=== PATIENT | female | born 1940 | race Caucasian/White ===

== ENCOUNTER → 2016-02-12 | Outpatient (CLI) | payer BC ==
[~2016-02-12] MED LIST: AMLO10CA PO; ANAS1TAB19 PO; ASPCH81X PO; ATOR10TA88 PO; CILO100T PO; HYDR-4715 PO; METO50TA16 PO; PTU50 PO
--- NOTE | 2016-02-13 15:36 | CODING QUERY NO DIAGNOSIS ---
TREATMENT RENDERED WITHOUT A DIAGNOSIS 39 To promote full compliance with coding requirements relating to patient care, physician participation is requested in all cases of station mechanic uncertainty. Please assist us with providing a diagnosis/symptom for the test(s) below: A diagnosis/symptom was not documented on your Order. A valid diagnosis/symptom is required to bill all insurances. Please remember that we are unable to code a diagnosis of rule out, probable, possible, questionable, or suspected. DOS 02/12/16 Tests that require a diagnosis: * DEXA SCAN DIAGNOSIS: Provider Signature: Date: Thank you Ginger Sullivan [facility] Information Management Once completed, please kindly fax back to [phone] For questions please call [phone]
--- NOTE | 2016-03-04 14:28 | CODING QUERY MEDICAL NECESSITY ---
SUPPORTING DIAGNOSIS NEEDED Dr. Jimenez, A supporting diagnosis is required for the test/procedure performed on this patient in order for us to be reimbursed by the patient's insurance. Please provide a supporting diagnosis for the following test/procedure listed below next to the test name along with your signature. *If there is no additional diagnosis for this patient that would support the following test/procedure please document that below next to the test/procedure. Test(s)/Procedure(s) that require a supporting diagnosis: * ([id number]) DXA BONE DENSITY, AXIAL DIAGNOSIS: DATE OF SERVICE: 02/12/16 Provider Signature: Date: Thank you Harlan Lynn [facility] Information Management Once completed, please kindly fax back to [phone] For questions please call [phone]
== END | disposition home or self-care (01) ==
LOC: C.MAMM 10:56
PROVIDERS: ATTEND Surgery
DX: Z13.820 Encounter for screening for osteoporosis (principal); Z85.3 Personal history of malignant neoplasm of breast

== ENCOUNTER → 2016-03-12 | Outpatient (CLI) | payer BC ==
[~2016-03-12] MED LIST changes: +OPTIRAY 320 IV PRN
--- NOTE | 2016-03-12 12:28 | DIAGNOSTIC IMAGING REPORT ---
CT ANGIOGRAM OF THE NECK COMBO CLINICAL HISTORY: Carotid artery stenosis. COMPARISON STUDY: CT angiogram the neck dated 10/01/2015. TECHNIQUE: Before and following the IV administration of 119 of Optiray 320, CT angiogram of the neck was performed from the aortic arch to the skull base. Images are reviewed in the axial, sagittal, and coronal planes. 3-D MIPS images are created and assessed. IV contrast was administered without complication. All measurements were calculated based on NASCET criteria. CT DOSE: 859.82 mGy.cm FINDINGS: Thoracic aorta: There is evidence carotid calcification of the imaged thoracic aorta. Visualized portions of the thoracic aorta are normal in caliber. The aortic arch demonstrates standard 3-vessel anatomy. 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 Subclavian arteries: Widely patent bilaterally. Right carotid arterial system: The right common carotid artery is widely patent, as are the right internal and external arteries. There is diminished contrast present within the distal right internal carotid artery within the intracranial right internal carotid artery, likely secondary to high-grade stenosis of the right innominate artery. Left carotid arterial system: The left common carotid artery is widely patent, as on the left internal and external carotid arteries. High-grade stenosis seen on 10/01/2015 has resolved, likely secondary to interval surgical intervention and mild irregularity of the vessel suggests postoperative change. There is high-grade stenosis present within the proximal external carotid artery (greater than 50%). This is best seen on axial image #306. Vertebral arteries: The vertebral arteries are widely patent bilaterally noting left-sided dominance. No dissection is seen. Intracranial vasculature: Visualized intracranial vessels at the skull base appear patent. Jugular veins: Widely patent bilaterally. Brain parenchyma: The visualized brain parenchyma the skull base is within normal limits noting mild age-related involutional change. Lung apices: Advanced emphysema is present in the upper lobes. Partially imaged upper lobe lung parenchyma is otherwise clear as visualized. Soft tissues: The visualized pharyngeal soft tissues are normal in appearance noting angiographic phase technique. The oropharyngeal airway appears widely patent. There are scattered subcentimeter thyroid nodules. The salivary glands are normal in appearance. No cervical lymphadenopathy is seen. Postoperative change is noted in the soft tissues of left neck. Skeletal structures: The visualized calvarium at the skull base appears intact. The imaged cervical spine is within normal limits. IMPRESSION: 1. The left internal carotid artery is widely patent, which represents a change from 10/01/2015. This is likely secondary to interval surgical intervention. 2. 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 3. The right carotid arterial system is widely patent. There is asymmetrically diminished contrast within the distal right internal carotid artery. This is likely related to the critical stenosis at the origin of the right innominate artery. 4. Advanced emphysema. 5. There is focal stenosis (greater than 50%) present in the left external carotid artery. Electronically signed by: Donnie Redding M.D. 03/12/2016 12:26 PM Dictated Date/Time: 03/12/2016 12:13 PM
== END | disposition home or self-care (01) ==
LOC: C.CTS 10:19
PROVIDERS: ATTEND Surgery Vascular Surgery
DX: I65.23 Occlusion and stenosis of bilateral carotid arteries (principal); J43.9 Emphysema, unspecified

== ENCOUNTER → 2016-06-04 | Outpatient (CLI) | payer BC ==
[~2016-06-04] MED LIST changes: +ATOR10TA82 PO; -ATOR10TA88 PO; -OPTIRAY 320 IV PRN
--- NOTE | 2016-06-04 14:56 | MAMMOGRAPHY REPORT ---
BILATERAL DIGITAL DIAGNOSTIC MAMMOGRAM TOMOSYNTHESIS WITH CAD: 06/04/2016 CLINICAL HISTORY: History of right breast cancer status post lumpectomy 2012. Short interval follow -up of right breast calcifications. Also due for routine mammography of the left breast. The patie nt reports no current complaints. TECHNIQUE: Breast tomosynthesis in addition to standard 2D mammography was performed. Current study was also evaluated with a Computer Aided Detection (CAD) system. Bilateral CC and MLO 2-D and crystal synthesis images and spot magnification right cc and ML views were obtained. COMPARISON: Comparison is made to exams dated: 12/03/2015 mammogram, 06/02/2015 mammogram, 05/29/2014 ultrasound, 05/29/2014 mammogram, 11/22/2013 mammogram, and 05/23/2013 ultrasound - [facility]. BREAST COMPOSITION: The tissue of both breasts is heterogeneously dense, which may obscure small ma sses. FINDINGS: There are stable postoperative changes in the right upper outer quadrant posteriorly from prior lumpectomy, including stable density, architectural distortion, and surgical clips at the lump ectomy bed. Spot magnification views again demonstrate at least 2 round loosely grouped benign-appe aring calcifications at the lumpectomy bed, which are stable dating back to the May 2015 exam. A coarse benign rim calcification is also seen at the lumpectomy bed. The calcifications are probably benign given the morphology and 1 year of stability. The remainder of both breasts are stable compared to prior exams, without suspicious masses, calcifi cations, or areas of architectural distortion noted. IMPRESSION: ACR-BI-RADS CATEGORY 3: PROBABLY BENIGN Loosely grouped round benign-appearing calcifications at the lumpectomy bed in the right upper outer quadrant are stable dating back to the May 2015 exam, and are probably benign. Recommend bilater al diagnostic tomosynthesis mammograms in 12 months, to confirm 2 years of stability of the right br east calcifications and for routine mammography of the left breast. The patient has been verbally notified of the results. Approximately 10% of breast cancers are not detected with mammography. A negative mammographic repor t should not delay biopsy if a clinically suggestive mass is present. Maribel Anaya M.D. ah/:06/04/2016 11:16:28 [employer]: Yoselin TORRES(Elsa)(M), [facility] letter sent: Follow Up Recommended 3 BI-RADS Code: ACR-BI-RADS Category 3: Probably Benign
== END | disposition home or self-care (01) ==
LOC: C.MAMM 10:18
PROVIDERS: ATTEND Surgery
DX: R92.1 Mammographic calcification found on diagnostic imaging of breast (principal); Z85.3 Personal history of malignant neoplasm of breast

== ENCOUNTER 2018-02-17 14:57 | Inpatient (IN) ==
[2018-02-17] MEDS ORDERED: ALBUT/IPRATROP 3MG/0.5MG NEB 3 ML VIAL INH STA (15:24)
[2018-02-17 15:57] LABS: Base Excess VBG 2.4 mEq/L; HCO3 VBG 28 mmol/L; PCO2 VBG 45 mmHg (38-50); PO2 VBG 29 mmHg; pH VBG 7.41 (7.36-7.41)
--- NOTE | 2018-02-17 15:58 | XRay Report ---
XR chest 1V portable CLINICAL HISTORY: Shortness of breath. COMPARISON STUDY: Chest radiograph December 22, 2015. FINDINGS: Interstitial thickening is noted. There are moderate bilateral pleural effusions with bibas ilar opacities. There is no pneumothorax. Mild cardiomegaly is noted. IMPRESSION: Interstitial pulmonary edema with moderate bilateral pleural effusions and bibasilar opac ities which favor atelectasis. Electronically signed by: Jaiden Ruiz M.D. 02/17/2018 3:56 PM
[2018-02-17 16:02] LABS: Oxygen Saturation VBG < 60.0 %
[2018-02-17] MEDS ORDERED: FUROSEMIDE 40 MG/4 ML VIAL IV STA (16:03)
[2018-02-17] MEDS ORDERED: NITROGLYCERIN 2% OINTMENT 30GM TUBE EXT STA (16:03)
[2018-02-17 16:04] LABS: Basophils # (auto) 0.01 K/uL (0-0.2); Basophils % (auto) 0.2 %; Eosinophils # (auto) 0.04 K/uL (0-0.5); Eosinophils % (auto) 0.8 %; Hematocrit (blood only) 42.5 % (37-47); Hemoglobin 13.2 g/dL (12.0-16.0); Immature Granulocytes # (auto) 0.01 K/uL (0.00-0.02); Immature Granulocytes % (auto) 0.2 %; Lymphocytes # (auto) 0.83 K/uL (1.2-3.4); Lymphocytes % (auto) 16.6 %; Mean Corpuscular Hgb Conc 31.1 g/dL (32-36); Mean Corpuscular Volume 94.9 fL (80-100); Mean Platelet Volume 10.4 fL (7.4-10.4); Monocytes # (auto) 0.32 K/uL (0.11-0.59); Monocytes % (auto) 6.4 %; Neutrophils # (auto) 3.78 K/uL (1.4-6.5); Neutrophils % (auto) 75.8 %; Platelet Count 213 K/uL (130-400); RDW Coefficient of Variation 15.3 % (11.5-14.5); RDW Standard Deviation 52.9 fL (36.4-46.3); Red Blood Count 4.48 M/uL (4.2-5.4); White Blood Count 4.99 K/uL (4.8-10.8)
[2018-02-17 16:11] LABS: Albumin Level 3.3 gm/dl (3.4-5.0); BUN Creatinine Ratio 15.8 (10-20); Creatinine Clr Calc Pharmacy 43.4 ml/min; Est GFR (African American) 62.5; Est GFR (Non-African American) 53.9; Magnesium 2.4 mg/dl (1.8-2.4); Potassium 3.9 mmol/L (3.5-5.1)
--- NOTE | 2018-02-17 16:11 | Emergency Department Note ---
Entered by Lora Alcaraz acting as a scribe for History of Present Illness General Chief complaint: Referred by Doctor Stated complaint: LOW OXYGEN LEVEL Time Seen by Provider: 02/17/18 15:16 Source: patient History of Present Illness Provider complaint: low Oxygen levels Onset (ago): hour(s) (today) Location: chest Quality: + other (low Oxygen levels) Associated symptoms: + loss of appetite, + shortness of breath and + weakness; no chest pain, no fever/chills and no nausea/vomiting The patient is a 77 year old female who presents to the Emergency Room with low Oxygen levels today. The patient states that she was at Dr. Orona's office. She states that she has felt short of breath and weak over the last 2 weeks. The patient also reports that she has not had an appetite over the last 2 weeks. The patient states that she does not think that she was febrile. The patient denies having chest pain or vomiting. She states that she does not normally wear Oxygen. The patient reports that she was a smoker but states that she was never diagnosed with emphysema, COPD, or asthma. She states that she follows with Dr. Orona for her blood pressure. The patient also denies a history of heart failure, a blood clot in a leg or lung, or pulmonary edema. Per notes, the patient has been short of breath for 2 weeks and was hypoxic in the office with leg edema, and sent over for a work up. Per notes, the patient' s sats were about 80% in the office. Home Medications Home Medications Medication Instructions Recorded Confirmed Type amlodipine-benazepril [Lotrel] 1 cap PO DAILY 02/17/18 02/17/18 History aspirin [Aspirin Low Dose] 81 mg PO DAILY 02/17/18 02/17/18 History atorvastatin 40 mg PO PM 02/17/18 02/17/18 History cilostazol 100 mg PO BID 02/17/18 02/17/18 History hydralazine 10 mg PO BID 02/17/18 02/17/18 History metoprolol tartrate 50 mg PO BID 02/17/18 02/17/18 History propylthiouracil 150 mg PO BID 02/17/18 02/17/18 History Allergies Allergy/AdvReac Type Severity Reaction Status Date / Time No Known Allergies Allergy Unverified 02/17/18 16:06 Past Med/Surg History Medical History Breast cancer (Acute) Hypertension Surgical History History of left-sided carotid endarterectomy Family History Other No pertinent family history Social History Current Living Situation: Spouse Current Living Situation Comment: WITH ( HAS ALZHEIMERS) Other Information That Helps Us Care for You: No Feels Safe at Home: Yes Safety Concerns: Feels Safe At This Time Smoking Status: Former smoker Hx Alcohol Use: Yes Alcohol type: wine Alcohol Intake Frequency: holidays/ special occasions only Hx Substance Use: No Beliefs That Will Affect Care: None Communication Ability: Effective Review of Systems See HPI for pertinent positives & negatives. and A total of 10 systems reviewed and were otherwise negative Physical Exam Vital Signs Vital Signs - 24 hr 02/17/18 15:06 02/17/18 15:46 02/17/18 16:17 Temperature 36.5 C Temperature Source Oral Sepsis Recent Fever Within 48 Hours No Sepsis New/Unexplained Change in Mental Status No Sepsis Action Taken by Nursing No Action Required Pulse Rate 85 Pulse Rate [Right Finger] 76 Pulse Rhythm Regular Pulse Rhythm [Right Finger] Pulse Strength Normal Pulse Strength [Right Finger] Respiratory Rate 20 24 Respiratory Effort / Characteristics Non-Labored Spontaneous Respiratory Depth Normal Respiratory Pattern Regular Blood Pressure 108/52 L Blood Pressure [Left Arm] 137/57 L Blood Pressure Mean 70 Blood Pressure Mean [Left Arm] 83 Blood Pressure Position Sitting Blood Pressure Position [Left Arm] Pulse Oximetry 62 L 94 95 Oxygen Delivery Method Room Air Nasal Cannula Nasal Cannula Oxygen Flow Rate 5 5 02/17/18 17:14 02/17/18 19:21 02/17/18 20:35 Temperature 36.5 C Temperature Source Oral Sepsis Recent Fever Within 48 Hours Sepsis New/Unexplained Change in Mental Status Sepsis Action Taken by Nursing Pulse Rate Pulse Rate [Right Finger] 86 78 79 Pulse Rhythm Pulse Rhythm [Right Finger] Regular Pulse Strength Pulse Strength [Right Finger] Normal Respiratory Rate 26 H 18 Respiratory Effort / Characteristics Non-Labored Spontaneous Short of Breath SOB on Exertion Non-Labored Spontaneous Respiratory Depth Normal Respiratory Pattern Regular Blood Pressure Blood Pressure [Left Arm] 133/50 L 128/48 L Blood Pressure Mean Blood Pressure Mean [Left Arm] 77 74 Blood Pressure Position Blood Pressure Position [Left Arm] Lying Pulse Oximetry 94 92 92 Oxygen Delivery Method Nasal Cannula Nasal Cannula Oxygen Flow Rate 5 5 GENERAL: Patient is in no acute distress. HEENT: No acute trauma, normocephalic atraumatic, mucous membranes moist, no nasal congestion, no scleral icterus. NECK: No stridor, no adenopathy, no meningismus, trachea is midline. LUNGS: Some slightly diminished breath sounds. Breath sounds are equal. Crackles at the right base. No respiratory distress. HEART: 2/6 systolic murmur. Regular rate and rhythm. ABDOMEN: Soft, nontender, bowel sounds positive, no hernias, no peritonitis. EXTREMITIES: No cyanosis, mild bilateral pedal edema slightly worse on the right , full range of motion of all the joints without pain or difficulty, no signs for acute trauma. NEUROLOGIC: Oriented x 3, no acute motor or sensory deficits, no focal weakness. SKIN: No rash, no jaundice, no diaphoresis. Course 1518: Past medical records reviewed. The patient was evaluated in room C7, and a complete history and physical examination were performed. 1614: I updated the patient. She verbalized agreement and understanding of the treatment plan. 1728: I discussed the patient's case with Dr. Estrella Poon who will evaluate the patient for further management. Consultations Consultation #1: Dr. Estrella Poon Time: 17:28 Administered Medications Albuterol (Duoneb) 3 ml NEB QIDR LEVI Stop: 03/19/18 19:59 Last Admin: 02/17/18 20:33 Dose: 3 ml Atorvastatin Calcium (Lipitor) 40 mg PO PM LEVI Stop: 03/19/18 20:59 Last Admin: 02/17/18 21:13 Dose: 40 mg Cilostazol (Pletal) 100 mg PO BID LEVI Stop: 03/19/18 20:59 Last Admin: 02/17/18 21:13 Dose: 100 mg Heparin Sodium (Porcine) (Heparin Sodium (Porcine)) 5,000 units SQ Q12 LEVI Stop: 03/19/18 20:59 Last Admin: 02/17/18 21:14 Dose: 5,000 units Ioversol (Optiray 320 100ml) 92 ml IV ONCE PRN PRN Reason: Interaction Checking Stop: 02/21/18 16:46 Last Admin: 02/17/18 16:47 Dose: 92 ml Metoprolol Tartrate (Lopressor) 50 mg PO BID LEVI Stop: 03/19/18 20:59 Last Admin: 02/17/18 21:13 Dose: 50 mg Nitroglycerin (Nitro-Bid 2%) 1 inch EXT Q6H LEVI Stop: 02/18/18 13:59 Last Admin: 02/17/18 21:14 Dose: 1 inch Propylthiouracil (Ptu) 150 mg PO BID LEVI Stop: 03/19/18 20:59 Last Admin: 02/17/18 21:13 Dose: 150 mg Discontinued Medications Albuterol (Duoneb) 3 ml INH NOW STA Stop: 02/17/18 15:25 Last Admin: 02/17/18 15:50 Dose: 3 ml Furosemide (Lasix) 40 mg IV NOW STA Stop: 02/17/18 16:04 Last Admin: 02/17/18 16:13 Dose: 40 mg Nitroglycerin (Nitro-Bid 2%) 1 inch EXT NOW STA Stop: 02/17/18 16:04 Last Admin: 02/17/18 16:13 Dose: 1 inch Medical Decision Making Differential Diagnosis The patient is a 77 year old female who presents to the ED with low oxygen levels. Differential diagnosis includes CHF, pneumonia, pneumothorax, bronchitis , PE, anemia, influenza, and [place]. Medical Records Attestation: I reviewed the patient's medical records. Home Medications Current Medication List: was personally reviewed by me Laboratory Data Attestation: I reviewed the patient's lab results. Result diagrams: 02/17/18 15:37 02/17/18 15:37 Lab Results 02/17/18 02/17/18 02/17/18 Range/Units 15:37 15:37 15:37 WBC 4.99 (4.8-10.8) K/uL RBC 4.48 (4.2-5.4) M/uL Hgb 13.2 (12.0-16.0) g/dL Hct 42.5 (37-47) % MCV 94.9 (80-100) fL MCH 29.5 (25-34) pg MCHC 31.1 L (32-36) g/dL RDW Std Deviation 52.9 H (36.4-46.3) fL RDW Coeff of Armani 15.3 H (11.5-14.5) % Plt Count 213 (130-400) K/uL MPV 10.4 (7.4-10.4) fL Immature Gran % (Auto) 0.2 % Neut % (Auto) 75.8 % Lymph % (Auto) 16.6 % [place] % (Auto) 6.4 % Eos % (Auto) 0.8 % Baso % (Auto) 0.2 % Immature Gran # (Auto) 0.01 (0.00-0.02) K/uL Neut # (Auto) 3.78 (1.4-6.5) K/uL Lymph # (Auto) 0.83 L (1.2-3.4) K/uL [place] # (Auto) 0.32 (0.11-0.59) K/uL Eos # (Auto) 0.04 (0-0.5) K/uL Baso # (Auto) 0.01 (0-0.2) K/uL PT 10.5 (9.0-12.0) Seconds INR 1.0 (0.9-1.1) APTT 33.4 H (21.0-31.0) Seconds PTT Ratio 1.3 VBG pH (7.36-7.41) VBG pCO2 (38-50) mmHg VBG pO2 mmHg VBG HCO3 mmol/L VBG O2 Saturation % VBG Base Excess mEq/L Barometric Pressure mm/Hg Sodium 141 (136-145) mmol/L Potassium 3.9 (3.5-5.1) mmol/L Chloride 107 (98-107) mmol/L Carbon Dioxide 25 (21-32) mmol/L Anion Gap 9.0 (3-11) BUN 16 (7-18) mg/dl Creatinine 1.00 (0.6-1.2) mg/dl Est Cr Clr Drug Dosing 43.4 ml/min Est GFR ( Amer) 62.5 Est GFR (Non-Af Amer) 53.9 BUN/Creatinine Ratio 15.8 (10-20) Glucose 92 (70-99) mg/dl Calcium 9.0 (8.5-10.1) mg/dl Magnesium 2.4 (1.8-2.4) mg/dl Total Bilirubin 1.5 H (0.2-1) mg/dl AST 22 (15-37) U/L ALT 26 (12-78) U/L Alkaline Phosphatase 71 (45-117) U/L Troponin I 0.018 (0-0.045) ng/ml NT-Pro-B Natriuret Pep 1647 (0-1800) pg/ml Total Protein 7.5 (6.4-8.2) gm/dl Albumin 3.3 L (3.4-5.0) gm/dl Globulin 4.2 H (2.5-4.0) gm/dl Albumin/Globulin Ratio 0.8 L (0.9-2) TSH 5.260 H (0.300-4.500) uIu/ml Free T4 0.79 L (0.8-1.6) ng/dl Influenza Type A (PCR) (Neg) Influenza Type B (PCR) (Neg) 02/17/18 02/17/18 02/17/18 Range/Units 15:37 15:40 15:42 WBC (4.8-10.8) K/uL RBC (4.2-5.4) M/uL Hgb (12.0-16.0) g/dL Hct (37-47) % MCV (80-100) fL MCH (25-34) pg MCHC (32-36) g/dL RDW Std Deviation (36.4-46.3) fL RDW Coeff of Armani (11.5-14.5) % Plt Count (130-400) K/uL MPV (7.4-10.4) fL Immature Gran % (Auto) % Neut % (Auto) % Lymph % (Auto) % [place] % (Auto) % Eos % (Auto) % Baso % (Auto) % Immature Gran # (Auto) (0.00-0.02) K/uL Neut # (Auto) (1.4-6.5) K/uL Lymph # (Auto) (1.2-3.4) K/uL [place] # (Auto) (0.11-0.59) K/uL Eos # (Auto) (0-0.5) K/uL Baso # (Auto) (0-0.2) K/uL PT (9.0-12.0) Seconds INR (0.9-1.1) APTT (21.0-31.0) Seconds PTT Ratio VBG pH 7.41 (7.36-7.41) VBG pCO2 45 (38-50) mmHg VBG pO2 29 mmHg VBG HCO3 28 mmol/L VBG O2 Saturation < 60.0 % VBG Base Excess 2.4 mEq/L Barometric Pressure 739.0 mm/Hg Sodium (136-145) mmol/L Potassium (3.5-5.1) mmol/L Chloride (98-107) mmol/L Carbon Dioxide (21-32) mmol/L Anion Gap (3-11) BUN (7-18) mg/dl Creatinine (0.6-1.2) mg/dl Est Cr Clr Drug Dosing ml/min Est GFR ( Amer) Est GFR (Non-Af Amer) BUN/Creatinine Ratio (10-20) Glucose (70-99) mg/dl Calcium (8.5-10.1) mg/dl Magnesium (1.8-2.4) mg/dl Total Bilirubin (0.2-1) mg/dl AST (15-37) U/L ALT (12-78) U/L Alkaline Phosphatase (45-117) U/L Troponin I (0-0.045) ng/ml NT-Pro-B Natriuret Pep (0-1800) pg/ml Total Protein (6.4-8.2) gm/dl Albumin (3.4-5.0) gm/dl Globulin (2.5-4.0) gm/dl Albumin/Globulin Ratio (0.9-2) TSH Cancelled (0.300-4.500) uIu/ml Free T4 (0.8-1.6) ng/dl Influenza Type A (PCR) Neg for Influ A (Neg) Influenza Type B (PCR) Neg for Influ B (Neg) Imaging Data Radiologist's Impression: Radiology results as stated below per my review and the radiologist's interpretation: XR chest 1V portable CLINICAL HISTORY: Shortness of breath. COMPARISON STUDY: Chest radiograph December 22, 2015. FINDINGS: Interstitial thickening is noted. There are moderate bilateral pleural effusions with bibasilar opacities. There is no pneumothorax. Mild cardiomegaly is noted. IMPRESSION: Interstitial pulmonary edema with moderate bilateral pleural effusions and bibasilar opacities which favor atelectasis. Electronically signed by: Jaiden Ruiz M.D. 02/17/2018 3:56 PM CHEST CTA for PULMONARY ARTERIES CT DOSE: 457.48 mGycm HISTORY: Pulmonary embolus TECHNIQUE: Multiaxial CT images of the chest were performed following the intravenous administration of contrast to evaluate the pulmonary arteries. Maximal intensity projection images were also obtained. A dose lowering technique was utilized adhering to the principles of ALARA. COMPARISON STUDY: Chest 02/17/2018. FINDINGS: Partially visualized 11 mm hypodense focus within the spleen. Punctate calcified granuloma within the liver. Mild thickening of the adrenal glands which is likely age-related. There are moderate bilateral pleural effusions. A few calcifications within the left thyroid lobe. There are 2 hypodense nodules within the right thyroid lobe with the largest measuring 9 mm. The esophagus is normal in course and caliber. Postoperative changes within the upper outer quadrant of the right breast. The heart is mildly enlarged. No pericardial effusion. Subcentimeter mediastinal lymph nodes do not meet CT criteria for pathologic involvement. There are also a few mildly enlarged bilateral hilar lymph nodes. Dominant right hilar lymph node measures 1 cm. Calcified left hilar lymph nodes. The main pulmonary arteries are mildly dilated. No suspicious lytic or blastic osseous lesions. The central airways are patent. No pneumothorax. Interlobular septal thickening with groundglass densities within the lungs. This favors bone edema. Consolidation within the base of the bilateral lower lobes. This is nonspecific but favors compressive atelectasis from the pleural effusions. A pneumonia could also have a similar appearance but is considered less likely. Calcified granuloma within the left upper lobe. Questionable nodules within the right upper lobe and right lower lobe measuring 4 mm. These are seen on images 153 and 145. Moderate calcified plaque within the aorta and proximal great vessels. 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 The thoracic aorta is normal in caliber with no evidence for dissection. The respiratory motion artifact results in near nondiagnostic evaluation of the majority of the segmental and subsegmental pulmonary arteries. However, there are no definite filling defects within the visualized pulmonary arteries to suggest pulmonary embolus. IMPRESSION: 1. No definite evidence for pulmonary embolus with limitations as described above. 2. Cardiomegaly, moderate bilateral pleural effusions, and pulmonary edema. 3. Consolidation within the bases of the bilateral lower lobes. This favors compressive atelectasis from the pleural effusions. A pneumonia could also have a similar appearance in the appropriate clinical setting. 4. Mildly enlarged bilateral hilar lymph nodes which are nonspecific. This could be related to the pulmonary edema. 5. There appear to be 2 subcentimeter indeterminate nodules within the right lung with the largest measuring 4 mm. Please refer to the chart below for recommended follow-up. 6. Additional findings as described above Please refer to below summary of Fleischner criteria recommendations for follow- up of incidental CT nodules (Alessandra Glass, Guidelines for management of small pulmonary nodules detected on CT scans: A statement from the Fleischner Society , Radiology 237: [phone].) SOLID NODULES Solitary nodule size: <6 mm * Low risk patients: no follow-up needed * high risk patients: optional CT at 12 months Solitary nodule size: 6-8 mm * Low risk patients: follow-up at 6-12 months, then consider further follow- up at 18-24 months * high risk patients: initial follow-up CT at 6-12 months and then at 18-24 months if no change Solitary nodule size: >8 mm * either low or high risk patients - consider follow-up CT at 3 months, and/or CT-PET, and/or biopsy Multiple nodules size: <6 mm * Low risk patients: no routine follow-up * high risk patients: optional CT at 12 months Multiple nodules size: 6-8 mm * Low risk patients: follow-up at 3-6 months, then consider further follow-up at 18-24 months * high risk patients: follow-up at 3-6 months, then at 18-24 months if no change Multiple nodules size: >8 mm * Low risk patients: follow-up at 3-6 months, then consider further follow-up at 18-24 months * high risk patients: follow-up at 3-6 months, then at 18-24 months if no change Note: newly detected indeterminate nodule in persons 35 years of age or older. * Low risk patients: minimal or absent history of smoking and/or other known risk factors * high risk patients: history of smoking or of other known risk factors (e.g. first degree relative with lung cancer, or exposure to asbestos, radon, uranium) * if a nodule up to 8 mm is partly solid or is ground glass further follow-up is required after 24 months to exclude possible slow growing adenocarcinoma (KELLIE ) SUBSOLID NODULES Solitary pure ground-glass nodule * nodule size <6 mm - no CT follow-up required * nodule size >=6 mm - follow-up CT at 6-12 months, then every 2 years until 5 years Solitary part-solid nodule * nodule size <6 mm - no CT follow-up required * nodule size >=6 mm - follow-up CT at 3-6 months. If unchanged, and solid component remains <6 mm, then annual follow-up for 5 years Multiple subsolid nodules * nodule size <6 mm - follow-up CT at 3-6 months, consider further follow-up at 2 and 4 years if stable * nodule size >=6 mm - follow-up CT at 3-6 months, subsequent management based on the most suspicious nodule(s) Electronically signed by: Rafi Salamanca M.D. 02/17/2018 5:19 PM ECG Data Attestation: I personally reviewed and interpreted this ECG as follows: Indication: SOB/dyspnea Rate (beats per minute): 76 Rhythm: normal sinus Findings: + other (old septal infarct); no PVC and no ST elevation Blood Pressure Blood Pressure Findings: Low blood pressure Blood Pressure Disposition: further management by hospitalist MDM Narrative There is no leukocytosis or worrisome anemia. No significant electrolyte abnormality or kidney failure. No coagulopathy. VBG did not show acidosis but her O2 level was low. No evidence for hepatitis. EKG showed a sinus rhythm, no evidence for acute ischemia. Cardiac enzyme testing x1 was not consistent with acute cardiac injury. Chest film does show evidence for heart failure, no pneumothorax or obvious pneumonia. Influenza testing was negative. Chest CT shows heart failure and effusions, no evidence for PE. The patient presents hypoxic. She was given facemask and then eventually nasal cannula O2 with improvement of her O2 level. She was given Nitropaste and IV Lasix, both given to treat heart failure. Patient is currently resting comfortably. I do think a hospital stay is warranted. I did speak with the patient and case management. The on-call hospitalist was consulted. Impression & Plan Hypoxia, CHF (congestive heart failure), Pedal edema Discharge Plan Visit Data *Final* Discharge Date/Time: 02/17/18 18:41 Chief Complaint: Referred by Doctor Stated Complaint: LOW OXYGEN LEVEL ED Provider: Donnie Villegas Discharge Problem: Hypoxia, CHF (congestive heart failure), Pedal edema Patient Disposition: Admitted As Inpatient Discharge Instructions Interventions: ED Discharge Assessment Last Done: 02/17/18 18:41 The scribe's documentation has been prepared under my direction and personally reviewed by me in its entirety. I confirm that the note above accurately reflects all work, treatment, procedures, and medical decision making performed by me.
[2018-02-17 16:16] LABS: Albumin Globulin Ratio 0.8 (0.9-2); Bilirubin,Total 1.5 mg/dl (0.2-1); Globulin 4.2 gm/dl (2.5-4.0); Total Protein 7.5 gm/dl (6.4-8.2); Troponin I 0.018 ng/ml (0-0.045)
[2018-02-17 16:18] LABS: Partial Thromboplastin Ratio 1.3; Partial Thromboplastin Time 33.4 Seconds (21.0-31.0); Prothrombin Time 10.5 Seconds (9.0-12.0)
[2018-02-17] MEDS ORDERED: IOVERSOL 100ml IV PRN (16:47)
[2018-02-17 17:07] LABS: Influenza A virus by PCR Neg for Influ A (Neg); Influenza B virus by PCR Neg for Influ B (Neg)
--- NOTE | 2018-02-17 17:21 | CT Scan Report ---
CHEST CTA for PULMONARY ARTERIES CT DOSE: 457.48 mGycm HISTORY: Pulmonary embolus TECHNIQUE: Multiaxial CT images of the chest were performed following the intravenous administration of contrast to evaluate the pulmonary arteries. Maximal intensity projection images were also obtaine d. A dose lowering technique was utilized adhering to the principles of ALARA. COMPARISON STUDY: Chest 02/17/2018. FINDINGS: Partially visualized 11 mm hypodense focus within the spleen. Punctate calcified granuloma within the liver. Mild thickening of the adrenal glands which is likely age-related. There are modera te bilateral pleural effusions. A few calcifications within the left thyroid lobe. There are 2 hypode nse nodules within the right thyroid lobe with the largest measuring 9 mm. The esophagus is normal in course and caliber. Postoperative changes within the upper outer quadrant of the right breast. The h eart is mildly enlarged. No pericardial effusion. Subcentimeter mediastinal lymph nodes do not meet C T criteria for pathologic involvement. There are also a few mildly enlarged bilateral hilar lymph nod es. Dominant right hilar lymph node measures 1 cm. Calcified left hilar lymph nodes. The main pulmona ry arteries are mildly dilated. No suspicious lytic or blastic osseous lesions. The central airways a re patent. No pneumothorax. Interlobular septal thickening with groundglass densities within the lung s. This favors bone edema. Consolidation within the base of the bilateral lower lobes. This is nonspe cific but favors compressive atelectasis from the pleural effusions. A pneumonia could also have a si milar appearance but is considered less likely. Calcified granuloma within the left upper lobe. Quest ionable nodules within the right upper lobe and right lower lobe measuring 4 mm. These are seen on im ages 153 and 145. Moderate calcified plaque within the aorta and proximal great vessels. There appear s to be moderate to severe stenosis involving the origin of the brachiocephalic artery and mild to mo derate stenosis within the left common carotid and left subclavian artery origins. The thoracic aorta is normal in caliber with no evidence for dissection. The respiratory motion artifact results in pamela r nondiagnostic evaluation of the majority of the segmental and subsegmental pulmonary arteries. John geno, there are no definite filling defects within the visualized pulmonary arteries to suggest pulmon eric embolus. IMPRESSION: 1. No definite evidence for pulmonary embolus with limitations as described above. 2. Cardiomegaly, moderate bilateral pleural effusions, and pulmonary edema. 3. Consolidation within the bases of the bilateral lower lobes. This favors compressive atelectasis f rom the pleural effusions. A pneumonia could also have a similar appearance in the appropriate clinic al setting. 4. Mildly enlarged bilateral hilar lymph nodes which are nonspecific. This could be related to the pu lmonary edema. 5. There appear to be 2 subcentimeter indeterminate nodules within the right lung with the largest me asuring 4 mm. Please refer to the chart below for recommended follow-up. 6. Additional findings as described above Please refer to below summary of Fleischner criteria recommendations for follow-up of incidental CT n odules (Alessandra Glass, Guidelines for management of small pulmonary nodules detected on CT scans: A sta tement from the Fleischner Society, Radiology 237: [phone].) SOLID NODULES Solitary nodule size: <6 mm * Low risk patients: no follow-up needed * high risk patients: optional CT at 12 months Solitary nodule size: 6-8 mm * Low risk patients: follow-up at 6-12 months, then consider further follow-up at 18-24 months * high risk patients: initial follow-up CT at 6-12 months and then at 18-24 months if no change Solitary nodule size: >8 mm * either low or high risk patients - consider follow-up CT at 3 months, and/or CT-PET, and/or biopsy Multiple nodules size: <6 mm * Low risk patients: no routine follow-up * high risk patients: optional CT at 12 months Multiple nodules size: 6-8 mm * Low risk patients: follow-up at 3-6 months, then consider further follow-up at 18-24 months * high risk patients: follow-up at 3-6 months, then at 18-24 months if no change Multiple nodules size: >8 mm * Low risk patients: follow-up at 3-6 months, then consider further follow-up at 18-24 months * high risk patients: follow-up at 3-6 months, then at 18-24 months if no change Note: newly detected indeterminate nodule in persons 35 years of age or older. * Low risk patients: minimal or absent history of smoking and/or other known risk factors * high risk patients: history of smoking or of other known risk factors (e.g. first degree relative with lung cancer, or exposure to asbestos, radon, uranium) * if a nodule up to 8 mm is partly solid or is ground glass further follow-up is required after 24 m onths to exclude possible slow growing adenocarcinoma (KELLIE) SUBSOLID NODULES Solitary pure ground-glass nodule * nodule size <6 mm - no CT follow-up required * nodule size >=6 mm - follow-up CT at 6-12 months, then every 2 years until 5 years Solitary part-solid nodule * nodule size <6 mm - no CT follow-up required * nodule size >=6 mm - follow-up CT at 3-6 months. If unchanged, and solid component remains <6 mm, then annual follow-up for 5 years Multiple subsolid nodules * nodule size <6 mm - follow-up CT at 3-6 months, consider further follow-up at 2 and 4 years if sta ble * nodule size >=6 mm - follow-up CT at 3-6 months, subsequent management based on the most suspiciou s nodule(s) Electronically signed by: Rafi Salamanca M.D. 02/17/2018 5:19 PM
--- NOTE | 2018-02-17 17:36 | History & Physical Report ---
Date of Service February 17, 2018 Assessment & Plan (1) Acute heart failure: The exact cause of her acute heart failure is unknown at this time the patient will be given intravenous Lasix, nitroglycerin paste for 1 day, maintaining her metoprolol to an NICOLETTE inhibitor any troponins having a pending echocardiogram and having a cardiology consultation (2) Acute respiratory failure with hypoxia: Patient has acute respiratory failure with hypoxia does have significant chest x-ray changes of heart failure and pleural effusion changes but she also has a significant smoking history quitting in 1995. Previous preop x-rays do show large lung volumes and she may have underlying COPD which is now made worse by these new acute problems. To this end we will add duo nebs to her therapy augmenting her oxygen and diuresing her consideration for thoracentesis should be undertaken if she does not improve. She is not wheezing she just has diminished breath sounds and rales on presentation I already spoke to her about possibly using CPAP if she has tired from breathing so frequently Patient does have JVD present however initial BNP is not elevated (3) Hypothyroidism: Patient takes propylthiouracil for hyperthyroidism for "years" a TSH is pending (4) Peripheral artery disease: Pletal and aspirin will be continued for her peripheral artery disease as well as atorvastatin 40 certainly this speaks to the possibility of ischemic heart disease (5) DVT prophylaxis: Heparin used for DVT prevention (6) Elevated bilirubin: This will be repeated in the morning History of Present Illness Primary Care Provider: Carlos Arias MD Patient had approximately 2-week history of increasing dyspnea on exertion. She denies any dietary or medication indiscretion. She had no chest pain along the way. She never been told she had a history of a weak heart, heart valve problems ,or stiff heart. She typically takes medications for hypertension including an NICOLETTE inhibitor metoprolol hydralazine Is a profound acute respiratory distress with hypoxia upon presentation requiring nonrebreather with diuresis she is down to 5 L denies any significant lower extremity edema she has known vascular patient having had a left carotid endarterectomy and taking Pletal for peripheral artery disease supervised by Dr. Islas she typically follows Dr. Reece Biswas for cardiology Allergies Allergy/AdvReac Type Severity Reaction Status Date / Time No Known Allergies Allergy Unverified 02/17/18 16:06 Home Medications Home Medications Medication Instructions Recorded Confirmed Type amlodipine-benazepril [Lotrel] 1 cap PO DAILY 02/17/18 02/17/18 History aspirin [Aspirin Low Dose] 81 mg PO DAILY 02/17/18 02/17/18 History atorvastatin 40 mg PO PM 02/17/18 02/17/18 History cilostazol 100 mg PO BID 02/17/18 02/17/18 History hydralazine 10 mg PO BID 02/17/18 02/17/18 History metoprolol tartrate 50 mg PO BID 02/17/18 02/17/18 History propylthiouracil 150 mg PO BID 02/17/18 02/17/18 History Past Med/Surg History Medical History Breast cancer (Acute) Hypertension Surgical History History of left-sided carotid endarterectomy Family History Other No pertinent family history Social History Current Living Situation: Spouse Current Living Situation Comment: WITH ( HAS ALZHEIMERS) Other Information That Helps Us Care for You: No Feels Safe at Home: Yes Safety Concerns: Feels Safe At This Time Smoking Status: Former smoker Hx Alcohol Use: Yes Alcohol type: wine Alcohol Intake Frequency: holidays/ special occasions only Hx Substance Use: No Beliefs That Will Affect Care: None Communication Ability: Effective Review of Systems ROS: well nourished well developed. She is thin but markedly dyspneic No double vision blurry vision No problems with speech or swallowing No palpitations, chest pain or pressure Markedly short of breath No abdominal pain nausea vomiting diarrhea changes in appetite or weight No burning urine urine frequency or changes in color No focal joint pain she does have leg muscle pain with exertion consistent with her known claudication No skin rashes or oral lesions No unusual bruising or bleeding No focused back pain or numbness or loss of strength No changes in memory or confusion Physical Exam 2 Vital Signs (Past 24 Hours): Last Vital Signs Temp 36.5 C 02/17/18 15:06 Pulse 86 02/17/18 17:14 Resp 26 H 02/17/18 17:14 BP 133/50 L 02/17/18 17:14 Pulse Ox 94 02/17/18 17:14 The patient appeared weak tired fatigued and in moderate distress Vital signs as documented. Markedly hypoxic Head exam is unremarkable. Neck is with jugular venous distension, thyromegaly, or lymphademopathy Lungs are decreased breath sounds at bases with rales just above Cardiac exam reveals regular systolic murmurs heard at the upper sternal border no gallops are heard Abdominal exam reveals normal bowel sounds, no masses, no organomegaly Extremities are only with trace edema and both pedal pulses reduced Neurologic exam is A&Ox3, no focal deficits, strength is equal bilateral Skin is warm Dry without bruises or lesions Results & Data Diagnostic Findings cta IMPRESSION: 1. No definite evidence for pulmonary embolus with limitations as described above. 2. Cardiomegaly, moderate bilateral pleural effusions, and pulmonary edema. 3. Consolidation within the bases of the bilateral lower lobes. This favors compressive atelectasis from the pleural effusions. A pneumonia could also have a similar appearance in the appropriate clinical setting. 4. Mildly enlarged bilateral hilar lymph nodes which are nonspecific. This could be related to the pulmonary edema. 5. There appear to be 2 subcentimeter indeterminate nodules within the right lung with the largest measuring 4 mm. Please refer to the chart below for recommended follow-up.
[2018-02-17] MEDS ORDERED: NITROGLYCERIN SL 0.4 MG/TAB TAB SL PRN (19:36)
[2018-02-17] MEDS ORDERED: MoRPHine SULFATE 2 MG/ML CARP IV PRN (19:36)
[2018-02-17] MEDS ORDERED: ACETAMINOPHEN 325 MG TAB PO PRN (19:36)
[2018-02-17] MEDS ORDERED: ONDANSETRON INJ 2 MG/ML 2 ML VIAL IV PRN (19:36)
[2018-02-17] MEDS: ALBUT/IPRATROP 3MG/0.5MG NEB 3 ML VIAL NEB SCH (20:33)
[2018-02-17 20:40] LABS: T4 Free Thyroxine 0.79 ng/dl (0.8-1.6)
[2018-02-17] MEDS: PROPYLTHIOURACIL 50 MG TAB PO SCH (21:13)
[2018-02-17] MEDS: CILOSTAZOL 100 MG TAB PO SCH (21:13)
[2018-02-17] MEDS: ATORVASTATIN 40 MG TAB PO SCH (21:13)
[2018-02-17] MEDS: METOPROLOL TARTRATE 50 MG TAB PO SCH (21:13)
[2018-02-17] MEDS: NITROGLYCERIN 2% OINTMENT 30GM TUBE EXT SCH (21:14)
[2018-02-17] MEDS: HEPARIN SOD 5,000 UNIT/0.5 ML VIAL SQ SCH (21:14)
[2018-02-18] MEDS: NITROGLYCERIN 2% OINTMENT 30GM TUBE EXT SCH ×2 (04:41→12:40)
[2018-02-18 06:17] LABS: Hematocrit (blood only) 37.3 % (37-47); Hemoglobin 11.8 g/dL (12.0-16.0); Mean Corpuscular Hgb Conc 31.6 g/dL (32-36); Mean Corpuscular Volume 95.2 fL (80-100); Mean Platelet Volume 9.9 fL (7.4-10.4); Platelet Count 181 K/uL (130-400); RDW Coefficient of Variation 15.4 % (11.5-14.5); RDW Standard Deviation 53.1 fL (36.4-46.3); Red Blood Count 3.92 M/uL (4.2-5.4); White Blood Count 5.04 K/uL (4.8-10.8)
[2018-02-18 06:44] LABS: BUN Creatinine Ratio 14.5 (10-20); Calcium 8.1 mg/dl (8.5-10.1); Creatinine Clr Calc Pharmacy 40.6 ml/min; Est GFR (African American) 57.6; Est GFR (Non-African American) 49.7; Magnesium 2.2 mg/dl (1.8-2.4); Potassium 3.6 mmol/L (3.5-5.1)
[2018-02-18 06:49] LABS: Bilirubin,Total 1.3 mg/dl (0.2-1); Troponin I 0.023 ng/ml (0-0.045)
[2018-02-18] MEDS: ALBUT/IPRATROP 3MG/0.5MG NEB 3 ML VIAL NEB SCH ×4 (07:26→19:10)
[2018-02-18] MEDS ORDERED: PERFLUTREN LIPID MICROSPHERE (DEFINITY) IV ONE (07:53)
[2018-02-18] MEDS: HEPARIN SOD 5,000 UNIT/0.5 ML VIAL SQ SCH ×2 (08:16→20:10)
[2018-02-18] MEDS: ASPIRIN 81 MG ECTAB PO SCH (08:16)
[2018-02-18] MEDS: METOPROLOL TARTRATE 50 MG TAB PO SCH ×2 (08:17→19:44)
[2018-02-18] MEDS: PROPYLTHIOURACIL 50 MG TAB PO SCH ×2 (08:17→20:11)
[2018-02-18] MEDS: CILOSTAZOL 100 MG TAB PO SCH ×2 (08:17→20:11)
[2018-02-18] MEDS: FUROSEMIDE 40 MG in SYRINGE 0 ML IV SCH ×2 (08:25→17:36)
[2018-02-18] MEDS ORDERED: LISINOPRIL 5 MG TAB PO SCH (09:00)
--- NOTE | 2018-02-18 12:44 | Hospitalist Progress Note ---
Date of Service February 18, 2018 Assessment & Plan (1) Acute heart failure: Continue diuresis with IV Lasix - nitroglycerin paste for 1 day, - maintaining her metoprolol and add NICOLETTE inhibitor - troponins negative - echo pending - cardiology consult (2) Acute respiratory failure with hypoxia: - large pleural effusions on CT - Previous preop x-rays do show large lung volumes and she may have underlying COPD which is now made worse by these new acute problems. - Continue duonebs and supplementary oxygen - will consider thoracentesis if not improving with diuresis today (3) Hypothyroidism: Patient takes propylthiouracil for hyperthyroidism for "years" - TSH 5.26, T4 0.79 - will decrease ptu from 150 bid to 100 bid (4) Peripheral artery disease: Pletal and aspirin will be continued for her peripheral artery disease as well as atorvastatin 40 certainly this speaks to the possibility of ischemic heart disease (5) DVT prophylaxis: Heparin used for DVT prevention (6) Elevated bilirubin: trending down from 1.5 Subjective Ms. Mcmahon is not sob while at rest but her oxygen requirements are significantly more than usual for her requiring 5L NC. She has no cough. She denies any other symptoms Review of Systems All systems reviewed & are unremarkable except as noted in HPI & below Physical Exam 2 Vital Signs (Past 24 Hours): Last Vital Signs Temp 36.7 C 02/18/18 07:11 Pulse 67 02/18/18 11:36 Resp 18 02/18/18 11:36 BP 114/53 L 02/18/18 07:11 Pulse Ox 94 02/18/18 11:36 Physical Exam: General: no distress Eyes: normal inspection, PERLL Respiratory: chest non tender, crackles in bases, no respiratory distress, no accessory muscle use Cardiac: regular rate and rhythm, no rub or gallop, systolic murmur, no edema, no jvd GI/: active bowel sounds, no abd pain or tenderness, soft, non distended Extremities: normal range of motion, normal strength, non tender Neuro/Psych: alert and oriented x 3, normal mood and affect Skin: normal color, dry Results & Data Laboratory Results Abnormal lab results 02/17/18 02/17/18 02/17/18 Range/Units 15:37 15:37 15:37 RBC (4.2-5.4) M/uL Hgb (12.0-16.0) g/dL MCHC 31.1 L (32-36) g/dL RDW Std Deviation 52.9 H (36.4-46.3) fL RDW Coeff of Armani 15.3 H (11.5-14.5) % Lymph # (Auto) 0.83 L (1.2-3.4) K/uL APTT 33.4 H (21.0-31.0) Seconds Calcium (8.5-10.1) mg/dl Total Bilirubin 1.5 H (0.2-1) mg/dl Albumin 3.3 L (3.4-5.0) gm/dl Globulin 4.2 H (2.5-4.0) gm/dl Albumin/Globulin Ratio 0.8 L (0.9-2) TSH 5.260 H (0.300-4.500) uIu/ml Free T4 0.79 L (0.8-1.6) ng/dl 02/18/18 02/18/18 Range/Units 06:01 06:01 RBC 3.92 L (4.2-5.4) M/uL Hgb 11.8 L (12.0-16.0) g/dL MCHC 31.6 L (32-36) g/dL RDW Std Deviation 53.1 H (36.4-46.3) fL RDW Coeff of Armani 15.4 H (11.5-14.5) % Lymph # (Auto) (1.2-3.4) K/uL APTT (21.0-31.0) Seconds Calcium 8.1 L (8.5-10.1) mg/dl Total Bilirubin 1.3 H (0.2-1) mg/dl Albumin (3.4-5.0) gm/dl Globulin (2.5-4.0) gm/dl Albumin/Globulin Ratio (0.9-2) TSH (0.300-4.500) uIu/ml Free T4 (0.8-1.6) ng/dl
--- NOTE | 2018-02-18 12:53 | Cardiology Consultation ---
Date of Consultation February 18, 2018 Assessment & Plan (1) Hypoxia: She was quite hypoxic on admission and that is consistent with her symptoms. It sounds as though is relatively recent and I am not impressed with the amount of heart failure on her chest x-ray or on exam and her BNP was not elevated. I suspect this is not primarily heart failure causing hypoxia, she may have some type of underlying lung disease and her chest x-ray suggests that as well. Perhaps she has some element of right heart failure causing edema. Although she does not recall being told she has lung disease I think she does, her exam is consistent with emphysema. (2) CHF (congestive heart failure): She may have had some slight fluid retention, today she has no edema and she does not have rales on exam. I would not over diurese, her laboratory studies do not suggest that as yet. (3) Peripheral artery disease: She has known vascular disease including a prior carotid endarterectomy, therefore she has atherosclerosis. She may well have coronary artery disease in her electrocardiogram suggests a possible anteroseptal myocardial infarction but there does not appear to be anything acute on her ECG or it with her enzymes and I would not pursue further evaluation at this time. History of Present Illness Reason for Consultation: Hypoxia, possible CHF Attending Physician: Gerry Sherman MD History of Present Illness This is a very pleasant 77-year-old woman who follows with Dr. Mcdonald for what sounds like left ventricular hypertrophy although I do not have records to review. She does not have a history of coronary artery disease to her knowledge. She does have a history of vascular disease and has had a left- sided carotid endarterectomy in the past. She has a long smoking history but she does not recall being diagnosed with lung disease from it. She presents with a several day history of progressive shortness of breath and edema, in the emergency room she was noted to be significantly hypoxic. She was therefore admitted and diuresed, she does feel that her edema has improved, she feels better on oxygen but is not been very active. She denies chest discomfort. Allergies Allergy/AdvReac Type Severity Reaction Status Date / Time No Known Allergies Allergy Unverified 02/17/18 16:06 Home Medications Home Medications Medication Instructions Recorded Confirmed Type amlodipine-benazepril [Lotrel] 1 cap PO DAILY 02/17/18 02/17/18 History aspirin [Aspirin Low Dose] 81 mg PO DAILY 02/17/18 02/17/18 History atorvastatin 40 mg PO PM 02/17/18 02/17/18 History cilostazol 100 mg PO BID 02/17/18 02/17/18 History hydralazine 10 mg PO BID 02/17/18 02/17/18 History metoprolol tartrate 50 mg PO BID 02/17/18 02/17/18 History propylthiouracil 150 mg PO BID 02/17/18 02/17/18 History Patient History Medical History Breast cancer (Acute) Hypertension Surgical History History of left-sided carotid endarterectomy Family History Other No pertinent family history Social History Current Living Situation: Spouse Current Living Situation Comment: WITH ( HAS ALZHEIMERS) Other Information That Helps Us Care for You: No Feels Safe at Home: Yes Safety Concerns: Feels Safe At This Time Smoking Status: Former smoker Hx Alcohol Use: Yes Alcohol type: wine Alcohol Intake Frequency: holidays/ special occasions only Hx Substance Use: No Beliefs That Will Affect Care: None Communication Ability: Effective Review of Systems Negative for lightheadedness, dizziness, palpitations, presyncope or syncope. Recent dyspnea on exertion, no exertional chest pain. No orthopnea or PND, recent relatively mild peripheral edema. No GI complaints, no bleeding. No neurologic complaints such as TIA or stroke symptoms. Other systems negative. Physical Exam 2 Vital Signs (Past 24 Hours): Last Vital Signs Temp 36.7 C 02/18/18 07:11 Pulse 67 02/18/18 11:36 Resp 18 02/18/18 11:36 BP 114/53 L 02/18/18 07:11 Pulse Ox 94 02/18/18 11:36 Physical Exam: Constitutional: Alert, cooperative and in no distress. HEENT: Unremarkable Neck: No jugular venous distention, carotid pulses are normal and equal bilaterally without bruits. Pulmonary: Clear to auscultation bilaterally but with markedly diminished breath sounds throughout. Cardiac: Regular rhythm with no murmur, gallop or rub. Abdomen: Soft, nontender with normal bowel sounds. Extremities: No edema. Distal pulses intact. Neurologic: No focal findings. Gait is steady. Skin: No rash, ecchymoses or petechiae. Results & Data Diagnostic Findings Telemetry: Sinus rhythm, no significant arrhythmia Electrocardiogram on admission shows sinus rhythm at 76 bpm, a possible old anteroseptal microinfarction but no acute changes. A repeat electrocardiogram today is similar. _ (1) CHF (congestive heart failure) Heart failure chronicity: acute Heart failure type: unspecified Qualified Code(s): I50.9 - Heart failure, unspecified
--- NOTE | 2018-02-18 16:59 | XRay Report ---
XR chest 1V portable CLINICAL HISTORY: left sided thoracentesis COMPARISON STUDY: 02/17/2018 FINDINGS: There is radiographic evidence of congestive failure/fluid overload. There are bilateral pl eural effusions right greater than left. The left pleural effusion has decreased in volume when jasmina red the prior study. There is no pneumothorax status post thoracentesis. Right basilar opacities, lik mariaelena represent progressive atelectasis.[ IMPRESSION: 1. Continued radiographic evidence of congestive failure/fluid overload 2. No evidence of pneumothorax status post thoracentesis Electronically signed by: Pollo Recinos M.D. 02/18/2018 4:57 PM
[2018-02-18 18:05] LABS: Mononuclear WBC Pleural 97.4 %; Polynuclear WBC Pleural 2.6 %; RBC Pleural Fluid (A) < 3000 /uL; Source Pleural Fluid LEFT LUNG; WBC Pleural Fluid (A) 283 /uL
--- NOTE | 2018-02-18 19:39 | Pulmonary Consultation ---
Date of Consultation February 18, 2018 Assessment & Plan (1) Acute heart failure: Impression: 1. Diastolic heart failure, grade 3, with acute exacerbation. 2. Pulmonary hypertension in the range of 50 PAS, secondary to above, WHO class II. 3. bilateral pleural effusion, left greater than right, status post thoracentesis with 650 mL removed. 4.History of breast CA. Plan: 1. Continue with management of CHF as you are doing. 2. Fluid analysis appears to be transudate, however noted that the patient has 97% monocytes. Awaiting cytology. 3. No need for thoracentesis on the right. 4. Serum total protein and LDH are pending. Thank you, will follow. History of Present Illness Reason for Consultation: Pleural effusion Requesting Physician: Dr. Sherman. Attending Physician: Gerry Sherman MD History of Present Illness Dear Dr. Sherman, Dear Leann: Thank you for the kind referral of this [place] to pulmonary service. This is a 77-year-old female with a history of congestive heart failure, history of breast cancer in the past, peripheral arterial disease, had a history of smoking in the past quit over 20 years ago, presented to the hospital with increasing shortness of breath and increased swelling in her lower extremities, the patient did not have any cough or sputum production, she did not have orthopnea or paroxysmal nocturnal symptoms, no back pain either. She noticed that her movement has been very difficult due to increased respiratory distress. The patient did not have similar symptoms in the past according to her. She does have peripheral arterial disease where she was treated with cilostazol, and she takes PTU for hyperactive thyroid. She denies any nausea or vomiting, no change in bowel movements or urine habits , no increase in abdominal girth, no increase in body weight, no dizziness or syncope, no visual disturbances. The rest of her review of system including 12 systems was unremarkable. Family history does not contribute to her current illness, she had history of smoking in the past and quit over 20 years ago with over [id number] history of smoking. Secondhand exposure to smoking as well. She does not have any industrial work. Allergies Allergy/AdvReac Type Severity Reaction Status Date / Time No Known Allergies Allergy Unverified 02/17/18 16:06 Home Medications Home Medications Medication Instructions Recorded Confirmed Type amlodipine-benazepril [Lotrel] 1 cap PO DAILY 02/17/18 02/17/18 History aspirin [Aspirin Low Dose] 81 mg PO DAILY 02/17/18 02/17/18 History atorvastatin 40 mg PO PM 02/17/18 02/17/18 History cilostazol 100 mg PO BID 02/17/18 02/17/18 History hydralazine 10 mg PO BID 02/17/18 02/17/18 History metoprolol tartrate 50 mg PO BID 02/17/18 02/17/18 History propylthiouracil 150 mg PO BID 02/17/18 02/17/18 History Patient History Medical History Breast cancer (Acute) Hypertension Surgical History History of left-sided carotid endarterectomy Family History Other No pertinent family history Social History marital status: Current Living Situation: Spouse Current Living Situation Comment: WITH ( HAS [employer]ERS) Other Information That Helps Us Care for You: No Feels Safe at Home: Yes Safety Concerns: Feels Safe At This Time Smoking Status: Former smoker Hx Alcohol Use: Yes Alcohol type: wine Alcohol Intake Frequency: holidays/ special occasions only Hx Substance Use: No Beliefs That Will Affect Care: None Communication Ability: Effective Review of Systems Review of system as above. Physical Exam 2 Vital Signs (Past 24 Hours): Last Vital Signs Temp 36.9 C 02/18/18 15:36 Pulse 67 02/18/18 19:11 Resp 16 02/18/18 19:11 BP 123/62 02/18/18 17:02 Pulse Ox 91 02/18/18 19:11 Physical Exam: Vital signs remained stable, O2 sat is 91% on 3 L via nasal cannula, S1-S2 regular rate and rhythm, distant breath sounds at the bases, abdomen is benign, edema in the periphery noted. Neurologically she is intact. No rash. No swelling in her joints. No oral thrush. Results & Data Laboratory Results Labs revealed stable CBC, and BMP. Pleural fluid showed total protein is 2.4 and LDH is 113. She has 97% mononuclear cells. Diagnostic Findings Chest x-ray prethoracentesis showed pulmonary vascular congestion with cardiomegaly and bilateral pleural effusion. Postthoracentesis showed resolution of the left pleural effusion, continued with pulmonary vascular congestion and cardiomegaly.
--- NOTE | 2018-02-18 19:41 | Procedure Note ---
Procedure Note Date of Service February 18, 2018 Note Thoracentesis was done at the bedside, consent obtained from the patient, agreed to the procedure, risks and benefits explained details. Patient was placed in upright position, under ultrasound guidance, on the left side, the patient had more than 2 cm of pleural fluid thickness on the left, less than that on the right, under strict sterile field, using ultrasound and Seldinger technique, at the level of the eighth intercostal space posteriorly, the skin was prepped with chlorhexidine, and injected with 10 mL of 1% lidocaine, using a scalpel, the catheter was introduced into the left pleural cavity, fluid were removed, 650 mL were removed, appeared to be yellow, sent for analysis, the catheter after that was removed and pressure was applied at the insertion site for 2 minutes, chest x-ray showed no pneumothorax, resolution of the left pleural effusion, no immediate complication, tolerated the procedure very well. Thank you
[2018-02-18] MEDS: ATORVASTATIN 40 MG TAB PO SCH (20:11)
[2018-02-19] MEDS ORDERED: POTASSIUM CHLORIDE 20 MEQ TABCR PO STA ×2 (01:52→09:29)
[2018-02-19] MEDS ORDERED: DIGOXIN 250 MCG in SYRINGE 9 ML IV STA (01:52)
[2018-02-19 02:15] LABS: Basophils # (auto) 0.02 K/uL (0-0.2); Basophils % (auto) 0.3 %; Eosinophils % (auto) 1.7 %; Hematocrit (blood only) 35.3 % (37-47); Immature Granulocytes # (auto) 0.01 K/uL (0.00-0.02); Immature Granulocytes % (auto) 0.2 %; Lymphocytes # (auto) 1.41 K/uL (1.2-3.4); Lymphocytes % (auto) 24.4 %; Mean Corpuscular Volume 93.6 fL (80-100); Mean Platelet Volume 9.7 fL (7.4-10.4); Monocytes # (auto) 0.43 K/uL (0.11-0.59); Monocytes % (auto) 7.4 %; Neutrophils # (auto) 3.82 K/uL (1.4-6.5); Platelet Count 189 K/uL (130-400); RDW Coefficient of Variation 15.2 % (11.5-14.5); RDW Standard Deviation 51.6 fL (36.4-46.3); Red Blood Count 3.77 M/uL (4.2-5.4); White Blood Count 5.79 K/uL (4.8-10.8)
[2018-02-19 02:31] LABS: Mean Corpuscular Hgb Conc 31.2 g/dL (32-36)
[2018-02-19 02:39] LABS: Albumin Globulin Ratio 0.8 (0.9-2); Albumin Level 2.7 gm/dl (3.4-5.0); BUN Creatinine Ratio 16.3 (10-20); Bilirubin,Total 1.3 mg/dl (0.2-1); Calcium 7.9 mg/dl (8.5-10.1); Creatinine Clr Calc Pharmacy 31.5 ml/min; Est GFR (African American) 42.3; Est GFR (Non-African American) 36.5; Globulin 3.2 gm/dl (2.5-4.0); Total Protein 5.9 gm/dl (6.4-8.2)
[2018-02-19] MEDS: ALBUT/IPRATROP 3MG/0.5MG NEB 3 ML VIAL NEB SCH (07:09)
--- NOTE | 2018-02-19 07:26 | XRay Report ---
XR chest 1V portable CLINICAL HISTORY: Dyspnea. COMPARISON STUDY: Chest radiograph February 18, 2018. FINDINGS: Cardiomegaly is unchanged. Mediastinal contours are stable. There is persistent pulmonary e parish. Small bilateral pleural effusions are again noted. There is no pneumothorax. IMPRESSION: 1. Persistent pulmonary edema. 2. Small bilateral pleural effusions. 3. No pneumothorax. Electronically signed by: Jaiden Ruiz M.D. 02/19/2018 7:25 AM
[2018-02-19] MEDS: HEPARIN SOD 5,000 UNIT/0.5 ML VIAL SQ SCH ×2 (08:38→20:06)
[2018-02-19] MEDS: CILOSTAZOL 100 MG TAB PO SCH ×2 (08:38→20:06)
[2018-02-19] MEDS: PROPYLTHIOURACIL 50 MG TAB PO SCH ×2 (08:38→20:07)
[2018-02-19] MEDS: ASPIRIN 81 MG ECTAB PO SCH (08:38)
[2018-02-19] MEDS ORDERED: METOPROLOL TARTRATE 25 MG TAB PO ONE (09:00)
[2018-02-19] MEDS ORDERED: MAGNESIUM SULFATE / D5W 1 GM/100 ML BAG IV ONE (10:00)
[2018-02-19] MEDS ORDERED: ALBUT/IPRATROP 3MG/0.5MG NEB 3 ML VIAL NEB PRN (11:27)
--- NOTE | 2018-02-19 11:29 | Hospitalist Progress Note ---
Date of Service February 19, 2018 Assessment & Plan (1) Acute heart failure: - Diastolic heart failure - Will hold lasix for this morning given pressures - reevaluate this afternoon - nitroglycerin paste for 1 day, - hold NICOLETTE inhibitory for today, reduce metoprolol by half this morning due to low pressures - troponins negative - echo showing grade III DD - cardiology consult (2) Acute respiratory failure with hypoxia: - large pleural effusions on CT - Combination of CHF, pulmonary htn, and COPD - Continue duonebs and supplementary oxygen - consulted pulmonology - patient had thoracentesis on her left side 02/18 which drained 650 mls - supplementary oxygen needs have improved, on 2L down from 5L. Cytology pending (3) Hypothyroidism: Patient takes propylthiouracil for hyperthyroidism for "years" - TSH 5.26, T4 0.79 - will decrease ptu from 150 bid to 100 bid - will need to have follow up TSH drawn in 3-4 weeks (4) Peripheral artery disease: Pletal and aspirin will be continued for her peripheral artery disease as well as atorvastatin 40 certainly this speaks to the possibility of ischemic heart disease (5) DVT prophylaxis: Heparin used for DVT prevention (6) Elevated bilirubin: trending down from 1.5 Subjective Ms. Mcmahon had 3 hours of A.fib RVR overnight last night but is currently back in a SR. Her blood pressures have been low today but she is not feeling symptomatic. Her breathing has improved since her thoracentesis yesterday with reduction in her supplementary oxygen needs. She is complaining of muscle cramps in her feet and hands. Review of Systems All systems reviewed & are unremarkable except as noted in HPI & below Physical Exam 2 Vital Signs (Past 24 Hours): Last Vital Signs Temp 36.6 C 02/19/18 11:10 Pulse 71 02/19/18 11:10 Resp 20 02/19/18 11:10 BP 86/60 L 02/19/18 11:10 Pulse Ox 91 02/19/18 11:10 Physical Exam: General: no distress Eyes: normal inspection, PERLL Respiratory: chest non tender, clear to auscultation, normal breath sounds, no respiratory distress, no accessory muscle use Cardiac: regular rate and rhythm, no rub or gallop, no murmur, no edema, no jvd GI/: active bowel sounds, no abd pain or tenderness, soft, non distended Extremities: normal range of motion, normal strength, non tender Neuro/Psych: alert and oriented x 3, normal mood and affect Skin: normal color, dry Results & Data Laboratory Results Abnormal lab results 02/18/18 02/19/18 02/19/18 Range/Units 19:40 02:01 02:01 RBC 3.77 L (4.2-5.4) M/uL Hgb 11.0 L (12.0-16.0) g/dL Hct 35.3 L (37-47) % MCHC 31.2 L (32-36) g/dL RDW Std Deviation 51.6 H (36.4-46.3) fL RDW Coeff of Armani 15.2 H (11.5-14.5) % Potassium 3.0 L D (3.5-5.1) mmol/L BUN 23 H (7-18) mg/dl Creatinine 1.38 H D (0.6-1.2) mg/dl Glucose 104 H (70-99) mg/dl Calcium 7.9 L (8.5-10.1) mg/dl Total Bilirubin 1.3 H (0.2-1) mg/dl Total Protein 6.3 L 5.9 L (6.4-8.2) gm/dl Albumin 2.7 L (3.4-5.0) gm/dl Albumin/Globulin Ratio 0.8 L (0.9-2)
--- NOTE | 2018-02-19 11:48 | Cardiology Progress Note ---
Date of Service February 19, 2018 Assessment & Plan (1) Hypoxia: She was quite hypoxic on admission and that is consistent with her symptoms. It sounds as though is relatively recent and I am not impressed with the amount of heart failure on her admission chest x-ray or on exam and her BNP was not elevated. I suspect this is not primarily heart failure causing hypoxia , she may have some type of underlying lung disease and her chest x-ray suggests that as well. Perhaps she has some element of right heart failure causing edema. Although she does not recall being told she has lung disease I think she does, her exam is consistent with emphysema. (2) CHF (congestive heart failure): She may have had some slight fluid retention, today she has no edema and she does not have rales on exam. I would not over diurese, her laboratory studies do not suggest that as yet. (3) Peripheral artery disease: She has known vascular disease including a prior carotid endarterectomy, therefore she has atherosclerosis. She may well have coronary artery disease in her electrocardiogram suggests a possible anteroseptal myocardial infarction but there does not appear to be anything acute on her ECG or it with her enzymes and I would not pursue further evaluation at this time. (4) Paroxysmal atrial fibrillation: She had 2-1/2 hours of rapid atrial fibrillation during the night. At that time she was not on her rate control medications, her evening dose of metoprolol had been held therefore that rate probably reflects no medications. She should be on something for rate control, hopefully her normal dose of metoprolol (50 mg twice daily) plus perhaps addition of digoxin 0.125 mg daily will help. I would recommend doing that to see if she has further episodes. Over the long run she should be anticoagulated, since she is on the monitor here and just had a brief run and is on subcutaneous heparin and aspirin I do not think systemic anticoagulation is essential at the moment and it could potentially interfere with other studies if needed. Subjective She feels better today than on admission. During the night she had an episode of rapid atrial fibrillation, she was very aware of the rhythm and does not think that she has had much of it in the past, although she relates similar feelings when she was having thyroid issues. Physical Exam 2 Vital Signs (Past 24 Hours): Last Vital Signs Temp 36.6 C 02/19/18 11:10 Pulse 71 02/19/18 11:10 Resp 20 02/19/18 11:10 BP 86/60 L 02/19/18 11:10 Pulse Ox 91 02/19/18 11:10 Physical Exam: Constitutional: Alert, cooperative and in no distress. Pulmonary: Clear to auscultation bilaterally. Cardiac: Regular rhythm with no murmur, gallop or rub. Abdomen: Soft, nontender with normal bowel sounds. Extremities: No edema. Skin: No rash, ecchymoses or petechiae. Results & Data Diagnostic Findings Telemetry: During the night (starting around 1 AM until 3:30 AM) she had an episode of rapid atrial fibrillation, rate was about 150 bpm on average. No other significant arrhythmia. _ (1) CHF (congestive heart failure) Heart failure chronicity: acute Heart failure type: unspecified Qualified Code(s): I50.9 - Heart failure, unspecified
[2018-02-19] MEDS: IPRATROPIUM BROMIDE/ALBUTEROL respimat INH INH SCH ×3 (13:18→20:05)
--- NOTE | 2018-02-19 15:04 | Pulmonology Progress Note ---
Date of Service February 19, 2018 Assessment & Plan (1) Acute heart failure: Impression: 1. Diastolic heart failure, grade 3, with acute exacerbation. 2. Pulmonary hypertension in the range of 50 PAS, secondary to above, WHO class II. 3. bilateral pleural effusion, left greater than right, status post thoracentesis with 650 mL removed. 4. History of breast CA. Plan: 1. Continue with management of DHF as you are doing. 2. Transudative pleural effusion secondary to heart failure. 3. Follow the cytology of the pleural fluid as it showed 97% monocytes. 4. No need for further thoracentesis. 5. Aggressive diuresis. Thank you for your kind referral, will follow as needed. Subjective Doing better, denies any shortness of breath, no chest pain, she is tolerating 2 L of nasal cannula, her O2 sat remains at 91%. Physical Exam 2 Vital Signs (Past 24 Hours): Last Vital Signs Temp 36.6 C 02/19/18 11:10 Pulse 71 02/19/18 11:10 Resp 20 02/19/18 11:10 BP 86/60 L 02/19/18 11:10 Pulse Ox 91 02/19/18 11:10 Physical Exam: Vital signs are stable with O2 sat of 91% on 2 L, S1-S2 regular rate and rhythm, distant breath sounds bilaterally, abdomen is benign, no edema. Results & Data Laboratory Results Pleural fluid are consistent with transudate rather than exudate. Diagnostic Findings Pulmonary edema with bilateral small pleural effusion consistent with CHF.
[2018-02-19] MEDS ORDERED: DIGOXIN 0.125 MG TAB PO SCH (16:00)
[2018-02-19] MEDS: FUROSEMIDE 20 MG TAB PO SCH (17:05)
[2018-02-19] MEDS: ATORVASTATIN 40 MG TAB PO SCH (20:07)
[2018-02-19] MEDS: METOPROLOL TARTRATE 50 MG TAB PO SCH (20:35)
[2018-02-19] MEDS: POTASSIUM CHLORIDE / WTR 10 MEQ/100 ML PLCT IV SCH ×2 (21:48→23:17)
[2018-02-19] MEDS ORDERED: POTASSIUM CHLORIDE 10 MEQ TABCR PO ONE (22:00)
[2018-02-20] MEDS: POTASSIUM CHLORIDE / WTR 10 MEQ/100 ML PLCT IV SCH ×2 (00:45→02:16)
[2018-02-20 06:52] LABS: Hemoglobin 11.5 g/dL (12.0-16.0); Mean Corpuscular Hgb Conc 31.1 g/dL (32-36); Mean Corpuscular Volume 93.7 fL (80-100); Mean Platelet Volume 9.8 fL (7.4-10.4); Platelet Count 186 K/uL (130-400); RDW Coefficient of Variation 15.2 % (11.5-14.5); Red Blood Count 3.95 M/uL (4.2-5.4); White Blood Count 4.52 K/uL (4.8-10.8)
[2018-02-20 07:36] LABS: BUN Creatinine Ratio 14.5 (10-20); Calcium 8.6 mg/dl (8.5-10.1); Creatinine Clr Calc Pharmacy 40.2 ml/min; Est GFR (African American) 56.9; Est GFR (Non-African American) 49.1; Potassium 4.8 mmol/L (3.5-5.1)
[2018-02-20] MEDS: IPRATROPIUM BROMIDE/ALBUTEROL respimat INH INH SCH ×2 (08:05→13:07)
[2018-02-20] MEDS: PROPYLTHIOURACIL 50 MG TAB PO SCH (08:05)
[2018-02-20] MEDS: CILOSTAZOL 100 MG TAB PO SCH (08:05)
[2018-02-20] MEDS: METOPROLOL TARTRATE 50 MG TAB PO SCH (08:06)
[2018-02-20] MEDS: FUROSEMIDE 20 MG TAB PO SCH (08:06)
[2018-02-20] MEDS: HEPARIN SOD 5,000 UNIT/0.5 ML VIAL SQ SCH (08:06)
[2018-02-20] MEDS: ASPIRIN 81 MG ECTAB PO SCH (08:07)
--- NOTE | 2018-02-20 09:29 | Cardiology Progress Note ---
Date of Service February 20, 2018 She feels much better over the weekend. Her shortness of breath has significantly improved. Her color is improved. Her appetite has improved. She denies any chest pain or chest pressure. She denies any lightheadedness dizziness presyncope syncope. She did have an episode of palpitations Tuesday night into Tuesday. She notes in the past she has had short episodes which are fleeting lasting a couple of seconds but never had an episode like this. She did have atrial fibrillation on the monitor at that time. She is off oxygen this morning her O2 sat at this point is 92%. She has not ambulated in the hallways. She has no lower extremity edema or orthopnea. Physical Exam 2 Vital Signs (Past 24 Hours): Last Vital Signs Temp 36.6 C 02/20/18 07:42 Pulse 83 02/20/18 07:42 Resp 19 02/20/18 07:42 BP 138/60 02/20/18 07:42 Pulse Ox 93 02/20/18 07:42 She is awake alert oriented x3 in no acute distress. Lungs decreased breath sounds in the right base, with marked improvement in the left lung field status post thoracentesis Heart regular rate and rhythm there is a 2 out of 6 crescendo decrescendo murmur which is mid peaking Abdomen soft nontender distended positive bowel sounds Extremities no clubbing cyanosis or edema with decreased skin turgor Psychiatric: Her affect appears appropriate Impressions: 1. Acute diastolic heart failure 2. Significant hypoxemia on admission 3. Status post left internal carotid endarterectomy 12/2015 4. Mildly abnormal to be mean stress echo with mild apical ischemia 10/2015 5. 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 Moderate aortic stenosis 7. Claudication with a left GE of 0.52 8. Hyperlipidemia 9. Hypertension 10. 50 mm difference in blood pressure between her left arm and her right arm 11. Episode of atrial fibrillation this admission which was symptomatic From my standpoint she looks dramatically better. As Dr. magallon had suggested her BNP was only mildly elevated. With diuresis though her appetite is improved and her degree of heart failure has dramatically improved as well suggesting this is likely related to diastolic heart failure. She had a single episode of atrial fibrillation at this point I would not anticoagulate her unless she has more at home. I would stop her digoxin and leave her on beta-blockers. We discussed in detail a low-salt diet and the need for daily weights. We spent 10 minutes going through heart failure education. I would recommend walking in the hallway to see what her pulse ox does with ambulation. She does have significant underlying lung disease. She has diffuse vascular disease and I would use her left arm for her blood pressures as this is the accurate arm given her known significant right innominate stenosis. Once discharge we will arrange for her outpatient follow-up in the next 10 days or so she will need a BMP upon discharge to. I would discharge her on Lasix 20 mg daily and I discussed with her if her weights up by more than 2-3 pounds overnight she can take an additional 20 mg.
--- NOTE | 2018-02-20 17:20 | Discharge Summary ---
Date of Service February 20, 2018 Admission HPI Per Admitting Provider Patient had approximately 2-week history of increasing dyspnea on exertion. She denies any dietary or medication indiscretion. She had no chest pain along the way. She never been told she had a history of a weak heart, heart valve problems ,or stiff heart. She typically takes medications for hypertension including an NICOLETTE inhibitor metoprolol hydralazine Is a profound acute respiratory distress with hypoxia upon presentation requiring nonrebreather with diuresis she is down to 5 L denies any significant lower extremity edema she has known vascular patient having had a left carotid endarterectomy and taking Pletal for peripheral artery disease supervised by Dr. Islas she typically follows Dr. Reece Biswas for cardiology Principal Diagnosis no Discharge Data Allergies Allergy/AdvReac Type Severity Reaction Status Date / Time No Known Allergies Allergy Unverified 02/17/18 16:06 Consultations 02/17/18 17:27 ED Decision to Admit Stat 02/17/18 19:36 Consult Cardiology Routine Consult Case Management - Discharge Planning Routine 02/18/18 12:46 Consult Lung Nodule Program Routine 02/18/18 13:58 Consult Pulmonology Routine 02/19/18 11:52 Consult [facility] rn ccu Routine Ordered Studies 02/17/18 15:24 CT angio chest PE protocol Stat Hospital Course (1) Acute heart failure: (2) Acute respiratory failure with hypoxia: (3) Hypothyroidism: (4) Peripheral artery disease: (5) DVT prophylaxis: (6) Elevated bilirubin: 77-year-old white female admitted on February 17, 2018 because of CHF exacerbation, Acute heart failurem Diastolic heart failure , stable improving, totally 3.3 L negative urine out, Echo showing grade III DD cardiology consult and input appreciated, Continue beta-valentin, Daily Lasix 20 mg p.o., input and output fluid restriction, daily waiting, additional dose of Lasix if getting 2-3 pounds CHF discharge instruction was given to patient and family Acute respiratory failure with hypoxia, large pleural effusions on CT, had thoracentesis see below, hypoxia could be another combination of CHF, pulmonary htn, and COPD Was able to taper off oxygen when at rest however she need oxygen 1-2 L/min is when up and walk, prescription was given for patient to home, to follow-up with PCP to have further evaluation and treatment of hypoxia, taper off oxygen if condition improved consulted pulmonology - patient had thoracentesis on her left side 02/18 which drained 650 mls Pleural fluid culture is negative, however cytology pending PCP please follow-up Hypothyroidism: Patient takes propylthiouracil for hyperthyroidism for "years" - TSH 5.26, T4 0.79, I feel this is in borderline range, propylthiouracil was decrease from 150 bid to 100 bid by my colleague, however I do not feel need to be decreased on April, Advised patient need to need to have follow up TSH drawn in 3-4 weeks , PCP please follow-up Peripheral artery disease: Pletal and aspirin will be continued for her peripheral artery disease as well as atorvastatin 40 certainly this speaks to the possibility of ischemic heart disease DVT prophylaxis: Heparin used for DVT prevention Elevated bilirubin: Likely because of hot congestion which cause liver congestion, Trending down from 1.5 CP please follow-up Subjective upon discharge, Doing well no complaint, Review of Systems upon discharge Constitutional: negative weakness, or fatigue Respiratory: no cough, sputum, wheezing, or dyspnea on exertion Cardiac: No chest pain, No orthopnea, No PND, No claudication, Abdomen: No pain, No nausea, No vomiting, No diarrhea, N Musculoskeletal: No joint pain, No muscle pain, No swelling, : No dysuria, No urinary frequency, No incontinence, No hematuria Neurologic: No paralysis, No weakness, No numbness/tingling, Psychiatric: No depression symptoms, No anhedonism, No anxiety, Heme: No abnormal bleeding/bruising, No clotting problems, Skin: No rash, No itch, No new/changing skin lesions, No color change, No bleeding Physical exam upon discharge: awake alert oriented x3 in no acute distress. Lungs decreased breath sounds in the right base, otherwise on the other lung carpio has good air movement Heart regular rate and rhythm there is a 2 out of 6 crescendo decrescendo murmur which is mid peaking Abdomen soft nontender distended positive bowel sounds Extremities no clubbing cyanosis or edema with decreased skin turgor Psychiatric: affect appears appropriate, no anxiety or depression Lab data upon discharge: Laboratory Results - last 24 hr 02/20/18 02/20/18 06:27 06:27 WBC 4.52 L RBC 3.95 L Hgb 11.5 L Hct 37.0 MCV 93.7 MCH 29.1 MCHC 31.1 L RDW Std Deviation 52.0 H RDW Coeff of Armani 15.2 H Plt Count 186 MPV 9.8 Sodium 137 Potassium 4.8 D Chloride 105 Carbon Dioxide 24 Anion Gap 8.0 BUN 16 Creatinine 1.08 Est Cr Clr Drug Dosing 40.2 Est GFR ( Amer) 56.9 Est GFR (Non-Af Amer) 49.1 BUN/Creatinine Ratio 14.5 Glucose 86 Calcium 8.6 Microbiology 02/18/18 16:00 Pleural Fluid Gram Stain - Final 02/18/18 16:00 Pleural Fluid Aerobic and Anaerobic Culture - Preliminary No growth to date. Total Time Total Time Spent Total Time Spent (In Minutes): 35 Total Time Includes: Examination of the Patient, Discharge Planning, Medication Reconciliation and Communication With Other Providers Discharge Plan Discharge Items Patient Disposition: Home - Self-Care Reason For Visit: ACUTE HEART FAILURE Discharge Diagnosis: chf exac Condition: Fair Discharge Goals: Decrease discomfort, Diagnostic testing, Improve function and Increase independence Activity: Resume your previous activity Non-emergency contact: Primary Care Provider and Assistant Finance Director Call non-emergency contact if: you have any medication questions and your temperature is above 100.5 Diet: Low Sodium (2gm) Fluids: 1500ml (6 cups) Addtl Provider Instructions: you have Acute diastolic heart failure you had Episode of atrial fibrillation this admission which was symptomatic would not anticoagulate for now you need to be on a low-salt diet and the need for daily weights. you need to follow up Dr. Mcdonald in next 10 days we are discharge you on Lasix 20 mg daily if weights up by more than 2-3 pounds overnight you can take an additional 20 mg. the one medicine sent to pharmacy named lisinopril you do not need it, it was error sent you need to follow up with your primary care physician in 3-5 days, need labs of bmp,mag checked in the follwo up visit - take medication as instructed, never overdose or any misuse, or take with alcohol, because misuse of medicine may cause organ damage or , call me , or your primary care physician if have questions of discharge medicaitons. - call your primary care physician, or go to local emergency room if has any fever/chill, chest pain, shortness of breathing, nausea/vomiting/abdominal pain , facial droop/slurry speech/local weakness, or if has any questions. - fall precaution - diet as instructed - you need to follow up with your subspecialist, such as Dr. Mcdonald Call your Primary Care doctor if any of the following symptoms or problems start or get worse: * Shortness of breath or difficulty breathing * Wake up at night short of breath * Chest pain * Cough * Swelling of your hands, feet, or legs * More fatigued or tired with your normal activity * Palpitations - sudden fast heart beats WEIGHT * Weigh yourself every morning after using the bathroom. * Use the same scale. * Wear the same amount of clothing. * Write your weight down on a chart. * Call your Primary Care doctor if you gain more than 2-3 pounds in 1-2 days. MEDICATIONS * Use this discharge instruction sheet for medication instructions. * Take your medications at the time your doctor ordered. * Do not skip a dose of your medicines. * If you miss a dose of medicine, take it as soon as possible, but DO NOT DOUBLE A DOSE. * Read your medicine information when you get home. * Know all of the side effects of your medicine. If in doubt, ask your pharmacist * Call your Primary Care doctor's office if you have any side effects. * Be sure all of your doctors know what medicine and herbs you take (including cold, flu, and herbal medicine). Take the following with you to your follow-up doctor appointments: * Weight Chart * Medication List * List of questions Do not drink excessive alcohol, beer or wine. Prescriptions: New furosemide 20 mg Tablet 20 mg PO DAILY 30 Days Qty: 30 RF: 0 Continue atorvastatin 40 mg Tablet 40 mg PO PM RF: 0 cilostazol 100 mg Tablet 100 mg PO BID RF: 0 propylthiouracil 50 mg Tablet 150 mg PO BID RF: 0 aspirin [Aspirin Low Dose] 81 mg Tablet,Delayed Release (Dr/Ec) 81 mg PO DAILY RF: 0 metoprolol tartrate 50 mg Tablet 50 mg PO BID RF: 0 amlodipine-benazepril [Lotrel] 10-40 mg Capsule 1 cap PO DAILY RF: 0 Discontinued hydralazine 10 mg Tablet 10 mg PO BID RF: 0 Visit Report Forms: [facility] Stand-Alone Forms: [facility] Discharge Orders: Discharge Order (Routine); Ordered 02/20/18 Ordered By: Andrew Hoyos Admission Data Admit Date/Time: 02/17/18 17:56 Attending Provider: Andrew Hoyos Admit Provider: Gerry Sherman Primary Care Provider: Carlos Arias Other Providers: Gerry Sherman ; Reece Mcdonald ; Raudel Ruiz Service: Telemetry Other Interventions: Discharge Summary Assessment (RN) Last Done: 02/20/18 15:31 DC Date/Time DO NOT enter until pt leaves facility: 02/20/18 16:58
== END 2018-02-20 16:58 | disposition home or self-care (01) ==
LOC: ED 14:57 → SUATTDRO 17:56 → 2S 17:56

== ENCOUNTER 2020-11-01 14:45 | Inpatient (IN) ==
[2020-11-01] MEDS ORDERED: ACETAMINOPHEN 325 MG TAB PO STA (15:29)
--- NOTE | 2020-11-01 15:29 | Emergency Department Note ---
History of Present Illness General Chief complaint: Illness Time Seen by Provider: 11/01/20 15:11 History of Present Illness Maximum Pain Intensity: 4 This is an 80-year-old female that presents to the emergency department via ambulance over concerns of fever and UTI. The patient notes that on 09/16/2020 she had a bladder tumor removed by Dr. Chisholm here at [facility]. She has been doing well in the postoperative state. She then notes that she was experiencing then some dysuria and hematuria and increased urinary frequency starting on October 24. She had a urinalysis performed and was started on antibiotics a few days later. She notes that she is currently on a 7-day course of which she believes is Macrobid. She has been compliant with the medication. Her daughter went to see her today and found her sleeping in bed which is quite unusual for her. Ambulance was summoned and brought her for evaluation. Patient although was febrile on arrival denies any fever at home. She denies any chills, nausea, vomiting, chest pain or shortness of breath. She does note some mild suprapubic abdominal discomfort. No antipyretics thus far today. Home Medications Medication Instructions Recorded Confirmed Type amlodipine 10 mg-benazepril 40 mg 1 cap PO QAM 02/17/18 11/01/20 History capsule (Lotrel) aspirin 81 mg tablet,delayed 81 mg PO QAM 02/17/18 11/01/20 History release (Aspirin Low Dose) atorvastatin 40 mg tablet 40 mg PO PM 02/17/18 11/01/20 History metoprolol tartrate 50 mg tablet 50 mg PO BID 02/17/18 11/01/20 History propylthiouracil 50 mg tablet 100 mg PO BID 02/17/18 11/01/20 History cilostazol 50 mg tablet 50 mg PO BID 08/29/20 11/01/20 History albuterol sulfate 90 mcg/actuation 2 puff INHALATION Q6H PRN #18 g 10/03/20 11/01/20 Rx aerosol inhaler furosemide 20 mg tablet (Lasix) 20 mg PO [id number] PRN 10/03/20 11/01/20 History nitrofurantoin 100 mg PO Q12H 7 Days #14 cap 10/27/20 11/01/20 Rx monohydrate/macrocrystals 100 mg capsule (Macrobid) Allergies Allergy/AdvReac Type Severity Reaction Status Date / Time No Known Allergies Allergy Verified 11/01/20 17:01 Past Med/Surg History Medical History (Updated 11/02/20 @ 01:05 by Kun Eaton PA-C) Anxiety Bladder cancer Bladder tumor Breast cancer Dx 7 years ago s/p right lumpectomy- RUE lumpectomy Cardiac murmur 2018 ECHO showed AV sclerosis (no ), mild to moderate mitral annular calcification and mild MS Carotid artery disease s/p left carotid endarterectomy (3 years ago/[facility]), follows with Dr. Islas CHF (congestive heart failure) 2018 Chronic anemia baseline hgb 11's per chart review Graves disease Hyperlipidemia Hypertension Osteoarthritis Paroxysmal atrial fibrillation Single remote episode (suspected r/t nitro patch), no known recurrences, Follows with Dr. Mcdonald Peripheral artery disease Uterine cancer 1995 hysterectomy/radiation Surgical History History of breast biopsy Right History of cataract surgery Right History of cholecystectomy History of flexible sigmoidoscopy History of left-sided carotid endarterectomy History of total hysterectomy with bilateral salpingo-oophorectomy (BSO) Hx of lumpectomy 7 years ago Family History Other No pertinent family history Social History Smoking Status: Former smoker Smoking End Date: 1995; Second Hand Exposure: No; Do You Dip or Chew Tobacco: No; Tobacco Cessation Education Requested by Patient: No Hx Alcohol Use: Yes Alcohol type: wine Hx Substance Use: No Preferred Language: Portuguese Communication Ability: Effective Cashier Receptionist Required: No Beliefs That Will Affect Care: None marital status: Current Living Situation: Alone Current Living Situation Comment: WITH ( HAS ALZHEIMERS) How many Children do You have: 2 Other Information That Helps Us Care for You: No Feels Safe at Home: Yes Safety Concerns: Feels Safe At This Time Assistive Devices: Denture - Upper, Denture - Lower, Glasses and Oxygen - at Night Review of Systems A total of 10 systems reviewed and were otherwise negative Physical Exam Vital Signs Vital Signs - 24 hr 11/01/20 15:00 11/01/20 15:03 11/01/20 15:32 Temperature 38.1 C H Temperature Source Oral Pulse Rate 83 113 H 85 Pulse Rate from SpO2 Sensor 86 Pulse Rhythm Regular Pulse Strength Normal Respiratory Rate 20 24 22 Respiratory Effort / Characteristics Non-Labored Spontaneous Respiratory Depth Normal Respiratory Pattern Regular Blood Pressure 118/45 L 118/45 L Blood Pressure [Left Arm] Blood Pressure Mean 69 69 Blood Pressure Mean [Left Arm] Blood Pressure Position Lying Pulse Oximetry 95 95 95 Oxygen Delivery Method Room Air Room Air Room Air Sepsis Recent Fever Within 48 Hours Yes Sepsis New/Unexplained Change in Mental Status No Sepsis Action Taken by Nursing No Action Required 11/01/20 15:42 11/01/20 15:47 11/01/20 15:50 Temperature Temperature Source Pulse Rate 91 H 85 85 Pulse Rate from SpO2 Sensor 90 85 Pulse Rhythm Pulse Strength Respiratory Rate 20 18 18 Respiratory Effort / Characteristics Non-Labored Spontaneous Respiratory Depth Respiratory Pattern Blood Pressure Blood Pressure [Left Arm] Blood Pressure Mean Blood Pressure Mean [Left Arm] Blood Pressure Position Pulse Oximetry 95 95 95 Oxygen Delivery Method Room Air Room Air Room Air Sepsis Recent Fever Within 48 Hours Sepsis New/Unexplained Change in Mental Status Sepsis Action Taken by Nursing 11/01/20 15:54 11/01/20 16:00 11/01/20 16:24 Temperature Temperature Source Pulse Rate 89 Pulse Rate from SpO2 Sensor 78 Pulse Rhythm Pulse Strength Respiratory Rate 20 20 20 Respiratory Effort / Characteristics Non-Labored Spontaneous Non-Labored Spontaneous Respiratory Depth Respiratory Pattern Blood Pressure Blood Pressure [Left Arm] Blood Pressure Mean Blood Pressure Mean [Left Arm] Blood Pressure Position Pulse Oximetry 93 95 97 Oxygen Delivery Method Room Air Room Air Room Air Sepsis Recent Fever Within 48 Hours Sepsis New/Unexplained Change in Mental Status Sepsis Action Taken by Nursing 11/01/20 16:30 11/01/20 16:37 11/01/20 16:40 Temperature Temperature Source Pulse Rate 86 85 Pulse Rate from SpO2 Sensor 85 Pulse Rhythm Pulse Strength Respiratory Rate 22 18 18 Respiratory Effort / Characteristics Non-Labored Respiratory Depth Respiratory Pattern Blood Pressure Blood Pressure [Left Arm] Blood Pressure Mean Blood Pressure Mean [Left Arm] Blood Pressure Position Pulse Oximetry 95 99 Oxygen Delivery Method Room Air Sepsis Recent Fever Within 48 Hours Sepsis New/Unexplained Change in Mental Status Sepsis Action Taken by Nursing 11/01/20 16:50 11/01/20 17:00 11/01/20 17:06 Temperature Temperature Source Pulse Rate 74 81 Pulse Rate from SpO2 Sensor 76 82 Pulse Rhythm Pulse Strength Respiratory Rate 22 20 Respiratory Effort / Characteristics Non-Labored Spontaneous Respiratory Depth Respiratory Pattern Blood Pressure 96/34 L Blood Pressure [Left Arm] 101/34 L Blood Pressure Mean 54 Blood Pressure Mean [Left Arm] 56 Blood Pressure Position Pulse Oximetry 94 96 Oxygen Delivery Method Room Air Sepsis Recent Fever Within 48 Hours Sepsis New/Unexplained Change in Mental Status Sepsis Action Taken by Nursing 11/01/20 17:12 11/01/20 17:29 11/01/20 17:30 Temperature Temperature Source Pulse Rate 91 H 83 Pulse Rate from SpO2 Sensor 91 H 84 Pulse Rhythm Pulse Strength Respiratory Rate 19 20 20 Respiratory Effort / Characteristics Non-Labored Spontaneous Respiratory Depth Respiratory Pattern Blood Pressure Blood Pressure [Left Arm] Blood Pressure Mean Blood Pressure Mean [Left Arm] Blood Pressure Position Pulse Oximetry 100 99 96 Oxygen Delivery Method Room Air Sepsis Recent Fever Within 48 Hours Sepsis New/Unexplained Change in Mental Status Sepsis Action Taken by Nursing 11/01/20 17:31 11/01/20 18:00 11/01/20 18:03 Temperature Temperature Source Pulse Rate 81 78 Pulse Rate from SpO2 Sensor 82 81 Pulse Rhythm Pulse Strength Respiratory Rate 19 20 20 Respiratory Effort / Characteristics Non-Labored Spontaneous Respiratory Depth Respiratory Pattern Blood Pressure 129/32 L 113/37 L Blood Pressure [Left Arm] Blood Pressure Mean 64 62 Blood Pressure Mean [Left Arm] Blood Pressure Position Pulse Oximetry 98 96 100 Oxygen Delivery Method Room Air Room Air Nasal Cannula Sepsis Recent Fever Within 48 Hours Sepsis New/Unexplained Change in Mental Status Sepsis Action Taken by Nursing VITAL SIGNS - Vital signs and nursing notes were reviewed. Stable, mildly hypotensive. Febrile. GENERAL -80-year-old female appearing her stated age who is in no acute distress. Communicates well with provider and answers questions appropriately. SKIN - Without rashes. No meningeal or petechial rash. HEAD - NC/AT. EYES - PERRL with EOMI bilaterally. Sclera anicteric. EARS - No deformities of external structures noted on gross examination bilaterally. NOSE - Midline and without cyanosis. No epistaxis or purulent drainage noted. MOUTH/OROPHARYNX - Without perioral cyanosis. NECK - Neck with FROM. No nuchal rigidity. LUNGS - Chest wall symmetric without accessory muscle use, intercostals retractions, or central cyanosis. Normal vesicular breath sounds CTA B/L. No wheezes, rales, or rhonchi appreciated. CARDIAC - RRR ABDOMEN - Abdominal contour normal without pulsations or visible masses. BS normoactive all four quadrants. No tenderness, palpable masses, hepatosplenom egaly, or ascites noted. EXTREMITIES - No clubbing or peripheral cyanosis. +5/5 strength noted in UE/LE bilaterally. NEUROLOGIC - Cranial nerves II through XII grossly intact. PSYCH - A&Ox3 and cooperates fully with examiner. Pt is very pleasant and interacts well with examiner. Course Administered Medications Acetaminophen (Acetaminophen 325 Mg Tab) 650 mg PO Q4H PRN PRN Reason: Pain or Fever Stop: 12/01/20 20:12 Last Admin: 11/01/20 21:42 Dose: 650 mg Documented by: [id number] Atorvastatin Calcium (Atorvastatin 40 Mg Tab) 40 mg PO PM LEVI Stop: 12/01/20 20:59 Last Admin: 11/01/20 21:42 Dose: 40 mg Documented by: [id number] Cilostazol (Cilostazol 100 Mg Tab) 50 mg PO BID LEVI Stop: 12/01/20 20:59 Last Admin: 11/01/20 21:42 Dose: 50 mg Documented by: [id number] Lactated Ringer's (Lr) 1,000 mls @ 100 mls/hr IV .Q10H LEVI Stop: 12/01/20 18:59 Last Admin: 11/01/20 21:06 Dose: 100 mls/hr Documented by: [id number] Metoprolol Tartrate (Metoprolol Tartrate 50 Mg Tab) 50 mg PO BID LEVI Stop: 12/01/20 20:59 Last Admin: 11/01/20 21:43 Dose: 50 mg Documented by: [id number] Propylthiouracil (Propylthiouracil 50 Mg Tab) 100 mg PO BID LEVI Stop: 12/01/20 20:59 Last Admin: 11/01/20 21:42 Dose: 100 mg Documented by: [id number] Discontinued Medications Acetaminophen (Acetaminophen 325 Mg Tab) 650 mg PO NOW STA Stop: 11/01/20 15:30 Last Admin: 11/01/20 16:17 Dose: 650 mg Documented by: [id number] Sodium Chloride (Nss 1000ml) 1,000 mls @ 500 mls/hr IV .Q2H LEVI Stop: 11/01/20 17:29 Last Infusion: 11/01/20 18:16 Dose: 0 mls/hr Documented by: [id number] Admin: 11/01/20 16:13 Dose: 500 mls/hr Documented by: [id number] Ceftriaxone Sodium (Rocephin) 1,000 mg in 50 mls @ 100 mls/hr IV NOW STA Stop: 11/01/20 18:15 Last Infusion: 11/01/20 18:44 Dose: 0 mls/hr Documented by: [id number] Admin: 11/01/20 18:02 Dose: 100 mls/hr Documented by: [id number] Medical Decision Making Laboratory Data Result diagrams: 11/01/20 16:09 11/01/20 16:09 Lab Results 11/01/20 11/01/20 11/01/20 Range/Units 15:56 15:56 15:56 WBC (4.8-10.8) K/uL RBC (4.2-5.4) M/uL Hgb (12.0-16.0) g/dL Hct (37-47) % MCV (80-100) fL MCH (25-34) pg MCHC (32-36) g/dL Plt Count (130-400) K/uL Immature Gran % (Auto) % Neut % (Auto) % Lymph % (Auto) % [place] % (Auto) % Eos % (Auto) % Baso % (Auto) % Neut # (Auto) (1.4-6.5) K/uL Lymph # (Auto) (1.2-3.4) K/uL [place] # (Auto) (0.11-0.59) K/uL Eos # (Auto) (0-0.5) K/uL Baso # (Auto) (0-0.2) K/uL Immature Gran # (Auto) (0.00-0.02) K/uL Absolute Nucleated RBC (0-0) K/uL Nucleated RBC % (auto) % Polychromasia Hypochromasia PT (9.0-12.0) Seconds INR (0.9-1.1) APTT (21.0-31.0) Seconds PTT Ratio VBG pH (7.36-7.41) VBG pCO2 (38-50) mmHg VBG pO2 mmHg VBG HCO3 mmol/L VBG O2 Saturation % VBG Base Excess mEq/L Barometric Pressure mm/Hg Sodium (136-145) mmol/L Potassium (3.5-5.1) mmol/L Chloride (98-107) mmol/L Carbon Dioxide (21-32) mmol/L Anion Gap (3-11) BUN (7-18) mg/dl Creatinine (0.6-1.2) mg/dl Est Cr Clr Drug Dosing ml/min Est GFR ( Amer) ml/min Est GFR (Non-Af Amer) ml/min BUN/Creatinine Ratio (10-20) Glucose (70-99) mg/dl Lactate (0.4-2.0) mmol/L Calcium (8.5-10.1) mg/dl Magnesium (1.8-2.4) mg/dl Total Bilirubin (0.2-1) mg/dl AST (15-37) U/L ALT (12-78) U/L Alkaline Phosphatase (45-117) U/L Lactate Dehydrogenase (84-246) U/L Troponin I (0-0.045) ng/ml Total Protein (6.4-8.2) gm/dl Albumin (3.4-5.0) gm/dl Globulin (2.5-4.0) gm/dl Albumin/Globulin Ratio (0.9-2) Procalcitonin (0-0.5) ng/ml Urine Color Urine Appearance (Clear) Urine pH (4.5-7.5) Ur Specific [place] (1.000-1.030) Urine Protein (Negative) Urine Glucose (UA) (Negative) Urine Ketones (Negative) Urine Blood (Negative) Urine Nitrite (Negative) Urine Bilirubin (Negative) Urine Urobilinogen (Negative) Ur Leukocyte Esterase (Negative) Urine RBC (0-4) /hpf Urine WBC (0-5) /hpf Ur Epithelial Cells (0-5) /lpf Urine Bacteria (Negative) COVID-19 Eval Order Covid19 at [facility] SARS-CoV-2 (PCR) NEGATIVE (Negative) Influ A Molecular Assay Negative (Negative) Influ B Molecular Assay Negative (Negative) 11/01/20 11/01/20 11/01/20 Range/Units 16:09 16:09 16:09 WBC 4.96 (4.8-10.8) K/uL RBC 1.60 L (4.2-5.4) M/uL Hgb 4.3 L* (12.0-16.0) g/dL Hct 13.6 L* (37-47) % MCV 85.0 (80-100) fL MCH 26.9 (25-34) pg MCHC 31.6 L (32-36) g/dL Plt Count 248 (130-400) K/uL Immature Gran % (Auto) 0.2 % Neut % (Auto) 72.4 % Lymph % (Auto) 15.7 % [place] % (Auto) 11.3 % Eos % (Auto) 0.2 % Baso % (Auto) 0.2 % Neut # (Auto) 3.59 (1.4-6.5) K/uL Lymph # (Auto) 0.78 L (1.2-3.4) K/uL [place] # (Auto) 0.56 (0.11-0.59) K/uL Eos # (Auto) 0.01 (0-0.5) K/uL Baso # (Auto) 0.01 (0-0.2) K/uL Immature Gran # (Auto) 0.01 (0.00-0.02) K/uL Absolute Nucleated RBC 0.02 H (0-0) K/uL Nucleated RBC % (auto) 0.4 % Polychromasia 1+ Hypochromasia Present PT 10.3 (9.0-12.0) Seconds INR 1.0 (0.9-1.1) APTT 22.4 (21.0-31.0) Seconds PTT Ratio 0.9 VBG pH (7.36-7.41) VBG pCO2 (38-50) mmHg VBG pO2 mmHg VBG HCO3 mmol/L VBG O2 Saturation % VBG Base Excess mEq/L Barometric Pressure mm/Hg Sodium 140 (136-145) mmol/L Potassium 4.2 (3.5-5.1) mmol/L Chloride 111 H (98-107) mmol/L Carbon Dioxide 21 (21-32) mmol/L Anion Gap 7.0 (3-11) BUN 19 H (7-18) mg/dl Creatinine 1.19 (0.6-1.2) mg/dl Est Cr Clr Drug Dosing 32.0 ml/min Est GFR ( Amer) 49.6 ml/min Est GFR (Non-Af Amer) 42.8 ml/min BUN/Creatinine Ratio 16.1 (10-20) Glucose 109 H (70-99) mg/dl Lactate (0.4-2.0) mmol/L Calcium 8.2 L (8.5-10.1) mg/dl Magnesium 2.4 (1.8-2.4) mg/dl Total Bilirubin 0.6 (0.2-1) mg/dl AST 16 (15-37) U/L ALT 16 (12-78) U/L Alkaline Phosphatase 47 (45-117) U/L Lactate Dehydrogenase (84-246) U/L Troponin I < 0.015 (0-0.045) ng/ml Total Protein 6.3 L (6.4-8.2) gm/dl Albumin 2.8 L (3.4-5.0) gm/dl Globulin 3.5 (2.5-4.0) gm/dl Albumin/Globulin Ratio 0.8 L (0.9-2) Procalcitonin (0-0.5) ng/ml Urine Color Urine Appearance (Clear) Urine pH (4.5-7.5) Ur Specific [place] (1.000-1.030) Urine Protein (Negative) Urine Glucose (UA) (Negative) Urine Ketones (Negative) Urine Blood (Negative) Urine Nitrite (Negative) Urine Bilirubin (Negative) Urine Urobilinogen (Negative) Ur Leukocyte Esterase (Negative) Urine RBC (0-4) /hpf Urine WBC (0-5) /hpf Ur Epithelial Cells (0-5) /lpf Urine Bacteria (Negative) COVID-19 Eval Order SARS-CoV-2 (PCR) (Negative) Influ A Molecular Assay (Negative) Influ B Molecular Assay (Negative) 11/01/20 11/01/20 11/01/20 Range/Units 16:09 16:09 16:09 WBC (4.8-10.8) K/uL RBC (4.2-5.4) M/uL Hgb (12.0-16.0) g/dL Hct (37-47) % MCV (80-100) fL MCH (25-34) pg MCHC (32-36) g/dL Plt Count (130-400) K/uL Immature Gran % (Auto) % Neut % (Auto) % Lymph % (Auto) % [place] % (Auto) % Eos % (Auto) % Baso % (Auto) % Neut # (Auto) (1.4-6.5) K/uL Lymph # (Auto) (1.2-3.4) K/uL [place] # (Auto) (0.11-0.59) K/uL Eos # (Auto) (0-0.5) K/uL Baso # (Auto) (0-0.2) K/uL Immature Gran # (Auto) (0.00-0.02) K/uL Absolute Nucleated RBC (0-0) K/uL Nucleated RBC % (auto) % Polychromasia Hypochromasia PT (9.0-12.0) Seconds INR (0.9-1.1) APTT (21.0-31.0) Seconds PTT Ratio VBG pH 7.46 H (7.36-7.41) VBG pCO2 30 L (38-50) mmHg VBG pO2 20 mmHg VBG HCO3 21 mmol/L VBG O2 Saturation < 60.0 % VBG Base Excess -3.1 mEq/L Barometric Pressure 730.7 mm/Hg Sodium (136-145) mmol/L Potassium (3.5-5.1) mmol/L Chloride (98-107) mmol/L Carbon Dioxide (21-32) mmol/L Anion Gap (3-11) BUN (7-18) mg/dl Creatinine (0.6-1.2) mg/dl Est Cr Clr Drug Dosing ml/min Est GFR ( Amer) ml/min Est GFR (Non-Af Amer) ml/min BUN/Creatinine Ratio (10-20) Glucose (70-99) mg/dl Lactate 2.7 H* (0.4-2.0) mmol/L Calcium (8.5-10.1) mg/dl Magnesium (1.8-2.4) mg/dl Total Bilirubin (0.2-1) mg/dl AST (15-37) U/L ALT (12-78) U/L Alkaline Phosphatase (45-117) U/L Lactate Dehydrogenase (84-246) U/L Troponin I (0-0.045) ng/ml Total Protein (6.4-8.2) gm/dl Albumin (3.4-5.0) gm/dl Globulin (2.5-4.0) gm/dl Albumin/Globulin Ratio (0.9-2) Procalcitonin < 0.05 (0-0.5) ng/ml Urine Color Urine Appearance (Clear) Urine pH (4.5-7.5) Ur Specific [place] (1.000-1.030) Urine Protein (Negative) Urine Glucose (UA) (Negative) Urine Ketones (Negative) Urine Blood (Negative) Urine Nitrite (Negative) Urine Bilirubin (Negative) Urine Urobilinogen (Negative) Ur Leukocyte Esterase (Negative) Urine RBC (0-4) /hpf Urine WBC (0-5) /hpf Ur Epithelial Cells (0-5) /lpf Urine Bacteria (Negative) COVID-19 Eval Order SARS-CoV-2 (PCR) (Negative) Influ A Molecular Assay (Negative) Influ B Molecular Assay (Negative) 11/01/20 11/01/20 11/01/20 Range/Units 16:09 17:24 18:05 WBC (4.8-10.8) K/uL RBC (4.2-5.4) M/uL Hgb (12.0-16.0) g/dL Hct (37-47) % MCV (80-100) fL MCH (25-34) pg MCHC (32-36) g/dL Plt Count (130-400) K/uL Immature Gran % (Auto) % Neut % (Auto) % Lymph % (Auto) % [place] % (Auto) % Eos % (Auto) % Baso % (Auto) % Neut # (Auto) (1.4-6.5) K/uL Lymph # (Auto) (1.2-3.4) K/uL [place] # (Auto) (0.11-0.59) K/uL Eos # (Auto) (0-0.5) K/uL Baso # (Auto) (0-0.2) K/uL Immature Gran # (Auto) (0.00-0.02) K/uL Absolute Nucleated RBC (0-0) K/uL Nucleated RBC % (auto) % Polychromasia Hypochromasia PT (9.0-12.0) Seconds INR (0.9-1.1) APTT (21.0-31.0) Seconds PTT Ratio VBG pH (7.36-7.41) VBG pCO2 (38-50) mmHg VBG pO2 mmHg VBG HCO3 mmol/L VBG O2 Saturation % VBG Base Excess mEq/L Barometric Pressure mm/Hg Sodium (136-145) mmol/L Potassium (3.5-5.1) mmol/L Chloride (98-107) mmol/L Carbon Dioxide (21-32) mmol/L Anion Gap (3-11) BUN (7-18) mg/dl Creatinine (0.6-1.2) mg/dl Est Cr Clr Drug Dosing ml/min Est GFR ( Amer) ml/min Est GFR (Non-Af Amer) ml/min BUN/Creatinine Ratio (10-20) Glucose (70-99) mg/dl Lactate 1.5 (0.4-2.0) mmol/L Calcium (8.5-10.1) mg/dl Magnesium (1.8-2.4) mg/dl Total Bilirubin (0.2-1) mg/dl AST (15-37) U/L ALT (12-78) U/L Alkaline Phosphatase (45-117) U/L Lactate Dehydrogenase 153 (84-246) U/L Troponin I (0-0.045) ng/ml Total Protein (6.4-8.2) gm/dl Albumin (3.4-5.0) gm/dl Globulin (2.5-4.0) gm/dl Albumin/Globulin Ratio (0.9-2) Procalcitonin (0-0.5) ng/ml Urine Color Red Urine Appearance Cloudy A (Clear) Urine pH 7.0 (4.5-7.5) Ur Specific [place] 1.025 (1.000-1.030) Urine Protein 3+ H (Negative) Urine Glucose (UA) Negative (Negative) Urine Ketones 1+ H (Negative) Urine Blood 3+ H (Negative) Urine Nitrite Negative (Negative) Urine Bilirubin Negative (Negative) Urine Urobilinogen Negative (Negative) Ur Leukocyte Esterase Trace H (Negative) Urine RBC >30 H (0-4) /hpf Urine WBC >30 H (0-5) /hpf Ur Epithelial Cells 0-5 (0-5) /lpf Urine Bacteria Negative (Negative) COVID-19 Eval Order SARS-CoV-2 (PCR) (Negative) Influ A Molecular Assay (Negative) Influ B Molecular Assay (Negative) Imaging Data Radiologist's Impression: Abdomen/Pelvis CT 11/01/20 15:[address] WITHOUT CONTRAST CT DOSE: 2299.82 mGy.cm HISTORY: Acute fever with urinary tract infection and lethargy Fever, lethargic, uti TECHNIQUE: Multiaxial CT images of the abdomen and pelvis were performed without contrast. A dose lowering technique was utilized adhering to the principles of ALARA. COMPARISON STUDY: CT abdomen and pelvis 08/26/2020, PET CT 10/01/2020. FINDINGS: Cardiomegaly with dense calcifications of the mitral annulus. Coronary artery calcifications. Decreased attenuation of the cardiac blood pool is suggestive of anemia. Mild bibasilar atelectasis. No pneumatosis or pneumoperitoneum. Unchanged peripherally calcified 1.8 cm lesion of the spleen, likely benign. The pancreas and adrenal glands are unremarkable. Cholecystectomy. Unremarkable liver. 2.6 cm exophytic cyst of the inferior pole right kidney. Multifocal cortical scarring of the left kidney. Probable proteinaceous or hemorrhagic cyst of the superior pole left kidney measures 6 mm. Cortical calcifications of the left kidney measure up to 7 mm on the left. 7 mm nonobstructing calculus of the inferior pole right kidney. No ureteral calculi or hydronephrosis. Urinary bladder wall thickening. Hyperdense intraluminal lesions/debris within the urinary bladder measures up to 7.4 cm along the right lateral and dependent margins. Hysterectomy. No adnexal mass. Extensive atherosclerosis of the abdominal aorta and branch vessels. No adenopathy. Mild nonspecific distal esophageal wall thickening. Mild rectal wall thickening with perirectal stranding. Mild wall thickening of the sigmoid. Colonic diverticulosis without acute diverticulitis. Normal appendix. Unremarkable soft tissues. No acute fracture. Sclerosis of the sacrum is suggestive of chronic fractures. IMPRESSION: 1. Hyperdense intraluminal debris within the urinary bladder measuring over 7 cm is suggestive of hemorrhage, new from 10/01/2020. Follow-up cystoscopy could be considered to exclude the left likely possibility of an underlying lesion. 2. Bilateral renal calcifications. No ureteral calculi or hydronephrosis. 3. Multifocal cortical scarring of the left kidney redemonstrated. 4. Mild wall thickening of the sigmoid and rectum with perirectal stranding. Findings may be secondary to partial distention versus a nonspecific proctocolitis. 5. Colonic diverticulosis. 6. Additional findings as above. ACT 112: Negative or not required by law. The above report was generated using voice recognition software. It may contain grammatical, syntax or spelling errors. Electronically signed by: Homar Whatley M.D. 11/01/2020 5:[address] 11/01/20 15:36 CT head/brain wo con CLINICAL HISTORY: 80 years-old Female with Fever, lethargic. Acute fever with altered mental status TECHNIQUE: Multiple axial CT images of the head were obtained without contrast. A dose lowering technique was utilized adhering to the principles of ALARA. COMPARISON: Head CT 10/01/2015. FINDINGS: No acute intracranial hemorrhage, midline shift, intracranial mass, hydrocephalus, territorial ischemia or abnormal extra-axial collection. Age-rela tyesha involutional changes. Motion degraded exam. Cerebral vascular calcifications. The calvarium is intact. Prior bilateral lens repair. Mild polypoid mucosal thickening of the right maxillary sinus. Mastoid air cells are clear. IMPRESSION: Motion degraded exam. No acute intracranial abnormality. ACT 112: Negative or not required by law. The above report was generated using voice recognition software. It may contain grammatical, syntax or spelling errors. Electronically signed by: Homar Whatley M.D. 11/01/2020 4:47 PM [facility] Narrative Patient was seen and evaluated as above in room C 11. Review was performed of nursing notes and vital signs. I did review pertinent previous visits and patient history. After obtaining a thorough history and physical examination the above work up was performed. Patient presents to us today with a fever, tachcardia and borderline hypotensive. She is nontoxic on exam overall. C linically she appears well. She does note a recent diagnosis of UTI. She is currently on Macrobid. She has been experiencing urinary dysuria, hematuria, urgency. Options of care were discussed with the patient. Patient's daughter is at bedside. Patient presents to us today via EMS. IV access was established. Labs were drawn. I did hydrate the patient however did provide this at a rate of 500 mL/h noting the patient's history of CHF as documented in the past medical history. She was given acetaminophen for the pain and her fever. The patient's blood work began to result starting with normal coags. VBG pH 7.46 with a VBG PCO2 30. No gap. BUN 19 with a creatinine of 1.19. Lactic initially elevated however was rechecked and normal troponin, negative pro parrish. Urinalysis was not able to be obtained initially as the patient provided the sample but this was not able to be utilized as it missed the collection container while on the toilet. Pending repeat sample. Covid negative. Flu test negative. At this time with the patient having elevated lactate with the fever and recent UTI currently on outpatient antibiotics, I do believe that further evaluation and management is warranted in the inpatient setting. I will note that the CBC still has not resulted and I did call our charge nurse. She called the lab. It appears that the blood was sent to the lab but had not yet been placed on the machine to run the tests. This was being performed at the time of the phone call. Patient was then admitted with orders placed and pending going upstairs to a room. That was when the hemoglobin resulted at 4.3. The admission team at that point had already been able to consent the patient for blood and ordered blood and she had been taken upstairs to her inpatient room. Please refer to further documentation regarding her stay. I did order empiric IV antibiotics. Case was discussed with the attending physician. EKG was reviewed by myself and found to be what appears to be sinus rhythm with underlying artifact/poor baseline at a rate of 84 beats per minute. I will note that per documentation it appears that the patient does have a history of paroxysmal A. fib. Patient denies any current anticoagulation. There is no ST elevation on this assessment. An order was placed for continuous cardiac monitoring. The monitor shows a rate of 84 with sinus rhythm. I attest that I have personally reviewed the patient medication list. GCS: 15 In the evaluation and treatment of this patient the following differential diagnoses were entertained: UTI, pyelonephritis, sepsis, bacteremia, hemorrhage, anemia, COVID-19, viral process, pneumonia, among others. Impression & Plan Sepsis, Anemia, Fever, Dysuria, Hematuria Discharge Plan Visit Data Chief Complaint: Illness ED Provider: Salvador Al ED Midlevel Provider: Kun Eaton Discharge Problem: Sepsis, Anemia, Fever, Dysuria, Hematuria Patient Disposition: Admitted As Inpatient Condition: Good Discharge Instructions Interventions: ED Discharge Assessment Last Done: 11/01/20 18:40
[2020-11-01] MEDS ORDERED: SODIUM CHLORIDE 0.9% 1000ML 1,000 ML IV SCH (15:30)
[2020-11-01 16:32] LABS: Base Excess VBG -3.1 mEq/L; HCO3 VBG 21 mmol/L; Oxygen Saturation VBG < 60.0 %; PCO2 VBG 30 mmHg (38-50); PO2 VBG 20 mmHg; pH VBG 7.46 (7.36-7.41)
[2020-11-01 16:35] LABS: Partial Thromboplastin Ratio 0.9; Partial Thromboplastin Time 22.4 Seconds (21.0-31.0); Prothrombin Time 10.3 Seconds (9.0-12.0)
[2020-11-01 16:39] LABS: Influenza A virus by PCR Negative (Negative); Influenza B virus by PCR Negative (Negative)
[2020-11-01 16:41] LABS: Alanine Aminotransferase 16 U/L (12-78); Albumin Level 2.8 gm/dl (3.4-5.0); Aspartate Aminotransferase 16 U/L (15-37); BUN Creatinine Ratio 16.1 (10-20); Blood Urea Nitrogen 19 mg/dl (7-18); Calcium 8.2 mg/dl (8.5-10.1); Carbon Dioxide 21 mmol/L (21-32); Chloride 111 mmol/L (98-107); Est GFR (African American) 49.6 ml/min; Est GFR (Non-African American) 42.8 ml/min; Glucose 109 mg/dl (70-99); Magnesium 2.4 mg/dl (1.8-2.4); Potassium 4.2 mmol/L (3.5-5.1); Sodium 140 mmol/L (136-145)
[2020-11-01 16:46] LABS: Albumin Globulin Ratio 0.8 (0.9-2); Alkaline Phosphatase 47 U/L (45-117); Bilirubin,Total 0.6 mg/dl (0.2-1); Globulin 3.5 gm/dl (2.5-4.0); Total Protein 6.3 gm/dl (6.4-8.2); Troponin I < 0.015 ng/ml (0-0.045)
--- NOTE | 2020-11-01 16:48 | CT Scan Report ---
CT head/brain wo con CLINICAL HISTORY: 80 years-old Female with Fever, lethargic. Acute fever with altered mental status TECHNIQUE: Multiple axial CT images of the head were obtained without contrast. A dose lowering tech nique was utilized adhering to the principles of ALARA. COMPARISON: Head CT 10/01/2015. FINDINGS: No acute intracranial hemorrhage, midline shift, intracranial mass, hydrocephalus, territorial ischem ia or abnormal extra-axial collection. Age-related involutional changes. Motion degraded exam. Cerebr al vascular calcifications. The calvarium is intact. Prior bilateral lens repair. Mild polypoid mucosal thickening of the right m axillary sinus. Mastoid air cells are clear. IMPRESSION: Motion degraded exam. No acute intracranial abnormality. ACT 112: Negative or not required by law. The above report was generated using voice recognition software. It may contain grammatical, syntax o r spelling errors. Electronically signed by: Homar Whatley M.D. 11/01/2020 4:47 PM
--- NOTE | 2020-11-01 17:23 | CT Scan Report ---
ABDOMEN AND PELVIS CT WITHOUT CONTRAST CT DOSE: 2299.82 mGy.cm HISTORY: Acute fever with urinary tract infection and lethargy Fever, lethargic, uti TECHNIQUE: Multiaxial CT images of the abdomen and pelvis were performed without contrast. A dose lo wering technique was utilized adhering to the principles of ALARA. COMPARISON STUDY: CT abdomen and pelvis 08/26/2020, PET CT 10/01/2020. FINDINGS: Cardiomegaly with dense calcifications of the mitral annulus. Coronary artery calcification s. Decreased attenuation of the cardiac blood pool is suggestive of anemia. Mild bibasilar atelectasi s. No pneumatosis or pneumoperitoneum. Unchanged peripherally calcified 1.8 cm lesion of the spleen, likely benign. The pancreas and adrenal glands are unremarkable. Cholecystectomy. Unremarkable liver. 2.6 cm exophytic cyst of the inferior pole right kidney. Multifocal cortical scarring of the left kid romel. Probable proteinaceous or hemorrhagic cyst of the superior pole left kidney measures 6 mm. Corti parrish calcifications of the left kidney measure up to 7 mm on the left. 7 mm nonobstructing calculus of the inferior pole right kidney. No ureteral calculi or hydronephrosis. Urinary bladder wall thickeni ng. Hyperdense intraluminal lesions/debris within the urinary bladder measures up to 7.4 cm along the right lateral and dependent margins. Hysterectomy. No adnexal mass. Extensive atherosclerosis of the abdominal aorta and branch vessels. No adenopathy. Mild nonspecific distal esophageal wall thickening. Mild rectal wall thickening with perirectal stran ding. Mild wall thickening of the sigmoid. Colonic diverticulosis without acute diverticulitis. Ines l appendix. Unremarkable soft tissues. No acute fracture. Sclerosis of the sacrum is suggestive of ch ronic fractures. IMPRESSION: 1. Hyperdense intraluminal debris within the urinary bladder measuring over 7 cm is suggestive of hem orrhage, new from 10/01/2020. Follow-up cystoscopy could be considered to exclude the left likely poss ibility of an underlying lesion. 2. Bilateral renal calcifications. No ureteral calculi or hydronephrosis. 3. Multifocal cortical scarring of the left kidney redemonstrated. 4. Mild wall thickening of the sigmoid and rectum with perirectal stranding. Findings may be secondar y to partial distention versus a nonspecific proctocolitis. 5. Colonic diverticulosis. 6. Additional findings as above. ACT 112: Negative or not required by law. The above report was generated using voice recognition software. It may contain grammatical, syntax o r spelling errors. Electronically signed by: Homar Whatley M.D. 11/01/2020 5:21 PM
[2020-11-01] MEDS ORDERED: cefTRIAXone SODIUM 1,000 MG/50 ML BAG IV STA (17:46)
[2020-11-01] MEDS ORDERED: PIPERACILL/TAZOBAC CONSULT ACTIVE PRN (18:03)
[2020-11-01] MEDS ORDERED: PIPERACILLIN/TAZOBACTAM 4.5 GM/120 ML BAG IV ONE (18:15)
[2020-11-01 18:57] LABS: Appearance Urine Cloudy (Clear); Bilirubin Urine Negative (Negative); Blood Urine 3+ (Negative); Color Urine Red; Glucose Urine UA Negative (Negative); Ketones Urine 1+ (Negative); Leukocyte Esterase Urine Trace (Negative); Nitrite Urine Negative (Negative); Protein Urine 3+ (Negative); Specific Gravity Urine 1.025 (1.000-1.030); Urobilinogen Urine Negative (Negative)
[2020-11-01 19:02] LABS: Bacteria Urine Negative (Negative); Epithelial Cell Urine 0-5 /lpf (0-5); RBC Urine >30 /hpf (0-4); WBC Urine >30 /hpf (0-5)
--- NOTE | 2020-11-01 19:10 | History & Physical Report ---
Date of Service November 01, 2020 Assessment & Plan (1) Sepsis: Plan: Sepsis- urinary vs. proctocolitis. Hematuria with colitis concerning for Shiga toxin- - SIRS- 3 q SOFA-2, - Blood and urine culture pending - C-diff toxin pending - WBC- - Lactate on arrival 2.7---> 1.5 - MAPS >65 - PCT negative <-0.05 - Start Zosyn 3.375 Gm IV q8 - Add oral Vancomycin pending on C-diff - no other evidence of organ dysfunction - Type and cross- transfuse PRBC goal ~8 (2) Acute blood loss anemia: Plan: Anemia with acute blood loss secondary to hematuria- cystitis vs. Shigatoxin vs. oncological process - Hyperdense intraluminal debris within the urinary bladder measuring over 7 cm is suggestive of hemorrhage, new from 10/01/2020. - Type and cross- transfuse 2u PRBC follow up CBC - LDH and Haptoglobin sent - Follow for HUS- follow renal indices - Platelet count 238, INR 1.0 (3) Proctocolitis: Plan: As above - tender to LLQ - no blood or mucous per rectum - stool culture, Cdiff, pending - no food or water consumption that would be concerning (4) CHF (congestive heart failure): Plan: Chronic HFpEF - Continue Metoprolol as long as she continue to exhibit adequate BP and MAPS >65 - Hold Amlodipine/benazepril - Continue atorvastatin - Hold Lasix- resume when euvolemia ensured and sepsis pathology controlled (5) Graves disease: Plan: Continue propylthiouracil TSH-12 dose recently reduced in August (6) Peripheral artery disease: Plan: Stable aorto-iliac stenosis - Continue ASA - Continue atorvastatin (7) HTN (hypertension): Plan: As above (8) Chronic anemia: Plan: Baseline HGB ~11 follow as above History of Present Illness Primary Care Provider: Carols Arias MD 80 YOF with past medical history of: Breast cancer (lumpectomy chemo/radiation, tamoxifen/Arimidex), bladder cancer, uterine cancer (hysterectomy), stable pulmonary nodule, aorto-illiac stenosis, HFpEF, moderate aortic stenosis, left internal carotid endarterectomy (2016), and CECILIO stenosis, Graves disease. Patient comes in today for increase in fatigue and somnolence when her daughter went to see her today. The patient endorses that she was diagnosed with a UTI ~ a week ago and was placed on Macrobid- her urinary symptoms got better but systemically she was still having body aches and chills. Approximately 3 days ago she started having diarrhea, as well as hematuria, which she thought was just from antibiotics. She says that they were about 2-3 times per day and loose, without abdominal discomfort or blood/mucous in the stools, and her urine has been red tinged. She reports that she had a sub at [facility] at that time. In the EMD the patient was noted to be tachycardic, hypotensive, and febrile. Her lactate was 2.7. She was started on Rocephin, resuscitated with 1.5 liters of crystalloid and CT scan of her abdomen and pelvis performed. CT scan of her abdomen/pelvis was notable for: Hyperdense intraluminal debris within the urinary bladder measuring over 7 cm is suggestive of hemorrhage, new from 10/01/2020. Follow-up cystoscopy could be considered to exclude the left l ikely possibility of an underlying lesion. Mild wall thickening of the sigmoid and rectum with perirectal stranding. Findings may be secondary to partial distention versus a nonspecific proctocolitis. Cdiff and stool cultures are pending, she originally missed the urine hat for urine collection, but urine is pending. Patient will be changed to Zosyn for both presumed UTI as well as colitis while awaiting urine and blood cultures and stool cultures. UA resulted with large RBC >30HPF and hematuria- CBC resulted with significant anemia of 4.3- type and cross, transfuse 2 units of PRBC. If Cdiff comes back will add on oral Vancomycin. Generally the patient feels tired and thirsty but is warm, she is pale, pulses strong, and mentating well. Will admit to PCU to continue to trend her lactate, continue antibiotics and follow her organ perfusion, transfuse PRBCs. Patient has had her COVID vaccine and her COVID test on admission is: NEGATIVE. Her Influenza A and B are also negative. Allergies Allergy/AdvReac Type Severity Reaction Status Date / Time No Known Allergies Allergy Verified 11/01/20 17:01 Home Medications Medication Instructions Recorded Confirmed Type amlodipine 10 mg-benazepril 40 mg 1 cap PO QAM 02/17/18 11/01/20 History capsule (Lotrel) aspirin 81 mg tablet,delayed 81 mg PO QAM 02/17/18 11/01/20 History release (Aspirin Low Dose) atorvastatin 40 mg tablet 40 mg PO PM 02/17/18 11/01/20 History metoprolol tartrate 50 mg tablet 50 mg PO BID 02/17/18 11/01/20 History propylthiouracil 50 mg tablet 100 mg PO BID 02/17/18 11/01/20 History cilostazol 50 mg tablet 50 mg PO BID 08/29/20 11/01/20 History albuterol sulfate 90 mcg/actuation 2 puff INHALATION Q6H PRN #18 g 10/03/20 11/01/20 Rx aerosol inhaler furosemide 20 mg tablet (Lasix) 20 mg PO 3XWK PRN 10/03/20 11/01/20 History nitrofurantoin 100 mg PO Q12H 7 Days #14 cap 10/27/20 11/01/20 Rx monohydrate/macrocrystals 100 mg capsule (Macrobid) Past Med/Surg History Medical History (Updated 11/01/20 @ 19:45 by TRINO Dietrich) Anxiety Bladder cancer Bladder tumor Breast cancer Dx 7 years ago s/p right lumpectomy- RUE lumpectomy Cardiac murmur 2018 ECHO showed AV sclerosis (no ), mild to moderate mitral annular calcification and mild MS Carotid artery disease s/p left carotid endarterectomy (3 years ago/[facility]), follows with Dr. Islas CHF (congestive heart failure) 2018 Chronic anemia baseline hgb 11's per chart review Graves disease Hyperlipidemia Hypertension Osteoarthritis Paroxysmal atrial fibrillation Single remote episode (suspected r/t nitro patch), no known recurrences, Follows with Dr. Mcdonald Peripheral artery disease Uterine cancer 1995 hysterectomy/radiation Surgical History History of breast biopsy Right History of cataract surgery Right History of cholecystectomy History of flexible sigmoidoscopy History of left-sided carotid endarterectomy History of total hysterectomy with bilateral salpingo-oophorectomy (BSO) Hx of lumpectomy 7 years ago Family History Other No pertinent family history Social History Smoking Status: Former smoker Second Hand Exposure: Yes; Hx Alcohol Use: Yes Alcohol type: wine Hx Substance Use: No Preferred Language: Bur[place]ian Communication Ability: Effective Food Sales Clerk Required: No Beliefs That Will Affect Care: None marital status: Current Living Situation: Spouse Current Living Situation Comment: WITH ( HAS ALZHEIMERS) How many Children do You have: 2 Feels Safe at Home: Yes Assistive Devices: Denture - Upper, Denture - Lower and Glasses Review of Systems Review of Systems: REVIEW OF SYSTEMS: Constitutional: (+) cold with chills, fever Eyes: No diplopia, no worsening or blurred vision ENT: normal hearing, no trouble swallowing Respiratory: No cough, sputum, dyspnea at rest or on exertion Cardiovascular: No chest pain, tightness or palpitations Abdomen/: (+) pain, hematuria, diarrhea, NO nausea, vomiting,or constipation Musculoskeletal: No joint pain, calf pain, swelling Neurologic: No weakness, numbness/tingling, or balance problems Psychiatric: No anxiety or depression Skin: No rash or itch Physical Exam Physical Exam: PHYSICAL EXAM: General: awake, alert, no apparent distress Head: Normocephalic, atraumatic ENT: PERRL, EOMI, no pharyngeal exudate, mucous membranes moist Neuro: AAO x 3, speech clear and appropriate, strength intact bilaterally 5/5, sensation intact and equal all extremities and dermatomes, no pronator drift Chest: equal rise and fall of the chest, no accessory muscle use, no heaves or thrills, Clear to auscultation, on room air, Cardiac: Regular rate and rhythm, telemetry reviewed-NSR with PAC, skin warm dry, cap refill <3 seconds, peripheral pulses +2 no JVD,grade III systolic murmur that radiates to the carotids, no JVD, no edema GI: NABS x 4 quadrants, soft, tender to palpation LLQ, no rebound, guarding or tenderness : hematuria, Spontaneously voiding, no pain, no CVA tenderness, Extremities: Normal inspection, no peripheral edema or erythema, calfs nontender to palpation Psych: Normal mood and affect Skin: no rash or erythema Results & Data Results & Data ([facility]) Vital Signs (Past 12 Hours) Vital Signs Temp Pulse Resp BP BP Pulse Ox 11/01/20 18:30 81 16 115/44 L 99 11/01/20 18:21 37.8 C H 11/01/20 18:03 78 20 113/37 L 100 11/01/20 18:00 20 96 11/01/20 17:31 81 19 129/32 L 98 11/01/20 17:30 20 96 11/01/20 17:29 83 20 99 11/01/20 17:12 91 H 19 100 11/01/20 17:06 101/34 L 11/01/20 17:00 81 20 96/34 L 96 11/01/20 16:50 74 22 94 11/01/20 16:40 85 18 99 11/01/20 16:37 86 18 11/01/20 16:30 22 95 11/01/20 16:24 20 97 11/01/20 16:00 89 20 95 11/01/20 15:54 20 93 11/01/20 15:50 85 18 95 11/01/20 15:47 85 18 95 11/01/20 15:42 91 H 20 95 11/01/20 15:32 85 22 95 11/01/20 15:03 113 H 24 118/45 L 95 11/01/20 15:00 38.1 C H 83 20 118/45 L 95 Laboratory Results Abnormal lab results 11/01/20 11/01/20 11/01/20 Range/Units 16:09 16:09 16:09 VBG pH 7.46 H (7.36-7.41) VBG pCO2 30 L (38-50) mmHg Chloride 111 H (98-107) mmol/L BUN 19 H (7-18) mg/dl Glucose 109 H (70-99) mg/dl Lactate 2.7 H* (0.4-2.0) mmol/L Calcium 8.2 L (8.5-10.1) mg/dl Total Protein 6.3 L (6.4-8.2) gm/dl Albumin 2.8 L (3.4-5.0) gm/dl Albumin/Globulin Ratio 0.8 L (0.9-2) Diagnostic Findings Abdomen/Pelvis CT 11/01/20 15:[address] WITHOUT CONTRAST CT DOSE: 2299.82 mGy.cm HISTORY: Acute fever with urinary tract infection and lethargy Fever, lethargic, uti TECHNIQUE: Multiaxial CT images of the abdomen and pelvis were performed without contrast. A dose lowering technique was utilized adhering to the principles of ALARA. COMPARISON STUDY: CT abdomen and pelvis 08/26/2020, PET CT 10/01/2020. FINDINGS: Cardiomegaly with dense calcifications of the mitral annulus. Coronary artery calcifications. Decreased attenuation of the cardiac blood pool is suggestive of anemia. Mild bibasilar atelectasis. No pneumatosis or pneumoperitoneum. Unchanged peripherally calcified 1.8 cm lesion of the spleen, likely benign. The pancreas and adrenal glands are unremarkable. Cholecystectomy. Unremarkable liver. 2.6 cm exophytic cyst of the inferior pole right kidney. Multifocal cortical scarring of the left kidney. Probable proteinaceous or hemorrhagic cyst of the superior pole left kidney measures 6 mm. Cortical calcifications of the left kidney measure up to 7 mm on the left. 7 mm nonobstructing calculus of the inferior pole right kidney. No ureteral calculi or hydronephrosis. Urinary bladder wall thickening. Hyperdense intraluminal lesions/debris within the urinary bladder measures up to 7.4 cm along the right lateral and dependent margins. Hysterectomy. No adnexal mass. Extensive atherosclerosis of the abdominal aorta and branch vessels. No adenopathy. Mild nonspecific distal esophageal wall thickening. Mild rectal wall thickening with perirectal stranding. Mild wall thickening of the sigmoid. Colonic diverticulosis without acute diverticulitis. Normal appendix. Unremarkable soft tissues. No acute fracture. Sclerosis of the sacrum is suggestive of chronic fractures. IMPRESSION: 1. Hyperdense intraluminal debris within the urinary bladder measuring over 7 cm is suggestive of hemorrhage, new from 10/01/2020. Follow-up cystoscopy could be considered to exclude the left likely possibility of an underlying lesion. 2. Bilateral renal calcifications. No ureteral calculi or hydronephrosis. 3. Multifocal cortical scarring of the left kidney redemonstrated. 4. Mild wall thickening of the sigmoid and rectum with perirectal stranding. Findings may be secondary to partial distention versus a nonspecific proctocolitis. 5. Colonic diverticulosis. 6. Additional findings as above. ACT 112: Negative or not required by law. The above report was generated using voice recognition software. It may contain grammatical, syntax or spelling errors. Electronically signed by: Homar Whatley M.D. 11/01/2020 5:[address] 11/01/20 15:36 CT head/brain wo con CLINICAL HISTORY: 80 years-old Female with Fever, lethargic. Acute fever with altered mental status TECHNIQUE: Multiple axial CT images of the head were obtained without contrast. A dose lowering technique was utilized adhering to the principles of ALARA. COMPARISON: Head CT 10/01/2015. FINDINGS: No acute intracranial hemorrhage, midline shift, intracranial mass, hydrocephalus, territorial ischemia or abnormal extra-axial collection. Age- related involutional changes. Motion degraded exam. Cerebral vascular calcifications. The calvarium is intact. Prior bilateral lens repair. Mild polypoid mucosal thickening of the right maxillary sinus. Mastoid air cells are clear. IMPRESSION: Motion degraded exam. No acute intracranial abnormality. ACT 112: Negative or not required by law. The above report was generated using voice recognition software. It may contain grammatical, syntax or spelling errors. Electronically signed by: Homar Whatley M.D. 11/01/2020 4:47 PM Medications Administered Home Medications amlodipine 10 mg-benazepril 40 mg capsule (Lotrel) 1 cap PO QAM 02/17/18 [History Confirmed 11/01/20] aspirin 81 mg tablet,delayed release (Aspirin Low Dose) 81 mg PO QAM 02/17/18 [History Confirmed 11/01/20] atorvastatin 40 mg tablet 40 mg PO PM 02/17/18 [History Confirmed 11/01/20] metoprolol tartrate 50 mg tablet 50 mg PO BID 02/17/18 [History Confirmed 11/01/20] propylthiouracil 50 mg tablet 100 mg PO BID 02/17/18 [History Confirmed 11/01/20] cilostazol 50 mg tablet 50 mg PO BID 08/29/20 [History Confirmed 11/01/20] albuterol sulfate 90 mcg/actuation aerosol inhaler 2 puff INHALATION Q6H PRN #18 g 10/03/20 [Rx Confirmed 11/01/20] furosemide 20 mg tablet (Lasix) 20 mg PO 3XWK PRN 10/03/20 [History Confirmed 11/01/20] nitrofurantoin monohydrate/macrocrystals 100 mg capsule (Macrobid) 100 mg PO Q12H 7 Days #14 cap 10/27/20 [Rx Confirmed 11/01/20] Active Medications Piperacillin Sod/Tazobactam (Sod 3.375 gm/ Dextrose) 115 mls @ 28.75 mls/hr IV Q8H LEVI; Protocol Stop: 11/11/20 18:14 Miscellaneous Information (Piperacill/Tazobac Consult Active) 1 ea N/A UD PRN PRN Reason: Consult Stop: 12/01/20 18:02 Discontinued Medications Acetaminophen (Acetaminophen 325 Mg Tab) 650 mg PO NOW STA Stop: 11/01/20 15:30 Last Admin: 11/01/20 16:17 Dose: 650 mg Documented by: [id number] Sodium Chloride (Nss 1000ml) 1,000 mls @ 500 mls/hr IV .Q2H LEVI Stop: 11/01/20 17:29 Last Infusion: 11/01/20 18:16 Dose: 0 mls/hr Documented by: [id number] Admin: 11/01/20 16:13 Dose: 500 mls/hr Documented by: [id number] Ceftriaxone Sodium (Rocephin) 1,000 mg in 50 mls @ 100 mls/hr IV NOW STA Stop: 11/01/20 18:15 Last Infusion: 11/01/20 18:44 Dose: 0 mls/hr Documented by: [id number] Admin: 11/01/20 18:02 Dose: 100 mls/hr Documented by: [id number] Code Status & VTE Plan Code Status CODE: FULL VTE: SCDs, hold on chemoprophylaxis tonight VTE Prophylaxis Plan VTE Prophylaxis will be ordered: Yes PG Care Time/CCT Total # of Minutes Spent Total Time Spent with Patient: Total time spent is greater than 50% in facility coordinator rdination of care (as documented) at patient's floor/unit and/or counseling patient: Coding Level of Care Code 54657 Initial Inpt Care Lvl 3 Diagnoses Sepsis A41.9 Proctocolitis K52.9 CHF (congestive heart failure) I50.9 Heart failure chronicity: acute Heart failure type: unspecified Peripheral artery disease I73.9 HTN (hypertension) I10 Graves disease E05.00 Chronic anemia D64.9 Acute blood loss anemia D62 (1) CHF (congestive heart failure) Heart failure chronicity: acute Heart failure type: unspecified Qualified Code(s): I50.9 - Heart failure, unspecified
[2020-11-01 19:12] LABS: Hematocrit (blood only) 13.6 % (37-47); Hemoglobin 4.3 g/dL (12.0-16.0); Mean Corpuscular Hemoglobin 26.9 pg (25-34); Mean Corpuscular Hgb Conc 31.6 g/dL (32-36); Nucleated RBC # (auto) 0.02 K/uL (0-0); Nucleated RBC % (auto) 0.4 %; Platelet Count 248 K/uL (130-400); White Blood Count 4.96 K/uL (4.8-10.8)
[2020-11-01 19:38] LABS: Basophils # (auto) 0.01 K/uL (0-0.2); Basophils % (auto) 0.2 %; Eosinophils # (auto) 0.01 K/uL (0-0.5); Eosinophils % (auto) 0.2 %; Hypochromasia Present; Immature Granulocytes # (auto) 0.01 K/uL (0.00-0.02); Immature Granulocytes % (auto) 0.2 %; Lymphocytes # (auto) 0.78 K/uL (1.2-3.4); Lymphocytes % (auto) 15.7 %; Monocytes # (auto) 0.56 K/uL (0.11-0.59); Monocytes % (auto) 11.3 %; Neutrophils # (auto) 3.59 K/uL (1.4-6.5); Neutrophils % (auto) 72.4 %; Polychromasia 1+
[2020-11-01] MEDS ORDERED: PIPERACILLIN/TAZOBACTAM 3.375 GM in DEXTROSE 5% 100 ML IV ONE (20:00)
[2020-11-01] MEDS: PIPERACILLIN/TAZOBACTAM 3.375 GM in DEXTROSE 5% 100 ML IV SCH (20:00)
[2020-11-01] MEDS ORDERED: ONDANSETRON INJ 2 MG/ML 2 ML VIAL IV PRN (20:13)
[2020-11-01] MEDS ORDERED: POLYETHYLENE (MIRALAX) 17 GM PACK PO PRN (20:13)
[2020-11-01] MEDS ORDERED: ACETAMINOPHEN 325 MG TAB PO PRN (20:13)
[2020-11-01] MEDS ORDERED: SODIUM CHLORIDE 0.9% 250 ML IV PRN (20:13)
[2020-11-01] MEDS ORDERED: ALBUTEROL HFA 8 GM INHALER INH PRN (20:13)
[2020-11-01] MEDS ORDERED: CALCIUM GLUCONATE 10% 1,000 MG in SODIUM CHLORIDE 0.9% 50 ML IV SCH (21:00)
[2020-11-01] MEDS: LACTATED RINGER'S 1,000 ML IV SCH (21:06)
[2020-11-01] MEDS: propylthiouraciL 50 MG TAB PO SCH (21:42)
[2020-11-01] MEDS: cilostazoL 100 MG TAB PO SCH (21:42)
[2020-11-01] MEDS: ATORVASTATIN 40 MG TAB PO SCH (21:42)
[2020-11-01] MEDS: METOPROLOL TARTRATE 50 MG TAB PO SCH (21:43)
[2020-11-02] MEDS ORDERED: CALCIUM GLUCONATE 10% 10 ML VIAL IV ONE (01:00)
[2020-11-02 07:21] LABS: Hematocrit (blood only) 20.3 % (37-47); Hemoglobin 6.7 g/dL (12.0-16.0); Mean Corpuscular Hemoglobin 29.1 pg (25-34); Mean Corpuscular Volume 88.3 fL (80-100); Mean Platelet Volume 9.5 fL (7.4-10.4); Platelet Count 194 K/uL (130-400); RDW Coefficient of Variation 14.5 % (11.5-14.5); RDW Standard Deviation 47.1 fL (36.4-46.3); White Blood Count 5.45 K/uL (4.8-10.8)
[2020-11-02 07:32] LABS: Basophils # (auto) 0.01 K/uL (0-0.2); Basophils % (auto) 0.2 %; Eosinophils # (auto) 0.02 K/uL (0-0.5); Eosinophils % (auto) 0.4 %; Immature Granulocytes # (auto) 0.04 K/uL (0.00-0.02); Immature Granulocytes % (auto) 0.7 %; Lymphocytes # (auto) 0.94 K/uL (1.2-3.4); Lymphocytes % (auto) 17.2 %; Monocytes # (auto) 0.74 K/uL (0.11-0.59); Monocytes % (auto) 13.6 %; Neutrophils % (auto) 67.9 %; Polychromasia 1+
[2020-11-02 07:46] LABS: BUN Creatinine Ratio 18.7 (10-20); Calcium 7.7 mg/dl (8.5-10.1); Creatinine Clr Calc Pharmacy 38.2 ml/min; Est GFR (African American) 58.4 ml/min; Est GFR (Non-African American) 50.3 ml/min; Magnesium 2.3 mg/dl (1.8-2.4); Potassium 3.8 mmol/L (3.5-5.1)
[2020-11-02 07:51] LABS: Ferritin 21.3 ng/ml (8-388)
[2020-11-02] MEDS ORDERED: SODIUM CHLORIDE 0.9% 250 ML IV PRN ×2 (08:00→08:30)
[2020-11-02] MEDS: METOPROLOL TARTRATE 50 MG TAB PO SCH ×2 (08:07→20:55)
[2020-11-02] MEDS: propylthiouraciL 50 MG TAB PO SCH ×2 (08:07→20:55)
[2020-11-02] MEDS: ASPIRIN 81 MG ECTAB PO SCH (08:10)
[2020-11-02] MEDS: LACTATED RINGER'S 1,000 ML IV SCH (08:10)
[2020-11-02] MEDS: cilostazoL 100 MG TAB PO SCH ×2 (08:11→20:54)
--- NOTE | 2020-11-02 08:15 | XRay Report ---
SINGLE VIEW CHEST CLINICAL HISTORY: Sepsis. FINDINGS: An AP, portable, upright chest radiograph is compared to study dated 09/02/2020 and correlat ed with chest CT dated 09/04/2020. The heart is enlarged noting atherosclerotic calcification of the t horacic aorta. There is pulmonary vascular congestion. Emphysema and chronic interstitial thickening are similar to previous. There are scattered calcified granulomas. No airspace consolidation or large pleural effusion is identified. No pneumothorax is seen. The skeletal structures are osteopenic. The bony thorax is grossly intact. IMPRESSION: 1. Cardiomegaly and emphysema with pulmonary vascular congestion. 2. No airspace consolidation or large pleural effusion is identified. 3. Pulmonary nodules seen by CT on 09/04/2020 are not apparent on chest x-ray. ACT 112: Negative or not required by law. Electronically signed by: Donnie Redding M.D. 11/02/2020 8:13 AM
[2020-11-02] MEDS: PIPERACILLIN/TAZOBACTAM 3.375 GM in DEXTROSE 5% 100 ML IV SCH ×2 (09:12→17:46)
--- NOTE | 2020-11-02 09:14 | Hospitalist Progress Note ---
Date of Service November 02, 2020 Assessment & Plan (1) Sepsis: Plan: Karina Mcmahon is an 80-year-old female with complex past medical history including breast cancer (lumpectomy chemo/radiation, tamoxifen/Arimidex), bladder cancer, uterine cancer (hysterectomy), stable pulmonary nodule, aorto- iliac stenosis, HFpEF, moderate aortic stenosis, left internal carotid endarterectomy (2016), and CECILIO stenosis, Graves disease who presented to [facility] due to fever, chills, fatigue, somnolence, diarrhea, and hematuria one week after being diagnosed with UTI in the outpatient setting. Found to be septic on arrival and hemoglobin at 4.2. Sepsis Sepsis- urinary vs. proctocolitis - SIRS- 3, q SOFA-2, - Blood and urine cultures pending - C-diff toxin ordered -- uncollected thus far, patient with one loose BM since admission - WBC 5.45 - Lactate 2.7---> 1.5 - Continue Zosyn 3.375 Gm IV q8h Acute blood loss anemia -- s/p 2U PRBCs - Secondary to hematuria- cystitis vs. Shigatoxin vs. oncological process -CT A/P: Hyperdense intraluminal debris within the urinary bladder measuring over 7 cm is suggestive of hemorrhage, new from 10/01/2020. - LDH normal, Haptoglobin pending - Renal function normal, Plt normal -- less concern for Shiga toxin at this time - Type and cross- transfuse PRBC goal ~8 - s/p 2U PRBCs on 11/01 - Repeat Hgb at 6.7 - Transfuse 2 additional units PRBCs 11/02 - Recheck H&H 4-6 hours after transfusion - Monitor AM CBC Hematuria/Bladder Cancer - likely hematuria more related to h/o bladder cancer, Shiga toxin seeming less likely at this point - UA with 3+ blood, RBC > 30 - Urology consulted - Irrigation at bedside performed 11/02 - May ultimately need cystoscopy and fulguration if the bleeding continues, but the urine is much improved after irrigation - -oxybutynin as needed -B&O suppository as needed -nursing to irrigate catheter PRN - Monitor output and plan as per Urology Proctocolitis - CT A/P: Mild wall thickening of the sigmoid and rectum with perirectal stranding. Findings may be secondary to partial distention versus a nonspecific proctocolitis. - no blood or mucous per rectum - stool culture, Cdiff, pending - no food or water consumption that would be concerning - Monitor Chronic CHF with preserved EF - Continue Metoprolol as long as she continue to exhibit adequate BP and MAPS >65 - Hold Amlodipine/benazepril due to hypotension - Continue atorvastatin - Hold Lasix- resume when euvolemia ensured and sepsis pathology controlled - IVF held to avoid fluid overload with additional transfusion as above Graves disease - TSH-12 dose recently reduced in August - Continue propylthiouracil Peripheral artery disease - Stable aorto-iliac stenosis - Continue ASA - Continue atorvastatin Chronic anemia - Baseline HGB ~11 follow as above - monitor H&H - Transfuse for Hgb < 8 FENGI: Regular DVT ppx: Hold chemoppx in the setting of possible active bleeding Dispo: PCU/Telemetry CODE: FULL CODE (2) Anemia: (3) Proctocolitis: (4) CHF (congestive heart failure): (5) Graves disease: (6) Peripheral artery disease: (7) Hematuria: (8) HTN (hypertension): (9) Chronic anemia: Admission and Anticipated Discharge Date Admission Date: November 01, 2020 Supervising Physician Co-Signing Physician Notes Resident Physician Supervision Note: I independently interviewed and examined the patient and verified the mcduffie history and physical, reviewed labs and image studies and agree with resident Dr. Diez findings and care plan. Subjective Patient seen at bedside. She is awake and pleasant. Tolerating PO well. She reports mild abdominal tenderness suprapubically and still feeling somewhat weak. But otherwise no SOB, fever, chills, n/v, DIXON, dizziness/lightheadedness, CP, palp. Review of Systems Review of Systems: All systems reviewed & are unremarkable except as noted in Subjective Physical Exam Physical Exam: GENERAL: A&Ox3. NAD. HEENT: PERRL, EOMI. Moist mucous membranes. NECK: No JVD. No lymphadenopathy. CHEST/LUNGS: CTAB A/P. No crackles, wheezes, rales, rhonchi. HEART: RRR. No m/g/r. ABDOMEN: Soft, nondistended, BS+ x4, Mild suprapubic tenderness EXTREMITIES: No cyanosis, no clubbing, no edema SKIN: Warm and dry. No rashes or lesions. PSYCHIATRIC: Euthymic affect, no SI, no pressured speech, no hallucinations NEUROLOGIC: No FND. CN II-XII grossly intact. Results & Data Results & Data ([facility]) Vital Signs (Past 12 Hours) Vital Signs Temp Pulse Pulse Resp BP BP Pulse Ox 11/02/20 07:10 63 11/02/20 06:54 36.8 C 66 18 100/59 L 97 11/02/20 03:21 37 C 63 16 108/45 L 97 11/02/20 02:34 36.9 C 64 16 115/58 L 94 11/02/20 01:33 36.8 C 63 20 126/55 L 98 11/02/20 01:03 36.9 C 64 20 125/64 99 11/02/20 00:48 36.9 C 65 20 135/57 L 100 11/02/20 00:32 37 C 68 16 120/60 95 11/02/20 00:26 37 C 68 16 120/60 95 11/01/20 23:34 36 C L 63 16 112/54 L 97 11/01/20 23:32 73 11/01/20 22:34 37 C 63 16 94/54 L 99 11/01/20 22:04 36 C L 76 20 118/55 L 100 11/01/20 21:49 95 H 22 119/54 L 99 11/01/20 21:33 37.1 C 81 20 112/52 L 100 Resident Activity Tracking Resident Involvement: Resident Care Provided Care Provided: Adult Hospital Medicine (1) CHF (congestive heart failure) Heart failure chronicity: acute Heart failure type: unspecified Qualified Code(s): I50.9 - Heart failure, unspecified
--- NOTE | 2020-11-02 10:42 | Urology Consultation ---
Date of Consultation November 02, 2020 Assessment & Plan (1) Hematuria: (2) Bladder cancer: At the bedside I placed a 22 Fr Catheter. I was able to irrigate about 500cc of clot from the bladder. Once the clot was removed I was able to irrigate to light pink. I then left the catheter in place - 10cc in the balloon. Patient instructed that we will follow the output. She may ultimately need cystoscopy and fulguration if the bleeding continues, but the urine is much improved after irrigation today -oxybutynin as needed -B&O suppository as needed -nursing to irrigate catheter PRN History of Present Illness Reason for Consultation: hematuria Attending Physician: Rubi Pena MD History of Present Illness The patient has a history of bladder cancer and underwent TURBT in September with Dr. Chisholm. She did well for 4-5 weeks and then began to have bleeding. She reports that she had a culture completed around week 5 that showed a UTI - she was started on Macrobid. The bleeding never stopped. She eventually became week and was found in bed by her daughter yesterday. She was brought to the ER and found to have a Hgb of 4.3. On imaging she has quite a bit of clot in the bladder. She was straight cathed last night but no monroy was placed. She reports voiding on her own today. The urine she reports is still very bloody - there is no urine for me to examine. She states that she hasn't passed clots for about 24 hours. She denies pain. She feels better today after getting a transfusion of 2 units of pRBCs. Hgb now 6.7 Allergies Allergy/AdvReac Type Severity Reaction Status Date / Time No Known Allergies Allergy Verified 11/01/20 17:01 Home Medications Medication Instructions Recorded Confirmed Type amlodipine 10 mg-benazepril 40 mg 1 cap PO QAM 02/17/18 11/01/20 History capsule (Lotrel) aspirin 81 mg tablet,delayed 81 mg PO QAM 02/17/18 11/01/20 History release (Aspirin Low Dose) atorvastatin 40 mg tablet 40 mg PO PM 02/17/18 11/01/20 History metoprolol tartrate 50 mg tablet 50 mg PO BID 02/17/18 11/01/20 History propylthiouracil 50 mg tablet 100 mg PO BID 02/17/18 11/01/20 History cilostazol 50 mg tablet 50 mg PO BID 08/29/20 11/01/20 History albuterol sulfate 90 mcg/actuation 2 puff INHALATION Q6H PRN #18 g 10/03/20 11/01/20 Rx aerosol inhaler furosemide 20 mg tablet (Lasix) 20 mg PO [id number] PRN 10/03/20 11/01/20 History nitrofurantoin 100 mg PO Q12H 7 Days #14 cap 10/27/20 11/01/20 Rx monohydrate/macrocrystals 100 mg capsule (Macrobid) Patient History Medical History Anxiety Bladder cancer Bladder tumor Breast cancer Dx 7 years ago s/p right lumpectomy- RUE lumpectomy Cardiac murmur 2018 ECHO showed AV sclerosis (no ), mild to moderate mitral annular calcification and mild MS Carotid artery disease s/p left carotid endarterectomy (3 years ago/[facility]), follows with Dr. Islas CHF (congestive heart failure) 2018 Chronic anemia baseline hgb 11's per chart review Graves disease Hyperlipidemia Hypertension Osteoarthritis Paroxysmal atrial fibrillation Single remote episode (suspected r/t nitro patch), no known recurrences, Follows with Dr. Mcdonald Peripheral artery disease Uterine cancer 1995 hysterectomy/radiation Surgical History History of breast biopsy Right History of cataract surgery Right History of cholecystectomy History of flexible sigmoidoscopy History of left-sided carotid endarterectomy History of total hysterectomy with bilateral salpingo-oophorectomy (BSO) Hx of lumpectomy 7 years ago Family History Other No pertinent family history Social History Smoking Status: Former smoker Smoking End Date: 1995; Second Hand Exposure: No; Do You Dip or Chew Tobacco: No; Tobacco Cessation Education Requested by Patient: No Hx Alcohol Use: Yes Alcohol type: wine Hx Substance Use: No Preferred Language: Maori Communication Ability: Effective Operator Automated Process Required: No Beliefs That Will Affect Care: None marital status: Current Living Situation: Alone Current Living Situation Comment: WITH ( HAS ALZHEIMERS) How many Children do You have: 2 Other Information That Helps Us Care for You: No Feels Safe at Home: Yes Safety Concerns: Feels Safe At This Time Assistive Devices: Denture - Upper, Denture - Lower, Glasses and Oxygen - at Night Review of Systems Review of Systems: + fatigue, + hematuria otherwise negative per HPI Physical Exam Physical Exam: NAD Regular rate nonlabored soft Ext without edema aox3 normal mood Results & Data ([facility]) Vital Signs (Past 12 Hours) Vital Signs Temp Pulse Pulse Resp BP BP Pulse Ox 11/02/20 07:10 63 11/02/20 06:54 36.8 C 66 18 100/59 L 97 11/02/20 03:21 37 C 63 16 108/45 L 97 11/02/20 02:34 36.9 C 64 16 115/58 L 94 11/02/20 01:33 36.8 C 63 20 126/55 L 98 11/02/20 01:03 36.9 C 64 20 125/64 99 11/02/20 00:48 36.9 C 65 20 135/57 L 100 11/02/20 00:32 37 C 68 16 120/60 95 11/02/20 00:26 37 C 68 16 120/60 95 11/01/20 23:34 36 C L 63 16 112/54 L 97 11/01/20 23:32 73 PG Care Time/CCT Total # of Minutes Spent Total Time Spent with Patient: Total time spent is greater than 50% in coordination of care (as documented) at patient's floor/unit and/or counseling patient: [place] [address] Initial Inpt Care Lvl 3 Patient Type New History Detailed Exam Detailed Medical Decision Making High Complexity Diagnoses Hematuria R31.9 Bladder cancer C67.9
[2020-11-02] MEDS ORDERED: BELLADONNA/OPIUM SUPP 60 MG SUPP PR PRN (10:51)
[2020-11-02] MEDS: OXYBUTYNIN CHLORIDE 5 MG TAB PO SCH ×2 (14:35→20:54)
[2020-11-02] MEDS: ATORVASTATIN 40 MG TAB PO SCH (20:54)
[2020-11-02 21:49] LABS: Hematocrit (blood only) 24.3 % (37-47); Hemoglobin 8.3 g/dL (12.0-16.0)
[2020-11-03] MEDS: PIPERACILLIN/TAZOBACTAM 3.375 GM in DEXTROSE 5% 100 ML IV SCH ×2 (02:15→10:53)
--- NOTE | 2020-11-03 05:49 | Electrocardiogram Report ---
Test Reason : Blood Pressure : / mmHG Vent. Rate : 084 BPM Atrial Rate : 088 BPM P-R Int : 128 ms QRS Dur : 074 ms QT Int : 386 ms P-R-T Axes : 000 064 073 degrees QTc Int : 456 ms Normal sinus rhythm with Premature atrial complexes Septal infarct , age undetermined Abnormal ECG When compared with ECG of 02-SEP-2020 11:35, Septal infarct is now Present Premature atrial complexes are now Present Confirmed by Joseph Zhu ([id number]) on 11/03/2020 5:48:46 AM Referred By: Confirmed By:Joseph Zhu
[2020-11-03] MEDS: cilostazoL 100 MG TAB PO SCH ×2 (07:57→19:45)
[2020-11-03] MEDS: OXYBUTYNIN CHLORIDE 5 MG TAB PO SCH ×3 (07:59→19:44)
[2020-11-03] MEDS: propylthiouraciL 50 MG TAB PO SCH ×2 (07:59→19:45)
[2020-11-03 08:00] LABS: Basophils # (auto) 0.02 K/uL (0-0.2); Basophils % (auto) 0.3 %; Eosinophils # (auto) 0.21 K/uL (0-0.5); Eosinophils % (auto) 3.2 %; Hemoglobin 8.8 g/dL (12.0-16.0); Immature Granulocytes # (auto) 0.05 K/uL (0.00-0.02); Immature Granulocytes % (auto) 0.8 %; Lymphocytes # (auto) 1.03 K/uL (1.2-3.4); Lymphocytes % (auto) 15.6 %; Mean Corpuscular Hemoglobin 29.3 pg (25-34); Mean Corpuscular Hgb Conc 33.8 g/dL (32-36); Mean Corpuscular Volume 86.7 fL (80-100); Mean Platelet Volume 9.6 fL (7.4-10.4); Monocytes # (auto) 0.83 K/uL (0.11-0.59); Monocytes % (auto) 12.5 %; Neutrophils # (auto) 4.48 K/uL (1.4-6.5); Neutrophils % (auto) 67.6 %; Nucleated RBC # (auto) 0.05 K/uL (0-0); Nucleated RBC % (auto) 0.8 %; Platelet Count 164 K/uL (130-400); RDW Coefficient of Variation 15.6 % (11.5-14.5); RDW Standard Deviation 48.5 fL (36.4-46.3); White Blood Count 6.62 K/uL (4.8-10.8)
[2020-11-03] MEDS: METOPROLOL TARTRATE 50 MG TAB PO SCH ×2 (08:00→19:44)
[2020-11-03] MEDS: ASPIRIN 81 MG ECTAB PO SCH (08:00)
[2020-11-03 08:28] LABS: BUN Creatinine Ratio 12.8 (10-20); Calcium 7.8 mg/dl (8.5-10.1); Creatinine Clr Calc Pharmacy 33.1 ml/min; Est GFR (African American) 49.1 ml/min; Est GFR (Non-African American) 42.4 ml/min; Magnesium 2.3 mg/dl (1.8-2.4); Potassium 3.4 mmol/L (3.5-5.1)
[2020-11-03] MEDS: POTASSIUM CHLORIDE CRTAB 20 MEQ TABCR PO STA ×2 (10:54→11:44)
--- NOTE | 2020-11-03 12:39 | Urology Progress Note ---
Date of Service November 03, 2020 Assessment & Plan (1) Hematuria: (2) Bladder cancer: Plan: 80yo F admitted with sepsis and acute blood loss anemia secondary to hematuria and presumed UTI - Hx of bladder cancer s/p TURBT Sep 2020 - Hematuria has cleared -- Monroy catheter draining clear, yellow urine at present - Afebrile, VSS, non-toxic appearing. - Labs reviewed, Wbc normal, Hgb 8.8 (previous 8.3), Cr 1.20 - UCx final with three types of organisms present, all low counts; BCx no growth in 24hrs - Continues on IV Zosyn - Maintain monroy catheter for now -- Presuming urine remains clear, can attempt voiding trial prior to discharge. - OK to gently irrigate monroy catheter as needed for clots, retention, and suprapubic discomfort. - Monitor H&H, transfuse as felt necessary per primary team. - Continue supportive care and antibiotic therapy, follow cultures. - Will arrange outpatient follow-up with urology service for continued care. - Thank you for allowing us to participate in the acute care of Ms. Mcmahon. Please reconsult us with additional questions, concerns or changes in patient status. Admission and Anticipated Discharge Date Admission Date: November 01, 2020 Subjective Pt examined at bedside this afternoon. Awake, resting comfortably in bed on arrival. Denies any pain or discomfort at present. Tolerating monroy catheter with minimal bother. Monroy catheter intact, draining clear, yellow urine. No fevers or chills. Denies nausea or vomiting. Review of Systems Constitutional: as per Subjective / HPI Gastrointestinal: as per Subjective / HPI Genitourinary: as per Subjective / HPI Physical Exam Constitutional: well developed and well nourished; no acute distress and not ill appearing Respiratory: normal respiratory effort and able to speak in complete sentences; no labored breathing and no audible wheezes Gastrointestinal (Abdomen): Inspection/Auscultation: abdomen normal to inspection; abdomen not distended Musculoskeletal: Head/Neck/Chest: normocephalic Skin: No visible rashes or lesions to exposed skin areas Neurologic: moves all extremities and awake Psychiatric: Orientation: alert, oriented x 3 and cooperative Genitourinary: Monroy catheter intact Results & Data ([facility]) Vital Signs (Past 12 Hours) Vital Signs Temp Pulse Pulse Resp BP Pulse Ox 11/03/20 09:03 63 11/03/20 07:40 36.8 C 71 17 132/81 92 11/03/20 03:16 36.8 C 63 16 126/54 L 95 PG Care Time/CCT Total # of Minutes Spent Total Time Spent with Patient: Total time spent is greater than 50% in coordination of care (as documented) at patient's floor/unit and/or counseling patient: Coding Level of Care Code 20088 Subseq Hosp Care Lvl 2 Diagnoses Hematuria R31.9 Bladder cancer C67.9
--- NOTE | 2020-11-03 15:17 | Hospitalist Progress Note ---
Date of Service November 03, 2020 Assessment & Plan (1) Sepsis: Plan: Karina Mcmahon is an 80-year-old female with complex past medical history including breast cancer (lumpectomy chemo/radiation, tamoxifen/Arimidex), bladder cancer, uterine cancer (hysterectomy), stable pulmonary nodule, aorto- iliac stenosis, HFpEF, moderate aortic stenosis, left internal carotid endarterectomy (2016), and CECILIO stenosis, Graves disease who presented to [facility] due to fever, chills, fatigue, somnolence, diarrhea, and hematuria one week after being diagnosed with UTI in the outpatient setting. Found to be septic on arrival and hemoglobin at 4.2. Sepsis Sepsis- urinary vs. proctocolitis - SIRS- 3, q SOFA-2, - Blood and urine cultures pending - C-diff toxin ordered. Stool culture collected. Negative to date. - WBC 5.45, has remained stable - Lactate 2.7 ---> 1.5 - Received Zosyn 3.375 Gm IV q8h. Discontinued 11/03/20 - Transitioned to IV Ceftriaxone 1g daily and Flagyl 500mg TID today to cover for UTI and GI sources. - PT/OT ordered today for discharge planning. Acute blood loss anemia - Secondary to hematuria- cystitis vs. Shigatoxin vs. oncological process -CT A/P: Hyperdense intraluminal debris within the urinary bladder measuring over 7 cm is suggestive of hemorrhage, new from 10/01/2020. - LDH normal, Haptoglobin pending - Renal function normal, Plt normal -- less concern for Shiga toxin at this time - Type and cross- transfuse PRBC prn with goal of 8 - s/p 2U PRBCs on 11/01, additional 2U PRBCs 11/02 - Hgb stable at 8.8 this AM. Will recheck H&H tonight. - Consider venofer infusion tomorrow - Monitor AM CBC Hematuria/Bladder Cancer - likely hematuria more related to h/o bladder cancer, Shiga toxin seeming less likely at this point - UA with 3+ blood, RBC > 30 - Urology consulted - Irrigation at bedside performed 11/02 - May ultimately need cystoscopy and fulguration if the bleeding continues, but the urine is much improved after irrigation - oxybutynin as needed - B&O suppository as needed - nursing to irrigate catheter PRN - Monitor output and plan as per Urology Proctocolitis - CT A/P: Mild wall thickening of the sigmoid and rectum with perirectal stranding. Findings may be secondary to partial distention versus a nonspecific proctocolitis. - no blood or mucous per rectum - stool culture, Cdiff, negative to date - no food or water consumption that would be concerning - Monitor. Continue abx as noted above. CHF with preserved EF - Continue Metoprolol as long as she continue to exhibit adequate BP and MAPS >65 - Hold Amlodipine/benazepril - Continue atorvastatin - Hold Lasix- resume when euvolemia ensured and sepsis pathology controlled - IVF held to avoid fluid overload with additional transfusion as above Graves disease - TSH-12 dose recently reduced in August - Continue propylthiouracil Peripheral artery disease - Stable aorto-iliac stenosis - Continue ASA - Continue atorvastatin Chronic anemia - Baseline HGB ~11 follow as above - monitor H&H - Transfuse for Hgb < 8 FENGI: Regular DVT ppx: Hold chemoppx in the setting of possible active bleeding Dispo: PCU/Telemetry CODE: FULL CODE (2) Anemia: (3) Proctocolitis: (4) CHF (congestive heart failure): (5) Graves disease: (6) Peripheral artery disease: (7) Hematuria: (8) HTN (hypertension): (9) Chronic anemia: Admission and Anticipated Discharge Date Admission Date: November 01, 2020 Supervising Physician Co-Signing Physician Notes I personally examined the patient and verified all mcduffie points of history and exam, discussed case, and agree with decision making with Dr Zuleta. Feeling better, urine has cleared. No new complaints. Vitals noted, in general she is awake and alert pleasant no distress. HEENT normocephalic atraumatic mucous membranes moist. Breathing unlabored no accessory muscle use good effort. Skin shows no rashes no pallor or icterus. Neuro without focal deficits. Urine appears to be marquis Acute blood loss anemiarequired 4 units transfusion. Now more reasonable hemoglobin and overall stable vitals. Due to hematuria. Hematuriaappears to be clearing, continue to monitor Monroy output, irrigate as necessary, appreciate urology input. Question of infectioncontinue to monitor, narrow antibiotics, low threshold to DC. Otherwise as above. Subjective Patient seen and evaluated at bedside this morning. States that she is overall feeling better this morning. Eating well. Sleeping well. No abdominal pain, nausea, vomiting. No fevers or chills. No CP, SOB, DIXON, lightheadedness. Continues w/ monroy catheter in place but hematuria has significantly improved and she does have clear yellow output. Review of Systems Review of Systems: See HPI Physical Exam Physical Exam: GENERAL: No acute distress. Well developed and well nourished. Vital signs reviewed as above. EYES: EOMI. Anicteric sclerae. HENT: Moist mucous membranes. RESPIRATORY: Clear to auscultation bilaterally. No wheezing, rales, or rhonchi. CARDIOVASCULAR: Regular rate and rhythm. No murmurs. ABDOMEN: Soft, non-tender and non-distended. Normal bowel sounds. : Monroy catheter in place. EXTREMITIES: No edema. Non-tender. SKIN: Warm, dry. No rashes or lesions. NEUROLOGIC: A/O x3. No focal neurological deficits. PSYCHIATRIC: Cooperative. Appropriate mood and affect. Results & Data Results & Data ([facility]) Vital Signs (Past 12 Hours) Vital Signs Temp Pulse Pulse Resp BP Pulse Ox 11/03/20 15:03 36.9 C 70 16 93/46 L 94 11/03/20 09:03 63 11/03/20 07:40 36.8 C 71 17 132/81 92 11/03/20 03:16 36.8 C 63 16 126/54 L 95 Resident Activity Tracking Resident Involvement: Resident Care Provided Care Provided: Adult Hospital Medicine (1) CHF (congestive heart failure) Heart failure chronicity: acute Heart failure type: unspecified Qualified Code(s): I50.9 - Heart failure, unspecified
[2020-11-03] MEDS: cefTRIAXone SODIUM 1,000 MG in DEXTROSE 5% 50 ML IV SCH (16:11)
[2020-11-03] MEDS: metroNIDAZOLE 500 MG/100 ML BAG IV SCH (17:13)
--- NOTE | 2020-11-03 17:51 | Billing Data ---
Date of Service November 03, 2020 Coding Level of Care Code 03132 Subseq Hosp Care Lvl 2
[2020-11-03 19:13] LABS: Hematocrit (blood only) 26.8 % (37-47); Hemoglobin 8.6 g/dL (12.0-16.0)
[2020-11-03] MEDS: ATORVASTATIN 40 MG TAB PO SCH (19:45)
[2020-11-04] MEDS: metroNIDAZOLE 500 MG/100 ML BAG IV SCH ×2 (02:00→10:50)
[2020-11-04 06:15] LABS: Basophils # (auto) 0.02 K/uL (0-0.2); Basophils % (auto) 0.3 %; Eosinophils # (auto) 0.38 K/uL (0-0.5); Eosinophils % (auto) 5.6 %; Hematocrit (blood only) 25.9 % (37-47); Hemoglobin 8.6 g/dL (12.0-16.0); Immature Granulocytes # (auto) 0.04 K/uL (0.00-0.02); Immature Granulocytes % (auto) 0.6 %; Lymphocytes # (auto) 1.44 K/uL (1.2-3.4); Lymphocytes % (auto) 21.1 %; Mean Corpuscular Hemoglobin 29.2 pg (25-34); Mean Corpuscular Hgb Conc 33.2 g/dL (32-36); Mean Corpuscular Volume 87.8 fL (80-100); Mean Platelet Volume 9.8 fL (7.4-10.4); Monocytes # (auto) 0.81 K/uL (0.11-0.59); Monocytes % (auto) 11.9 %; Neutrophils # (auto) 4.13 K/uL (1.4-6.5); Neutrophils % (auto) 60.5 %; Nucleated RBC # (auto) 0.02 K/uL (0-0); Nucleated RBC % (auto) 0.3 %; Platelet Count 166 K/uL (130-400); RDW Coefficient of Variation 16.1 % (11.5-14.5); RDW Standard Deviation 51.8 fL (36.4-46.3); Red Blood Count 2.95 M/uL (4.2-5.4); White Blood Count 6.82 K/uL (4.8-10.8)
[2020-11-04 06:48] LABS: BUN Creatinine Ratio 12.6 (10-20); Calcium 7.8 mg/dl (8.5-10.1); Creatinine Clr Calc Pharmacy 39.1 ml/min; Est GFR (African American) 60.5 ml/min; Est GFR (Non-African American) 52.2 ml/min; Magnesium 2.3 mg/dl (1.8-2.4); Potassium 3.6 mmol/L (3.5-5.1)
[2020-11-04] MEDS ORDERED: IRON SUCROSE 300 MG in SODIUM CHLORIDE 0.9% 250 ML IV ONE (07:30)
[2020-11-04] MEDS: propylthiouraciL 50 MG TAB PO SCH (07:48)
[2020-11-04] MEDS: ASPIRIN 81 MG ECTAB PO SCH (07:48)
[2020-11-04] MEDS: METOPROLOL TARTRATE 50 MG TAB PO SCH (07:48)
[2020-11-04] MEDS: OXYBUTYNIN CHLORIDE 5 MG TAB PO SCH ×2 (07:48→13:03)
[2020-11-04] MEDS: cilostazoL 100 MG TAB PO SCH (07:48)
--- NOTE | 2020-11-04 10:27 | Hospitalist Progress Note ---
Date of Service November 04, 2020 Assessment & Plan (1) Sepsis: Plan: Karina Mcmahon is an 80-year-old female with complex past medical history including breast cancer (lumpectomy chemo/radiation, tamoxifen/Arimidex), bladder cancer, uterine cancer (hysterectomy), stable pulmonary nodule, aorto- iliac stenosis, HFpEF, moderate aortic stenosis, left internal carotid endarterectomy (2016), and CECILIO stenosis, Graves disease who presented to [facility] due to fever, chills, fatigue, somnolence, diarrhea, and hematuria one week after being diagnosed with UTI in the outpatient setting. Found to be septic on arrival and hemoglobin at 4.2. Sepsis Sepsis- urinary vs. proctocolitis - SIRS- 3, q SOFA-2, - Blood and urine cultures pending - C-diff toxin ordered. Stool culture collected. Negative to date. - WBC 5.45, has remained stable - Lactate 2.7 ---> 1.5 - Received Zosyn 3.375 Gm IV q8h. Discontinued 11/03/20 - Transitioned to IV Ceftriaxone 1g daily and Flagyl 500mg TID today to cover for UTI and GI sources. - PT/OT ordered today for discharge planning. Acute blood loss anemia - Secondary to hematuria- cystitis vs. Shigatoxin vs. oncological process -CT A/P: Hyperdense intraluminal debris within the urinary bladder measuring over 7 cm is suggestive of hemorrhage, new from 10/01/2020. - LDH normal, Haptoglobin pending - Renal function normal, Plt normal -- less concern for Shiga toxin at this time - Type and cross- transfuse PRBC prn with goal of 8 - s/p 2U PRBCs on 11/01, additional 2U PRBCs 11/02 - Hgb stable at 8.8 this AM. Will recheck H&H tonight. - Consider venofer infusion tomorrow - Monitor AM CBC Hematuria/Bladder Cancer - likely hematuria more related to h/o bladder cancer, Shiga toxin seeming less likely at this point - UA with 3+ blood, RBC > 30 - Urology consulted - Irrigation at bedside performed 11/02 - May ultimately need cystoscopy and fulguration if the bleeding continues, but the urine is much improved after irrigation - oxybutynin as needed - B&O suppository as needed - nursing to irrigate catheter PRN - Monitor output and plan as per Urology Proctocolitis - CT A/P: Mild wall thickening of the sigmoid and rectum with perirectal stranding. Findings may be secondary to partial distention versus a nonspecific proctocolitis. - no blood or mucous per rectum - stool culture, Cdiff, negative to date - no food or water consumption that would be concerning - Monitor. Continue abx as noted above. CHF with preserved EF - Continue Metoprolol as long as she continue to exhibit adequate BP and MAPS >65 - Hold Amlodipine/benazepril - Continue atorvastatin - Hold Lasix- resume when euvolemia ensured and sepsis pathology controlled - IVF held to avoid fluid overload with additional transfusion as above Graves disease - TSH-12 dose recently reduced in August - Continue propylthiouracil Peripheral artery disease - Stable aorto-iliac stenosis - Continue ASA - Continue atorvastatin Chronic anemia - Baseline HGB ~11 follow as above - monitor H&H - Transfuse for Hgb < 8 FENGI: Regular DVT ppx: Hold chemoppx in the setting of possible active bleeding Dispo: PCU/Telemetry CODE: FULL CODE (2) Anemia: (3) Proctocolitis: (4) CHF (congestive heart failure): (5) Graves disease: (6) Peripheral artery disease: (7) Hematuria: (8) HTN (hypertension): (9) Chronic anemia: Admission and Anticipated Discharge Date Admission Date: November 01, 2020 Subjective Patient seen and evaluated at bedside this morning. States that she is overall feeling well. Eating well without abdominal pain, nausea, or vomiting. Sleeping well. No fevers or chills. No CP, SOB, DIXON, lightheadedness. Continues w/ monroy catheter in place but hematuria has significantly improved and she does have clear yellow output noted this AM. Physical Exam Physical Exam: GENERAL: No acute distress. Well developed and well nourished. Vital signs reviewed as above. EYES: EOMI. Anicteric sclerae. HENT: Moist mucous membranes. RESPIRATORY: Clear to auscultation bilaterally. No wheezing, rales, or rhonchi. CARDIOVASCULAR: Regular rate and rhythm. No murmurs. ABDOMEN: Soft, non-tender and non-distended. Normal bowel sounds. : Monroy catheter in place. EXTREMITIES: No edema. Non-tender. SKIN: Warm, dry. No rashes or lesions. NEUROLOGIC: A/O x3. No focal neurological deficits. PSYCHIATRIC: Cooperative. Appropriate mood and affect. Results & Data Results & Data ([facility]) Vital Signs (Past 12 Hours) Vital Signs Temp Pulse Pulse Resp BP Pulse Ox 11/04/20 08:00 36.7 C 75 79 20 152/55 H 96 11/04/20 03:07 37.1 C 76 16 96/42 L 97 11/03/20 23:53 64 11/03/20 22:56 36.7 C 61 19 118/53 L 95 (1) CHF (congestive heart failure) Heart failure chronicity: acute Heart failure type: unspecified Qualified Code(s): I50.9 - Heart failure, unspecified
[2020-11-04] MEDS: cefTRIAXone SODIUM 1,000 MG in DEXTROSE 5% 50 ML IV SCH (16:11)
--- NOTE | 2020-11-04 17:43 | Discharge Summary ---
Date of Service November 04, 2020 Admission HPI Per Admitting Provider 80 YOF with past medical history of: Breast cancer (lumpectomy chemo/radiation, tamoxifen/Arimidex), bladder cancer, uterine cancer (hysterectomy), stable pulmonary nodule, aorto-illiac stenosis, HFpEF, moderate aortic stenosis, left internal carotid endarterectomy (2016), and CECILIO stenosis, Graves disease. Patient comes in today for increase in fatigue and somnolence when her daughter went to see her today. The patient endorses that she was diagnosed with a UTI ~ a week ago and was placed on Macrobid- her urinary symptoms got better but systemically she was still having body aches and chills. Approximately 3 days ago she started having diarrhea, as well as hematuria, which she thought was just from antibiotics. She says that they were about 2-3 times per day and loose, without abdominal discomfort or blood/mucous in the stools, and her urine has been red tinged. 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 In the EMD the patient was noted to be tachycardic, hypotensive, and f ebrile. Her lactate was 2.7. She was started on Rocephin, resuscitated with 1.5 liters of crystalloid and CT scan of her abdomen and pelvis performed. CT scan of her abdomen/pelvis was notable for: Hyperdense intraluminal debris within the urinary bladder measuring over 7 cm is suggestive of hemorrhage, new from 10/01/2020. Follow-up cystoscopy could be considered to exclude the left likely possibility of an underlying lesion. Mild wall thickening of the sigmoid and rectum with perirectal stranding. Findings may be secondary to partial distention versus a nonspecific proctocolitis. Cdiff and stool cultures are pending, she originally missed the urine hat for urine collection, but urine is pending. Patient will be changed to Zosyn for both presumed UTI as well as colitis while awaiting urine and blood cultures and stool cultures. UA resulted with large RBC >30HPF and hematuria- CBC resulted with significant anemia of 4.3- type and cross, transfuse 2 units of PRBC. If Cdiff comes back will add on oral Vancomycin. Generally the patient feels tired and thirsty but is warm, she is pale, pulses strong, and mentating well. Will admit to PCU to continue to trend her lactate, continue antibiotics and follow her organ perfusion, transfuse PRBCs. Patient has had her COVID vaccine and her COVID test on admission is: NEGATIVE. Her Influenza A and B are also negative. Admission Exam Per Admitting Provider General: awake, alert, no apparent distress Head: Normocephalic, atraumatic ENT: PERRL, EOMI, no pharyngeal exudate, mucous membranes moist Neuro: AAO x 3, speech clear and appropriate, strength intact bilaterally 5/5, sensation intact and equal all extremities and dermatomes, no pronator drift Chest: equal rise and fall of the chest, no accessory muscle use, no heaves or thrills, Clear to auscultation, on room air, Cardiac: Regular rate and rhythm, telemetry reviewed-NSR with PAC, skin warm dry, cap refill <3 seconds, peripheral pulses +2 no JVD,grade III systolic murmur that radiates to the carotids, no JVD, no edema GI: NABS x 4 quadrants, soft, tender to palpation LLQ, no rebound, guarding or tenderness : hematuria, Spontaneously voiding, no pain, no CVA tenderness, Extremities: Normal inspection, no peripheral edema or erythema, calfs nontender to palpation Psych: Normal mood and affect Skin: no rash or erythema Principal Diagnosis sepsis Discharge Exam GENERAL: No acute distress. Well developed and well nourished. Vital signs reviewed as above. EYES: EOMI. Anicteric sclerae. HENT: Moist mucous membranes. RESPIRATORY: Clear to auscultation bilaterally. No wheezing, rales, or rhonchi. CARDIOVASCULAR: Regular rate and rhythm. No murmurs. ABDOMEN: Soft, non-tender and non-distended. No palpable masses. Normal bowel sounds. EXTREMITIES: No edema. Non-tender. SKIN: Warm, dry. No rashes or lesions. NEUROLOGIC: A/O x3. No focal neurological deficits. PSYCHIATRIC: Cooperative. Appropriate mood and affect. Discharge Data Allergies Allergy/AdvReac Type Severity Reaction Status Date / Time No Known Allergies Allergy Verified 11/01/20 17:01 Consultations 11/01/20 17:57 ED Decision to Admit Stat 11/01/20 19:44 Consult Urology Routine Ordered Studies 11/01/20 15:36 CT abd pelvis wo con Stat CT head/brain wo con Stat Hospital Course (1) Sepsis: Karina Bettleyon is an 80-year-old female with complex past medical history including breast cancer (lumpectomy chemo/radiation, tamoxifen/Arimidex), bladder cancer, uterine cancer (hysterectomy), stable pulmonary nodule, aorto-iliac stenosis, HFpEF, moderate aortic stenosis, left internal carotid endarterectomy (2016), and CECILIO stenosis, Graves disease who presented to [facility] due to fever, chills, fatigue, somnolence, diarrhea, and hematuria one week after being diagnosed with UTI in the outpatient setting. Found to be septic on arrival and hemoglobin at 4.2. Sepsis Sepsis- urinary vs. proctocolitis - On admission, SIRS- 3, q SOFA-2, - Blood and urine cultures negative - C-diff toxin and stool cultures negative. - Received Zosyn 3.375 Gm IV q8h. Discontinued 11/03/20 - Transitioned to IV Ceftriaxone 1g daily and Flagyl 500mg TID on 11/03/20 to cover for UTI and GI sources. Abx therapy discontinued prior to discharge. - PT/OT ordered for discharge planning, no needs identified --> recommended discharge to home w/ family support Acute blood loss anemia - Secondary to hematuria -CT A/P: Hyperdense intraluminal debris within the urinary bladder measuring over 7 cm is suggestive of hemorrhage, new from 10/01/2020. - LDH normal, Haptoglobin pending - Renal function normal, Plt normal - Type and cross- transfuse PRBC prn with goal of 8 - s/p 2U PRBCs on 11/01, additional 2U PRBCs 11/02 - Hgb stable > 8 prior to discharge. Also received 300mg venofer infusion on day of discharge. - Recommend repeat CBC on PCP follow up within 1 week. Hematuria/Bladder Cancer - Likely hematuria secondary to h/o bladder cancer - UA with 3+ blood, RBC > 30 - Urology consulted - Irrigation at bedside performed 11/02 - Recommend urology follow up for outpatient cystoscopy within 1 week. - Patient discharged with Bactrim DS x7 days per urology recommenations. Proctocolitis - CT A/P: Mild wall thickening of the sigmoid and rectum with perirectal stranding. Findings may be secondary to partial distention versus a nonspecific proctocolitis. - no blood or mucous per rectum - stool culture, Cdiff, negative to date - no food or water consumption that would be concerning CHF with preserved EF - Continue Metoprolol as long as she continue to exhibit adequate BP and MAPS >65 - Amlodipine/benazepril held during admission. Restarted on discharge. - Continue atorvastatin - Lasix held during admission, resumed when euvolemia ensured and sepsis pathology controlled Graves disease - TSH-12 dose recently reduced in August - Continue propylthiouracil Peripheral artery disease - Stable aorto-iliac stenosis - Continue ASA and atorvastatin Chronic anemia - Baseline HGB ~11 follow as above - monitor H&H; transfuse for Hgb < 8 - Transfusions as noted above (2) Anemia: (3) Proctocolitis: (4) CHF (congestive heart failure): (5) Graves disease: (6) Peripheral artery disease: (7) Hematuria: (8) HTN (hypertension): (9) Chronic anemia: Total Time Total Time Spent Total Time Spent (In Minutes): <30 Discharge Plan Discharge Items Patient Disposition: Home - Self-Care Reason For Visit: SEPSIS Discharge Diagnosis: sepsis Condition on Discharge: Good Activity: Per Instructions section Non-emergency contact: Primary Care Provider and Urologist Call non-emergency contact if: you have any medication questions and your symptoms worsen Follow-up/Referrals: Carlos Arias MD [Primary Care Provider] - 11/10/20 9:50 am Diet: Regular Addtl Attending Provider Instructions: daryl Collins were admitted to [facility] due to fever, fatigue, diarrhea, and hematuria for 1 week after being diagnosed with a UTI. On admission, you were found to be anemic (low blood count) as well. You were treated with IV antibiotics and also seen by urology. At this time, you have improved and we feel that it is safe for you to be discharged home. You will be discharged home with plans to finish treatment with the following antibiotic: 1. Bactrim DS for 7 days We recommend follow-up with your primary care provider within the next week to ensure full resolution of the infection. You should also follow up with urology within the next week with plans to arrange further outpatient studies (e.g. cystoscopy) with them. If you develop worsening shortness of breath, worsening cough, fever, chills or any other concerning symptoms please return to the hospital for reevaluation. Pending Studies at Discharge: No Stand-Alone Forms: My [facility], Smoking Cessation Medications and DC Order Prescriptions: New sulfamethoxazole-trimethoprim [Bactrim DS] 800-160 mg tablet 1 tab PO DAILY 7 Days Qty: 7 RF: 0 Continued albuterol sulfate 90 mcg/actuation HFA aerosol inhaler 2 puff inhalation Q6H PRN (Reason: Shortness Of Breath Or Wheezing) Qty: 18 RF: 3 furosemide [Lasix] 20 mg tablet 20 mg PO 3XWK PRN (Reason: swelling) RF: 0 atorvastatin 40 mg Tablet 40 mg PO PM RF: 0 propylthiouracil 50 mg Tablet 100 mg PO BID RF: 0 aspirin [Aspirin Low Dose] 81 mg Tablet,Delayed Release (Dr/Ec) 81 mg PO QAM RF: 0 metoprolol tartrate 50 mg Tablet 50 mg PO BID RF: 0 amlodipine-benazepril [Lotrel] 10-40 mg Capsule 1 cap PO QAM RF: 0 cilostazol 50 mg Tablet 50 mg PO BID RF: 0 Discontinued nitrofurantoin monohyd/m-cryst [Macrobid] 100 mg capsule 100 mg PO Q12H 7 Days Qty: 14 RF: 0 Discharge Orders: Discharge Order (Routine); Ordered 11/04/20 Ordered By: Gerry Mcgowan Admission Data Admit Date/Time: 11/01/20 18:13 Attending Provider: Peter Jose Admit Provider: Gerry Sherman Primary Care Provider: Carlos Arias Other Providers: Albanai Martell ; Gerry Sherman Other Interventions: Discharge Summary Assessment (RN) Last Done: 11/04/20 16:19 Supervising Physician Co-Signing Physician Notes I personally examined the patient and verified all mcduffie points of history and exam, discussed case, and agree with decision making with Dr Zuleta. Feeling better, urine has cleared. No new complaints. Wants to go home. Urology input appreciated. Vitals noted, in general she is awake and alert pleasant no distress. HEENT normocephalic atraumatic mucous membranes moist. Breathing unlabored no accessory muscle use good effort. Skin shows no rashes no pallor or icterus. Neuro without focal deficits. Urine clear Acute blood loss anemiarequired 4 units transfusion. Now more reasonable h emoglobin and overall stable vitals. Due to hematuria. Hematuria seems to have been due to infectionsend homea week of Bactrim, cystoscopy next week. Hematuriaappears to be clearing, see above Resident Activity Tracking Resident Involvement: Resident Care Provided Care Provided: Adult Hospital Medicine
--- NOTE | 2020-11-04 19:05 | Billing Data ---
Date of Service November 04, 2020 Coding Level of Care Code D/C DAY MANAGEMENT <30 MINS
== END 2020-11-04 17:51 | disposition home or self-care (01) | DRG 872 ==
LOC: ED 14:45 → SUATTDRO 18:13 → 2S 18:13

== ENCOUNTER 2021-12-11 18:08 | Inpatient (IN) ==
--- NOTE | 2021-12-11 19:37 | History & Physical Report ---
Date of Service December 11, 2021 Assessment & Plan (1) Acute exacerbation of CHF (congestive heart failure): Plan: -CBC, CMP, BNP, CXR ordered. -ECHO on 09/2021 EF 73% (per cardiology note) -CXR showed Interstitial pulmonary edema with moderate right and small left pleural effusions. -Cr slightly elevated at 1.41. Will continue to monitor as patient is diuresed. -EKG showed sinus rhythm with PAC's. -Will start on Lasix 40mg BID. -Continue meoprolol 50mg BID and spironolactone 12.5mg QD -Monitor I&Os, urinary catheter in place. (2) COPD with emphysema: Plan: -Continue home O2 and albuterol as needed. (3) Paroxysmal atrial fibrillation: Plan: -Afib not seen on admission. -Montior on tele (4) Bladder cancer: Plan: -Stable, urinary cathered in place. (5) Chronic anemia: Plan: Hgb at 11.2, baseline for patient Continue to monitor (6) Graves disease: Plan: -continue at home PTU (7) HLD (hyperlipidemia): Plan: -Continue home atorvastatin 40mg (8) HTN (hypertension): Plan: -Continue home meds. (9) PAD (peripheral artery disease): Plan: -Continue cilostazol 50mg BID Plan Fluids: none Nutrition: heart healthy/ low sodium Code status: conditional code Dispo: med/surg with tele Thank you for allowing me to participate in the care of your patient. -Dr. Donnie Corley PGY1 Admission and Anticipated Discharge Date Admission Date: December 11, 2021 History of Present Illness Chief Complaint: SOB and LE edema Primary Care Provider: Carlos Arias MD Patient is a 81 y/o female who was seeing cardiology today and was told to come to the hospital. She has been having increasing SOB and LE edema over the past couple of weeks and has gained about 8kg since summer. She normally uses 2L O2 at night time but is now needing it all the time. She states that she has noticed that her edema in her legs is getting a lot worse and is painful. Patient has a h/o endarterectomy 12/2015, HTN, breast cancer in 2012 s/p lumpectomy and radiation and tamoxifen, hyperthyroidism, uterine cancer s/p radiatio therapy, COPD, PAD, HFPEF, and bladder cancer in 2020. Allergies Allergy/AdvReac Type Severity Reaction Status Date / Time No Known Allergies Allergy Verified 10/15/21 13:44 Home Medications Medication Instructions Recorded Confirmed Type aspirin 81 mg tablet,delayed 81 mg PO QAM 02/17/18 12/19/21 History release (Hermilo Low Dose Aspirin) atorvastatin 40 mg tablet 40 mg PO PM 02/17/18 12/19/21 History metoprolol tartrate 50 mg tablet 50 mg PO BID 02/17/18 12/19/21 History propylthiouracil 50 mg tablet 100 mg PO BID 02/17/18 12/19/21 History cilostazol 50 mg tablet 50 mg PO BID 08/29/20 12/19/21 History albuterol sulfate 90 mcg/actuation 2 puff inhalation Q6H PRN 06/05/21 12/19/21 Rx aerosol inhaler Shortness Of Breath Or Wheezing #18 grams bumetanide 1 mg tablet 1 mg PO DAILY 12/11/21 12/19/21 History spironolactone 25 mg tablet 12.5 mg PO DAILY 12/11/21 12/19/21 History (Aldactone) Past Med/Surg History Medical History (Updated 12/20/21 @ 18:19 by Shalom Robles) Acute kidney injury Anxiety Bladder cancer Breast cancer Dx 7 years ago s/p right lumpectomy- RUE lumpectomy Cardiac murmur 2018 ECHO showed AV sclerosis (no ), mild to moderate mitral annular calcification and mild MS Carotid artery disease s/p left carotid endarterectomy (3 years ago/[facility]), follows with Dr. Islas CHF (congestive heart failure) 2018 Chronic anemia baseline hgb 11's per chart review Graves disease Hyperlipidemia Hypertension Lower back pain Osteoarthritis Paroxysmal atrial fibrillation Single remote episode (suspected r/t nitro patch), no known recurrences, Follows with Dr. Mcdonald Peripheral artery disease Sepsis Uterine cancer 1995 hysterectomy/radiation Surgical History History of breast biopsy Right History of cataract surgery Right History of cholecystectomy History of flexible sigmoidoscopy History of left-sided carotid endarterectomy History of total hysterectomy with bilateral salpingo-oophorectomy (BSO) Hx of lumpectomy 7 years ago Family History Other No pertinent family history Social History Smoking Status: Former smoker Tobacco Type: Cigarettes Second Hand Exposure: No; Hx Alcohol Use: Yes Alcohol type: wine Hx Substance Use: No Preferred Language: [place] Islander Communication Ability: Effective [employer] Required: No Beliefs That Will Affect Care: None marital status: Unknown Current Living Situation: Alone Current Living Situation Comment: WITH ( HAS ALZHEIMERS) How many Children do You have: 2 Feels Safe at Home: Yes Assistive Devices: Oxygen - Continuous Review of Systems Review of Systems: Constitutional: denies fever, chills, fatigue HEENT: denies congestion, sore throat CV: denies chest pain, palpitations Resp: denies cough +SOB GI: denies abdominal pain, nausea, vomiting, constipation, diarrhea : denies pain with urination, change in urinary frequency Neuro: denies new numbness, tingling, weakness Physical Exam Constitutional: well developed Neck: trachea midline, no thyromegaly Respiratory: Auscultation: + crackles (BL LL ) Cardiovascular: Rate/Rhythm: regular rate and regular rhythm Extremities: + edema (BL LE up to the thighs ) Gastrointestinal (Abdomen): normal bowel sounds, soft, nontender, no hepatosplenomegaly Musculoskeletal: no cyanosis or clubbing, extremities motor strength 5/5 Skin: no rashes, warm and dry Results & Data Results & Data ([facility]) Vital Signs (Past 12 Hours) Vital Signs Temp Pulse Resp BP Pulse Ox O2 Del Method O2 Flow Rate 12/11/21 19:15 36.4 C L 82 18 119/67 90 Nasal Cannula 12/11/21 18:12 36.6 C 22 125/64 91 Nasal Cannula 2 Supervising Physician Co-Signing Physician Notes Patient seen and examined at bedside. During face to face encounter, I obtained a history and physical examination. I reviewed above note and agree with it. I discussed plan of care with patient and Barney WINSLOW. Patient will be admitted for CHF and placed on lasix IV BID. Resident Activity Tracking Resident Involvement: Resident Care Provided Care Provided: Adult Hospital Medicine
[2021-12-11] MEDS ORDERED: ALBUTEROL HFA 8 GM INHALER INH PRN (19:45)
[2021-12-11 20:23] LABS: Basophils # (auto) 0.02 K/uL (0-0.2); Basophils % (auto) 0.5 %; Eosinophils # (auto) 0.04 K/uL (0-0.50); Hematocrit (blood only) 36.2 % (34.1-44.9); Hemoglobin 11.2 g/dl (12.0-16.0); Immature Granulocytes # (auto) 0.01 K/uL (0.00-0.02); Immature Granulocytes % (auto) 0.3 %; Lymphocytes # (auto) 0.69 K/uL (1.2-3.4); Lymphocytes % (auto) 17.9 %; Mean Corpuscular Hemoglobin 28.1 pg (25.0-34.0); Mean Corpuscular Hgb Conc 30.9 g/dL (32.0-36.0); Mean Platelet Volume 10.2 fL (9.4-12.3); Monocytes # (auto) 0.46 K/uL (0.24-0.82); Monocytes % (auto) 11.9 %; Neutrophils # (auto) 2.64 K/uL (1.4-6.5); Neutrophils % (auto) 68.4 %; Platelet Count 141 K/uL (130-400); RDW Coefficient of Variation 18.1 % (11.5-14.5); RDW Standard Deviation 59.3 fL (36.4-46.3); Red Blood Count 3.98 M/uL (3.93-5.22); White Blood Count 3.86 K/ul (4.8-10.8)
--- NOTE | 2021-12-11 20:24 | XRay Report ---
XR chest 2V PA/lateral CLINICAL HISTORY: Shortness of breath. COMPARISON STUDY: Chest CT May 08, 2021. FINDINGS: There is no pneumothorax. Moderate right and small left pleural effusions are noted. There is associated right basilar opacity. Interstitial thickening represents pulmonary edema. The spiculat ed right upper lobe nodule shown on prior chest CT is not well-visualized by radiography. Cardiomegal y is noted. There are cholecystectomy clips. IMPRESSION: Interstitial pulmonary edema with moderate right and small left pleural effusions. ACT 112: Negative or not required by law. Electronically signed by: Jaiden Ruiz M.D. 12/11/2021 8:22 PM
[2021-12-11 20:45] LABS: Albumin Level 3.7 gm/dl (3.4-5.0); BUN Creatinine Ratio 20.6 (10-20); Calcium 9.1 mg/dl (8.5-10.1); Creatinine Clr Calc Pharmacy 27.7 ml/min; Est GFR (African American) 40.1 ml/min; Est GFR (Non-African American) 34.6 ml/min; Globulin 3.6 gm/dl (2.5-4.0); Potassium 4.3 mmol/L (3.5-5.1); Total Protein 7.3 gm/dl (6.0-8.3)
[2021-12-11] MEDS: FUROSEMIDE 40 MG/4 ML VIAL IV SCH (21:13)
[2021-12-11] MEDS: cilostazoL 100 MG TAB PO SCH (21:14)
[2021-12-11] MEDS: ATORVASTATIN 40 MG TAB PO SCH (21:15)
[2021-12-11] MEDS: METOPROLOL TARTRATE 50 MG TAB PO SCH (21:16)
[2021-12-11] MEDS: propylthiouraciL 50 MG TAB PO SCH (21:16)
[2021-12-12 05:26] LABS: Basophils # (auto) 0.02 K/uL (0-0.2); Basophils % (auto) 0.6 %; Eosinophils # (auto) 0.09 K/uL (0-0.50); Eosinophils % (auto) 2.8 %; Hematocrit (blood only) 32.6 % (34.1-44.9); Hemoglobin 9.9 g/dl (12.0-16.0); Immature Granulocytes # (auto) 0.01 K/uL (0.00-0.02); Immature Granulocytes % (auto) 0.3 %; Lymphocytes # (auto) 0.79 K/uL (1.2-3.4); Lymphocytes % (auto) 24.2 %; Mean Corpuscular Hemoglobin 27.9 pg (25.0-34.0); Mean Corpuscular Hgb Conc 30.4 g/dL (32.0-36.0); Mean Corpuscular Volume 91.8 fL (80.0-100.0); Mean Platelet Volume 10.4 fL (9.4-12.3); Monocytes # (auto) 0.59 K/uL (0.24-0.82); Monocytes % (auto) 18.1 %; Neutrophils # (auto) 1.76 K/uL (1.4-6.5); Platelet Count 137 K/uL (130-400); Red Blood Count 3.55 M/uL (3.93-5.22); White Blood Count 3.26 K/ul (4.8-10.8)
[2021-12-12 05:49] LABS: Albumin Globulin Ratio 1.1 (0.9-2); Albumin Level 3.3 gm/dl (3.4-5.0); BUN Creatinine Ratio 19.6 (10-20); Bilirubin,Total 0.8 mg/dl (0.2-1.0); Calcium 8.6 mg/dl (8.5-10.1); Creatinine Clr Calc Pharmacy 27.3 ml/min; Est GFR (African American) 39.4 ml/min; Globulin 2.9 gm/dl (2.5-4.0); Total Protein 6.2 gm/dl (6.0-8.3)
[2021-12-12] MEDS: FUROSEMIDE 40 MG/4 ML VIAL IV SCH (08:29)
[2021-12-12] MEDS: ENALAPRIL MALEATE 10 MG TAB PO SCH (08:29)
[2021-12-12] MEDS: ASPIRIN 81 MG ECTAB PO SCH (08:29)
[2021-12-12] MEDS: METOPROLOL TARTRATE 50 MG TAB PO SCH ×2 (08:29→19:47)
[2021-12-12] MEDS: SPIRONOLACTONE 12.5 MG TAB PO SCH (08:29)
[2021-12-12] MEDS: propylthiouraciL 50 MG TAB PO SCH ×2 (08:29→19:46)
[2021-12-12] MEDS: cilostazoL 100 MG TAB PO SCH ×2 (08:29→19:46)
[2021-12-12] MEDS: amLODIPine BESYLATE 5 MG TAB PO SCH (08:30)
--- NOTE | 2021-12-12 13:21 | Electrocardiogram Report ---
Test Reason : Blood Pressure : / mmHG Vent. Rate : 061 BPM Atrial Rate : 061 BPM P-R Int : 130 ms QRS Dur : 096 ms QT Int : 456 ms P-R-T Axes : 055 088 070 degrees QTc Int : 459 ms Normal sinus rhythm Low voltage QRS RSR' or QR pattern in V1 suggests right ventricular conduction delay Possible Anterolateral infarct , age undetermined Abnormal ECG When compared with ECG of 14-NOV-2020 22:05, Premature atrial complexes are no longer Present Borderline criteria for Anterolateral infarct are now Present Confirmed by Reece Mcdonald ([id number]) on 12/12/2021 1:21:49 PM Referred By: Reece Mcdonald Confirmed By:Reece Mcdonald
--- NOTE | 2021-12-12 14:43 | Hospitalist Progress Note ---
Date of Service December 12, 2021 Assessment & Plan (1) Acute exacerbation of CHF (congestive heart failure): Plan: Patient was asked to come to the hospital by her biofuels plant manager Has gained 8 pounds and also noticed worsening leg swelling chest ray showed sings of pulmo congestion Initially started on Lasix IV 40mg BID, will reduce to 40mg daily in view of worsening renal function Obtain 2 D ECHO Monitor I/O, daily weight (2) HTN (hypertension): Plan: Bp soft, 95/50 hold antihypertensives for now (3) Bladder cancer: Plan: Follow up with urology outpatient (4) COPD with emphysema: Plan: No wheeze on exam continue home albuterol Plan continue hospitalization Admission and Anticipated Discharge Date Admission Date: December 11, 2021 Subjective patient seen and examined, sob is better, leg swelling also better Review of Systems Review of Systems: All systems reviewed are negative, apart from the ones contained in the history. Physical Exam Physical Exam: The patient is awake, alert and oriented 3, well developed and well nourished, normocephalic and atraumatic, lying in bed and in no acute dis tress. HEENT--PERRL, EOMI, mucous membranes and oropharynx mildly dry Neck--supple. No JVD. No bruits. Thyroid normal, trachea midline, no adenopathy. Heart--normal S1 and S2. No murmurs, rubs or gallops. Lungs--reduced air entry Abdomen--normal bowel sounds and soft. Mild epigastric and left sided abdominal pain Extremities--bilateral leg edema Dermatologic--normal skin turgor, normal color, no abnormal lymph nodes, no rash. Neurologic--cranial nerves II through XII grossly intact. Rheumatologic--normal range of motion. Psychiatric--normal affect. Results & Data Results & Data ([facility]) Vital Signs (Past 12 Hours) Vital Signs Temp Pulse Pulse Resp BP Pulse Ox O2 Del Method 12/12/21 11:20 98.1 F 70 18 95/50 L 93 Nasal Cannula 12/12/21 08:00 Nasal Cannula 12/12/21 08:28 84 110/64 12/12/21 08:00 72 12/12/21 07:07 97.5 F L 72 18 96/42 L 92 Nasal Cannula 12/12/21 02:53 97.9 F 54 L 18 101/52 L 90 O2 Flow Rate 11/05/22 11:20 12/12/21 08:00 2 12/12/21 08:28 12/12/21 08:00 12/12/21 07:07 2 12/12/21 02:53 PG Care Time/CCT Total # of Minutes Spent Total Time Spent with Patient: Total time spent is greater than 50% in coordination of care (as documented) at patient's floor/unit and/or counseling patient: Coding Level of Care Code 59274 Subseq Hosp Care Lvl 2 Diagnoses Acute exacerbation of CHF (congestive heart failure) I50.9 HTN (hypertension) I10 Bladder cancer C67.9 COPD with emphysema J43.9 Time Spent (min) 35
[2021-12-12] MEDS: ATORVASTATIN 40 MG TAB PO SCH (19:47)
[2021-12-13 05:06] LABS: Basophils # (auto) 0.02 K/uL (0-0.2); Basophils % (auto) 0.6 %; Eosinophils # (auto) 0.11 K/uL (0-0.50); Eosinophils % (auto) 3.1 %; Hematocrit (blood only) 33.2 % (34.1-44.9); Hemoglobin 10.2 g/dl (12.0-16.0); Immature Granulocytes # (auto) 0.01 K/uL (0.00-0.02); Immature Granulocytes % (auto) 0.3 %; Lymphocytes % (auto) 27.8 %; Mean Corpuscular Hemoglobin 27.8 pg (25.0-34.0); Mean Corpuscular Hgb Conc 30.7 g/dL (32.0-36.0); Mean Corpuscular Volume 90.5 fL (80.0-100.0); Mean Platelet Volume 10.3 fL (9.4-12.3); Monocytes # (auto) 0.58 K/uL (0.24-0.82); Monocytes % (auto) 16.1 %; Neutrophils # (auto) 1.88 K/uL (1.4-6.5); Neutrophils % (auto) 52.1 %; Platelet Count 144 K/uL (130-400); RDW Coefficient of Variation 17.9 % (11.5-14.5); RDW Standard Deviation 59.5 fL (36.4-46.3); Red Blood Count 3.67 M/uL (3.93-5.22)
[2021-12-13 05:58] LABS: Albumin Globulin Ratio 1.1 (0.9-2); Albumin Level 3.2 gm/dl (3.4-5.0); BUN Creatinine Ratio 18.5 (10-20); Bilirubin,Total 0.9 mg/dl (0.2-1.0); Calcium 8.3 mg/dl (8.5-10.1); Creatinine Clr Calc Pharmacy 28.9 ml/min; Est GFR (African American) 42.3 ml/min; Est GFR (Non-African American) 36.5 ml/min; Globulin 2.8 gm/dl (2.5-4.0); Potassium 4.3 mmol/L (3.5-5.1)
[2021-12-13] MEDS: cilostazoL 100 MG TAB PO SCH (08:48)
[2021-12-13] MEDS: ASPIRIN 81 MG ECTAB PO SCH (08:49)
[2021-12-13] MEDS: propylthiouraciL 50 MG TAB PO SCH (08:49)
[2021-12-13] MEDS: METOPROLOL TARTRATE 50 MG TAB PO SCH (08:59)
[2021-12-13] MEDS: amLODIPine BESYLATE 5 MG TAB PO SCH (09:00)
[2021-12-13] MEDS ORDERED: FUROSEMIDE 40 MG/4 ML VIAL IV SCH (09:00)
[2021-12-13] MEDS: ENALAPRIL MALEATE 10 MG TAB PO SCH (09:00)
[2021-12-13] MEDS: SPIRONOLACTONE 12.5 MG TAB PO SCH (09:00)
--- NOTE | 2021-12-13 12:58 | Cardiology Progress Note ---
Date of Service December 13, 2021 Assessment & Plan Admission and Anticipated Discharge Date Admission Date: December 11, 2021 Subjective Outpatient echocardiogram from September 2021: Normal LV size and function with no regional wall motion abnormalities and ejection fraction of 73% Moderate RV dilation with mildly reduced RV systolic function Severely dilated left atrium Heavily calcified trileaflet aortic valve with mild aortic stenosis Severe mitral annular calcification with mild to moderate mitral stenosis sign severe tricuspid regurgitation secondary to tricuspid valve mild coaptation from annular dilation moderate pulmonary hypertension and a PA pressure of 46 mmHg Results & Data ([facility]) Vital Signs (Past 12 Hours) Vital Signs Temp Pulse Pulse Resp BP Pulse Ox O2 Del Method 12/13/21 12:25 36.9 C 79 18 93/56 L 90 12/13/21 11:40 36.9 C 79 18 93/56 L 90 Nasal Cannula 12/13/21 08:46 81/44 L 12/13/21 08:45 86/42 L 12/13/21 08:00 76 12/13/21 07:39 36.6 C 80 18 107/56 L 91 Room Air 12/13/21 07:00 Nasal Cannula 12/13/21 02:41 36.5 C 65 18 93/53 L 91 Nasal Cannula O2 Flow Rate 12/13/21 12:25 12/13/21 11:40 2.0 12/13/21 08:46 12/13/21 08:45 12/13/21 08:00 12/13/21 07:39 12/13/21 07:00 2 12/13/21 02:41
--- NOTE | 2021-12-13 14:11 | Discharge Summary ---
Date of Service December 13, 2021 Admission HPI Per Admitting Provider Patient is a 81 y/o female who was seeing cardiology today and was told to come to the hospital. She has been having increasing SOB and LE edema over the past couple of weeks and has gained about 8kg since summer. She normally uses 2L O2 at night time but is now needing it all the time. She states that she has noticed that her edema in her legs is getting a lot worse and is painful. Patient has a h/o endarterectomy 12/2015, HTN, breast cancer in 2012 s/p lumpectomy and radiation and tamoxifen, hyperthyroidism, uterine cancer s/p radiatio therapy, COPD, PAD, HFPEF, and bladder cancer in 2020. Principal Diagnosis acute on chronic CHF excaerbation Discharge Exam The patient is awake, alert and oriented 3, well developed and well nourished, normocephalic and atraumatic, lying in bed and in no acute distress. HEENT--PERRL, EOMI, mucous membranes and oropharynx mildly dry Neck--supple. No JVD. No bruits. Thyroid normal, trachea midline, no adenopathy. Heart--normal S1 and S2. No murmurs, rubs or gallops. Lungs--reduced air entry Abdomen--normal bowel sounds and soft. Mild epigastric and left sided abdominal pain Extremities--bilateral leg edema Dermatologic--normal skin turgor, normal color, no abnormal lymph nodes, no rash. Neurologic--cranial nerves II through XII grossly intact. Rheumatologic--normal range of motion. Psychiatric--normal affect. Discharge Data Allergies Allergy/AdvReac Type Severity Reaction Status Date / Time No Known Allergies Allergy Verified 10/15/21 13:44 Hospital Course (1) Acute exacerbation of CHF (congestive heart failure): Patient was asked to come to the hospital by her salvage laborer Has gained 8 pounds and also noticed worsening leg swelling chest ray showed sings of pulmo congestion Initially started on Lasix IV 40mg BID, will reduce to 40mg daily in view of worsening renal function Diuresed well over the course of her hospital stay Monitor I/O, daily weight Cardiology called in her prescription of PO Bumex 1mg daily Continue Aldactone Follow up with cardiology (2) Acute and chronic respiratory failure: Patient has a history of COPd and Emphysemea On 2l of nasal oxygen at home baseline Home oxygen eval done showed she would need 3L at rest and 4L with exercise (3) HTN (hypertension): Bp soft, 95/50 hold antihypertensives upon discharge Follow up with cardiology as soon as possible (4) Bladder cancer: Follow up with urology outpatient (5) COPD with emphysema: No wheeze on exam continue home albuterol Plan d/c home Total Time Total Time Spent Total Time Spent (In Minutes): 35 Discharge Plan Discharge Items Patient Disposition: Home - Self-Care Reason For Visit: HF EXCERBATION Discharge Diagnosis: acute on chronic chf exacerbation Activity: Resume your previous activity Non-emergency contact: Primary Care Provider and Veterinarian Call non-emergency contact if: you have any medication questions Follow-up/Referrals: Carlos Arias MD [Primary Care Provider] - Diet: Low Sodium (2gm) Addtl Attending Provider Instructions: please make appointment to follow up with your salvage laborer Obtain BMP on Please dont take your blood pressure medicines Amlodipine and Benazepril (Lotrel) until you see your salvage laborer, because your blood pressure has been running very low Pending Studies at Discharge: No Stand-Alone Forms: My [facility] Fetchnotes, Smoking Cessation Medications and DC Order Prescriptions: Continued albuterol sulfate 90 mcg/actuation HFA aerosol inhaler 2 puff inhalation Q6H PRN (Reason: Shortness Of Breath Or Wheezing) Qty: 18 3RF atorvastatin 40 mg Tablet 40 mg PO PM propylthiouracil 50 mg Tablet 100 mg PO BID aspirin [Hermilo Low Dose Aspirin] 81 mg Tablet,Delayed Release (Dr/Ec) 81 mg PO QAM metoprolol tartrate 50 mg Tablet 50 mg PO BID spironolactone [Aldactone] 25 mg Tablet 12.5 mg PO DAILY bumetanide 1 mg Tablet 1 mg PO DAILY cilostazol 50 mg Tablet 50 mg PO BID Discontinued furosemide [Lasix] 20 mg tablet 20 mg PO 3XWK PRN (Reason: swelling) Rx Instructions: M/W/F amlodipine-benazepril [Lotrel] 10-40 mg Capsule 1 cap PO QAM Discharge Orders: Discharge Order (Routine); Ordered 12/13/21 Ordered By: Nallely Norton Admission Data Admit Date/Time: 12/11/21 18:08 Attending Provider: Nallely Norton Admit Provider: Giuseppe Gao Primary Care Provider: Carlos Arias Other Interventions: Discharge Summary Assessment (RN) Last Done: 12/13/21 12:25 Coding Level of Care Code D/C DAY MANAGEMENT >30 MINS Diagnoses Acute exacerbation of CHF (congestive heart failure) I50.9 Acute and chronic respiratory failure J96.20 HTN (hypertension) I10 Bladder cancer C67.9 COPD with emphysema J43.9 Time Spent (min) 35
--- NOTE | 2021-12-20 20:42 | Billing Data ---
Date of Service December 11, 2021 Coding Level of Care Code 85893 Initial Inpt Care Lvl 3
--- NOTE | 2021-12-21 06:57 | Coding Query ---
CONGESTIVE HEART FAILURE To Promote full compliance with coding requirements relating to patient care, physician participation is requested in all cases of medical biller/coder uncertainty. Please assist us with the following questions. A diagnosis of Congestive Heart Failure is documented in the patient's medical record. To accurately code this diagnosis and to compare patient severity, we ask that you specify the type of heart failure by placing an X within the parenthesis (x). SYSTOLIC HEART FAILURE ( ) Acute ( ) Chronic (x ) Acute on Chronic ( ) Rheumatic ( ) Unknown DIASTOLIC HEART FAILURE ( ) Acute ( ) Chronic ( ) Acute on Chronic ( ) Rheumatic ( ) Unknown COMBINED SYSTOLIC AND DIASTOLIC HEART FAILURE ( ) Acute ( ) Chronic ( ) Acute on Chronic ( ) Rheumatic ( ) Unknown Was the CHF Present On Admission? Please check the appropriate box: ( x) Present on Admission ( ) Not Present On Admission ( ) Clinically undetermined Thank you SANDEEP Edwards [facility]
== END 2021-12-13 15:46 | disposition home or self-care (01) | DRG 291 ==
LOC: SUATTDRO 18:08 → 4W 18:08

== ENCOUNTER 2021-12-19 10:39 | Inpatient (IN) ==
[2021-12-19] MEDS ORDERED: SODIUM CHLORIDE 0.9% 1000ML 1,000 ML IV ONE (11:01)
[2021-12-19] MEDS ORDERED: ASPIRIN CHEW 324 MG PO STA (11:01)
[2021-12-19] MEDS ORDERED: RAPID SEQUENCE INDUCTION BAG ONE (11:07)
[2021-12-19] MEDS ORDERED: ETOMIDATE 2 MG/ML 20 ML VIAL IV ONE ×3 (11:07→16:03)
[2021-12-19] MEDS ORDERED: NOREPINEPHRINE/D5W 4 MG/250 ML IV ONE (11:07)
[2021-12-19] MEDS ORDERED: fentaNYL citrate 2,500 MCG/250 ML BAG IV ONE (11:20)
[2021-12-19] MEDS ORDERED: MIDAZOLAM HCL 1 MG/ML 2ML VIAL ONE ×3 (11:25→13:12)
[2021-12-19] MEDS ORDERED: niCARdipine HCL INJ 2.5 MG/ML 10 ML AMP ONE (11:25)
[2021-12-19] MEDS ORDERED: HEPARIN (PORCINE) 1000 UNIT/ML 10 ML (CATH LAB USE ONLY) ONE (11:25)
[2021-12-19] MEDS ORDERED: fentaNYL citrate 100 MCG/2 ML VIAL ONE (11:25)
[2021-12-19] MEDS ORDERED: NITROGLYCERIN/D5W 100MCG/ML 20ML SYR ONE (11:26)
[2021-12-19 11:27] LABS: Alanine Aminotransferase 92 U/L (7-52); Alkaline Phosphatase 78 U/L (34-104); Anion Gap 10 (3-11); Aspartate Aminotransferase 141 U/L (13-39); BUN Creatinine Ratio 15.5 (10-20); Bilirubin,Total 1.7 mg/dl (0.2-1.0); Blood Urea Nitrogen 22 mg/dl (6-23); Calcium 8.2 mg/dl (8.5-10.1); Carbon Dioxide 25 mmol/L (21-32); Chloride 107 mmol/L (98-107); Est GFR (African American) 39.8 ml/min; Est GFR (Non-African American) 34.3 ml/min; Globulin 2.9 gm/dl (2.5-4.0); Glucose 87 mg/dl (70-99(Fasting)); Lipase 21 U/L (11-82); Potassium 3.8 mmol/L (3.5-5.1); Sodium 142 mmol/L (136-145); Total Protein 5.9 gm/dl (6.0-8.3)
[2021-12-19] MEDS ORDERED: MIDAZOLAM BOLUS FROM BAG IV PRN (11:27)
[2021-12-19] MEDS ORDERED: STAT IV Infusion **Titration per Protocol STA ×2 (11:27→22:13)
[2021-12-19] MEDS ORDERED: fentaNYL BOLUS from BAG IV PRN (11:27)
[2021-12-19] MEDS ORDERED: MIDAZOLAM HCL 125 MG/250 ML BAG IV SCH (11:30)
[2021-12-19] MEDS ORDERED: fentaNYL citrate 2,500 MCG/250 ML BAG IV SCH (11:30)
[2021-12-19 11:32] LABS: Basophils # (auto) 0.02 K/uL (0-0.2); Basophils % (auto) 0.2 %; Echinocytes 1+; Hematocrit (blood only) 33.1 % (34.1-44.9); Hemoglobin 10.1 g/dl (12.0-16.0); Immature Granulocytes # (auto) 0.05 K/uL (0.00-0.02); Immature Granulocytes % (auto) 0.6 %; Lymphocytes % (auto) 4.8 %; Mean Corpuscular Hemoglobin 28.1 pg (25.0-34.0); Mean Corpuscular Hgb Conc 30.5 g/dL (32.0-36.0); Mean Corpuscular Volume 92.2 fL (80.0-100.0); Mean Platelet Volume 11.5 fL (9.4-12.3); Monocytes # (auto) 0.68 K/uL (0.24-0.82); Monocytes % (auto) 8.1 %; Neutrophils # (auto) 7.21 K/uL (1.4-6.5); Neutrophils % (auto) 86.3 %; Ovalocytes 1+; Platelet Count 117 K/uL (130-400); RDW Coefficient of Variation 18.7 % (11.5-14.5); RDW Standard Deviation 63.1 fL (36.4-46.3); Red Blood Count 3.59 M/uL (3.93-5.22); White Blood Count 8.36 K/ul (4.8-10.8)
--- NOTE | 2021-12-19 11:40 | History & Physical Report ---
Date of Service December 19, 2021 Assessment & Plan (1) Atrial fibrillation with RVR: Plan: - Presented afib RVR HR 120s, hypoxic, severely hypotensive SBP 50s. - Etomidate given prior to shock w/ further worsening of BP and hypoxia, patient subsequently intubated. - DIRECTOR [employer]--> metoprolol 5 gm BID + asa 81 mg daily/no AC. - No anticoagulation d/t history of severe hematuria requiring transfusion. - Patient was initially made heart alert due to ST elevation seen on EKG, however no acute occlusions found on cath. See below. - Further rate/rhythm control with amiodarone given hypotension on admit. (2) STEMI (ST elevation myocardial infarction): Plan: - ST elevations in lead III and aVF with reciprocal depressions in I, aVL - Full dose ASA given. - Trop 1,143 on admit. - Taken emergently to receiver/laborer * Access: L radial artery * Left and right heart cath completed, without any acute general conclusions. 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 * No stents. * ST elevations resolved after hypoxia was addressed, most likely ST elevations due to chronic total occlusion of RCA, hypoxia, anemia secondary to profound hypotension. - Trend troponin, echo ordered. - Hold all BP meds for now. - Continue ASA 81 daily + statin. - Currently intubated on levo gtt. Further vent/pressor management per ICU. (3) Acute and chronic respiratory failure: Plan: - History of COPD/emphysema on 3L NC at rest, 4L w/ activity. - Albuterol inhaler prn. - Intubated, vent settings per ICU. (4) Acute on chronic heart failure with preserved ejection fraction: Plan: - CXR with pulmonary edema. Plan to gently diurese, caution with previous hypotension. - ECHO 09/28: EF > 70%, moderate RV dilation w/ mild RV dysfunction, mild , mil-mod MS, severe tricuspid regurg, mild-mod pulmonary HTN - Holding all diuretics for now. - [employer]--> Bumex 1 mg daily, spironolactone 12.5 daily. - Amlodipine d/cd on 12/13 discharge (5) Graves disease: Plan: - [employer]--> PTU 100 mg BID (6) Carotid artery disease: Plan: - s/p L carotid endarterectomy in 206, with 70% restenosis - DIRECT[employer]--> cilostazol for PAD. (7) Chronic anemia: Plan: - Hgb 10.1 on admit. Hx of hematuria requiring transfusion. - Monitor during hospitalization. (8) HTN (hypertension): Plan: - Holding BP meds for now. Plan - Admitted to ICU s/p cardiac cath. History of Present Illness Chief Complaint: SOB, weak, chest pressure w left arm pain x1 day Primary Care Provider: Carlos Arias MD Karina Mcmahon is an 81-year-old female with past medical history significant for CAD, PAD, HFpEF, paroxysmal A. fib, COPD on 3 L NC at all times, Graves' disease, breast cancer s/p lumpectomy on tamoxifen, uterine cancer s/o radition therapy, and chronic anemia who presents today in the ED as a heart alert. Patient woke up this morning feeling short of breath, weak, with chest pain radiating into her left arm. Apparently the chest pain has been going on for several days. She presented to the ED where she was found to be profoundly hypoxic, SBP in the 50s, A. fib RVR with rates in the 120s. Given etomidate and shocked x1 given her instability, with worsening hypoxia and failure to convert, therefore she was intubated emergently. VS on presentation: BP 50/34, HR 130, RR 28, SPO2 83% on [address] with [address] elevations in leads III, aVF with reciprocal ST depressions in 1 and aVL. Heart alert called, patient emergently brought to the Building Maintenance Mechanic with Dr. Granados. Initial troponin 1,143. T bili, AST, ALT all acutely elevated 1.7/41/90 respectively. Creatinine 1.42, GFR 34. CXR with evidence of pulmonary edema. Allergies Allergy/AdvReac Type Severity Reaction Status Date / Time No Known Allergies Allergy Verified 10/15/21 13:44 Home Medications Medication Instructions Recorded Confirmed Type aspirin 81 mg tablet,delayed 81 mg PO QAM 02/17/18 12/19/21 History release (Hermilo Low Dose Aspirin) atorvastatin 40 mg tablet 40 mg PO PM 02/17/18 12/19/21 History metoprolol tartrate 50 mg tablet 50 mg PO BID 02/17/18 12/19/21 History propylthiouracil 50 mg tablet 100 mg PO BID 02/17/18 12/19/21 History cilostazol 50 mg tablet 50 mg PO BID 08/29/20 12/19/21 History albuterol sulfate 90 mcg/actuation 2 puff inhalation Q6H PRN 06/05/21 12/19/21 Rx aerosol inhaler Shortness Of Breath Or Wheezing #18 grams bumetanide 1 mg tablet 1 mg PO DAILY 12/11/21 12/19/21 History spironolactone 25 mg tablet 12.5 mg PO DAILY 12/11/21 12/19/21 History (Aldactone) Past Med/Surg History Medical History Anxiety Bladder cancer Breast cancer Dx 7 years ago s/p right lumpectomy- RUE lumpectomy Cardiac murmur 2018 ECHO showed AV sclerosis (no ), mild to moderate mitral annular calcification and mild MS Carotid artery disease s/p left carotid endarterectomy (3 years ago/[facility]), follows with Dr. Islas CHF (congestive heart failure) 2018 Chronic anemia baseline hgb 11's per chart review Graves disease Hyperlipidemia Hypertension Osteoarthritis Paroxysmal atrial fibrillation Single remote episode (suspected r/t nitro patch), no known recurrences, Follows with Dr. Mcdonald Peripheral artery disease Uterine cancer 1995 hysterectomy/radiation Surgical History History of breast biopsy Right History of cataract surgery Right History of cholecystectomy History of flexible sigmoidoscopy History of left-sided carotid endarterectomy History of total hysterectomy with bilateral salpingo-oophorectomy (BSO) Hx of lumpectomy 7 years ago Family History Other No pertinent family history Social History Smoking Status: Former smoker Tobacco Type: Cigarettes Second Hand Exposure: No; Do You Dip or Chew Tobacco: No; Tobacco Cessation Education Requested by Patient: No Hx Alcohol Use: Yes Alcohol type: wine Hx Substance Use: No Preferred Language: Turkmen Communication Ability: Effective Paper Supervisor Required: No Beliefs That Will Affect Care: None marital status: Unknown Current Living Situation: Alone Current Living Situation Comment: WITH ( HAS ALZHEIMERS) How many Children do You have: 2 Other Information That Helps Us Care for You: No Feels Safe at Home: No Is there a partner from a previous relationship who is making you feel unsafe now?: No Any Concerns about Your Family Situation: No Would You Like to Speak to Someone About Your Situation: No Assistive Devices: Oxygen - at Night Review of Systems Review of Systems: Unobtainable due to endotracheal tube Physical Exam Physical Exam: General: patient seen s/p cardiac cath in ICU. awake, intubated Head: Normocephalic, atraumatic ENT: PERRL, EOMI, no pharyngeal exudate, mucous membranes moist Chest: Clear to auscultation, on room air, no adventitious breath sounds Cardiac: Regular rate and rhythm, no murmur, no JVD, normal peripheral pulses, good capillary refill Abdominal: NABS x 4 quadrants, soft, nontender to palpation, no rebound, guarding or tenderness Extremities: Normal inspection, no peripheral edema or erythema, calfs nontender to palpation Psych: Normal mood and affect Neuro: AAO x 3, strength intact bilaterally and rated 5/5, no motor deficits, speech is clear, no peripheral sensory deficits Skin: no rash or erythema Results & Data Results & Data ([facility]) Vital Signs (Past 12 Hours) Vital Signs Height Weight Body Mass Index Blood Pressure Blood Pressure Position Temperature Temperature Source 5 ft 3 in 59.8 kg 24.1 50/34 L Lying 36.9 C Oral 12/19/21 10:32 12/19/21 10:45 12/19/21 10:32 12/19/21 10:45 12/19/21 10:45 12/19/21 10:45 12/19/21 10:45 Pulse Rate Respiratory Rate Pulse Oximetry Oxygen Flow Rate 130 H 28 H 83 L 6 12/19/21 10:45 12/19/21 10:45 12/19/21 10:45 12/19/21 10:45 Laboratory Results Abnormal lab results 12/19/21 12/19/21 Range/Units 10:59 10:59 RBC 3.59 L (3.93-5.22) M/uL Hgb 10.1 L (12.0-16.0) g/dl Hct 33.1 L (34.1-44.9) % MCHC 30.5 L (32.0-36.0) g/dL RDW Std Deviation 63.1 H (36.4-46.3) fL RDW Coeff of Armani 18.7 H (11.5-14.5) % Plt Count 117 L (130-400) K/uL Neut # (Auto) 7.21 H (1.4-6.5) K/uL Lymph # (Auto) 0.40 L (1.2-3.4) K/uL Immature Gran # (Auto) 0.05 H (0.00-0.02) K/uL Creatinine 1.42 H (0.6-1.2) mg/dl Calcium 8.2 L (8.5-10.1) mg/dl Total Bilirubin 1.7 H (0.2-1.0) mg/dl AST 141 H (13-39) U/L ALT 92 H (7-52) U/L Troponin I High Sens 1143.0 H* (0-14) pg/ml Total Protein 5.9 L (6.0-8.3) gm/dl Albumin 3.0 L (3.4-5.0) gm/dl Diagnostic Findings Chest X-Ray 12/19/21 11:01 SINGLE VIEW CHEST CLINICAL HISTORY: Respiratory failure. Intubation. FINDINGS: An AP, portable, supine chest radiograph is compared to study dated 12/11/2021 and correlated with chest CT dated 05/08/2021. The examination is degraded by portable technique and patient rotation. An endotracheal tube has been placed. The tip projects approximately 3.5 cm above the bari. The heart is enlarged. There is pulmonary vascular congestion. Emphysema and chronic interstitial thickening is similar to previous. Layering pleural effusions are suspected. Bilateral airspace opacities likely represent pulmonary edema. No pneumothorax is seen. The skeletal structures are osteopenic. The bony thorax is grossly intact. IMPRESSION: 1. An endotracheal tube has been placed as above. 2. Cardiomegaly and emphysema with evidence of congestive failure. 3. Bilateral airspace opacities likely represent mild pulmonary edema. Correlate clinically for evidence of a superimposed infectious/inflammatory pneumonitis. 4. Suspect layering pleural effusions. 5. The spiculated pulmonary nodule seen on the 05/08/[address] is not visualized by x-ray. This remains concerning for neoplasm. ACT 112: Negative or not required by law. Electronically signed by: Donnie Redding M.D. 12/19/2021 12:01 PM ECG Additional Comments: Atrial fibrillation with rapid ventricular response Rightward axis Incomplete right bundle branch block Cannot rule out Anterior infarct (cited on or before 11-DEC-2021) Inferior injury pattern ACUTE SD / STEMI Consider right ventricular involvement in acute inferior infarct. Code Status & VTE Plan Code Status Conditional Code on last admit 12/11--NO to invasive airway/intubation, YES to other standard ACLS protocol up to and including CPR, defibrillation, medications. Critical Care Time Critical Care Time: Yes 35 minutes Supervising Physician Co-Signing Physician Notes Patient seen and examined, chart reviewed, case discussed with Olivia Moctezuma PA-C and I agree with the assessment and plan as above except as otherwise noted Labs and images reviewed Karnia is an 81-year-old female with a past medical history of former tobacco abuse, CHF with preserved ejection fraction 09/2021, COPD, paroxysmal A. fib, breast cancer s/p lumpectomy and radiation/tamoxifen, uterine cancer s/p radiation therapy, bladder cancer 2020, anemia, Graves', hyperlipidemia, hypertension, and peripheral artery disease who presents to the emergency department as a heart alert. She was recently seen in the hospital 12/11- for increasing shortness of breath and lower extremity edema over several weeks with around 15 pounds of weight gain. She is at home oxygen requirement of 2 L at night. At that discharge she was diuresed with Lasix twice daily, was discharged on Bumex 1 mg daily, and overall clinically improved although two-step showed an oxygen requirement of 3 L at rest 4 L with exercise at time of discharge. She was discharged to follow-up with her PCP and for outpatient follow-up of COPD/emphysema, no wheezing was noted during that hospitalization. Dobutamine stress echo 10/2015 with mild ischemia EKG on presentation to the ER shows A. fib with rate 109, new ST elevation is present in lead III, aVF with depressions in lead I and aVL consistent with ST elevation SD. Prior EKG 12/11/2021 was normal sinus rhythm without ST segment changes or territorial T wave inversions. Initial ER lab review: No leukocytosis, hemoglobin 10.1 with chronic anemia baseline around 10. MCV 92. Sodium is normal, potassium 3.8, magnesium pending. Creatinine baseline 11 0.4, admitting creatinine 1.42. CXR with increased pulmonary edema. History of bedside limited by report due to patient critical illness and ETT. Suspected STEMI, ACS appreciated on subsequent cath Hypotensive to systolic 50s, tachycardic to 130s, tachypneic to 28, with SPO2 in the field in the 60s [employer]OR [employer] - EKG on presentation to the ER shows A. fib with rate 109, new ST elevation is present in lead III, aVF with depressions in lead I and aVL consistent with ST elevation SD. Prior EKG 12/11/2021 was normal sinus rhythm without ST segment changes or territorial T wave inversions. Taken emergently to Building Maintenance Mechanic after intubation. subsequently extubated and weaning pressors. Cath inconsistent with STEMI. Severe coronary disease not amenable to stenting, interested leg due to underlying coronary disease with A. fib & ischemic demand. Anticoagulation and A. fib management as below Continue Bumex [id number] smoking history, quit 1995 Paroxysmal atrial fibrillation A. fib RVR on admission with hemodynamic instability Received 1 shock for hypotension in ER, did not convert. Subsequently intu bated for airway protection, brought emergently to Building Maintenance Mechanic as above Patient previously with a single episode of A. fib in the setting of hospitalization, anticoagulation deferred on subsequent follow-up Continue metoprolol as noted. Poor tolerance to RVR, cardiology called insulted? Rate control versus ablation [id number] 6. High risk. +DOAC anticoagulation unless precluded by further bleeding COPD with emphysema PFTs as below with preserved ratio, restrictive lung disease, no bronchodilator response, moderate decrease in DLCO PFT 06/2021: FVC 96% predicted, FEV1 94% predicted, FEV1/FVC actual 73, 99% predicted. Multiple pulmonary nodules largest 9 mm in right upper lobe, follows with pulmonary. High likelihood of malignancy, however difficult area to access. History of bladder cancer Follow-up cystoscopy negative, continue outpatient surveillance Carotid artery disease History of left carotid endarterectomy, no right ICA stenosis Continued on 1 year outpatient surveillance Graves' disease TSH/free T4 pending continue PTU PG Care Time/CCT Total # of Minutes Spent Total Time Spent with Patient: Total time spent is greater than 50% in coordination of care (as documented) at patient's floor/unit and/or counseling patient: Critical Care Time: Yes Coding Level of Care Code 37854 Initial Inpt Care Lvl 3 Diagnoses Atrial fibrillation with RVR I48.91 STEMI (ST elevation myocardial infarction) I21.3 Acute and chronic respiratory failure J96.20 Acute on chronic heart failure with preserved ejection fraction I50.33 Graves disease E05.00 Carotid artery disease I77.9 Chronic anemia D64.9 HTN (hypertension) I10 Additional Codes Critical Care Time - Critical Care Time: Yes ([id number])
[2021-12-19] MEDS ORDERED: METOPROLOL TARTRATE 1 MG/ML VIAL IV ONE (11:57)
--- NOTE | 2021-12-19 12:03 | XRay Report ---
SINGLE VIEW CHEST CLINICAL HISTORY: Respiratory failure. Intubation. FINDINGS: An AP, portable, supine chest radiograph is compared to study dated 12/11/2021 and correlate d with chest CT dated 05/08/2021. The examination is degraded by portable technique and patient rotatio n. An endotracheal tube has been placed. The tip projects approximately 3.5 cm above the bari. The heart is enlarged. There is pulmonary vascular congestion. Emphysema and chronic interstitial thicke mackenzie is similar to previous. Layering pleural effusions are suspected. Bilateral airspace opacities l ikely represent pulmonary edema. No pneumothorax is seen. The skeletal structures are osteopenic. The bony thorax is grossly intact. IMPRESSION: 1. An endotracheal tube has been placed as above. 2. Cardiomegaly and emphysema with evidence of congestive failure. 3. Bilateral airspace opacities likely represent mild pulmonary edema. Correlate clinically for evide nce of a superimposed infectious/inflammatory pneumonitis. 4. Suspect layering pleural effusions. 5. The spiculated pulmonary nodule seen on the 05/08/[address] is not visualized by x-ray. This rem ains concerning for neoplasm. ACT 112: Negative or not required by law. Electronically signed by: Donnie Redding M.D. 12/19/2021 12:01 PM
[2021-12-19] MEDS ORDERED: DOPamine 400MG / 250ML D5W (Cath Lab Use ONLY) IV ONE (12:16)
[2021-12-19] MEDS ORDERED: ICU Protocol for HYPERglycemia PRN (12:58)
--- NOTE | 2021-12-19 13:11 | Pre Anesthesia Assessment ---
Date of Service December 19, 2021 Pre Sedation Assessment Vital Signs Temp Pulse Resp BP Pulse Ox O2 Del Method O2 Flow Rate 12/19/21 10:32 130 H 22 50/34 L 92 Oxymask 6 12/19/21 10:45 36.9 C 130 H 28 H 50/34 L 83 L Nasal Cannula 6 Cardiovascular + irregularly irregular + S1 normal and + S2 normal + femoral pulses present (absent bilaterally.) and + radial pulses present (absent on R thready on L) Respiratory Additional Comments: intubatd and sedated Pre-Sedation Airway Assessment Smoking Status: Former smoker see intubation procedure note ASA 4 Notes The planned sedation has been discussed with the patient. Informed Consent was obtained. I have identified the patient, determined the appropriateness of sedation and have assessed the patient immediately prior to the procedure. All medicine(s) and interventions are by my order.
--- NOTE | 2021-12-19 13:12 | Post Anesthesia Assessment ---
Date of Service December 19, 2021 Post Sedation Assessment Vital Signs Temp Pulse Resp BP Pulse Ox O2 Del Method O2 Flow Rate 12/19/21 10:32 130 H 22 50/34 L 92 Oxymask 6 12/19/21 10:45 36.9 C 130 H 28 H 50/34 L 83 L Nasal Cannula 6 Discharge Sedation Level of Care: Higher Level of Care Post Sedation Plan On clinical assessment, the patient appears to have tolerated the sedation without complications. Patient is recovering as anticipated. Patient will continue to be monitored by nursing and may be discharged when sedation discharge criteria are met per below protocol. Upon Completions of procedure up to 15 minutes continue every 5 minute vital signs and the P.A.R. score; then discharge to a Phase I or Fast Track to Phase II per the following guidelines: * Discharge Patient to appropriate Phase II area if PAR is 8 or greater or return to pre- procedure baseline. The post - procedure orders will be as directed. * If PAR score is less than 8 or not return to pre-procedure baseline then patient will follow Phase I monitoring till PAR is reached for Phase II. The Phase I may be done in procedure room or may call to secure a Phase I area. * If naloxone or flumazenil are used for reversal, hold in Phase I for continued monitoring from when last reversal dose was given for a minimum of 60 minutes or longer pending the nurse and/or physician discretion of patient condition before discharge to Phase II. Please call the Sedation Physician to re-evaluate and complete post-note for discharge to Phase II area. Do NOT discharge from procedure sedation or Phase 1 until post- sedation evaluation note is complete by procedure /sedation MD Sedation Discharge Instructions to be given to the patient at discharge to home. [facility] Procedure Codes (Charges) Indication for Procedure Indication for procedure: possible STEMI
[2021-12-19] MEDS ORDERED: SODIUM CHLORIDE 0.9% 1000ML 1,000 ML IV SCH (13:15)
--- NOTE | 2021-12-19 13:26 | Cardiac Catheterization ---
[facility] Data: [employer] Cardiac Status Clinical evaluation leading to the procedure CAD Presenation: STEMI Anginal Classification: CCS IV Heart Failure: No Cardiogenic Shock within 24 Hours: No Cardiac Arrest within 24 Hours: No Imaging Studies Past 6 Months: Yes Stress Studies Past 6 Months: No STEMI OR Non-STEMI Symptom Onset Date: 12/19/21 Coronary Anatomy Dominant: Right Left Main (% Stenosis): Ostial (20 to 30%) LAD (% Stenosis): Normal (Mild diffuse) D1 (% Stenosis): Normal D2 (% Stenosis): Normal Circumflex (% Stenosis): Normal (Mild diffuse) OM1 (% Stenosis): Normal RCA (% Stenosis): Ostial (REIMBURSEMENT DIRECTOR, heavily calcified), Proximal (Diffuse severe 95%) and Mid (Severe) R PDA (% Stenosis): Normal (Mild) R PL1 (% Stenosis): Normal (Mild) Ramus (% Stenosis): Normal (Diffuse mild to moderate) Diagnostic Physicians Name: Rogers Granados MD, PhD Closure Device Percutaneous Entry Location: Left radial, right FA and FV Closure Device: Radial Band Recommendations: Medical Therapy and/or Counseling Cardiac Cath Procedure Full Procedure Date December 19, 2021 Pre-Procedure Diagnosis Pre-Procedure Diagnosis: STEMI AUC Score AUC Score: 09 Post-Procedure Diagnosis Post-Procedure Diagnosis: Severe CAD Procedure(s) Performed Procedure(s) Performed: Coronary Angiography and Aortography Caustic Plant Worker Rogers Granados MD, PhD Estimated Blood Loss Estimated Blood Loss: 15 mL Medication(s) Medication(s): Dopamine, Fentanyl, Lidocaine 1%, Metoprolol, Norepinephrine and Versed Summary of Findings Brief description: Patient was brought to the cardiac catheterization suite. She was already intubated and sedated in the emergency department. 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 Known bilateral carotid disease with prior carotid endarterectomy. Known occluded left femoral artery. The right femoral pulse was not palpable. However, we utilized the ultrasound for guidance which demonstrated flow through a signific antly diseased vessel. The vessel was then accessed using a micropuncture kit under ultrasonic guidance (image saved) and exchanged for a 6 Pakistani femoral artery sheath. Despite multiple attempts to advance the catheter beyond the abdominal aorta we were unsuccessful. Therefore, using a pigtail catheter in the abdominal aorta we performed abdominal aortic angiography and bilateral iliac angiography. Decision was made to abandon attempts from the femoral artery approach once we continued to fail to advance despite the use of a Rylie wire, a Glidewire, and a quick cross catheter. Therefore these were all removed. The right femoral vein was then accessed under ultrasonic guidance and a 7 Pakistani triple-lumen catheter was inserted. We then turned our attention to left radial artery access as this was the only palpable pulse. Of note, the patient had episodes of hypotension requiring the use of norepinephrine, dopamine, and IV fluids. Left radial artery was accessed using modified Seldinger technique and a 6 Pakistani radial artery glide sheath was placed. With some difficulty, we were eventually able to advance a Rylie wire to the ascending aorta. Over this, a 5 Pakistani JL 4 diagnostic catheter was advanced and then used to engage the left main coronary. Multiple angiographic views of the left coronary were obtained. Catheter was then exchanged for a 5 Pakistani JR4 diagnostic catheter. We were eventually able to engage the right coronary and angiography was performed. This catheter was then removed over the J-wire. The femoral arterial and femoral triple-lumen venous catheter were sutured in place. The left radial artery sheath was removed and hemostasis obtained using a TR band. Thus, arterial line was placed in the right common femoral artery and central venous triple-lumen catheter was placed in the right common femoral vein. Patient was then admitted to the ICU for further work-up and management. Angiographic findings: LMT: Large caliber vessel trifurcating into the LAD, ramus intermedius, and left circumflex. There is proximal stenosis of 20 to 30%. Mild diffuse calcification. LAD: Large caliber vessel which wraps the apex distally. Proximal calcification with diffuse mild disease. First diagonal is small to medium in caliber. The mid LAD has diffuse mild calcification and mild disease. There is a medium c aliber second diagonal and the apical LAD is relatively small in caliber before it terminates. LCx: Medium caliber and nondominant vessel. Very tortuous branch vessels. Diffuse mild calcification and mild disease. First OM is medium in caliber, tortuous, and branching. The mid AV groove circumflex then begins to taper and terminates distally after a small posterolateral branch. There is diffuse mild disease in the circumflex and its branches. Ramus: The very large caliber vessel which is tortuous has several branches and reaches near the apex. Diffuse mild to moderate calcification with at least mild to moderate diffuse disease. RCA: This is a large-caliber dominant vessel. Ostium is heavily calcified with lesion extending through the proximal segment also calcified and subtotally o ccluded. Then, the late proximal segment has a long calcified 95% stenosis. There is moderate to severe calcification throughout the proximal and mid RCA. Mid segment also has diffuse severe disease and there is competitive flow noted. The mid and distal RCA are seen to fill retrograde through left to right collateralization. The RCA bifurcates into a very large caliber PDA and a very large caliber multi branching posterolateral. These vessels have diffuse mild disease. Abdominal aortography and bilateral iliac angiography: Severe and diffuse atherosclerosis with moderate to severe calcification. There is a heavily calcified 95% lesion at the distal abdominal aorta extending into the ostium of the right common iliac which is complex appearing. The left common iliac has an ostial to proximal stenosis which appears to be subtotally occluded. The mid to distal abdominal aorta has diffuse disease and appears to be subtotally occluded with only poor reflux retrograde in the infrarenal segment. There is also significant tortuosity and complexity of the atherosclerosis in this segment. There is a large collateral from the distal abdominal aorta which appears to provide substantial flow distal to the left common iliac. Summary: Patient has severe and complex peripheral vasculopathy. Left coronary system without occlusive coronary disease. Provides left to right collateralization. Chronically occluded RCA which supplies a large myocardial territory and receives significant collateralization. There are no acute thrombotic lesions consistent with acute ST elevation ME. Please note: The blood pressure cuff readings do not correspond with invasive blood pressure monitoring. Hemodynamics Rest Ao:: 164/92 mmHg, mean 119 mmHg Final Ao: 128/90 mmHg, mean 113 mmHg LV: Not performed Recommendations Recommendations: Medical Therapy and/or Counseling Radiation Exposure (mGy) 933 mGy, 12 minutes fluoroscopy time Contrast (mls) 100 mL Anesthesia 3 mg IV Versed, 50 mcg IV fentanyl (patient was also sedated in the emergen Procedural Complication(s) None Disposition ICU I attest to the content of the Intraoperative Record and any orders documented therein. Any exceptions are noted below. [facility] [place] Procedure Codes Cardiac Catheterization Procedure 1: Cardiovascular Cath Procedures: 27076 Coronaries Procedure 2: Cardiovascular Cath Procedures: 13032 Supravalvular Aortography (Injection during Cardiac Cath) (abdominal aortography and Bilateral iliac angio) Therapeutic Services & Ancillary Procedure 1: Cardiovascular Tx and Anc Procedures: 48677 Ultrasonic Guidance Vascular Access Procedure 2: Cardiovascular Tx and Anc Procedures: [address] Procedure 3: Cardiovascular Tx and Anc Procedures: 84172 Arterial Line Placement Moderate Sedation Procedure 1: Sedation/Anesthesia: 76664 Mod Sedation by the same physician;Init15 Min Child Age 5 & Up (15 mins, total 57 mins) Procedure 2: Sedation/Anesthesia: 47663 Mod Sedation by the same physician; Ea [id number] Minutes (42 minutes, total sedation time 57 minutes) PG Care Time/CCT Total # of Minutes Spent Total Time Spent with Patient: Total time spent is greater than 50% in coordination of care (as documented) at patient's floor/unit and/or counseling patient:
--- NOTE | 2021-12-19 14:21 | Cardiology Consultation ---
Date of Consultation December 19, 2021 Assessment & Plan (1) ST elevation NC (STEMI): Coronary angiography reveals that this is not an acute ST elevation NC. EKG changes most likely secondary to chronic total occlusion of the RCA with global hypoxemia plus or minus ischemia secondary to hypotension. She does have severe coronary disease and will therefore be treated with optimal medical therapy for secondary prevention. This should include low-dose aspirin, high intensity statin therapy, beta-valentin, plus or minus NICOLETTE inhibitor/ARB. (2) Hypoxia: Most likely pulmonary edema plus or minus additional etiology as yet undetermined. She has known pulmonary hypertension, RV dilatation, and COPD. Diuresis. Remainder to be evaluated and treated by pulmonary/critical care medicine. (3) Atrial fibrillation with RVR: Known history of paroxysmal atrial fibrillation. Has not been on oral anticoagulation that I can determine. Would consider oral anticoagulation unless there is a contraindication. Could utilize heparin drip in the short- term until that is investigated further. We should have Dr. Mcdonald evaluate the patient on Tuesday. Not sure how often the patient has A. fib episodes but certainly did not tolerate RVR today. May need additional rate/rhythm control medications or possibly consideration for ablation. (4) Acute on chronic heart failure with preserved ejection fraction: An echocardiogram has been ordered. If EF remains preserved then IV Bumex and continue home regimen including metoprolol tartrate 50 mg p.o. twice daily and spironolactone. (5) HLD (hyperlipidemia): High risk. High intensity statin therapy recommended. 40 mg of a atorvastatin has been her home dose and this should suffice for now. (6) HTN (hypertension): Was only on spironolactone and metoprolol. Was hypotensive with atrial fibrillation and RVR. Would reintroduce beta-valentin as tolerated by blood pressure given A. fib. May need additional up titration or addition of other medications depending upon where her blood pressure settles. History of Present Illness Reason for Consultation: Atrial fibrillation, suspected acute NC Attending Physician: Jessica Crespo MD History of Present Illness 81-year-old vasculopath who follows with Dr. Mcdonald for cardiology services and Dr. Islas for vascular services. Full details regarding her past medical history are not available through this health system. Patient presented with profound hypoxia (77% at home) and reported chest tightness. She had an EKG demonstrating inferior ST elevations and therefore a "heart alert" was called. On my arrival to the emergency department patient was already intubated and undergoing chest x-ray. The physician of record was not present in the room as he was updating the family. From what I can gather, patient had atrial fibrillation with rapid ventricular response with hypoxia and then hypotension. Reportedly attempt was made for cardioversion. She was subsequently intubated. Therefore, further evaluation of the patient for history was not possible. I have subsequently looked up her information in the electronic health record and found that she was recently admitted and discharged for congestive heart failure. Discharge was on 12/13/2021. She was to follow-up with her community sports coordinator. Unclear if that occurred at this point. Reviewing her records reveal she has a prior history of atrial fibrillation. Diastolic heart failure was noted previously. Severe vascular disease including carotid stenosis, innominate artery occlusion, left iliofemoral occlusion. Patient was taken emergently to the cardiac catheterization suite. We struggled to gain vascular access but ultimately were able to perform left and right coronary angiography. This revealed mild disease in the left coronary system and chronic total occlusion of the right coronary artery. No acute thrombotic lesions. Also noted that once her oxygen was improved ST elevations resolved. She is now admitted to the ICU for further work-up and management. Allergies Allergy/AdvReac Type Severity Reaction Status Date / Time No Known Allergies Allergy Verified 10/15/21 13:44 Home Medications Medication Instructions Recorded Confirmed Type aspirin 81 mg tablet,delayed 81 mg PO QAM 02/17/18 12/11/21 History release (Hermilo Low Dose Aspirin) atorvastatin 40 mg tablet 40 mg PO PM 02/17/18 12/11/21 History metoprolol tartrate 50 mg tablet 50 mg PO BID 02/17/18 12/11/21 History propylthiouracil 50 mg tablet 100 mg PO BID 02/17/18 12/11/21 History cilostazol 50 mg tablet 50 mg PO BID 08/29/20 12/11/21 History albuterol sulfate 90 mcg/actuation 2 puff inhalation Q6H PRN 06/05/21 12/11/21 Rx aerosol inhaler Shortness Of Breath Or Wheezing #18 grams bumetanide 1 mg tablet 1 mg PO DAILY 12/11/21 12/11/21 History spironolactone 25 mg tablet 12.5 mg PO DAILY 12/11/21 12/11/21 History (Aldactone) Patient History Medical History Anxiety Bladder cancer Breast cancer Dx 7 years ago s/p right lumpectomy- RUE lumpectomy Cardiac murmur 2018 ECHO showed AV sclerosis (no ), mild to moderate mitral annular calcification and mild MS Carotid artery disease s/p left carotid endarterectomy (3 years ago/[facility]), follows with Dr. Islas CHF (congestive heart failure) 2018 Chronic anemia baseline hgb 11's per chart review Graves disease Hyperlipidemia Hypertension Osteoarthritis Paroxysmal atrial fibrillation Single remote episode (suspected r/t nitro patch), no known recurrences, Follows with Dr. Mcdonald Peripheral artery disease Uterine cancer 1995 hysterectomy/radiation Surgical History History of breast biopsy Right History of cataract surgery Right History of cholecystectomy History of flexible sigmoidoscopy History of left-sided carotid endarterectomy History of total hysterectomy with bilateral salpingo-oophorectomy (BSO) Hx of lumpectomy 7 years ago Family History Other No pertinent family history Social History Smoking Status: Former smoker Tobacco Type: Cigarettes Second Hand Exposure: No; Hx Alcohol Use: Yes Alcohol type: wine Hx Substance Use: No Preferred Language: Macedonian Communication Ability: Effective Envelope Machine Operator Required: No Beliefs That Will Affect Care: None marital status: Unknown Current Living Situation: Alone Current Living Situation Comment: WITH ( HAS ALZHEIMERS) How many Children do You have: 2 Feels Safe at Home: Yes Assistive Devices: Oxygen - at Night Review of Systems Review of Systems: Unobtainable except as per HPI Physical Exam Constitutional: Critically ill-appearing cyanotic elderly female. Intubated and sedated. Neck: JVD Respiratory: Diffuse crackles. No wheezing or rhonchi. Cardiovascular: Irregular rhythm, normal rate. Systolic murmur. No lower extremity edema appreciated. Pulses are absent except for the thready left radial artery pulse. Carotids not checked. Neurologic: Intubated and sedated. She moves all 4 extremities when inadequately sedated. Results & Data ([facility]) Vital Signs (Past 12 Hours) Vital Signs Temp Pulse Resp BP Pulse Ox O2 Del Method O2 Flow Rate 12/19/21 13:30 91 H 19 95 12/19/21 10:32 130 H 22 50/34 L 92 Oxymask 6 12/19/21 10:45 36.9 C 130 H 28 H 50/34 L 83 L Nasal Cannula 6 FiO2 12/19/21 13:30 100 12/19/21 10:32 12/19/21 10:45 PG Care Time/CCT Total # of Minutes Spent Total Time Spent with Patient: Total time spent is greater than 50% in coordination of care (as documented) at patient's floor/unit and/or counseling patient: Critical Care Time: Yes Total Critical Care Time: 90 Total of 90 minutes of critical care time was provided. This included time for physical exam, review of the records, discussion with her family, formulation and implementation of a plan of care, and documentation of all of the above. This is exclusive of the time spent for her procedure. [place] [address] Office/Outpt Visit, New Patient Type New Medical Decision Making High Complexity Diagnoses ST elevation NC (STEMI) I21.3 Hypoxia R09.02 Atrial fibrillation with RVR I48.91 Acute on chronic heart failure with preserved ejection fraction I50.33 HLD (hyperlipidemia) E78.5 HTN (hypertension) I10 Additional Codes Critical Care Time - Critical Care Time: Yes ([id number])
--- NOTE | 2021-12-19 14:25 | Emergency Department Note ---
Impression & Plan ST elevation TN (STEMI), Acute respiratory failure with hypoxia, Paroxysmal atrial fibrillation, Hypoxia ED Provider Note NAME: ABDIAS RODRIGUEZ AGE: 81 SEX: F : 1940 ARRIVES VIA: Ambulance INFORMANT: Patient, EMS ED PROVIDER(S): Peter Spence DO CHIEF COMPLAINT: Short of breath HPI: Patient is an 81-year-old female with a past medical history peripheral artery disease, hyperlipidemia, CHF, hypertension, Graves' disease, stenosis of the carotid, breast cancer who presents the ER for shortness of breath and left arm pain. She notes she feels very weak and was brought in by EMS. She is found to be A. fib with RVR. She denies any chest pain that she can think of. No belly pain. No dysuria urgency or frequency. No other exacerbating or remit ting factors. ROS: See above HPI for pertinent positives & negatives. A total of 10 systems reviewed and were otherwise negative. PAST MEDICAL HISTORY:See Below PAST SURGICAL HISTORY:See Below FAMILY HISTORY:See Below SOCIAL HISTORY:See Below HOME MEDICATIONS:See Below ALLERGIES:See Below VITALS:See Below PHYSICAL EXAMINATION: GENERAL: Sitting up in bed, alert, ill-appearing on anoxia mask EYE EXAM: normal conjunctiva. PERRL and EOM's grossly intact. OROPHARYNX: no exudate, no erythema, lips, buccal mucosa, and tongue normal and mucous membranes are dry NECK: supple, no nuchal rigidity, no adenopathy, non-tender LUNGS: Clear to auscultation. Normal chest wall mechanics HEART: no murmurs, S1 normal and S2 normal ABDOMEN: abdomen soft, non-tender, normo-active bowel sounds, no masses, no gisella ound or guarding. UPPER EXTREMITIES: upper extremities are grossly normal. LOWER EXTREMITIES: No pitting edema. NEURO EXAM: Normal sensorium, cranial nerves II-XII grossly intact, normal speech, no gross weakness of arms, no gross weakness of legs. No drift. Finger to nose intact. Gross sensation intact. MEDICAL DECISION MAKING: Patient is an 81-year-old female who presents ER for above-stated complaint. She was brought in by EMS. I was called to the room upon presentation and she was found to be hypotensive with systolic pressures in the 80s. These trended d own into the 50s. Her heart rate was initially 109's and A. fib and did increase to the 140s as SBP trended down. Previous EKGs were reviewed and a STEMI alert was called immediately as she had ST segment elevations in the inferior leads. With her A. fib and a heart rate in the 140s and systolic pressures in the 50s she was given IV etomidate emergently and cardioversion was attempted with 200 J. This was unsuccessful. At this time she became apneic and was intubated by myself at bedside. She was placed on a fentanyl and Versed drip. Interventional cardiology did present at bedside and reviewed the case and took her emergently to [facility] [employer] [facility]. I did discuss with family and they were in agreement with catheterization at this time which the patient was in agreement with prior to intubation. Did update family multiple times throughout the course of treatment. Triage Nursing notes reviewed. Limited review of prior medical records performed Vital Signs: reviewed and remarkable for hypotension, tachycardic Differential diagnosis: Differential diagnoses includes but is not limited to pneumonia, bronchitis, COPD/Asthma exacerbation, pneumothorax, pulmonary embolism, congestive heart failure, acute coronary syndrome ER treatment provided: See below Diagnostics interpreted by me: ECG: A. fib rate of [address] segment elevation in the inferior leads with depressions in the high lateral leads consistent with acute STEMI. These changes are new from last week. Cardiac Monitoring: An order was placed for continuous cardiac monitoring. The monitor shows a rate of 134 with AFIB rhythm. Laboratory studies: As stated above and show below. Imaging studies: Portable AP upright 1 view the chest shows ET tube in good position with pulmonary edema Consultation(s): Discussed with Dr. Granados from interventional cardiology who took the patient to [facility] Discussed with loly alejandra from not any hospital service Procedures: PROCEDURE #1 Indication: A. fib RVR with hypotension Verbal consent was obtained after the risks and benefits were explained, including but not limited to pain, thermal burn, allergic reaction, aspiration, airway obstruction, laryngospasm, infection, hypotension, and cardiorespiratory arrest. At this time, the risks of the procedure are less than the risks of NOT performing the procedure. A time out was taken and the correct patient and procedure identified. The patient was on 100% via NRB and end tidal CO2 monitoring prior to the procedure. Suction, airway equipment, medications, respiratory equipment, ACLS cart, and appropriate personnel were prepared prior to the initiation of the procedure. Sedation was achieved utilizing 6 mg of etomidate. The biphasic defibrillator was set to 200 joules of energy and synched. After confirmation of sedation and "all clear" safety check the synchronized shock was delivered. This resulted in successful conversion of the dysrhythmia back into sinus rhythm. See nursing notes for dosages and times. There were no complications and the patient recovered uneventfully from the procedure. PROCEDURE #2 EM PROCEDURE NOTE - Endotracheal Intubation PROCEDURE NOTE: Informed consent was not obtained by the patient. Verify Correct Patient: yes Procedure: Endotracheal intubation Indication: Respiratory failure The procedure was done emergently. Description of the Procedure: The patient was seen and properly identified. The patient was pre-oxygenated and intubated after rapid sequence induction with meds: Succinylcholine and etomidate. Intubation was performed using a 3 glide scope blade and a 7.5 cuffed endotracheal tube. The tube was visualized going through the cords and secured with the 23cm dannielle at the lips. The patient had good bilateral breath sounds in the axillae with good chest rise. Proper ET tube placement was confirmed by end tidal CO2 detector. The patient tolerated the procedure well. Critical Care: I have personally spent 35 minutes of critical care time in the direct management of this patient. This includes bedside care, interpretation of diagnostic studies, and testing, discussion with consultants, patient, and family members, and other required patient management activities. This 35 minutes is in excess of all separately billable procedures. Past Med/Surg History Medical History (Updated 12/19/21 @ 14:25 by Peter Spence DO) Anxiety Bladder cancer Breast cancer Dx 7 years ago s/p right lumpectomy- RUE lumpectomy Cardiac murmur 2018 ECHO showed AV sclerosis (no ), mild to moderate mitral annular calcification and mild MS Carotid artery disease s/p left carotid endarterectomy (3 years ago/[facility]), follows with Dr. Islas CHF (congestive heart failure) 2018 Chronic anemia baseline hgb 11's per chart review Graves disease Hyperlipidemia Hypertension Osteoarthritis Paroxysmal atrial fibrillation Single remote episode (suspected r/t nitro patch), no known recurrences, Follows with Dr. Mcdonald Peripheral artery disease Uterine cancer 1995 hysterectomy/radiation Surgical History History of breast biopsy Right History of cataract surgery Right History of cholecystectomy History of flexible sigmoidoscopy History of left-sided carotid endarterectomy History of total hysterectomy with bilateral salpingo-oophorectomy (BSO) Hx of lumpectomy 7 years ago Family History Other No pertinent family history Social History Smoking Status: Former smoker Tobacco Type: Cigarettes Second Hand Exposure: No; Hx Alcohol Use: Yes Alcohol type: wine Hx Substance Use: No Preferred Language: Irish Communication Ability: Effective Mobile Disc Jockey Required: No Beliefs That Will Affect Care: None marital status: Unknown Current Living Situation: Alone Current Living Situation Comment: WITH ( HAS ALZHEIMERS) How many Children do You have: 2 Feels Safe at Home: Yes Assistive Devices: Oxygen - at Night Allergies Allergies Allergy/AdvReac Type Severity Reaction Status Date / Time No Known Allergies Allergy Verified 10/15/21 13:44 Home Meds Home Medications Medication Instructions Recorded Confirmed aspirin 81 mg tablet,delayed 81 mg PO QAM 02/17/18 12/19/21 release (Hermilo Low Dose Aspirin) atorvastatin 40 mg tablet 40 mg PO PM 02/17/18 12/19/21 metoprolol tartrate 50 mg tablet 50 mg PO BID 02/17/18 12/19/21 propylthiouracil 50 mg tablet 100 mg PO BID 02/17/18 12/19/21 cilostazol 50 mg tablet 50 mg PO BID 08/29/20 12/19/21 bumetanide 1 mg tablet 1 mg PO DAILY 12/11/21 12/19/21 spironolactone 25 mg tablet 12.5 mg PO DAILY 12/11/21 12/19/21 (Aldactone) Previous Rx's Medication Instructions Recorded albuterol sulfate 90 mcg/actuation 2 puff inhalation Q6H PRN 06/05/21 aerosol inhaler Shortness Of Breath Or Wheezing #18 grams Results & Data (ED) Vital Signs Vital Signs - 24 hr 12/19/21 10:45 12/19/21 10:32 Temperature 36.9 C Temperature Source Oral Pulse Rate 130 H 130 H Pulse Rhythm Irregular Pulse Strength Weak Respiratory Rate 28 H 22 Respiratory Effort / Characteristics Spontaneous Short of Breath Respiratory Depth Normal Respiratory Pattern Tachypnea Blood Pressure 50/34 L 50/34 L Blood Pressure Mean 39 39 Blood Pressure Position Lying Lying Pulse Oximetry 83 L 92 Oxygen Delivery Method Nasal Cannula Oxymask Oxygen Flow Rate 6 6 Sepsis Recent Fever Within 48 Hours No No Sepsis New/Unexplained Change in Mental Status No N/A Sepsis Action Taken by Nursing MD Previously Notified Physician Notified Laboratory Data Result diagrams: 12/19/21 10:59 12/19/21 10:59 Lab Results 12/19/21 12/19/21 Range/Units 10:59 10:59 WBC 8.36 (4.8-10.8) K/ul RBC 3.59 L (3.93-5.22) M/uL Hgb 10.1 L (12.0-16.0) g/dl Hct 33.1 L (34.1-44.9) % MCV 92.2 (80.0-100.0) fL MCH 28.1 (25.0-34.0) pg MCHC 30.5 L (32.0-36.0) g/dL RDW Std Deviation 63.1 H (36.4-46.3) fL RDW Coeff of Armani 18.7 H (11.5-14.5) % Plt Count 117 L (130-400) K/uL MPV 11.5 (9.4-12.3) fL Immature Gran % (Auto) 0.6 % Neut % (Auto) 86.3 % Lymph % (Auto) 4.8 % [place] % (Auto) 8.1 % Eos % (Auto) 0.0 % Baso % (Auto) 0.2 % Neut # (Auto) 7.21 H (1.4-6.5) K/uL Lymph # (Auto) 0.40 L (1.2-3.4) K/uL [place] # (Auto) 0.68 (0.24-0.82) K/uL Eos # (Auto) 0.00 (0-0.50) K/uL Baso # (Auto) 0.02 (0-0.2) K/uL Immature Gran # (Auto) 0.05 H (0.00-0.02) K/uL Ovalocytes 1+ Echinocytes 1+ Sodium 142 (136-145) mmol/L Potassium 3.8 (3.5-5.1) mmol/L Chloride 107 (98-107) mmol/L Carbon Dioxide 25 (21-32) mmol/L Anion Gap 10 (3-11) BUN 22 (6-23) mg/dl Creatinine 1.42 H (0.6-1.2) mg/dl Est Cr Clr Drug Dosing Not Reportable Est GFR ( Amer) 39.8 ml/min Est GFR (Non-Af Amer) 34.3 ml/min BUN/Creatinine Ratio 15.5 (10-20) Glucose 87 (70-99(Fasting)) mg/dl Calcium 8.2 L (8.5-10.1) mg/dl Total Bilirubin 1.7 H (0.2-1.0) mg/dl AST 141 H (13-39) U/L ALT 92 H (7-52) U/L Alkaline Phosphatase 78 (34-104) U/L Troponin I High Sens 1143.0 H* (0-14) pg/ml Total Protein 5.9 L (6.0-8.3) gm/dl Albumin 3.0 L (3.4-5.0) gm/dl Globulin 2.9 (2.5-4.0) gm/dl Albumin/Globulin Ratio 1.0 (0.9-2) Lipase 21 (11-82) U/L Imaging Data Radiologist's Impression: Chest X-Ray 12/19/21 11:01 SINGLE VIEW CHEST CLINICAL HISTORY: Respiratory failure. Intubation. FINDINGS: An AP, portable, supine chest radiograph is compared to study dated 12/11/2021 and correlated with chest CT dated 05/08/2021. The examination is degraded by portable technique and patient rotation. An endotracheal tube has been placed. The tip projects approximately 3.5 cm above the bari. The heart is enlarged. There is pulmonary vascular congestion. Emphysema and chronic interstitial thickening is similar to previous. Layering pleural effusions are suspected. Bilateral airspace opacities likely represent pulmonary edema. No pneumothorax is seen. The skeletal structures are osteopenic. The bony thorax is grossly intact. IMPRESSION: 1. An endotracheal tube has been placed as above. 2. Cardiomegaly and emphysema with evidence of congestive failure. 3. Bilateral airspace opacities likely represent mild pulmonary edema. Correlate clinically for evidence of a superimposed infectious/inflammatory pneumonitis. 4. Suspect layering pleural effusions. 5. The spiculated pulmonary nodule seen on the 05/08/[address] is not visualized by x-ray. This remains concerning for neoplasm. ACT 112: Negative or not required by law. Electronically signed by: Donnie Redding M.D. 12/19/2021 12:01 PM Discharge Plan Visit Data Chief Complaint: Illness Stated Complaint: WEAKNESS, SOB, HYPOTENSION ED Provider: Peter Spence Discharge Problem: ST elevation TN (STEMI), Acute respiratory failure with hypoxia, Paroxysmal atrial fibrillation, Hypoxia Patient Disposition: Admitted As Inpatient Discharge Instructions Interventions: ED Discharge Assessment Last Done: 12/19/21 11:45
[2021-12-19] MEDS ORDERED: FUROSEMIDE INJ 20 MG/2 ML VIAL IV ONE (14:36)
--- NOTE | 2021-12-19 14:46 | Critical Care Consultation ---
Date of Consultation December 19, 2021 Assessment & Plan (1) Atrial fibrillation with RVR: (2) Acute heart failure: (3) Acute respiratory failure with hypoxia: Plan 81-year-old female with a history of vasculopathy, valvular heart disease and diastolic heart failure presented with rapid atrial fibrillation requiring cardioversion. She is status post left heart catheterization. No stenting required. She has diffuse coronary artery disease. Chest x-ray with findings consistent with pulmonary edema. Prior PFTs reviewed without evidence of obstruction. DLCO reduced likely secondary to mild emphysema and CHF. Will attempt to diurese the patient and extubate. Currently on spontaneous breathing trial. Maintain MAP above 65 mmHg. We will use amiodarone should she have recurrence of atrial fibrillation given the hypotension she experienced earlier today. We will avoid sedation as the patient is completely alert and oriented and denies any complaints at this time. Rest of plan per cardiology and hospitalist service. CRITICAL CARE TIME - I have personally spent 48 minutes of critical care time in the direct management of this patient. This is a life/limb threatening event. This includes time spent evaluating patient, direct bedside care, chart review, placing or ders, interpretation of diagnostic studies, discussion with consultants, patient, and family members, as well as other required patient management activities. This time is exclusive of all separately billable procedures, and teaching time and separate from and in addition to any other critical care service time. History of Present Illness Reason for Consultation: Intubation Attending Physician: Jessica Crespo MD History of Present Illness 81-year-old female who follows with Dr. Gonzalez presenting to the hospital due to hypoxia and chest tightness. In discussion with the hospitalist, the patient presented to the ER with rapid atrial fibrillation and underwent cardioversion. Subsequently, she became unresponsive and was intubated. She was taken emergently to the Qualitative Researcher. Diffuse cardiac disease was seen, but no stents were placed. She is now in the ICU and currently on a low-dose Levophed drip. She is not requiring any sedation and follows all commands. I discussed the case with patient's family members who indicated that she had increasing lethargy and shortness of breath of the last few days. No fevers or chills. Patient denies any chest pain at present. Presenting chest x-ray with evidence of pulmonary edema. Echocardiogram being performed by the client technologies specialist at bedside presently. Allergies Allergy/AdvReac Type Severity Reaction Status Date / Time No Known Allergies Allergy Verified 10/15/21 13:44 Home Medications Medication Instructions Recorded Confirmed Type aspirin 81 mg tablet,delayed 81 mg PO QAM 02/17/18 12/19/21 History release (Hermilo Low Dose Aspirin) atorvastatin 40 mg tablet 40 mg PO PM 02/17/18 12/19/21 History metoprolol tartrate 50 mg tablet 50 mg PO BID 02/17/18 12/19/21 History propylthiouracil 50 mg tablet 100 mg PO BID 02/17/18 12/19/21 History cilostazol 50 mg tablet 50 mg PO BID 08/29/20 12/19/21 History albuterol sulfate 90 mcg/actuation 2 puff inhalation Q6H PRN 06/05/21 12/19/21 Rx aerosol inhaler Shortness Of Breath Or Wheezing #18 grams bumetanide 1 mg tablet 1 mg PO DAILY 12/11/21 12/19/21 History spironolactone 25 mg tablet 12.5 mg PO DAILY 12/11/21 12/19/21 History (Aldactone) Patient History Medical History Anxiety Bladder cancer Breast cancer Dx 7 years ago s/p right lumpectomy- RUE lumpectomy Cardiac murmur 2018 ECHO showed AV sclerosis (no ), mild to moderate mitral annular calcification and mild MS Carotid artery disease s/p left carotid endarterectomy (3 years ago/[facility]), follows with Dr. Islas CHF (congestive heart failure) 2018 Chronic anemia baseline hgb 11's per chart review Graves disease Hyperlipidemia Hypertension Osteoarthritis Paroxysmal atrial fibrillation Single remote episode (suspected r/t nitro patch), no known recurrences, Follows with Dr. Mcdonald Peripheral artery disease Uterine cancer 1995 hysterectomy/radiation Surgical History History of breast biopsy Right History of cataract surgery Right History of cholecystectomy History of flexible sigmoidoscopy History of left-sided carotid endarterectomy History of total hysterectomy with bilateral salpingo-oophorectomy (BSO) Hx of lumpectomy 7 years ago Family History Other No pertinent family history Social History Smoking Status: Former smoker Tobacco Type: Cigarettes Second Hand Exposure: No; Hx Alcohol Use: Yes Alcohol type: wine Hx Substance Use: No Preferred Language: [place] Communication Ability: Effective Radiotelephone Technical Operator Required: No Beliefs That Will Affect Care: None marital status: Unknown Current Living Situation: Alone Current Living Situation Comment: WITH ( HAS ALZHEIMERS) How many Children do You have: 2 Feels Safe at Home: Yes Assistive Devices: Oxygen - at Night Review of Systems Review of Systems: All systems reviewed & are unremarkable except as noted in HPI & below Physical Exam Physical Exam: Constitutional: Patient appears to be of their stated age. Patient is in no apparent distress. Patient is well-developed. Eyes: Pupils are equal round and reactive to light. Conjunctivae are normal. Anicteric sclera. Ears nose, mouth and throat: Intubated.. Neck: Trachea is midline. Visual inspection is normal. Respiratory: Clear to auscultation bilaterally. No use of accessory muscles. No significant clubbing noted. Cardiovascular: Regular rate and rhythm. No murmurs. No edema. Gastrointestinal: Normal bowel sounds, soft, nontender and nondistended. No hepatosplenomegaly noted. Musculoskeletal: No cyanosis. Patient is able to move all extremities. Strength is 5 out of 5 in the upper and lower extremities. Skin: No rashes, warm dry and intact. Neurologic: No obvious focal neurological deficits seen. Psychiatric: Alert and oriented x3 with a euthymic affect. Results & Data Results & Data ([facility]) Vital Signs (Past 12 Hours) Vital Signs Temp Pulse Resp BP Pulse Ox O2 Del Method O2 Flow Rate 12/19/21 14:26 16 12/19/21 13:30 91 H 19 95 12/19/21 10:32 130 H 22 50/34 L 92 Oxymask 6 12/19/21 10:45 36.9 C 130 H 28 H 50/34 L 83 L Nasal Cannula 6 FiO2 12/19/21 14:26 40 12/19/21 13:30 100 12/19/21 10:32 12/19/21 10:45 Coding Level of Care Code Critical Care 1st 30-74 mins Diagnoses Atrial fibrillation with RVR I48.91 Acute heart failure I50.9 Acute respiratory failure with hypoxia J96.01 Time Spent (min) 48
[2021-12-19] MEDS ORDERED: MIDAZOLAM HCL 5 MG/ML VIAL IV ONE ×2 (16:03)
[2021-12-19] MEDS ORDERED: SUCCINYLCHOLINE CHLORIDE 20 MG/ML 10 ML VIAL IV ONE (16:03)
[2021-12-19] MEDS ORDERED: BUMETANIDE 1 MG in SYRINGE 0 ML IV ONE (16:45)
[2021-12-19] MEDS ORDERED: ALBUTEROL HFA 8 GM INHALER INH PRN (19:01)
[2021-12-19] MEDS: propylthiouraciL 50 MG TAB PO SCH (20:03)
[2021-12-19] MEDS ORDERED: ATORVASTATIN 40 MG TAB PO SCH (21:00)
[2021-12-19] MEDS: NOREPINEPHRINE/D5W 4 MG/250 ML PLCT IV SCH (22:46)
[2021-12-19] MEDS: MAGNESIUM SULFATE / D5W 1 GM/100 ML BAG IV SCH (23:07)
[2021-12-20] MEDS: ACETAMINOPHEN 500 MG TAB PO PRN ×3 (00:29→20:45)
[2021-12-20] MEDS: MAGNESIUM SULFATE / D5W 1 GM/100 ML BAG IV SCH ×3 (00:47→23:35)
[2021-12-20 02:15] LABS: Appearance Urine Turbid (Clear); Bacteria Urine Automated Negative (Negative); Bilirubin Urine Negative (Negative); Blood Urine 3+ (Negative); Color Urine Dark Yellow; Epithelial Cell Urine Auto >30 /lpf (0-5); Glucose Urine UA Negative (Negative); Ketones Urine Negative (Negative); Leukocyte Esterase Urine 3+ (Negative); Nitrite Urine Negative (Negative); Protein Urine 3+ (Negative); RBC Urine Automated 0-4 /hpf (0-4); Specific Gravity Urine > 1.045 (1.000-1.030); Urobilinogen Urine Negative (Negative); WBC Urine Automated >30 /hpf (0-5)
[2021-12-20] MEDS ORDERED: LACTATED RINGER'S 1,000 ML IV SCH (03:45)
[2021-12-20 04:40] LABS: Basophils # (auto) 0.02 K/uL (0-0.2); Basophils % (auto) 0.2 %; Eosinophils # (auto) 0.01 K/uL (0-0.50); Eosinophils % (auto) 0.1 %; Hematocrit (blood only) 35.8 % (34.1-44.9); Immature Granulocytes # (auto) 0.08 K/uL (0.00-0.02); Immature Granulocytes % (auto) 0.8 %; Lymphocytes # (auto) 0.78 K/uL (1.2-3.4); Lymphocytes % (auto) 7.6 %; Mean Corpuscular Hemoglobin 27.8 pg (25.0-34.0); Mean Corpuscular Hgb Conc 30.7 g/dL (32.0-36.0); Mean Corpuscular Volume 90.6 fL (80.0-100.0); Monocytes # (auto) 0.65 K/uL (0.24-0.82); Monocytes % (auto) 6.3 %; Neutrophils # (auto) 8.71 K/uL (1.4-6.5); Platelet Count 119 K/uL (130-400); Platelet Estimate Normal (Normal); RDW Coefficient of Variation 18.8 % (11.5-14.5); RDW Standard Deviation 61.8 fL (36.4-46.3); Red Blood Count 3.95 M/uL (3.93-5.22); White Blood Count 10.25 K/ul (4.8-10.8)
[2021-12-20 04:43] LABS: INR 1.2 (0.9-1.1); Partial Thromboplastin Ratio 1.4; Partial Thromboplastin Time 39.3 Seconds (21.0-31.0); Prothrombin Time 12.9 Seconds (9.0-12.0)
[2021-12-20 04:49] LABS: Albumin Level 3.1 gm/dl (3.4-5.0); BUN Creatinine Ratio 19.2 (10-20); Bilirubin,Total 1.4 mg/dl (0.2-1.0); Chol HDL Ratio 1.9 (0-5); Est GFR (African American) 35.5 ml/min; Est GFR (Non-African American) 30.6 ml/min; Magnesium 2.4 mg/dl (1.7-2.4); Potassium 4.3 mmol/L (3.5-5.1); Total Protein 6.1 gm/dl (6.0-8.3)
[2021-12-20] MEDS ORDERED: HYDROmorphone INJ 0.5 MG/0.5 ML SYR IV STA (08:57)
[2021-12-20] MEDS ORDERED: ASPIRIN 81 MG ECTAB PO SCH (09:00)
--- NOTE | 2021-12-20 09:22 | Critical Care Progress Note ---
Date of Service December 20, 2021 Assessment & Plan (1) Atrial fibrillation with RVR: (2) Acute heart failure: (3) Acute respiratory failure with hypoxia: (4) Lower back pain: (5) Acute kidney injury: (6) Sepsis: Plan 81-year-old female with a history of vasculopathy, valvular heart disease and diastolic heart failure presented with rapid atrial fibrillation requiring cardioversion. She is status post left heart catheterization. No stenting required. She has diffuse coronary artery disease. Chest x-ray with findings consistent with pulmonary edema. Prior PFTs reviewed without evidence of obstruction. DLCO reduced likely secondary to mild emphysema and CHF. Patient successfully extubated 12/19/2021. She is currently saturating well on oxygen mask. Acute kidney injury likely secondary to cardiorenal syndrome and prolonged hypotension. Received crystalloids overnight. We will try to maintain euvolemic status. Follow urine output closely. She is having acute on chronic low back pain. There was difficulty with vascular access yesterday during the left heart cath. We will obtain a noncontrast CT abdomen/pelvis to evaluate for retroperitoneal bleed or other pathology. She was given a one-time dose of Dilaudid, Tylenol and heating pad. She also has signs of sepsis given that she is feverish and tachycardic. We will obtain blood cultures and start the patient on cefepime and Flagyl. MRSA screen was negative. She has a right femoral central line and right femoral arterial line in place that we will need to consider removing. Lines do not appear infected. If the CT abdomen and pelvis is unrevealing, she will likely be stable to downgrade to PCU once lines are out. CRITICAL CARE TIME - I have personally spent 47 minutes of critical care time in the direct management of this patient. This is a life/limb threatening event. This includes time spent evaluating patient, direct bedside care, chart review, placing orders, interpretation of diagnostic studies, discussion with consultants, patient, and family members, as well as other required patient management activities. This time is exclusive of all separately billable procedures, and teaching time and separate from and in addition to any other critical care service time. Admission and Anticipated Discharge Date Admission Date: December 19, 2021 Subjective She is complaining of significant lower back pain today. Denies any overt shortness of breath or chest pain. She notes that some of the back and hip issues were chronic, but this is much worse than usual. There was some concern of extravasation of norepinephrine from the right femoral central line overnight. I looked at the central line and I was able to draw blood from all 3 ports without issue. I am doubtful that there was any extravasation. Review of Systems Review of Systems: All systems reviewed & are unremarkable except as noted in HPI & below Physical Exam Physical Exam: Constitutional: Patient appears to be of their stated age. Mild distress. Eyes: Pupils are equal round and reactive to light. Conjunctivae are normal. Anicteric sclera. Ears nose, mouth and throat: Normal oropharynx. Neck: Trachea is midline. Visual inspection is normal. Respiratory: Clear to auscultation bilaterally. No use of accessory muscles. No significant clubbing noted. Cardiovascular: Regular rate and rhythm. No murmurs. No edema. Gastrointestinal: Normal bowel sounds, soft, nontender and nondistended. No hepatosplenomegaly noted. Musculoskeletal: No cyanosis. Patient is able to move all extremities. Strength is 5 out of 5 in the upper and lower extremities. Skin: No rashes, warm dry and intact. Neurologic: No obvious focal neurological deficits seen. Psychiatric: Alert and oriented x3 with a euthymic affect. Results & Data Results & Data ([facility]) Vital Signs (Past 12 Hours) Vital Signs Temp Pulse Resp BP Pulse Ox O2 Del Method O2 Flow Rate 12/20/21 06:00 37.6 C H 94 H 23 95/60 L 94 Oxymask 3 12/20/21 05:30 37.5 C 81 16 95 BiPAP 12/20/21 05:00 37.5 C 82 24 107/71 94 BiPAP 12/20/21 04:30 37.5 C 77 23 95 BiPAP 12/20/21 04:00 37.5 C 82 23 115/66 95 BiPAP 12/20/21 03:30 37.5 C 83 23 93 BiPAP 12/20/21 03:00 37.7 C H 90 26 H 102/61 94 BiPAP 12/20/21 02:20 83 25 H 94 12/20/21 02:30 37.9 C H 83 21 94 BiPAP 12/20/21 02:00 38.1 C H 86 24 92/51 L 94 BiPAP 12/20/21 01:30 38.2 C H 89 25 H 92 Oxymask 5 12/20/21 01:00 38.0 C H 85 26 H 88/45 L 92 Oxymask 5 12/20/21 00:30 38.2 C H 90 20 91 Oxymask 3 12/20/21 00:00 38.1 C H 87 15 100/51 L 92 Oxymask 3 12/19/21 23:30 37.9 C H 90 26 H 92 Oxymask 3 12/19/21 23:00 37.8 C H 92 H 26 H 112/76 92 Oxymask 3 12/19/21 22:30 37.6 C H 101 H 26 H 94 Oxymask 3 12/19/21 22:00 37.8 C H 100 H 28 H 85/53 L 93 Oxymask 3 12/19/21 21:30 37.7 C H 96 H 24 93 Oxymask 3 FiO2 12/20/21 06:00 12/20/21 05:30 40 12/20/21 05:00 40 12/20/21 04:30 40 12/20/21 04:00 40 12/20/21 03:30 40 12/20/21 03:00 40 12/20/21 02:20 40 12/20/21 02:30 40 12/20/21 02:00 40 12/20/21 01:30 12/20/21 01:00 12/20/21 00:30 12/20/21 00:00 12/19/21 23:30 12/19/21 23:00 12/19/21 22:30 12/19/21 22:00 12/19/21 21:30 Coding Level of Care Code 86895 Prolonged Care (int'l) Diagnoses Atrial fibrillation with RVR I48.91 Acute heart failure I50.9 Acute respiratory failure with hypoxia J96.01 Lower back pain M54.50 Acute kidney injury N17.9 Sepsis A41.9 Time Spent (min) 47
[2021-12-20] MEDS: CEFEPIME 1,000 MG in SYRINGE 0 ML IV SCH ×2 (09:30→20:43)
[2021-12-20] MEDS: metroNIDAZOLE 500 MG/100 ML BAG IV SCH ×2 (09:30→17:00)
--- NOTE | 2021-12-20 09:58 | Cardiology Progress Note ---
Date of Service December 20, 2021 Assessment & Plan (1) STEMI (ST elevation myocardial infarction): (2) Hypotension: (3) Vasculopathy: (4) Paroxysmal atrial fibrillation: (5) Severe tricuspid regurgitation: (6) Right ventricular dilation: Plan Although she had dramatic inferior ST elevations, catheterization showed chronic total occlusion of the RCA and echocardiogram showed inferior wall motion abnormality (presumably old), suggesting that hypoperfusion caused the transient ST elevation rather than thrombus. Fortunately, her blood pressure is now only mildly hypotensive off pressors and she has no evidence of clinical hypoperfusion. Rhythm remains sinus, given her extensive vasculopathy she would be unlikely to tolerate recurrent atrial fibrillation with rapid ventricular response, therefore if BP allows would consider initiation of amiodarone (could be low- dose without loading in order to avoid blunting her mild physiologic sinus tachycardic response to her hypoxia/respiratory issues). Right heart dilation on echocardiogram with significant tricuspid regurgitation suggests assessing volume status may be difficult, recommended intermittent diuresis to maintain even I/O with additional diuretic as needed to avoid pulmonary edema/hypoxia as tolerated by her borderline hypotensive BP. Given her extensive comorbidities, ongoing management of hemodynamics, volume status, and rhythm will be challenging. She is followed by Dr. Mcdonald as an outpatient, will inform him of her presence, if available he may offer further cardiology input tomorrow. Admission and Anticipated Discharge Date Admission Date: December 19, 2021 Subjective Patient is hemodynamically stable and off pressors. Rhythm remains sinus. No chest pain or dyspnea at rest. She does complain of severe lower back and left hip pain, a component of which is chronic, but her pain is more severe currently. Physical Exam Physical Exam: Appears uncomfortable but not acutely distressed, able to converse without difficulty. Current BP 95/60 mmHg (off pressors). Pulse in the 90-100 bpm range and regular with ectopy. Skin: no ecchymoses or generalized lesions. HEENT: unremarkable. Neck: Jugular venous pulse shows marked respiratory variation with meniscus only mildly elevated, transmitted carotid murmur. Lungs: Dullness at the bases but generally clear. No accessory muscle use. Cardiac: regular/borderline tachycardic rhythm with ectopy, no obvious murmur or gallop. Abdomen: benign. Extremities: no edema, pulses intact. Neurologic: normal affect, nonfocal. Results & Data ([facility]) Laboratory Results Sodium 135, potassium 4.3, BUN 30, creatinine 1.56 (1.42 yesterday). Diagnostic Findings Telemetry showed sinus rhythm/mild sinus tachycardia with frequent PACs and occasional PVCs. PG Care Time/CCT Total # of Minutes Spent Total Time Spent with Patient: Total time spent is greater than 50% in coordination of care (as documented) at patient's floor/unit and/or counseling patient: Coding Level of Care Code 60968 Subseq Hosp Care Lvl 3 Diagnoses STEMI (ST elevation myocardial infarction) I21.3 Hypotension I95.9 Vasculopathy I99.9 Paroxysmal atrial fibrillation I48.0 Severe tricuspid regurgitation I07.1 Right ventricular dilation I51.7
[2021-12-20] MEDS: propylthiouraciL 50 MG TAB PO SCH ×2 (10:18→20:43)
--- NOTE | 2021-12-20 10:18 | CT Scan Report ---
CT abd pelvis wo con CLINICAL HISTORY: severe pain TECHNIQUE: Helical axial images of the abdomen and pelvis were obtained. Automated dose lowering tech niques and/or adjustment according to patient size were utilized for this exam. This exam was perfor med without intravenous contrast. CT DOSE: 275.05 mGy.cm COMPARISON: Comparison is made to CT abdomen pelvis 11/01/[address] abdomen pelvis 08/26/2020 FINDINGS: Lower chest: Bilateral pleural effusions are seen with underlying atelectasis. Mitral annular calcif ications and atherosclerosis are noted. Liver: Unremarkable. No focal lesions are seen. Gallbladder and biliary tree: Patient is status post cholecystectomy. No intra- or extrahepatic bilia ry ductal dilation. Pancreas: Unremarkable, no focal lesions. Spleen: Unremarkable. Adrenals: Unremarkable. Kidneys and ureters: Enhancement of the bilateral kidneys is seen with wedge-shaped hypoperfusion in the left kidney. Scattered calcifications and cysts are noted in the bilateral kidneys. Bladder: Islas catheter is seen. Bladder wall is thickened. Reproductive organs: Unremarkable. Bowel: Diverticulosis is seen without evidence of diverticulitis. The appendix is normal. Lymph nodes Retroperitoneal: Unremarkable. Pelvic: Unremarkable. Mesenteric: Unremarkable. Peritoneum: Small ascites is noted. Vessels: Severe atherosclerotic disease is seen with near total occlusion of the left common iliac ar andra and right external iliac artery. Right iliac venous and arterial lines are noted. Abdominal wall: Soft tissue edema is seen. Bones: Degenerative changes in the visualized spine. IMPRESSION: 1. There is position of wedge-shaped hypoperfusion in the left mid kidney. Evaluation is highly limi tyesha due to this being a noncontrast study with vicarious excretion of contrast. However clinical mohan elation for pyelonephritis or renal infarct is recommended. 2. No evidence of retroperitoneal hemorrhage or other acute intra-abdominal abnormality. 3. Body wall edema and small ascites. 4. Extensive atherosclerotic disease. 5. Additional findings as above. ACT 112: Negative or not required by law. Electronically signed by: Gene Bernal M.D. 12/20/2021 10:15 AM
[2021-12-20] MEDS: ATORVASTATIN 40 MG TAB PO SCH (10:19)
[2021-12-20] MEDS: ASPIRIN 81 MG ECTAB PO SCH (10:19)
--- NOTE | 2021-12-20 10:42 | Hospitalist Progress Note ---
Date of Service December 20, 2021 Assessment & Plan (1) Shock: Plan: Initially was cardiogenic in origin at time of ER presentation in the setting of rapid a.fib. Now with ?septic shock? Consider checking random cortisol. Trend her lactates. Pressors - defer management to ICU attending. (2) STEMI (ST elevation myocardial infarction): Plan: Initially thought to have inferior STEMI. Following intubation and cardioversion in the ER she was taken to the blender lab[facility] by Dr Granados. 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 Thus, not a true STEMI. Likely that she suffered a type 2 MS due to severe hypotension/hypoperfusion. Cont statin. Cont asa. Ultimately will resume BB down the line once #1 is resolved. (3) Atrial fibrillation with RVR: Plan: Presented with afib RVR HR 120s, hypoxic, severely hypotensive SBP 50s. Etomidate given prior to shock w/ further worsening of BP and hypoxia, patient subsequently intubated. Converted to NSR. If she goes back to a.fib --> amiodarone. Appreciate cardiology assistance. (4) Severe sepsis: Plan: fevers, lactic acidosis, acute kidney injury, etc all c/w such source - UTI? broad-spectrum IV abx therapy follow cultures appreciate ICU attending assistance (5) Acute and chronic respiratory failure: Plan: acute component 2nd to acute pulmonary edema can't fully rule out pneumonia s/p intubation in the ER in the setting of #1 and #3 extubated to BIPAP now on oxymask O2 sat goal 90-92% she is on 3 L NC O2 at rest at home, 4 L with activity (6) Shock liver: Plan: Abnormal LFTs highly suggestive of shock liver. INR 1.2. Cont to trend LFTs and INR. (7) Graves disease: Plan: TSH 4.4 Controlled Cont PTU 100 mg BID (8) Carotid artery disease: Plan: s/p L carotid endarterectomy in 2016 70% restenosis (9) Chronic anemia: Plan: H/H stable CBC in am (10) HTN (hypertension): Plan: holding BP meds (11) UTI (urinary tract infection): Plan: u/a suggestive of such broad-spectrum IV antibiotics initiated by ICU attending follow cultures (12) Fever: Plan: 2nd UTI? 2nd to viral process? other? agree with IV abx would check COVID/Flu/RSV PCR to be complete (13) Acute systolic CHF (congestive heart failure): Plan: EF 45-50% with moderate RV systolic dysfunction as well. Defer management to ICU attending & cardiology. (14) DVT prophylaxis: Plan: defer selection to cardiology (15) Acute kidney injury: Plan: 2nd to #1 supportive care serial labs Admission and Anticipated Discharge Date Admission Date: December 19, 2021 Subjective patient states she woke up yesterday feeling very poorly fatigued, no energy, lack of energy this continued during the day she became increasingly more short of breath as the day went on despite fevers she has not noticed them but has felt cold at times denies feeling short of breath during my visit no chest pain no abd pain no vomiting Review of Systems Review of Systems: gen - fatigue, weak cv - no cp pulm - minimal cough GI - no nausea Physical Exam Physical Exam: gen - pleasant, looks tired/sickly mouth - MMM neck - JVD present heart - RRR, s1 s2, no murmur; occasional PVC lungs - decreased BS bases, no rales or wheezes abd - soft, NT, ND, BS+ ext - no edema, pulses 2+ b/l, cool to touch vascular - right femoral catheter present Results & Data Results & Data ([facility]) Vital Signs (Past 12 Hours) Vital Signs Temp Pulse Resp BP Pulse Ox O2 Del Method O2 Flow Rate 12/20/21 10:30 38.9 C H 95 H 22 90 12/20/21 10:30 95/57 L 12/20/21 10:26 39.0 C H 93 H 26 H 12/20/21 10:26 74/50 L 12/20/21 10:15 39.0 C H 90 27 H 90 12/20/21 10:02 53/34 L 12/20/21 10:02 39.0 C H 94 H 21 12/20/21 10:01 62/33 L 12/20/21 10:01 39.0 C H 104 H 20 12/20/21 10:00 39.0 C H 97 H 21 92 12/20/21 09:59 61/35 L 12/20/21 09:59 39.0 C H 109 H 27 H 71 L 12/20/21 09:57 39.0 C H 95 H 22 92 12/20/21 09:30 38.8 C H 108 H 28 H 87 L 12/20/21 09:19 114/75 12/20/21 09:19 38.8 C H 114 H 27 H 90 12/20/21 09:15 38.7 C H 111 H 33 H 92 12/20/21 09:00 38.6 C H 113 H 34 H 87 L 12/20/21 09:00 150/64 H 12/20/21 08:45 38.4 C H 152 H 25 H 12/20/21 08:30 38.3 C H 112 H 35 H 92 12/20/21 08:15 38.2 C H 101 H 23 87 L 12/20/21 08:01 38.1 C H 95 H 28 H 68 L 12/20/21 08:01 123/63 12/20/21 08:00 38.1 C H 91 H 26 H 87 L 12/20/21 07:45 38.0 C H 97 H 27 H 12/20/21 07:30 37.9 C H 100 H 22 87 L 12/20/21 07:15 37.8 C H 97 H 27 H 94 12/20/21 07:00 37.8 C H 103 H 23 89 L 12/20/21 07:00 101/64 12/20/21 06:45 37.7 C H 93 H 29 H 90 12/20/21 06:30 37.7 C H 89 20 81 L 12/20/21 06:15 37.6 C H 87 23 93 12/20/21 06:00 37.6 C H 94 H 23 95/60 L 94 Oxymask 3 12/20/21 05:30 37.5 C 81 16 95 BiPAP 12/20/21 05:00 37.5 C 82 24 107/71 94 BiPAP 12/20/21 04:30 37.5 C 77 23 95 BiPAP 12/20/21 04:00 37.5 C 82 23 115/66 95 BiPAP 12/20/21 03:30 37.5 C 83 23 93 BiPAP 12/20/21 03:00 37.7 C H 90 26 H 102/61 94 BiPAP 12/20/21 02:20 83 25 H 94 12/20/21 02:30 37.9 C H 83 21 94 BiPAP 12/20/21 02:00 38.1 C H 86 24 92/51 L 94 BiPAP 12/20/21 01:30 38.2 C H 89 25 H 92 Oxymask 5 12/20/21 01:00 38.0 C H 85 26 H 88/45 L 92 Oxymask 5 12/20/21 00:30 38.2 C H 90 20 91 Oxymask 3 12/20/21 00:00 38.1 C H 87 15 100/51 L 92 Oxymask 3 12/19/21 23:30 37.9 C H 90 26 H 92 Oxymask 3 12/19/21 23:00 37.8 C H 92 H 26 H 112/76 92 Oxymask 3 FiO2 12/20/21 10:30 12/20/21 10:30 12/20/21 10:26 12/20/21 10:26 12/20/21 10:15 12/20/21 10:02 12/20/21 10:02 12/20/21 10:01 12/20/21 10:01 12/20/21 10:00 12/20/21 09:59 12/20/21 09:59 12/20/21 09:57 12/20/21 09:30 12/20/21 09:19 12/20/21 09:19 12/20/21 09:15 12/20/21 09:00 12/20/21 09:00 12/20/21 08:45 12/20/21 08:30 12/20/21 08:15 12/20/21 08:01 12/20/21 08:01 12/20/21 08:00 12/20/21 07:45 12/20/21 07:30 12/20/21 07:15 12/20/21 07:00 12/20/21 07:00 12/20/21 06:45 12/20/21 06:30 12/20/21 06:15 12/20/21 06:00 12/20/21 05:30 40 12/20/21 05:00 40 12/20/21 04:30 40 12/20/21 04:00 40 12/20/21 03:30 40 12/20/21 03:00 40 12/20/21 02:20 40 12/20/21 02:30 40 12/20/21 02:00 40 12/20/21 01:30 12/20/21 01:00 12/20/21 00:30 12/20/21 00:00 12/19/21 23:30 12/19/21 23:00 Laboratory Results Laboratory Results - last 24 hr 12/19/21 12/19/21 12/19/21 19:00 19:00 22:10 WBC RBC Hgb Hct MCV MCH MCHC RDW Std Deviation RDW Coeff of Armani Plt Count MPV Immature Gran % (Auto) Neut % (Auto) Lymph % (Auto) [place] % (Auto) Eos % (Auto) Baso % (Auto) Neut # (Auto) Lymph # (Auto) [place] # (Auto) Eos # (Auto) Baso # (Auto) Immature Gran # (Auto) Platelet Estimate PT INR APTT PTT Ratio Sodium Potassium Chloride Carbon Dioxide Anion Gap BUN Creatinine Est Cr Clr Drug Dosing Est GFR ( Amer) Est GFR (Non-Af Amer) BUN/Creatinine Ratio Glucose POC Glucose Estimat Average Glucose Hemoglobin A1c Lactate Calcium Magnesium Total Bilirubin AST ALT Alkaline Phosphatase Troponin I High Sens 51212.8 H* D Total Protein Albumin Globulin Albumin/Globulin Ratio Triglycerides Cholesterol LDL Cholesterol, Calc VLDL Cholesterol, Calc HDL Cholesterol Cholesterol/HDL Ratio TSH Urine Color Urine Appearance Urine pH Ur Specific Matheny Urine Protein Urine Glucose (UA) Urine Ketones Urine Blood Urine Nitrite Urine Bilirubin Urine Urobilinogen Ur Leukocyte Esterase Urine WBC (Auto) Urine RBC (Auto) U Hyaline Cast (Auto) U Epithel Cells (Auto) Urine Bacteria (Auto) Urine Yeast Nasal Screen MRSA (PCR) Negative SARS-CoV-2, RNA, NAAT NEGATIVE 12/19/21 12/20/21 12/20/21 22:10 01:20 04:02 WBC RBC Hgb Hct MCV MCH MCHC RDW Std Deviation RDW Coeff of Armani Plt Count MPV Immature Gran % (Auto) Neut % (Auto) Lymph % (Auto) [place] % (Auto) Eos % (Auto) Baso % (Auto) Neut # (Auto) Lymph # (Auto) [place] # (Auto) Eos # (Auto) Baso # (Auto) Immature Gran # (Auto) Platelet Estimate PT INR APTT PTT Ratio Sodium Potassium Chloride Carbon Dioxide Anion Gap BUN Creatinine Est Cr Clr Drug Dosing Est GFR ( Amer) Est GFR (Non-Af Amer) BUN/Creatinine Ratio Glucose POC Glucose 95 Estimat Average Glucose Hemoglobin A1c Lactate Calcium Magnesium Total Bilirubin AST ALT Alkaline Phosphatase Troponin I High Sens 63026.9 H* Total Protein Albumin Globulin Albumin/Globulin Ratio Triglycerides Cholesterol LDL Cholesterol, Calc VLDL Cholesterol, Calc HDL Cholesterol Cholesterol/HDL Ratio TSH Urine Color Dark Yellow Urine Appearance Turbid A Urine pH 5.0 Ur Specific Matheny > 1.045 H Urine Protein 3+ H Urine Glucose (UA) Negative Urine Ketones Negative Urine Blood 3+ H Urine Nitrite Negative Urine Bilirubin Negative Urine Urobilinogen Negative Ur Leukocyte Esterase 3+ H Urine WBC (Auto) >30 H Urine RBC (Auto) 0-4 U Hyaline Cast (Auto) 5-10 H U Epithel Cells (Auto) >30 H Urine Bacteria (Auto) Negative Urine Yeast Not Reportable Nasal Screen MRSA (PCR) SARS-CoV-2, RNA, NAAT 12/20/21 12/20/21 12/20/21 04:02 04:02 04:02 WBC 10.25 RBC 3.95 Hgb 11.0 L Hct 35.8 MCV 90.6 MCH 27.8 MCHC 30.7 L RDW Std Deviation 61.8 H RDW Coeff of Armani 18.8 H Plt Count 119 L MPV 11.0 Immature Gran % (Auto) 0.8 Neut % (Auto) 85.0 Lymph % (Auto) 7.6 Stonewall % (Auto) 6.3 Eos % (Auto) 0.1 Baso % (Auto) 0.2 Neut # (Auto) 8.71 H Lymph # (Auto) 0.78 L [place] # (Auto) 0.65 Eos # (Auto) 0.01 Baso # (Auto) 0.02 Immature Gran # (Auto) 0.08 H Platelet Estimate Normal PT 12.9 H INR 1.2 H APTT 39.3 H PTT Ratio 1.4 Sodium 135 L Potassium 4.3 Chloride 104 Carbon Dioxide 23 Anion Gap 8 BUN 30 H Creatinine 1.56 H Est Cr Clr Drug Dosing 23.0 Est GFR ( Amer) 35.5 Est GFR (Non-Af Amer) 30.6 BUN/Creatinine Ratio 19.2 Glucose 111 H POC Glucose Estimat Average Glucose Hemoglobin A1c Lactate Calcium 8.0 L Magnesium 2.4 Total Bilirubin 1.4 H AST 443 H ALT 353 H Alkaline Phosphatase 125 H Troponin I High Sens Total Protein 6.1 Albumin 3.1 L Globulin 3.0 Albumin/Globulin Ratio 1.0 Triglycerides 85 Cholesterol 81 LDL Cholesterol, Calc 22 VLDL Cholesterol, Calc 17 HDL Cholesterol 42 Cholesterol/HDL Ratio 1.9 TSH Urine Color Urine Appearance Urine pH Ur Specific Matheny Urine Protein Urine Glucose (UA) Urine Ketones Urine Blood Urine Nitrite Urine Bilirubin Urine Urobilinogen Ur Leukocyte Esterase Urine WBC (Auto) Urine RBC (Auto) U Hyaline Cast (Auto) U Epithel Cells (Auto) Urine Bacteria (Auto) Urine Yeast Nasal Screen MRSA (PCR) SARS-CoV-2, RNA, NAAT 12/20/21 12/20/21 12/20/21 04:02 04:02 09:14 WBC RBC Hgb Hct MCV MCH MCHC RDW Std Deviation RDW Coeff of Armani Plt Count MPV Immature Gran % (Auto) Neut % (Auto) Lymph % (Auto) [place] % (Auto) Eos % (Auto) Baso % (Auto) Neut # (Auto) Lymph # (Auto) [place] # (Auto) Eos # (Auto) Baso # (Auto) Immature Gran # (Auto) Platelet Estimate PT INR APTT PTT Ratio Sodium Potassium Chloride Carbon Dioxide Anion Gap BUN Creatinine Est Cr Clr Drug Dosing Est GFR ( Amer) Est GFR (Non-Af Amer) BUN/Creatinine Ratio Glucose POC Glucose Estimat Average Glucose Pending Hemoglobin A1c Pending Lactate Calcium Magnesium Total Bilirubin AST ALT Alkaline Phosphatase Troponin I High Sens 28450.6 H* Total Protein Albumin Globulin Albumin/Globulin Ratio Triglycerides Cholesterol LDL Cholesterol, Calc VLDL Cholesterol, Calc HDL Cholesterol Cholesterol/HDL Ratio TSH 4.417 Urine Color Urine Appearance Urine pH Ur Specific Matheny Urine Protein Urine Glucose (UA) Urine Ketones Urine Blood Urine Nitrite Urine Bilirubin Urine Urobilinogen Ur Leukocyte Esterase Urine WBC (Auto) Urine RBC (Auto) U Hyaline Cast (Auto) U Epithel Cells (Auto) Urine Bacteria (Auto) Urine Yeast Nasal Screen MRSA (PCR) SARS-CoV-2, RNA, NAAT 12/20/21 12/20/21 12/20/21 09:14 10:36 11:06 WBC RBC Hgb Hct MCV MCH MCHC RDW Std Deviation RDW Coeff of Armani Plt Count MPV Immature Gran % (Auto) Neut % (Auto) Lymph % (Auto) [place] % (Auto) Eos % (Auto) Baso % (Auto) Neut # (Auto) Lymph # (Auto) [place] # (Auto) Eos # (Auto) Baso # (Auto) Immature Gran # (Auto) Platelet Estimate PT INR APTT PTT Ratio Sodium Potassium Chloride Carbon Dioxide Anion Gap BUN Creatinine Est Cr Clr Drug Dosing Est GFR ( Amer) Est GFR (Non-Af Amer) BUN/Creatinine Ratio Glucose POC Glucose Estimat Average Glucose Hemoglobin A1c Lactate 6.8 H* 2.3 H* Calcium Magnesium Total Bilirubin AST ALT Alkaline Phosphatase Troponin I High Sens Total Protein Albumin Globulin Albumin/Globulin Ratio Triglycerides Cholesterol LDL Cholesterol, Calc VLDL Cholesterol, Calc HDL Cholesterol Cholesterol/HDL Ratio TSH Urine Color Yellow Urine Appearance Turbid A Urine pH 5.0 Ur Specific Matheny > 1.045 H Urine Protein 2+ H Urine Glucose (UA) Negative Urine Ketones Trace H Urine Blood 3+ H Urine Nitrite Negative Urine Bilirubin Negative Urine Urobilinogen Negative Ur Leukocyte Esterase 2+ H Urine WBC (Auto) >30 H Urine RBC (Auto) >30 H U Hyaline Cast (Auto) 1-5 U Epithel Cells (Auto) >30 H Urine Bacteria (Auto) 1+ H Urine Yeast Nasal Screen MRSA (PCR) SARS-CoV-2, RNA, NAAT Diagnostic Findings Abdomen/Pelvis CT 12/20/21 08:55 CT abd pelvis wo con CLINICAL HISTORY: severe pain TECHNIQUE: Helical axial images of the abdomen and pelvis were obtained. Automated dose lowering techniques and/or adjustment according to patient size were utilized for this exam. This exam was performed without intravenous contrast. CT DOSE: 275.05 mGy.cm COMPARISON: Comparison is made to CT abdomen pelvis 11/01/[address] abdomen pelvis 08/26/2020 FINDINGS: Lower chest: Bilateral pleural effusions are seen with underlying atelectasis. Mitral annular calcifications and atherosclerosis are noted. Liver: Unremarkable. No focal lesions are seen. Gallbladder and biliary tree: Patient is status post cholecystectomy. No intra- or extrahepatic biliary ductal dilation. Pancreas: Unremarkable, no focal lesions. Spleen: Unremarkable. Adrenals: Unremarkable. Kidneys and ureters: Enhancement of the bilateral kidneys is seen with wedge- shaped hypoperfusion in the left kidney. Scattered calcifications and cysts are noted in the bilateral kidneys. Bladder: Islas catheter is seen. Bladder wall is thickened. Reproductive organs: Unremarkable. Bowel: Diverticulosis is seen without evidence of diverticulitis. The appendix is normal. Lymph nodes Retroperitoneal: Unremarkable. Pelvic: Unremarkable. Mesenteric: Unremarkable. Peritoneum: Small ascites is noted. Vessels: Severe atherosclerotic disease is seen with near total occlusion of the left common iliac artery and right external iliac artery. Right iliac venous and arterial lines are noted. Abdominal wall: Soft tissue edema is seen. Bones: Degenerative changes in the visualized spine. IMPRESSION: 1. There is position of wedge-shaped hypoperfusion in the left mid kidney. Evaluation is highly limited due to this being a noncontrast study with vica rious excretion of contrast. However clinical correlation for pyelonephritis or renal infarct is recommended. 2. No evidence of retroperitoneal hemorrhage or other acute intra-abdominal abnormality. 3. Body wall edema and small ascites. 4. Extensive atherosclerotic disease. 5. Additional findings as above. ACT 112: Negative or not required by law. Electronically signed by: Gene Bernal M.D. 12/20/2021 10:15 AM Chest X-Ray 12/20/21 10:13 XR chest 1V portable CLINICAL HISTORY: Pulmonary Edema TECHNIQUE: Single frontal radiograph of the chest was obtained. Comparison: Comparison is made to chest radiograph 12/19/2021 FINDINGS: Interval removal of endotracheal tube. Cardiomegaly is noted. Bilateral lower lung predominant airspace opacities are seen. Likely layering bilateral pleural effusions, unchanged. IMPRESSION: Interval improvement in previously noted congestive failure. Bilateral airspace opacities are still noted but mildly improved. Likely layering pleural effusions. Spiculated nodule seen on prior chest CT is there are evaluated by cross-sectional imaging. ACT 112: Negative or not required by law. Electronically signed by: Gene Bernal M.D. 12/20/2021 11:05 AM PG Care Time/CCT Total # of Minutes Spent Total Time Spent with Patient: Total time spent is greater than 50% in coordination of care (as documented) at patient's floor/unit and/or counseling patient: Coding Level of Care Code 07621 Subseq Hosp Care Lvl 1 Diagnoses Shock R57.9 STEMI (ST elevation myocardial infarction) I21.3 Atrial fibrillation with RVR I48.91 Severe sepsis A41.9; R65.20 Acute and chronic respiratory failure J96.20 Shock liver K72.00 Graves disease E05.00 Carotid artery disease I77.9 Chronic anemia D64.9 HTN (hypertension) I10 UTI (urinary tract infection) N39.0 Fever R50.9 Acute systolic CHF (congestive heart failure) I50.21 DVT prophylaxis Z29.9 Acute kidney injury N17.9
[2021-12-20 10:44] LABS: Appearance Urine Turbid (Clear); Bacteria Urine Automated 1+ (Negative); Bilirubin Urine Negative (Negative); Blood Urine 3+ (Negative); Color Urine Yellow; Epithelial Cell Urine Auto >30 /lpf (0-5); Glucose Urine UA Negative (Negative); Ketones Urine Trace (Negative); Leukocyte Esterase Urine 2+ (Negative); Nitrite Urine Negative (Negative); Protein Urine 2+ (Negative); RBC Urine Automated >30 /hpf (0-4); Specific Gravity Urine > 1.045 (1.000-1.030); Urobilinogen Urine Negative (Negative); WBC Urine Automated >30 /hpf (0-5)
--- NOTE | 2021-12-20 11:03 | Electrocardiogram Report ---
Test Reason : Blood Pressure : / mmHG Vent. Rate : 109 BPM Atrial Rate : 208 BPM P-R Int : 000 ms QRS Dur : 094 ms QT Int : 340 ms P-R-T Axes : 000 095 114 degrees QTc Int : 457 ms Atrial fibrillation with rapid ventricular response Rightward axis Incomplete right bundle branch block Inferior injury pattern Consider right ventricular involvement in acute inferior infarct Abnormal ECG When compared with ECG of 11-DEC-2021 23:36, Atrial fibrillation now present ST elevation in Inferior leads now present HR has increased by 48 bpm Confirmed by Jefe Ruiz ([id number]) on 12/20/2021 11:02:35 AM Referred By: REFERRED SELF Confirmed By:Jefe Ruiz
--- NOTE | 2021-12-20 11:07 | XRay Report ---
XR chest 1V portable CLINICAL HISTORY: Pulmonary Edema TECHNIQUE: Single frontal radiograph of the chest was obtained. Comparison: Comparison is made to chest radiograph 12/19/2021 FINDINGS: Interval removal of endotracheal tube. Cardiomegaly is noted. Bilateral lower lung predominant airspa ce opacities are seen. Likely layering bilateral pleural effusions, unchanged. IMPRESSION: Interval improvement in previously noted congestive failure. Bilateral airspace opacities are still n oted but mildly improved. Likely layering pleural effusions. Spiculated nodule seen on prior chest CT is there are evaluated by cross-sectional imaging. ACT 112: Negative or not required by law. Electronically signed by: Gene Bernal M.D. 12/20/2021 11:05 AM
--- NOTE | 2021-12-20 11:10 | Electrocardiogram Report ---
Test Reason : Blood Pressure : / mmHG Vent. Rate : 104 BPM Atrial Rate : 104 BPM P-R Int : 136 ms QRS Dur : 094 ms QT Int : 358 ms P-R-T Axes : 061 102 119 degrees QTc Int : 470 ms Sinus tachycardia with Premature supraventricular complexes Rightward axis ST depression in Anterolateral leads , consider ischemia Abnormal ECG When compared with ECG of 19-DEC-2021 10:57, Sinus rhythm has replaced Atrial fibrillation ST no longer elevated in Inferior leads ST depression in Anterolateral leads now present Confirmed by Jefe Ruiz ([id number]) on 12/20/2021 11:10:50 AM Referred By: REFERRED SELF Confirmed By:Jefe Ruiz
[2021-12-20] MEDS ORDERED: NORMOSOL-R 500 ML IV ONE (12:14)
[2021-12-20] MEDS ORDERED: STAT IV STA (12:57)
[2021-12-20] MEDS ORDERED: CALCIUM GLUCONATE 10% 1,000 MG in DEXTROSE 5% 50 ML IV ONE (13:00)
[2021-12-20 19:16] LABS: Influenza A virus by PCR Negative (Neg); Influenza B virus by PCR Negative (Neg); RSV by PCR Negative (Neg); SARS CoV2 RNA(COVID-19)Cepheid NEGATIVE (Negative)
[2021-12-20] MEDS: NOREPINEPHRINE/D5W 4 MG/250 ML PLCT IV SCH (20:40)
[2021-12-20 21:05] LABS: A calco-baum cmplx NotReported Not Detected (NotDetected); Bact fragilis Not Reported Not Detected (NotDetected); C auris Not Reported Not Detected (NotDetected); CTX-M Resistant Gene Not Detected (NotDetected); Calbicans Not Reported Not Detected (NotDetected); Candida glabrata Not Reported Not Detected (NotDetected); Candida krusei Not Reported Not Detected (NotDetected); Cneoformans/gatti Not Reported Not Detected (NotDetected); Cparapsilosis Not Reported Not Detected (NotDetected); Ctropicalis Not Reported Not Detected (NotDetected); E cloacae compx Not Reported Not Detected (NotDetected); Efaecalis Not Reported Not Detected (NotDetected); Efaecium Not Reported Not Detected (NotDetected); Enterobacterales DETECTED (NotDetected); Enterobacterales Not Reported DETECTED (NotDetected); Escherichia coli Not Reported DETECTED (NotDetected); H influenzae Not Reported Not Detected (NotDetected); IMP Resistant Gene Not Detected (NotDetected); K aerogenes Not Reported Not Detected (NotDetected); KPC Resistant Gene Not Detected (NotDetected); Koxytoca Not Reported Not Detected (NotDetected); Kpneumoniae grp Not Reported Not Detected (NotDetected); Lmonocyt Not Reported Not Detected (NotDetected); N meningitidis Not Reported Not Detected (NotDetected); NDM Resistant Gene Not Detected (NotDetected); OXA 48 Like Resistant Gene Not Detected (NotDetected); P aeruginosa Not Reported Not Detected (NotDetected); Proteus spp Not Reported Not Detected (NotDetected); Salmonella spp Not Reported Not Detected (NotDetected); Smarcescens Not Reported Not Detected (NotDetected); Staph lugdunensis Not Reported Not Detected (NotDetected); Staph spp. Not Reported Not Detected (NotDetected); Staphaureus Not Reported Not Detected (NotDetected); Staphepi Not Reported Not Detected (NotDetected); Stenmaltophilia Not Reported Not Detected (NotDetected); Strep agal(GrpB) Not Reported Not Detected (NotDetected); Strep pneum Not Reported Not Detected (NotDetected); Strep pyog (GrpA) Not Reported Not Detected (NotDetected); Strep spp Not Reported Not Detected (NotDetected); VIM Resistant Gene Not Detected (NotDetected); mcr-1 Colistin Resistant Gene Not Detected (NotDetected)
[2021-12-20] MEDS ORDERED: METOPROLOL TARTRATE 1 MG/ML VIAL IV STA ×2 (21:40→22:33)
[2021-12-20] MEDS ORDERED: 0.2 MICRON FILTER SET 1 EACH IV ONE (23:42)
[2021-12-20] MEDS ORDERED: AMIODARONE / D5W 360 MG/200 ML BAG IV ONE (23:50)
[2021-12-21] MEDS: metroNIDAZOLE 500 MG/100 ML BAG IV SCH ×2 (00:43→11:00)
[2021-12-21] MEDS: ACETAMINOPHEN 500 MG TAB PO PRN ×2 (04:34→12:30)
[2021-12-21] MEDS: AMIODARONE / D5W 360 MG/200 ML BAG IV SCH ×2 (05:51→16:27)
[2021-12-21 06:12] LABS: Basophils # (auto) 0.02 K/uL (0-0.2); Basophils % (auto) 0.2 %; Eosinophils # (auto) 0.01 K/uL (0-0.50); Eosinophils % (auto) 0.1 %; Hematocrit (blood only) 31.1 % (34.1-44.9); Hemoglobin 9.8 g/dl (12.0-16.0); Immature Granulocytes # (auto) 0.06 K/uL (0.00-0.02); Immature Granulocytes % (auto) 0.7 %; Lymphocytes # (auto) 0.42 K/uL (1.2-3.4); Lymphocytes % (auto) 4.8 %; Mean Corpuscular Hemoglobin 27.9 pg (25.0-34.0); Mean Corpuscular Hgb Conc 31.5 g/dL (32.0-36.0); Mean Corpuscular Volume 88.6 fL (80.0-100.0); Monocytes # (auto) 0.45 K/uL (0.24-0.82); Monocytes % (auto) 5.2 %; Neutrophils # (auto) 7.71 K/uL (1.4-6.5); Platelet Count 111 K/uL (130-400); RDW Coefficient of Variation 18.6 % (11.5-14.5); RDW Standard Deviation 60.5 fL (36.4-46.3); Red Blood Count 3.51 M/uL (3.93-5.22); White Blood Count 8.67 K/ul (4.8-10.8)
[2021-12-21 06:32] LABS: Estimated Average Glucose 128 mg/dl; Hemoglobin A1C 6.1 % (4.5-5.6)
[2021-12-21 06:38] LABS: INR 1.3 (0.9-1.1); Prothrombin Time 13.2 Seconds (9.0-12.0)
[2021-12-21 06:44] LABS: BUN Creatinine Ratio 26.8 (10-20); Calcium 7.7 mg/dl (8.5-10.1); Creatinine Clr Calc Pharmacy 26.4 ml/min; Est GFR (African American) 37.5 ml/min; Est GFR (Non-African American) 32.4 ml/min; Magnesium 2.7 mg/dl (1.7-2.4); Potassium 4.1 mmol/L (3.5-5.1)
--- NOTE | 2021-12-21 08:57 | Cardiology Progress Note ---
Date of Service December 21, 2021 Assessment & Plan Admission and Anticipated Discharge Date Admission Date: December 19, 2021 Subjective She denies any chest pain or chest pressure this morning. She denies any shortness of breath. She was aware that she was having palpitations when she first came to the hospital. She notes on Tuesday night she felt fine but on Tuesday when she woke up she felt very weak. She denies any lightheadedness at this point. She denies any lower extremity discomfort. She looks better than 1 would anticipate. Results & Data ([facility]) Vital Signs (Past 12 Hours) Vital Signs Temp Pulse Resp BP Pulse Ox O2 Del Method O2 Flow Rate 12/21/21 07:00 76 12/21/21 06:00 37.6 C H 73 24 96/55 L 92 Nasal Cannula 3 12/21/21 05:30 37.6 C H 74 27 H 92 Nasal Cannula 3 12/21/21 05:00 37.6 C H 74 22 100/51 L 94 Nasal Cannula 3 12/21/21 04:30 37.6 C H 77 19 95 Nasal Cannula 3 12/21/21 04:00 37.6 C H 85 25 H 105/57 L 94 Oxymask 4 12/21/21 03:30 37.4 C 75 26 H 95 Oxymask 5 12/21/21 03:00 37.5 C 76 22 103/53 L 96 Oxymask 5 12/21/21 02:30 37.5 C 75 24 96 Oxymask 5 12/21/21 02:00 37.3 C 75 25 H 88/48 L 94 Oxymask 5 12/21/21 01:30 37.4 C 73 26 H 94/56 L 93 Oxymask 5 12/21/21 01:00 37.4 C 73 25 H 81/50 L 92 Oxymask 5 12/21/21 00:30 37.5 C 125 H 23 93 Oxymask 5 12/21/21 00:00 37.5 C 124 H 26 H 86/50 L 92 Oxymask 5 12/20/21 23:30 37.6 C H 107 H 26 H 94 Oxymask 5 12/20/21 23:00 37.6 C H 106 H 26 H 85/57 L 95 Oxymask 5 12/20/21 22:30 37.6 C H 111 H 26 H 93 Oxymask 5 12/20/21 22:00 37.6 C H 107 H 23 93/54 L 93 Oxymask 5 12/20/21 21:30 37.7 C H 86 24 92 Oxymask 5 12/20/21 21:00 37.7 C H 99 H 21 122/62 91 Oxymask 5 12/20/21 22:42 108 H 106/57 L 12/20/21 21:53 114 H 102/53 L she is awake alert and oriented x3 H EENT she has very loud bilateral carotid bruits louder on the left compared to the right Lungs decreased breath sounds in the bases no rhonchi or wheezing Heart: Regular rate and rhythm with occasional ectopy she has a 2 out of 6 crescendo murmur which is early to mid peaking Extremities: No clubbing cyanosis or edema Psychiatric affect appeared appropriate (1) STEMI (ST elevation myocardial infarction) secondary to septic shock [place] [address] 1B. 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 Mild left ventricular dysfunction with an RCA wall motion abnormality (4) Paroxysmal atrial fibrillation: (5) Severe tricuspid regurgitation: (6) Right ventricular dilation: She likely will not tolerate atrial fibrillation very well I would continue with IV amiodarone and transition her with p.o. amiodarone over the next 24 hours. Her EKGs were reviewed yesterday the computer read it as atrial fibrillation but it appears to be sinus rhythm with frequent PACs and short bursts of paroxysmal atrial tachycardia. I would start 400 mg of amiodarone twice daily and bridge her with IV amiodarone over the next 24 hours We know that her peripheral blood pressures are completely inaccurate. And given the degree of stenosis in her lower extremities any femoral A-line is likely nondiagnostic as well. I would avoid excessive volume if at all possible. Based on her BUN and creatinine she is slightly more prerenal likely on the basis of capillary leak from sepsis. At this point there is nothing to suggest she needs diuretics. She has severe complex vascular disease and remarkably has done relatively well to this point. She was recently admitted for diastolic and right-sided heart failure. Once her volume status is stable we will have to adjust her diuretics.
--- NOTE | 2021-12-21 09:32 | Critical Care Progress Note ---
Date of Service December 21, 2021 Assessment & Plan (1) Atrial fibrillation with RVR: (2) Acute heart failure: (3) Acute respiratory failure with hypoxia: (4) Lower back pain: (5) Acute kidney injury: (6) Sepsis: (7) Pulmonary hypertension: (8) COPD with emphysema: (9) Breast cancer: (10) CHF (congestive heart failure): (11) Peripheral artery disease: (12) Graves disease: (13) UTI (urinary tract infection): Plan 81-year-old female with a history of vasculopathy, valvular heart disease and diastolic heart failure presented with rapid atrial fibrillation requiring car dioversion. She is status post left heart catheterization. No stenting required. She has diffuse coronary artery disease. Neuro - [facility] ICU: Negative Cardiac - -- Shock Likely septic from gram-negative bacilli Continue with Levophed to keep MAP greater than 65 -- New onset A. fib Currently on amiodarone --Severe pulmonary hypertension Likely combination of type II and type III Diuresis as tolerated Respiratory - -- S/p VDRF Extubated 12/19/2021 Continue with oxygen to keep O2 saturation between 88-92% --COPD with emphysema Gold class A/B Albuterol as needed for the time being PFT 06/05/2021:Mild restrictive lung disease, no obstructive lung dysfunction, insignificant bronchodilator response,expiratory scooping of the flow volume loop, moderate decrease in DLCO FVC 2.71 L 96%, FEV1 1.99 L 94%, FEV1/FVC 73%, RV 55%,TLC 76%,RV/TLC 71%, DLCO 49% --Ex-smoker [id number] smoking history Quit in 1995 Encouraged to continue abstinence from smoking GI - Continue with Pepcid RENAL/LYTES - -- FABIENNE on CKD Continue monitor BUNs/creatinine Avoid nephrotoxic medication - Continue with Islas catheter --History of uterine cancer S/p hysterectomy and pelvic radiation 1995 ENDO - -- History of hypothyroidism/Graves' disease Continue with propylthiouracil ICU hypoglycemia protocol HEME - -- Thrombocytopenia Likely from sepsis, continue to monitor --History of right-sided breast cancer S/p lumpectomy and right-sided radiation ID - -- Gram-negative bacteremia, source is most likely from UTI Follow-up sensitivity Continue with antibiotics --Prophylaxis VTE: Apixaban GI: Pepcid Lines: Right femoral arterial and central line Diet: Clear liquids, advance as tolerated Plan: In/out: +1.3 L, urine output 410 mL, +2.7 L since coming to the hospital Incentive spirometry to the patient We will try to see if you are able to get the patient off of Levophed Will consider Lasix later today. Case discussed with cardiology, will start the patient on low-dose apixaban 2.5 mg every 12 hours for paroxysmal A. fib Continue to monitor platelets I have personally spent 38 minutes of critical care time in the direct management of this patient. This is a life/limb threatening event. This includes time spent evaluating patient, direct bedside care, chart review, placing orders, interpretation of diagnostic studies, discussion with consultants, patient, and family members, as well as other required patient management activities. This time is exclusive of all separately billable procedures, and teaching time and separate from and in addition to any other critical care service time. Admission and Anticipated Discharge Date Admission Date: December 19, 2021 Subjective Patient seen and examined at bedside. No acute distress, no adverse events overnight She was on 0.08 of Levophed She was also on amiodarone Overall she said that she felt better compared to when she came to the hospital Denies any nausea vomiting, no headache, Has been peeing through the Islas catheter. Low-grade fever T-max 37.6 Review of Systems Review of Systems: All systems reviewed & are unremarkable except as noted in Subjective Physical Exam Physical Exam: Constitutional: No acute distress HEENT: EOMI, PERRLA Respiratory system: Recent entry bilaterally, no wheeze, no rhonchi, positive crackles bilaterally more on the right side CVS: S1-S2 positive, accentuated P2 Abdomen: Soft, nontender, nondistended, positive bowel sounds x4 Extremities: +2 pulses bilaterally radialis/ dorsalis pedis, no cyanosis, +1 pitting edema bilateral lower extremity Neuro: Awake alert oriented x3 Psych: Normal mood and affect G/U: Positive Islas Skin: no rashes, warm and dry Lymphatic: no cervical or axillary lymphadenopathy Results & Data Results & Data ([facility]) Vital Signs (Past 12 Hours) Vital Signs Temp Pulse Resp BP Pulse Ox O2 Del Method O2 Flow Rate 12/21/21 07:00 76 12/21/21 06:00 37.6 C H 73 24 96/55 L 92 Nasal Cannula 3 11/14/22 05:30 37.6 C H 74 27 H 92 Nasal Cannula 3 12/21/21 05:00 37.6 C H 74 22 100/51 L 94 Nasal Cannula 3 12/21/21 04:30 37.6 C H 77 19 95 Nasal Cannula 3 12/21/21 04:00 37.6 C H 85 25 H 105/57 L 94 Oxymask 4 12/21/21 03:30 37.4 C 75 26 H 95 Oxymask 5 12/21/21 03:00 37.5 C 76 22 103/53 L 96 Oxymask 5 12/21/21 02:30 37.5 C 75 24 96 Oxymask 5 12/21/21 02:00 37.3 C 75 25 H 88/48 L 94 Oxymask 5 12/21/21 01:30 37.4 C 73 26 H 94/56 L 93 Oxymask 5 12/21/21 01:00 37.4 C 73 25 H 81/50 L 92 Oxymask 5 12/21/21 00:30 37.5 C 125 H 23 93 Oxymask 5 12/21/21 00:00 37.5 C 124 H 26 H 86/50 L 92 Oxymask 5 12/20/21 23:30 37.6 C H 107 H 26 H 94 Oxymask 5 12/20/21 23:00 37.6 C H 106 H 26 H 85/57 L 95 Oxymask 5 12/20/21 22:30 37.6 C H 111 H 26 H 93 Oxymask 5 12/20/21 22:00 37.6 C H 107 H 23 93/54 L 93 Oxymask 5 12/20/21 21:30 37.7 C H 86 24 92 Oxymask 5 12/20/21 22:42 108 H 106/57 L 12/20/21 21:53 114 H 102/53 L Laboratory Results 12/21/21 05:34 12/21/21 05:34 Coding Level of Care Code Critical Care 1st 30-74 mins Diagnoses Atrial fibrillation with RVR I48.91 Acute heart failure I50.9 Acute respiratory failure with hypoxia J96.01 Lower back pain M54.50 Acute kidney injury N17.9 Sepsis A41.9 Pulmonary hypertension I27.20 COPD with emphysema J43.9 Breast cancer C50.919 CHF (congestive heart failure) I50.9 Heart failure chronicity: acute Heart failure type: unspecified Peripheral artery disease I73.9 Graves disease E05.00 UTI (urinary tract infection) N39.0 Time Spent (min) 38 (1) CHF (congestive heart failure) Heart failure chronicity: acute Heart failure type: unspecified Qualified Code(s): I50.9 - Heart failure, unspecified
[2021-12-21] MEDS ORDERED: APIXABAN 2.5 MG TAB PO STA (09:55)
[2021-12-21] MEDS: propylthiouraciL 50 MG TAB PO SCH ×2 (10:02→21:11)
[2021-12-21] MEDS: ASPIRIN 81 MG ECTAB PO SCH (10:03)
[2021-12-21] MEDS: CEFEPIME 1,000 MG in SYRINGE 0 ML IV SCH ×2 (10:03→21:29)
[2021-12-21] MEDS: ATORVASTATIN 40 MG TAB PO SCH (10:03)
[2021-12-21] MEDS: NOREPINEPHRINE/D5W 4 MG/250 ML PLCT IV SCH (10:10)
[2021-12-21 10:16] LABS: Albumin Level 2.7 gm/dl (3.4-5.0); Bilirubin Direct 0.2 mg/dl (0-0.2); Bilirubin,Total 0.9 mg/dl (0.2-1.0); Total Protein 5.8 gm/dl (6.0-8.3)
[2021-12-21] MEDS: AMIODARONE 200 MG TAB PO SCH ×2 (10:18→16:37)
[2021-12-21] MEDS ORDERED: HYDROmorphone INJ 0.5 MG/0.5 ML SYR IV PRN (12:58)
[2021-12-21] MEDS ORDERED: ONDANSETRON INJ 2 MG/ML 2 ML VIAL IV PRN (14:41)
--- NOTE | 2021-12-21 14:44 | Electrocardiogram Report ---
Test Reason : Blood Pressure : / mmHG Vent. Rate : 102 BPM Atrial Rate : 104 BPM P-R Int : 000 ms QRS Dur : 094 ms QT Int : 400 ms P-R-T Axes : 000 111 -10 degrees QTc Int : 521 ms Poor data quality, interpretation may be adversely affected Sinus rhythm with runs of PAT Left posterior fascicular block Cannot rule out Inferior infarct , age undetermined but may be acute Anterior infarct , age undetermined Abnormal ECG When compared with ECG of 19-DEC-2021 12:55, Possible acute inferior IN is present Confirmed by Titi Padron ([id number]) on 12/21/2021 2:43:58 PM Referred By: REFERRED SELF Confirmed By:Titi Padron
--- NOTE | 2021-12-21 15:16 | Electrocardiogram Report ---
Test Reason : Blood Pressure : / mmHG Vent. Rate : 123 BPM Atrial Rate : 123 BPM P-R Int : 176 ms QRS Dur : 098 ms QT Int : 342 ms P-R-T Axes : 072 100 052 degrees QTc Int : 489 ms Sinus tachycardia Rightward axis Low voltage QRS Cannot rule out Anterior infarct (cited on or before 20-DEC-2021) Abnormal ECG When compared with ECG of 20-DEC-2021 12:47, (unconfirmed) HR has increased Paroxysmal atrial tachycardia is no longer present Confirmed by Titi Padron ([id number]) on 12/21/2021 3:15:35 PM Referred By: REFERRED SELF Confirmed By:Titi Padron
--- NOTE | 2021-12-21 15:16 | Electrocardiogram Report ---
Test Reason : Blood Pressure : / mmHG Vent. Rate : 075 BPM Atrial Rate : 075 BPM P-R Int : 106 ms QRS Dur : 100 ms QT Int : 398 ms P-R-T Axes : 043 101 057 degrees QTc Int : 444 ms Sinus rhythm with short MI with Premature atrial complexes Rightward axis Low voltage QRS Cannot rule out Anterior infarct (cited on or before 20-DEC-2021) Abnormal ECG When compared with ECG of 21-DEC-2021 00:10, (unconfirmed) Premature atrial complexes are now Present Vent. rate has decreased BY 48 BPM Confirmed by Titi Padron ([id number]) on 12/21/2021 3:16:05 PM Referred By: REFERRED SELF Confirmed By:Titi Padron
[2021-12-21] MEDS ORDERED: oxyCODONE/ACETAMINOPHEN 5mg/325mg TAB PO PRN (18:55)
--- NOTE | 2021-12-21 19:56 | Hospitalist Progress Note ---
Date of Service December 21, 2021 Assessment & Plan (1) Bacteremia: Plan: 2nd GNR UTI. All blood cultures + for GNR. Await ID and sens. Cont cefepime in meantime. Can stop flagyl. (2) Shock: Plan: Initially was cardiogenic in origin at time of ER presentation in the setting of rapid a.fib. Now with septic shock. Levophed weaned off this afternoon. Consider checking random cortisol if hypotension persists or recurs. (3) UTI (urinary tract infection): Plan: 2nd to GNR. Cont cefepime. Await final culture. (4) Fever: Plan: 2nd to bacteremia/UTI. COVID/Flu/RSV PCR negative. fever curve improved today. (5) STEMI (ST elevation myocardial infarction): Plan: Initially thought to have inferior STEMI. Following intubation and cardioversion in the ER she was taken to the [facility] by Dr Granados. 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 Thus, not a true STEMI. Likely that she suffered a type 2 MO due to severe hypotension/hypoperfusion. Cont statin. Cont asa. Ultimately will resume BB down the line once shock is resolved. (6) Atrial fibrillation with RVR: Plan: Presented with afib RVR HR 120s, hypoxic, severely hypotensive SBP 50s. Etomidate given prior to shock w/ further worsening of BP and hypoxia, patient subsequently intubated. Converted to NSR. Appreciate cardiology assistance. They advise PO + IV amiodarone. (7) Acute and chronic respiratory failure: Plan: acute component 2nd to acute pulmonary edema can't fully rule out pneumonia but unlikely s/p intubation in the ER in the setting of #1 and #3 extubated to BIPAP, then oxymask, then NC O2 sat goal 90-92% she is on 3 L NC O2 at rest at home, 4 L with activity (8) Shock liver: Plan: Abnormal LFTs highly suggestive of shock liver. LFTs improved today. INR 1.3. Cont to trend LFTs and INR. (9) Graves disease: Plan: TSH 4.4 Controlled Cont PTU 100 mg BID (10) Carotid artery disease: Plan: s/p L carotid endarterectomy in 2016 70% restenosis (11) Chronic anemia: Plan: H/H stable CBC in am (12) HTN (hypertension): Plan: holding BP meds (13) Acute systolic CHF (congestive heart failure): Plan: EF 45-50% with moderate RV systolic dysfunction as well. Defer management to ICU attending & cardiology. (14) DVT prophylaxis: Plan: defer selection to cardiology and ICU attending (15) Acute kidney injury: Plan: 2nd to #1 stable supportive care serial labs (16) Nausea: Plan: patient with nausea throughout the day and GI intolerance. exam with abdominal distension. ?brewing ileus? consider KUB x-ray if any worsening . Plan daughter updated at bedside Admission and Anticipated Discharge Date Admission Date: December 19, 2021 Subjective levophed drip weaned off this afternoon remains on amiodarone infusion during the visit her daughter was present patient states her main issue is that of nausea and inability to eat/drink takes a few sips of liquids and immediately feels full and sick had loose stool earlier in the day - c diff negative tele without a.fib overnight no dyspnea at rest no cough Review of Systems Review of Systems: gen - fevers improved; very tired/fatigued cv - no chest pain pulm - no wheezing GI - no pain but feels bloated Physical Exam Physical Exam: gen - looks slightly better than yesterday, NAD, pleasant mouth - MMM neck - JVD present heart - RRR, s1 s2, 2/6 systolic murmur present lungs - decreased BS bases, no rales or wheezes, no increased work of breathing abd - mildly distended, BS+, NT, soft ext - no edema, pulses 1+ b/l, cool to touch Results & Data Results & Data ([facility]) Vital Signs (Past 12 Hours) Vital Signs Temp Pulse Resp BP Pulse Ox Pulse Ox O2 Del Method 12/21/21 19:00 37.0 C 70 23 94 12/21/21 18:00 37.0 C 67 20 93 12/21/21 17:00 37.1 C 68 19 94 12/21/21 16:00 37.2 C 71 25 H 93 12/21/21 15:45 37.2 C 69 23 93 12/21/21 15:30 37.2 C 66 26 H 93 12/21/21 15:15 37.2 C 66 23 93 12/21/21 15:00 37.2 C 66 21 94 12/21/21 16:00 68 12/21/21 14:45 37.2 C 67 20 92 12/21/21 14:30 37.2 C 68 24 94 12/21/21 14:15 37.3 C 68 21 98 12/21/21 14:00 37.2 C 68 24 12/21/21 13:45 37.3 C 68 27 H 92 12/21/21 13:30 37.2 C 69 21 94 12/21/21 13:15 37.1 C 71 24 93 12/21/21 13:00 36.6 C 70 20 12/21/21 13:00 84/50 L 12/21/21 12:49 37.3 C 70 19 98 12/21/21 12:49 77/52 L 12/21/21 12:06 77/42 L 12/21/21 12:06 37.3 C 70 20 92 12/21/21 12:00 37.3 C 69 23 94 12/21/21 11:15 37.3 C 70 21 95 12/21/21 11:00 37.3 C 70 21 90 12/21/21 11:00 79/49 L 12/21/21 10:45 37.3 C 69 23 93 12/21/21 10:30 37.3 C 73 8 L 96 12/21/21 10:15 37.3 C 70 17 95 12/21/21 10:14 78/48 L 12/21/21 10:14 37.3 C 70 25 H 95 12/21/21 08:00 Nasal Cannula 12/21/21 08:00 36.9 C 12/21/21 08:00 96 12/21/21 08:00 Nasal Cannula 12/21/21 08:00 Nasal Cannula 12/21/21 10:00 37.3 C 69 25 H 12/21/21 10:00 69/41 L 12/21/21 09:50 72/43 L 12/21/21 09:50 37.3 C 71 26 H 93 12/21/21 09:45 37.4 C 72 16 93 12/21/21 09:30 37.4 C 74 23 93 12/21/21 09:15 37.4 C 72 21 91 12/21/21 09:00 37.3 C 74 18 89 L 12/21/21 09:00 81/47 L 12/21/21 08:58 92/50 L 12/21/21 08:58 37.3 C 73 19 12/21/21 08:45 37.2 C 75 23 92 12/21/21 08:30 37.4 C 75 20 91 12/21/21 08:15 37.4 C 74 25 H 88 L 12/21/21 08:00 37.4 C 75 21 88 L 12/21/21 08:00 95/55 L O2 Del Method O2 Flow Rate O2 Flow Rate 12/21/21 19:00 12/21/21 18:00 12/21/21 17:00 12/21/21 16:00 12/21/21 15:45 12/21/21 15:30 12/21/21 15:15 12/21/21 15:00 12/21/21 16:00 12/21/21 14:45 12/21/21 14:30 12/21/21 14:15 12/21/21 14:00 12/21/21 13:45 12/21/21 13:30 12/21/21 13:15 12/21/21 13:00 12/21/21 13:00 12/21/21 12:49 12/21/21 12:49 12/21/21 12:06 12/21/21 12:06 12/21/21 12:00 12/21/21 11:15 12/21/21 11:00 12/21/21 11:00 12/21/21 10:45 12/21/21 10:30 12/21/21 10:15 12/21/21 10:14 12/21/21 10:14 12/21/21 08:00 3 12/21/21 08:00 12/21/21 08:00 Nasal Cannula 3 12/21/21 08:00 3 12/21/21 08:00 12/21/21 10:00 12/21/21 10:00 12/21/21 09:50 12/21/21 09:50 12/21/21 09:45 12/21/21 09:30 12/21/21 09:15 12/21/21 09:00 12/21/21 09:00 12/21/21 08:58 12/21/21 08:58 12/21/21 08:45 12/21/21 08:30 12/21/21 08:15 12/21/21 08:00 12/21/21 08:00 Laboratory Results Laboratory Results - last 24 hr 12/20/21 12/20/21 12/21/21 04:02 08:48 05:34 WBC 8.67 RBC 3.51 L Hgb 9.8 L Hct 31.1 L MCV 88.6 MCH 27.9 MCHC 31.5 L RDW Std Deviation 60.5 H RDW Coeff of Armani 18.6 H Plt Count 111 L MPV 12.0 Immature Gran % (Auto) 0.7 Neut % (Auto) 89.0 Lymph % (Auto) 4.8 Mcleod % (Auto) 5.2 Eos % (Auto) 0.1 Baso % (Auto) 0.2 Neut # (Auto) 7.71 H Lymph # (Auto) 0.42 L Mcleod # (Auto) 0.45 Eos # (Auto) 0.01 Baso # (Auto) 0.02 Immature Gran # (Auto) 0.06 H PT INR Sodium Potassium Chloride Carbon Dioxide Anion Gap BUN Creatinine Est Cr Clr Drug Dosing Est GFR ( Amer) Est GFR (Non-Af Amer) BUN/Creatinine Ratio Glucose Estimat Average Glucose 128 Hemoglobin A1c 6.1 H Calcium Phosphorus Magnesium Total Bilirubin Direct Bilirubin AST ALT Alkaline Phosphatase Total Protein Albumin Stl C. diff Tox B Gene C. difficile Tox B Gene Enterobacterales (PCR) DETECTED A E. coli (PCR) DETECTED A mcr-1 Colistin Res Gene PCR Not Detected blaIMP Car res Gene PCR Not Detected KPC-Carbap Res Gene PCR Not Detected blaNDM Car Res Gene PCR Not Detected OXA-48 Carbapenem Resis Gene (PCR) Not Detected blaVIM Car Res Gene PCR Not Detected CTX-M Gene Resistance (PCR) Not Detected Bld Cult ID Panel PCR See PCR Comment 12/21/21 12/21/21 12/21/21 05:34 05:34 05:34 WBC RBC Hgb Hct MCV MCH MCHC RDW Std Deviation RDW Coeff of Armani Plt Count MPV Immature Gran % (Auto) Neut % (Auto) Lymph % (Auto) Mcleod % (Auto) Eos % (Auto) Baso % (Auto) Neut # (Auto) Lymph # (Auto) Mcleod # (Auto) Eos # (Auto) Baso # (Auto) Immature Gran # (Auto) PT 13.2 H INR 1.3 H Sodium 134 L Potassium 4.1 Chloride 103 Carbon Dioxide 25 Anion Gap 6 BUN 40 H Creatinine 1.49 H Est Cr Clr Drug Dosing 26.4 Est GFR ( Amer) 37.5 Est GFR (Non-Af Amer) 32.4 BUN/Creatinine Ratio 26.8 H Glucose 115 H Estimat Average Glucose Hemoglobin A1c Calcium 7.7 L Phosphorus 4.5 Magnesium 2.7 H Total Bilirubin Direct Bilirubin AST ALT Alkaline Phosphatase Total Protein Albumin Stl C. diff Tox B Gene C. difficile Tox B Gene Enterobacterales (PCR) E. coli (PCR) mcr-1 Colistin Res Gene PCR blaIMP Car res Gene PCR KPC-Carbap Res Gene PCR blaNDM Car Res Gene PCR OXA-48 Carbapenem Resis Gene (PCR) blaVIM Car Res Gene PCR CTX-M Gene Resistance (PCR) Bld Cult ID Panel PCR 12/21/21 12/21/21 12/21/21 09:20 13:00 13:00 WBC RBC Hgb Hct MCV MCH MCHC RDW Std Deviation RDW Coeff of Armani Plt Count MPV Immature Gran % (Auto) Neut % (Auto) Lymph % (Auto) Mcleod % (Auto) Eos % (Auto) Baso % (Auto) Neut # (Auto) Lymph # (Auto) Mcleod # (Auto) Eos # (Auto) Baso # (Auto) Immature Gran # (Auto) PT INR Sodium Potassium Chloride Carbon Dioxide Anion Gap BUN Creatinine Est Cr Clr Drug Dosing Est GFR ( Amer) Est GFR (Non-Af Amer) BUN/Creatinine Ratio Glucose Estimat Average Glucose Hemoglobin A1c Calcium Phosphorus Magnesium Total Bilirubin 0.9 D Direct Bilirubin 0.2 AST 222 H ALT 273 H Alkaline Phosphatase 99 Total Protein 5.8 L Albumin 2.7 L Stl C. diff Tox B Gene Negative Cdiff Gene C. difficile Tox B Gene Cancelled Enterobacterales (PCR) E. coli (PCR) mcr-1 Colistin Res Gene PCR blaIMP Car res Gene PCR KPC-Carbap Res Gene PCR blaNDM Car Res Gene PCR OXA-48 Carbapenem Resis Gene (PCR) blaVIM Car Res Gene PCR CTX-M Gene Resistance (PCR) Bld Cult ID Panel PCR Diagnostic Findings blood and urine cx + for GNR PG Care Time/CCT Total # of Minutes Spent Total Time Spent with Patient: Total time spent is greater than 50% in coordination of care (as documented) at patient's floor/unit and/or counseling patient: Coding Level of Care Code 74575 Subseq Hosp Care Lvl 1 Diagnoses Bacteremia R78.81 Shock R57.9 UTI (urinary tract infection) N39.0 Fever R50.9 STEMI (ST elevation myocardial infarction) I21.3 Atrial fibrillation with RVR I48.91 Acute and chronic respiratory failure J96.20 Shock liver K72.00 Graves disease E05.00 Carotid artery disease I77.9 Chronic anemia D64.9 HTN (hypertension) I10 Acute systolic CHF (congestive heart failure) I50.21 DVT prophylaxis Z29.9 Acute kidney injury N17.9 Nausea R11.0
[2021-12-21] MEDS: LIDOCAINE 5% 1 PATCH TD SCH (20:42)
[2021-12-21] MEDS ORDERED: APIXABAN 2.5 MG TAB PO SCH (21:00)
[2021-12-21] MEDS: FAMOTIDINE 20 MG TAB PO SCH (21:12)
[2021-12-22 04:31] LABS: INR 1.2 (0.9-1.1); Prothrombin Time 12.2 Seconds (9.0-12.0)
[2021-12-22 04:43] LABS: BUN Creatinine Ratio 22.7 (10-20); Calcium 7.9 mg/dl (8.5-10.1); Creatinine Clr Calc Pharmacy 18.2 ml/min; Est GFR (African American) 23.9 ml/min; Est GFR (Non-African American) 20.7 ml/min; Magnesium 3.4 mg/dl (1.7-2.4); Potassium 4.4 mmol/L (3.5-5.1)
[2021-12-22] MEDS: AMIODARONE / D5W 360 MG/200 ML BAG IV SCH (05:13)
[2021-12-22 05:49] LABS: Hematocrit (blood only) 30.8 % (34.1-44.9); Hemoglobin 9.7 g/dl (12.0-16.0); Mean Corpuscular Hgb Conc 31.5 g/dL (32.0-36.0); Mean Corpuscular Volume 88.8 fL (80.0-100.0); Mean Platelet Volume 12.5 fL (9.4-12.3); Platelet Count 75 K/uL (130-400); RDW Coefficient of Variation 18.5 % (11.5-14.5); RDW Standard Deviation 60.7 fL (36.4-46.3); Red Blood Count 3.47 M/uL (3.93-5.22); White Blood Count 6.53 K/ul (4.8-10.8)
[2021-12-22 05:50] LABS: Acanthocytes 3+; Basophils # (auto) 0.02 K/uL (0-0.2); Basophils % (auto) 0.3 %; Eosinophils # (auto) 0.02 K/uL (0-0.50); Eosinophils % (auto) 0.3 %; Immature Granulocytes # (auto) 0.06 K/uL (0.00-0.02); Immature Granulocytes % (auto) 0.9 %; Lymphocytes # (auto) 0.56 K/uL (1.2-3.4); Lymphocytes % (auto) 8.6 %; Monocytes # (auto) 0.49 K/uL (0.24-0.82); Monocytes % (auto) 7.5 %; Neutrophils # (auto) 5.38 K/uL (1.4-6.5); Neutrophils % (auto) 82.4 %; Platelet Estimate Decreased (Normal)
--- NOTE | 2021-12-22 07:37 | Ultrasound Report ---
ULTRASOUND KIDNEYS AND BLADDER CLINICAL HISTORY: Acute renal insufficiency. COMPARISON STUDY: Abdominal CT dated 12/20/2021. TECHNIQUE: Real-time, grayscale, and color flow sonography of the kidneys and bladder is performed. I mages are reviewed in the transverse and longitudinal planes. FINDINGS: Kidneys: The kidneys are atrophic. Echotexture is increased consistent with medical renal disease. Th e right kidney measures 10.4 x 4.0 x 4.0 cm and the left kidney measures 8.7 x 4.7 x 4.6 cm. There i s no hydronephrosis. Numerous simple and complex appearing bilateral renal cysts measure up to 3.1 cm . A cortical calcification within the interpolar left kidney measures 1.5 cm. There is no sonographic evidence of contour deforming renal mass lesion. Trace perinephric fluid is seen on the right. Bladder: The bladder is decompressed and a Islas catheter and could not be assessed. Upper abdomen: Abdominal ascites is noted. There is a small pleural effusion. IMPRESSION: 1. The kidneys are atrophic with evidence of medical renal disease. 2. There is no hydronephrosis. 3. The bladder was decompressed and could not be assessed. 4. A cortical calcification is noted in the interpolar left kidney. ACT 112: Negative or not required by law. Electronically signed by: Donnie Redding M.D. 12/22/2021 7:34 AM
--- NOTE | 2021-12-22 07:43 | Critical Care Progress Note ---
Date of Service December 22, 2021 Assessment & Plan (1) Atrial fibrillation with RVR: (2) Acute heart failure: (3) Acute respiratory failure with hypoxia: (4) Lower back pain: (5) Acute kidney injury: (6) Sepsis: (7) Pulmonary hypertension: (8) COPD with emphysema: (9) Breast cancer: (10) CHF (congestive heart failure): (11) Peripheral artery disease: (12) Graves disease: (13) UTI (urinary tract infection): (14) Transaminitis: Plan 81-year-old female with a history of vasculopathy, valvular heart disease and diastolic heart failure presented with rapid atrial fibrillation requiring cardioversion. She is status post left heart catheterization. No stenting required. She has diffuse coronary artery disease. Neuro - [facility] ICU: Negative Cardiac - --S/p shock Likely septic from gram-negative bacilli Continue with Levophed to keep MAP greater than 65 -- New onset A. fib Currently on amiodarone --Severe pulmonary hypertension Likely combination of type II and type III Diuresis as tolerated Respiratory - -- S/p VDRF Extubated 12/19/2021 Continue with oxygen to keep O2 saturation between 88-92% --COPD with emphysema Gold class A/B Albuterol as needed for the time being PFT 06/05/2021:Mild restrictive lung disease, no obstructive lung dysfunction, insignificant bronchodilator response,expiratory scooping of the flow volume loop, moderate decrease in DLCO FVC 2.71 L 96%, FEV1 1.99 L 94%, FEV1/FVC 73%, RV 55%,TLC 76%,RV/TLC 71%, DLCO 49% --Ex-smoker [id number]-hclo smoking history Quit in 1995 Encouraged to continue abstinence from smoking GI - -- Transaminitis Likely from shock liver Trending down Continue to monitor Continue with Pepcid RENAL/LYTES - -- FABIENNE on CKD Continue monitor BUNs/creatinine Avoid nephrotoxic medication - Continue with Islas catheter --History of uterine cancer S/p hysterectomy and pelvic radiation 1995 ENDO - -- History of hypothyroidism/Graves' disease Continue with propylthiouracil ICU hypoglycemia protocol HEME - -- Thrombocytopenia Likely from sepsis, continue to monitor --History of right-sided breast cancer S/p lumpectomy and right-sided radiation ID - -- Gram-negative bacteremia, source is most likely from UTI Sensitive E. coli Continue with antibiotics --Prophylaxis VTE: Apixaban on hold GI: Pepcid Lines: Right femoral arterial and central line Diet: Clear liquids, advance as tolerated Plan: In/out: + positive 592, urine output 231 mL Given the hematuria, hold apixaban Unfortunately we do not have 5% albumin, I will give the patient Normosol at 100 mL an hour for 5 hours and keep a close eye on urine output. Repeat blood cultures today Urine culture growing pansensitive E. coli. We will change the antibiotics to IV Rocephin Patient has been off Levophed since 5 PM last night. Map at the time of examination was in the 70s. Discontinue central line as well as arterial line. Patient hemodynamically stable to be downgraded to medical floor Please note the above document was generated using voice recognition software. It may contain grammatical, syntax or spelling errors.Any formal questions or concerns about the content, text or information contained within the body of this dictation should be directly addressed to the provider for clarification. Admission and Anticipated Discharge Date Admission Date: December 19, 2021 Subjective Patient seen and examined at bedside. No acute distress, no adverse events over night. Nausea has improved She was having breakfast at the time of examination Hip pain is also well controlled She did have some hematuria overnight. Denies any chest pain, no shortness of breath No dizziness. Review of Systems Review of Systems: All systems reviewed & are unremarkable except as noted in Subjective Physical Exam Physical Exam: Constitutional: No acute distress HEENT: EOMI, PERRLA Respiratory system: Decreased entry bilaterally, no wheeze, no rhonchi, positive crackles bilaterally more on the right side CVS: S1-S2 positive, accentuated P2 Abdomen: Soft, nontender, nondistended, positive bowel sounds x4 Extremities: +2 pulses bilaterally radialis/ dorsalis pedis, no cyanosis, +1 pitting edema bilateral lower extremity Neuro: Awake alert oriented x3 Psych: Normal mood and affect G/U: Positive Islas Skin: no rashes, warm and dry Lymphatic: no cervical or axillary lymphadenopathy Results & Data Results & Data ([facility]) Vital Signs (Past 12 Hours) Vital Signs Temp Pulse Resp BP Pulse Ox O2 Del Method O2 Flow Rate 12/22/21 06:00 36.5 C 65 18 99/62 L 92 12/22/21 05:00 36.6 C 63 18 98/50 L 12/22/21 04:00 36.8 C 62 19 105/55 L 92 12/22/21 03:00 36.7 C 60 22 90/48 L 94 12/22/21 02:00 36.7 C 61 18 88/55 L 92 12/22/21 01:00 36.7 C 61 20 99/61 L 93 12/22/21 00:00 36.7 C 62 17 81/42 L 80 L 12/21/21 23:00 36.6 C 62 20 88/46 L 93 12/22/21 00:00 62 12/21/21 22:00 36.6 C 64 17 84/45 L 12/21/21 21:00 36.9 C 67 19 90/45 L 91 Nasal Cannula 3 12/21/21 20:00 Nasal Cannula 3 12/21/21 20:00 37.0 C 69 18 85/47 L Laboratory Results 12/22/21 04:15 12/22/21 04:15 Coding Level of Care Code 49909 Subseq Hosp Care Lvl 3 Diagnoses Atrial fibrillation with RVR I48.91 Acute heart failure I50.9 Acute respiratory failure with hypoxia J96.01 Lower back pain M54.50 Acute kidney injury N17.9 Sepsis A41.9 Pulmonary hypertension I27.20 COPD with emphysema J43.9 Breast cancer C50.919 CHF (congestive heart failure) I50.9 Heart failure chronicity: acute Heart failure type: unspecified Peripheral artery disease I73.9 Graves disease E05.00 UTI (urinary tract infection) N39.0 Transaminitis R74.01 (1) CHF (congestive heart failure) Heart failure chronicity: acute Heart failure type: unspecified Qualified Code(s): I50.9 - Heart failure, unspecified
[2021-12-22] MEDS: AMIODARONE 200 MG TAB PO SCH ×2 (08:00→17:14)
[2021-12-22] MEDS: ATORVASTATIN 40 MG TAB PO SCH (08:00)
[2021-12-22] MEDS: propylthiouraciL 50 MG TAB PO SCH ×2 (08:00→20:57)
[2021-12-22] MEDS: CEFEPIME 1,000 MG in SYRINGE 0 ML IV SCH (08:00)
[2021-12-22] MEDS: ASPIRIN 81 MG ECTAB PO SCH (08:00)
--- NOTE | 2021-12-22 08:34 | Electrocardiogram Report ---
Test Reason : Blood Pressure : / mmHG Vent. Rate : 104 BPM Atrial Rate : 104 BPM P-R Int : 136 ms QRS Dur : 094 ms QT Int : 358 ms P-R-T Axes : 061 102 119 degrees QTc Int : 470 ms Sinus tachycardia with Premature supraventricular complexes Rightward axis ST depression in Anterolateral leads Abnormal ECG When compared with ECG of 19-DEC-2021 12:55; No significant change Confirmed by Jefe Ruiz ([id number]) on 12/22/2021 8:34:45 AM Referred By: REFERRED SELF Confirmed By:Jefe Ruiz
--- NOTE | 2021-12-22 08:47 | Cardiology Progress Note ---
Date of Service December 22, 2021 Assessment & Plan (1) ST elevation [place] (STEMI): Plan (1) STEMI (ST elevation myocardial infarction) secondary to septic shock [place] [address] 1B. 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 Mild left ventricular dysfunction with an RCA wall motion abnormality (4) Paroxysmal atrial fibrillation: now in SR (5) Severe tricuspid regurgitation: (6) Right ventricular dilation: (7) Acute on chronic respiratory failure Ms. Mcmahon is maintaining a SR on telemetry with amiodarone. Her an ticoagulation has been held for now due to hematuria. She is not sure that she was able to feel being in afib but also notes that she was so ill at the time she may have just not noticed. The levophed gtt has been weaned off. Given her vasculopathy, her bps are not likely to be accurate but they are wnl today. Her BUN/Creat suggests that she continues to be pre-renal given the rise in both today. Her edema is much reduced from when I saw her in the office on 12/13 and her urine output is low. Her cumulative fluid balance is positive 3363. Agree with gentle hydration ordered by the developmental specialist. We will have to watch her fluid balance closely. She was just released from the hospital a week prior to this admission for diastolic and right heart failure exacerbation. She is not having any concerning anginal pain today. Her supplemental O2 requirements are back to her baseline of 3L continuous. Admission and Anticipated Discharge Date Admission Date: December 19, 2021 Subjective Ms Mcmahon appears alert and comfortable in bed this morning. She denies any chest pain, sob, or palpitations. She is sinus rhythm on the monitor. Her levophed drip has been weaned off and her blood pressure is wnl. She is back to her baseline supplemental O2 at 3L. She has had very low UO over night as well as hematuria. Her blood count remains stable, anticoagulation is held for now. She has transitioned to oral amiodarone from the drip. Review of Systems Review of Systems: All systems reviewed & are unremarkable except as noted in HPI & below Physical Exam Constitutional: WD/WN, vitals as above Respiratory: normal respiratory effort, lungs clear to auscultation Cardiovascular: Rate/Rhythm: regular rate and regular rhythm Heart Sounds: normal S1 and normal S2 Extremities: + edema (trace LE right > left ) Skin: no rashes, warm and dry Neurologic: moves all extremities and awake Psychiatric: A+Ox3, euthymic affect Results & Data ([facility]) Vital Signs (Past 12 Hours) Vital Signs Temp Pulse Resp BP Pulse Ox O2 Del Method O2 Flow Rate 12/22/21 06:00 36.5 C 65 18 99/62 L 92 12/22/21 05:00 36.6 C 63 18 98/50 L 12/22/21 04:00 36.8 C 62 19 105/55 L 92 12/22/21 03:00 36.7 C 60 22 90/48 L 94 12/22/21 02:00 36.7 C 61 18 88/55 L 92 12/22/21 01:00 36.7 C 61 20 99/61 L 93 12/22/21 00:00 36.7 C 62 17 81/42 L 80 L 12/21/21 23:00 36.6 C 62 20 88/46 L 93 12/22/21 00:00 62 12/21/21 22:00 36.6 C 64 17 84/45 L 12/21/21 21:00 36.9 C 67 19 90/45 L 91 Nasal Cannula 3
[2021-12-22] MEDS ORDERED: NORMOSOL-R 1,000 ML IV SCH (09:00)
[2021-12-22 09:46] LABS: Appearance Urine Turbid (Clear); Bilirubin Urine Negative (Negative); Blood Urine 3+ (Negative); Color Urine Dark Yellow; Epithelial Cell Urine Auto >30 /lpf (0-5); Glucose Urine UA Negative (Negative); Ketones Urine Trace (Negative); Leukocyte Esterase Urine 2+ (Negative); Nitrite Urine Negative (Negative); Protein Urine 3+ (Negative); Specific Gravity Urine 1.033 (1.000-1.030); Urobilinogen Urine Negative (Negative)
[2021-12-22 09:57] LABS: RBC Urine Automated >30 /hpf (0-4)
[2021-12-22 09:58] LABS: Bacteria Urine Automated 1+ (Negative)
[2021-12-22] MEDS ORDERED: [UNRECOGNIZED DRUG - REMARK] ONE (10:00)
[2021-12-22 10:16] LABS: Chloride Random Urine < 15 mmol/L; Creatinine Urine Random 101.4 mg/dl; Potassium Random Urine 69.1 mmol/L; Sodium Random Urine 34 mmol/L
[2021-12-22 12:50] LABS: BUN Creatinine Ratio 23.2 (10-20); Calcium 7.8 mg/dl (8.5-10.1); Creatinine Clr Calc Pharmacy 17.4 ml/min; Est GFR (African American) 22.4 ml/min; Est GFR (Non-African American) 19.4 ml/min; Potassium 3.9 mmol/L (3.5-5.1)
[2021-12-22] MEDS ORDERED: cefTRIAXone SODIUM 1,000 MG in DEXTROSE 5% 50 ML IV SCH (13:00)
[2021-12-22] MEDS: cefTRIAXone SODIUM 2,000 MG in DEXTROSE 5% 50 ML IV SCH (15:52)
[2021-12-22] MEDS ORDERED: NORMOSOL-R 500 ML IV ONE (17:07)
--- NOTE | 2021-12-22 17:34 | Hospitalist Progress Note ---
Date of Service December 22, 2021 Assessment & Plan (1) Bacteremia: Plan: With E. coli in BCxs and Ur cx, pyelo on CT abd/pel Had recent Islas in place during previous hospitalization 12/11-12/13 for CHF with septic shock/septicemia requiring vasopressors and ICU stay. 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 then with septic shock. as above, resolved (4) UTI (urinary tract infection): Plan: as above has a h/o bladder cancer, follows with Urology recent cystoscopy 10/2021 (5) Fever: Plan: 2nd to bacteremia/UTI. COVID/Flu/RSV PCR negative. resolved (6) Atrial fibrillation with RVR: Plan: Presented with afib RVR HR 120s, hypoxic, severely hypotensive SBP 50s. Etomidate given prior to shock w/ further worsening of BP and hypoxia, patient subsequently intubated. Converted to NSR. Remains in NSR Appreciate cardiology assistance. They advise PO + IV amiodarone. Now on po amiodarone alone Eliquis started but now on hold for hematuria monitor on tele (7) STEMI (ST elevation myocardial infarction): Plan: Initially thought to have inferior STEMI. Following intubation and cardioversion in the ER she was taken to the dock or pier lab[facility] by Dr Granados. 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 Thus, not a true STEMI. Likely that she suffered a type 2 VT due to severe hypotension/hypoperfusion. Cont statin. Cont asa. Ultimately will resume BB down the line once shock is resolved. (8) Acute and chronic respiratory failure: Plan: acute component 2nd to acute pulmonary edema can't fully rule out pneumonia but unlikely s/p intubation in the ER in the setting of #1 and #3 extubated to BIPAP, then oxymask, then NC O2 sat goal 90-92% she is on 3 L NC O2 at rest at home, 4 L with activity -is now on her baseline O2 (9) Shock liver: Plan: Abnormal LFTs highly suggestive of shock liver. LFTs improved INR 1.3. Cont to trend LFTs and INR. (10) Graves disease: Plan: TSH 4.4 Controlled Cont PTU 100 mg BID (11) Carotid artery disease: Plan: s/p L carotid endarterectomy in 2016 70% restenosis continue ASA, statin (12) Chronic anemia: Plan: H/H stable at 9.7 CBC in am (13) HTN (hypertension): Plan: holding BP meds (14) Acute systolic CHF (congestive heart failure): Plan: EF 45-50% with moderate RV systolic dysfunction as well. was diuresed in ICU with a few doses of loop diuretic now with FABIENNE gentle hydration as above holding beta valentin (15) Nausea: Plan: patient with nausea throughout the day and GI intolerance. now with multiple BMs and no further nausea Plan Dispo-continued stay, downgraded from ICU to PCU Admission and Anticipated Discharge Date Admission Date: December 19, 2021 Subjective Pt downgraded out of ICU.Having some hematuria and low urine output overnight. Had 500mL Normosol today and UOP still only 50mL for the shift. Nurse to check if Islas clogged. Pt denies any CP, SOB, cough, abd pain. Is eating. Moved bowels multiple times yesterday. Tele with NSR, PACs Review of Systems Review of Systems: All systems reviewed & are unremarkable except as noted in HPI & below Physical Exam Physical Exam: gen - AAOx3, NAD heart - RRR, s1 s2, 2/6 systolic murmur present lungs - decreased BS bases, no rales or wheezes, no increased work of breathing abd - mildly distended, BS+, NT, soft ext - no edema Results & Data Results & Data ([facility]) Vital Signs (Past 12 Hours) Vital Signs Temp Pulse Pulse Resp BP BP Pulse Ox 12/22/21 16:05 36.4 C L 69 18 96/55 L 93 12/22/21 15:59 72 12/22/21 15:10 70 12/22/21 13:40 72 12/22/21 14:26 12/22/21 14:01 92/57 L 12/22/21 13:51 36.5 C 75 14 85/51 L 92 12/22/21 13:15 90/46 L 12/22/21 13:15 37.0 C 74 17 12/22/21 13:10 37.0 C 76 15 12/22/21 13:10 87/47 L 12/22/21 13:05 37.0 C 73 16 12/22/21 13:05 80/46 L 12/22/21 13:01 37.0 C 72 23 12/22/21 13:01 88/52 L 12/22/21 13:00 37.0 C 73 20 12/22/21 12:55 37.0 C 73 24 12/22/21 12:54 90/51 L 12/22/21 12:54 37.0 C 72 23 12/22/21 12:51 37.0 C 71 21 12/22/21 12:51 81/48 L 12/22/21 12:50 37.0 C 72 23 12/22/21 12:45 37.0 C 72 21 12/22/21 12:45 89/51 L 12/22/21 11:00 37.1 C 65 24 12/22/21 10:00 37.1 C 70 27 H 12/22/21 09:00 36.8 C 64 23 71 L 12/22/21 09:00 101/55 L 12/22/21 08:00 36.6 C 70 22 91 12/22/21 08:00 110/53 L 12/22/21 07:00 36.6 C 64 18 89 L 12/22/21 07:00 95/49 L 12/22/21 08:00 12/22/21 08:00 12/22/21 08:00 65 12/22/21 06:00 36.5 C 65 18 99/62 L 92 O2 Del Method O2 Flow Rate FiO2 12/22/21 16:05 Nasal Cannula 3.0 12/22/21 15:59 12/22/21 15:10 12/22/21 13:40 12/22/21 14:26 Nasal Cannula 3 12/22/21 14:01 12/22/21 13:51 Nasal Cannula 3 12/22/21 13:15 12/22/21 13:15 12/22/21 13:10 12/22/21 13:10 12/22/21 13:05 12/22/21 13:05 12/22/21 13:01 12/22/21 13:01 12/22/21 13:00 12/22/21 12:55 12/22/21 12:54 12/22/21 12:54 12/22/21 12:51 12/22/21 12:51 12/22/21 12:50 12/22/21 12:45 12/22/21 12:45 12/22/21 11:00 12/22/21 10:00 12/22/21 09:00 12/22/21 09:00 12/22/21 08:00 12/22/21 08:00 12/22/21 07:00 12/22/21 07:00 12/22/21 08:00 Nasal Cannula 3 12/22/21 08:00 Nasal Cannula 2 12/22/21 08:00 12/22/21 06:00 Laboratory Results 12/22/21 12/22/21 12/22/21 Range/Units 12:14 09:30 09:30 WBC (4.8-10.8) K/ul RBC (3.93-5.22) M/uL Hgb (12.0-16.0) g/dl Hct (34.1-44.9) % MCV (80.0-100.0) fL MCH (25.0-34.0) pg MCHC (32.0-36.0) g/dL RDW Std Deviation (36.4-46.3) fL RDW Coeff of Armani (11.5-14.5) % Plt Count (130-400) K/uL MPV (9.4-12.3) fL Immature Gran % (Auto) % Neut % (Auto) % Lymph % (Auto) % [place] % (Auto) % Eos % (Auto) % Baso % (Auto) % Neut # (Auto) (1.4-6.5) K/uL Lymph # (Auto) (1.2-3.4) K/uL [place] # (Auto) (0.24-0.82) K/uL Eos # (Auto) (0-0.50) K/uL Baso # (Auto) (0-0.2) K/uL Immature Gran # (Auto) (0.00-0.02) K/uL Platelet Estimate (Normal) Acanthocytes (Spur) PT (9.0-12.0) Seconds INR (0.9-1.1) Sodium 134 L (136-145) mmol/L Potassium 3.9 (3.5-5.1) mmol/L Chloride 102 (98-107) mmol/L Carbon Dioxide 21 (21-32) mmol/L Anion Gap 11 (3-11) BUN 53 H (6-23) mg/dl Creatinine 2.28 H (0.6-1.2) mg/dl Est Cr Clr Drug Dosing 17.4 ml/min Est GFR ( Amer) 22.4 ml/min Est GFR (Non-Af Amer) 19.4 ml/min BUN/Creatinine Ratio 23.2 H (10-20) Glucose 186 H (70-99(Fasting)) mg/dl Calcium 7.8 L (8.5-10.1) mg/dl Magnesium (1.7-2.4) mg/dl Urine Color Urine Appearance (Clear) Urine pH (4.5-7.5) Ur Specific [place] (1.000-1.030) Urine Protein (Negative) Urine Glucose (UA) (Negative) Urine Ketones (Negative) Urine Blood (Negative) Urine Nitrite (Negative) Urine Bilirubin (Negative) Urine Urobilinogen (Negative) Ur Leukocyte Esterase (Negative) Urine WBC (Auto) (0-5) /hpf Urine RBC (Auto) (0-4) /hpf U Hyaline Cast (Auto) (0-5) /lpf U Epithel Cells (Auto) (0-5) /lpf Urine Bacteria (Auto) (Negative) Urine Yeast Urine Osmolality (500-800) mOsm/kg Ur Random Creatinine 101.4 mg/dl Ur Random Sodium 34 mmol/L Ur Random Potassium 69.1 mmol/L Ur Random Chloride < 15 mmol/L Ur Random Uric Acid Pending 1112/22/21 12/22/21 Range/Units 09:30 09:30 04:15 WBC (4.8-10.8) K/ul RBC (3.93-5.22) M/uL Hgb (12.0-16.0) g/dl Hct (34.1-44.9) % MCV (80.0-100.0) fL MCH (25.0-34.0) pg MCHC (32.0-36.0) g/dL RDW Std Deviation (36.4-46.3) fL RDW Coeff of Armani (11.5-14.5) % Plt Count (130-400) K/uL MPV (9.4-12.3) fL Immature Gran % (Auto) % Neut % (Auto) % Lymph % (Auto) % [place] % (Auto) % Eos % (Auto) % Baso % (Auto) % Neut # (Auto) (1.4-6.5) K/uL Lymph # (Auto) (1.2-3.4) K/uL [place] # (Auto) (0.24-0.82) K/uL Eos # (Auto) (0-0.50) K/uL Baso # (Auto) (0-0.2) K/uL Immature Gran # (Auto) (0.00-0.02) K/uL Platelet Estimate (Normal) Acanthocytes (Spur) PT (9.0-12.0) Seconds INR (0.9-1.1) Sodium 134 L (136-145) mmol/L Potassium 4.4 (3.5-5.1) mmol/L Chloride 101 (98-107) mmol/L Carbon Dioxide 24 (21-32) mmol/L Anion Gap 9 (3-11) BUN 49 H (6-23) mg/dl Creatinine 2.16 H D (0.6-1.2) mg/dl Est Cr Clr Drug Dosing 18.2 ml/min Est GFR ( Amer) 23.9 ml/min Est GFR (Non-Af Amer) 20.7 ml/min BUN/Creatinine Ratio 22.7 H (10-20) Glucose 79 (70-99(Fasting)) mg/dl Calcium 7.9 L (8.5-10.1) mg/dl Magnesium 3.4 H (1.7-2.4) mg/dl Urine Color Dark Yellow Urine Appearance Turbid A (Clear) Urine pH 5.0 (4.5-7.5) Ur Specific [place] 1.033 H (1.000-1.030) Urine Protein 3+ H (Negative) Urine Glucose (UA) Negative (Negative) Urine Ketones Trace H (Negative) Urine Blood 3+ H (Negative) Urine Nitrite Negative (Negative) Urine Bilirubin Negative (Negative) Urine Urobilinogen Negative (Negative) Ur Leukocyte Esterase 2+ H (Negative) Urine WBC (Auto) 10-30 H (0-5) /hpf Urine RBC (Auto) >30 H (0-4) /hpf U Hyaline Cast (Auto) 1-5 (0-5) /lpf U Epithel Cells (Auto) >30 H (0-5) /lpf Urine Bacteria (Auto) 1+ H (Negative) Urine Yeast Not Reportable Urine Osmolality 327 L (500-800) mOsm/kg Ur Random Creatinine mg/dl Ur Random Sodium mmol/L Ur Random Potassium mmol/L Ur Random Chloride mmol/L Ur Random Uric Acid 12/22/21 12/22/21 Range/Units 04:15 04:15 WBC 6.53 (4.8-10.8) K/ul RBC 3.47 L (3.93-5.22) M/uL Hgb 9.7 L (12.0-16.0) g/dl Hct 30.8 L (34.1-44.9) % MCV 88.8 (80.0-100.0) fL MCH 28.0 (25.0-34.0) pg MCHC 31.5 L (32.0-36.0) g/dL RDW Std Deviation 60.7 H (36.4-46.3) fL RDW Coeff of Armani 18.5 H (11.5-14.5) % Plt Count 75 L (130-400) K/uL MPV 12.5 H (9.4-12.3) fL Immature Gran % (Auto) 0.9 % Neut % (Auto) 82.4 % Lymph % (Auto) 8.6 % [place] % (Auto) 7.5 % Eos % (Auto) 0.3 % Baso % (Auto) 0.3 % Neut # (Auto) 5.38 (1.4-6.5) K/uL Lymph # (Auto) 0.56 L (1.2-3.4) K/uL [place] # (Auto) 0.49 (0.24-0.82) K/uL Eos # (Auto) 0.02 (0-0.50) K/uL Baso # (Auto) 0.02 (0-0.2) K/uL Immature Gran # (Auto) 0.06 H (0.00-0.02) K/uL Platelet Estimate Decreased L (Normal) Acanthocytes (Spur) 3+ PT 12.2 H (9.0-12.0) Seconds INR 1.2 H (0.9-1.1) Sodium (136-145) mmol/L Potassium (3.5-5.1) mmol/L Chloride (98-107) mmol/L Carbon Dioxide (21-32) mmol/L Anion Gap (3-11) BUN (6-23) mg/dl Creatinine (0.6-1.2) mg/dl Est Cr Clr Drug Dosing ml/min Est GFR ( Amer) ml/min Est GFR (Non-Af Amer) ml/min BUN/Creatinine Ratio (10-20) Glucose (70-99(Fasting)) mg/dl Calcium (8.5-10.1) mg/dl Magnesium (1.7-2.4) mg/dl Urine Color Urine Appearance (Clear) Urine pH (4.5-7.5) Ur Specific [place] (1.000-1.030) Urine Protein (Negative) Urine Glucose (UA) (Negative) Urine Ketones (Negative) Urine Blood (Negative) Urine Nitrite (Negative) Urine Bilirubin (Negative) Urine Urobilinogen (Negative) Ur Leukocyte Esterase (Negative) Urine WBC (Auto) (0-5) /hpf Urine RBC (Auto) (0-4) /hpf U Hyaline Cast (Auto) (0-5) /lpf U Epithel Cells (Auto) (0-5) /lpf Urine Bacteria (Auto) (Negative) Urine Yeast Urine Osmolality (500-800) mOsm/kg Ur Random Creatinine mg/dl Ur Random Sodium mmol/L Ur Random Potassium mmol/L Ur Random Chloride mmol/L Ur Random Uric Acid PG Care Time/CCT Total # of Minutes Spent Total Time Spent with Patient: Total time spent is greater than 50% in coordination of care (as documented) at patient's floor/unit and/or counseling patient: Coding Level of Care Code 66572 Subseq Hosp Care Lvl 3 Diagnoses Bacteremia R78.81 Acute kidney injury N17.9 Shock R57.9 UTI (urinary tract infection) N39.0 Fever R50.9 Atrial fibrillation with RVR I48.91 STEMI (ST elevation myocardial infarction) I21.3 Acute and chronic respiratory failure J96.20 Shock liver K72.00 Graves disease E05.00 Carotid artery disease I77.9 Chronic anemia D64.9 HTN (hypertension) I10 Acute systolic CHF (congestive heart failure) I50.21 Nausea R11.0
[2021-12-22 19:59] LABS: BUN Creatinine Ratio 23.5 (10-20); Calcium 7.7 mg/dl (8.5-10.1); Creatinine Clr Calc Pharmacy 16.3 ml/min; Est GFR (African American) 20.8 ml/min; Est GFR (Non-African American) 17.9 ml/min; Potassium 3.8 mmol/L (3.5-5.1)
[2021-12-22] MEDS: FAMOTIDINE 20 MG TAB PO SCH (20:57)
[2021-12-22] MEDS: LIDOCAINE 5% 1 PATCH TD SCH (20:57)
[2021-12-23 06:55] LABS: Hematocrit (blood only) 30.5 % (34.1-44.9); Hemoglobin 9.9 g/dl (12.0-16.0); Mean Corpuscular Hemoglobin 27.7 pg (25.0-34.0); Mean Corpuscular Hgb Conc 32.5 g/dL (32.0-36.0); Mean Corpuscular Volume 85.4 fL (80.0-100.0); Mean Platelet Volume 11.5 fL (9.4-12.3); Platelet Count 84 K/uL (130-400); RDW Coefficient of Variation 18.5 % (11.5-14.5); RDW Standard Deviation 58.1 fL (36.4-46.3); Red Blood Count 3.57 M/uL (3.93-5.22); White Blood Count 5.14 K/ul (4.8-10.8)
[2021-12-23 07:07] LABS: Basophils # (auto) 0.01 K/uL (0-0.2); Basophils % (auto) 0.2 %; Echinocytes 2+; Eosinophils # (auto) 0.05 K/uL (0-0.50); Immature Granulocytes # (auto) 0.04 K/uL (0.00-0.02); Immature Granulocytes % (auto) 0.8 %; Lymphocytes % (auto) 11.7 %; Monocytes # (auto) 0.48 K/uL (0.24-0.82); Monocytes % (auto) 9.3 %; Neutrophils # (auto) 3.96 K/uL (1.4-6.5); Polychromasia 1+
[2021-12-23 07:09] LABS: Albumin Level 2.8 gm/dl (3.4-5.0); BUN Creatinine Ratio 23.8 (10-20); Bilirubin Direct 0.1 mg/dl (0-0.2); Bilirubin,Total 0.5 mg/dl (0.2-1.0); Calcium 7.8 mg/dl (8.5-10.1); Creatinine Clr Calc Pharmacy 16.5 ml/min; Est GFR (African American) 21.2 ml/min; Est GFR (Non-African American) 18.3 ml/min; Magnesium 2.9 mg/dl (1.7-2.4)
[2021-12-23 07:20] LABS: Thyroid Stimulating Hormone 6.09 uIu/ml (0.300-4.500)
[2021-12-23 07:23] LABS: T4 Free Thyroxine 0.7 ng/dl (0.61-1.60)
[2021-12-23] MEDS: propylthiouraciL 50 MG TAB PO SCH ×2 (08:06→20:16)
[2021-12-23] MEDS: AMIODARONE 200 MG TAB PO SCH ×2 (08:07→17:00)
[2021-12-23] MEDS: ATORVASTATIN 40 MG TAB PO SCH (08:07)
[2021-12-23] MEDS: ASPIRIN 81 MG ECTAB PO SCH (08:07)
--- NOTE | 2021-12-23 09:02 | Cardiology Progress Note ---
Date of Service December 23, 2021 Assessment & Plan Admission and Anticipated Discharge Date Admission Date: December 19, 2021 Subjective He denies any chest pain just pressure chest heaviness. She denies any shortness of breath this morning. Denies any fevers or chills. Her appetite is improving. She denies any lightheadedness or dizziness. She has no lower extremity edema. She he had noted some clots in her urine. She was bladder scanned after she passed 2 large clots that were flushed and there was an excessive amount of urine. Her urine output did improve with IV fluids yesterday but appears to have tapered off again. She denies any bladder pain. Results & Data ([facility]) Vital Signs (Past 12 Hours) Vital Signs Temp Pulse Pulse Resp BP Pulse Ox O2 Del Method 12/23/21 08:00 66 12/23/21 07:41 36.6 C 67 18 121/67 91 Nasal Cannula 12/23/21 03:11 36.3 C L 65 16 98/57 L 92 Nasal Cannula 12/22/21 23:35 36.4 C L 65 18 98/60 L 93 Nasal Cannula O2 Flow Rate 12/23/21 08:00 12/23/21 07:41 3 12/23/21 03:11 2 12/22/21 23:35 2 she is awake alert and oriented x3; he looks much better H EENT she has very loud bilateral carotid bruits louder on the left compared to the right Lungs decreased breath sounds in the bases no rhonchi or wheezing Heart: Regular rate and rhythm with occasional ectopy she has a 2 out of 6 crescendo murmur which is early to mid peaking Extremities: No clubbing cyanosis or edema Psychiatric affect appeared appropriate (1) STEMI (ST elevation myocardial infarction) secondary to septic shock [place] [address] 1B. 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 Mild left ventricular dysfunction with an RCA wall motion abnormality (4) Paroxysmal atrial fibrillation: (5) Severe tricuspid regurgitation: (6) Right ventricular dilation: 7. Acute kidney injury secondary to hypotension and IV contrast As I discussed with nursing her blood pressures in her arms are going to be an accurate given the severity of her peripheral arterial disease. I would add about 50 mmHg to her arm pressures. As long as she is mentating and her urine output remained stable I would not be overly concerned about her blood pressure. Her renal function has stabilized. But her urine output has dropped off I would consider giving her another 500 cc of fluid this morning slowly. She remains on amiodarone and is staying in sinus rhythm. On Tuesday her dose of amiodarone can be reduced to 200 mg twice daily for the next month. For now given her bladder clots she cannot be on anticoagulation. She is maintaining sinus rhythm at this point though reducing her overall risk of stroke. Clinically she is not in heart failure at this point. She does not appear excessively volume overloaded either. I would get her up out of bed and start to move her and ambulate and see how she does.
[2021-12-23] MEDS ORDERED: NORMOSOL-R 500 ML IV ONE (09:05)
--- NOTE | 2021-12-23 10:29 | Nephrology Consultation ---
Date of Consultation December 23, 2021 Assessment & Plan (1) Acute kidney injury: * Oliguric FABIENNE due to UTI w/ severe sepsis and IV contrast administration. Clinically suspect ATN * Electrolyte balance is acceptable. No acute indication for HD at this time * Volume status is challenging. Patient appears clinically dehydrated, however there is a h/o valvular heart disease, pulmonary HTN and R heart failure. CXR shows mild vascular congestion and small pleural effusions. BP is difficult to interpret due to severe PVD. Patient was evaluated by Cardiology this am. Agree with cautious hydration using 500 cc Normosol. Patient is currently breathing comfortably on O2 at 3 L/min NC * Monitor PRP, UO, volume status closely (2) CKD stage G3a/A3, GFR 45-59 and albumin creatinine ratio >300 mg/g: * Stage 3 CKD w/ baseline Cr 1.0 and EGFR 49 cc/min. 12/22/21 renal US revealed R kidney 10.4 cm, L kidney 8.7 cm w/ cortical thinning. Bilateral renal cysts measuring up to 3.1 cm. No mass or hydronephrosis. CKD is on the basis of vascular disease. (3) UTI (urinary tract infection): * 12/20/21 urine cx + E. Coli * Agree w/ IV Rocephin therapy (4) COPD with emphysema: * On O2 at 3 L/min ATC chronically (5) Atrial fibrillation with RVR: (6) Pulmonary hypertension: (7) Severe tricuspid regurgitation: (8) Vasculopathy: History of Present Illness Reason for Consultation: FABIENNE Attending Physician: Jessica Crespo MD History of Present Illness Mrs. Mcmahon is an 81 year old white female who is seen at the request of Dr. Crespo for evaluation of FABIENNE. Medical records in the EMR were reviewed today and are summarized as follows: Mrs. Mcmahon has stage 3 CKD w/ baseline Cr 1.0 and EGFR 49 cc/min. She has never undergone evaluation by a Hemstitching Machine Operator in the past. 12/22/21 renal US revealed R kidney 10.4 cm, L kidney 8.7 cm w/ cortical thinning. Bilateral renal cysts measuring up to 3.1 cm. No mass or hydronephrosis. Incidental note of abdominal ascites and small pleural effusion was made. Mrs. Mcmahon's CKD is on the basis of vascular disease. Her medical history is also significant for prior tobacco use, COPD, 9 mm RUL spiculated lung nodule, ASCVD w/ chronic total occlusion of the proximal RCA, PVD w/ severe stenosis of R innominate an severe mid to distal abdominal aortic stenosis, atrial fibrillation, moderate MR, pulmonary HTN, severe TR and RV dilation, Grave's disease, breast cancer s/p lumpectomy now on tamoxifen, uterine cancer s/p TEETEE with radiation therapy, bladder cancer s/p TURBT 09/27. Mrs. Mcmahon presented to [facility] 12/19/21 with E. Coli UTI, septic shock and atrial fibrillation w/ RVR (SBP 50, HR 120's, Cr 1.4). ECG revealed ST segment elevation in leads III, aVF. Heart alert was called. Cardiac cath did not reveal any coronary lesions requiring intervention. Patient was managed in the ICU w/ antibiotics, mechanical ventilation and pressor support. She was extubated 12/19/21 and transferred to the medical floor yesterday. Cr peaked at 2.4. Mrs. Mcmahon was oliguric yesterday. Recorded UO was only 231 cc. She was assessed by Cardiology this morning and gentle hydration with Normosol at 80 cc/hr for up to 500 cc was ordered. Allergies Allergy/AdvReac Type Severity Reaction Status Date / Time No Known Allergies Allergy Verified 10/15/21 13:44 Home Medications Medication Instructions Recorded Confirmed Type aspirin 81 mg tablet,delayed 81 mg PO QAM 02/17/18 12/19/21 History release (Hermilo Low Dose Aspirin) atorvastatin 40 mg tablet 40 mg PO PM 02/17/18 12/19/21 History metoprolol tartrate 50 mg tablet 50 mg PO BID 02/17/18 12/19/21 History propylthiouracil 50 mg tablet 100 mg PO BID 02/17/18 12/19/21 History cilostazol 50 mg tablet 50 mg PO BID 08/29/20 12/19/21 History albuterol sulfate 90 mcg/actuation 2 puff inhalation Q6H PRN 06/05/21 12/19/21 Rx aerosol inhaler Shortness Of Breath Or Wheezing #18 grams bumetanide 1 mg tablet 1 mg PO DAILY 12/11/21 12/19/21 History spironolactone 25 mg tablet 12.5 mg PO DAILY 12/11/21 12/19/21 History (Aldactone) Patient History Medical History Acute kidney injury Anxiety Bladder cancer Breast cancer Dx 7 years ago s/p right lumpectomy- RUE lumpectomy Cardiac murmur 2018 ECHO showed AV sclerosis (no ), mild to moderate mitral annular calcification and mild MS Carotid artery disease s/p left carotid endarterectomy (3 years ago/[facility]), follows with Dr. Islas CHF (congestive heart failure) 2018 Chronic anemia baseline hgb 11's per chart review Graves disease Hyperlipidemia Hypertension Lower back pain Osteoarthritis Paroxysmal atrial fibrillation Single remote episode (suspected r/t nitro patch), no known recurrences, Follows with Dr. Mcdonald Peripheral artery disease Sepsis Uterine cancer 1995 hysterectomy/radiation Surgical History History of breast biopsy Right History of cataract surgery Right History of cholecystectomy History of flexible sigmoidoscopy History of left-sided carotid endarterectomy History of total hysterectomy with bilateral salpingo-oophorectomy (BSO) Hx of lumpectomy 7 years ago Family History Other No pertinent family history Social History Smoking Status: Former smoker Tobacco Type: Cigarettes Second Hand Exposure: No; Hx Alcohol Use: Yes Alcohol type: wine Hx Substance Use: No Preferred Language: Georgian Communication Ability: Effective Telephone Sterilizer Required: No Beliefs That Will Affect Care: None marital status: Unknown Current Living Situation: Alone Current Living Situation Comment: WITH ( HAS ALZHEIMERS) How many Children do You have: 2 Feels Safe at Home: Yes Assistive Devices: Oxygen - Continuous Review of Systems Constitutional: no fever Eyes: no problem reported Ear, Nose, Mouth, Throat: no problem reported Respiratory: no cough and no dyspnea Cardiovascular: no chest pain Gastrointestinal: no abdominal pain, no vomiting and no diarrhea/loose stools Physical Exam Constitutional: + frail appearing; not in distress Eyes: PERRL, conjunctivae normal, anicteric sclerae ENMT: Mouth: + dry oral mucous membranes Neck: + JVD Respiratory: normal respiratory effort, lungs clear to auscultation Cardiovascular: Rate/Rhythm: + irregularly irregular Gastrointestinal (Abdomen): normal bowel sounds, soft, nontender, no hepatosplenomegaly Skin: poor skin turgor of the arms, trace LE swelling Neurologic: awake; not confused Speech / Cognition: normal cognition Results & Data ([facility]) Vital Signs (Past 12 Hours) Vital Signs Temp Pulse Pulse Resp BP Pulse Ox O2 Del Method 12/23/21 08:00 66 12/23/21 07:41 36.6 C 67 18 121/67 91 Nasal Cannula 12/23/21 03:11 36.3 C L 65 16 98/57 L 92 Nasal Cannula 12/22/21 23:35 36.4 C L 65 18 98/60 L 93 Nasal Cannula O2 Flow Rate 12/23/21 08:00 12/23/21 07:41 3 12/23/21 03:11 2 12/22/21 23:35 2 Laboratory Results Laboratory Tests 12/22/21 12/22/21 12/23/21 09:30 09:30 06:09 WBC Hgb Hct Plt Count Sodium 134 L Potassium 4.0 Chloride 101 Carbon Dioxide 23 BUN 57 H Creatinine 2.39 H Glucose 85 Urine Color Dark Yellow Urine pH 5.0 Ur Specific [place] 1.033 H Urine Protein 3+ H Urine Blood 3+ H Urine RBC (Auto) >30 H Urine Osmolality 327 L 12/23/21 06:09 WBC 5.14 Hgb 9.9 L Hct 30.5 L Plt Count 84 L Sodium Potassium Chloride Carbon Dioxide BUN Creatinine Glucose Urine Color Urine pH Ur Specific [place] Urine Protein Urine Blood Urine RBC (Auto) Urine Osmolality Diagnostic Findings 12/22/21 renal US: Kidneys: The kidneys are atrophic. Echotexture is increased consistent with medical renal disease. The right kidney measures 10.4 x 4.0 x 4.0 cm and the left kidney measures 8.7 x 4.7 x 4.6 cm. There is no hydronephrosis. Numerous simple and complex appearing bilateral renal cysts measure up to 3.1 cm. A cortical calcification within the interpolar left kidney measures 1.5 cm. There is no sonographic evidence of contour deforming renal mass lesion. Trace perinephric fluid is seen on the right. Bladder: The bladder is decompressed and a Islas catheter and could not be assessed. Upper abdomen: Abdominal ascites is noted. There is a small pleural effusion. PG Care Time/CCT Total # of Minutes Spent Total Time Spent with Patient: Total time spent is greater than 50% in coordination of care (as documented) at patient's floor/unit and/or counseling patient: Coding Level of Care Code 18501 Inpt Consult Level 5 Diagnoses Acute kidney injury N17.9 CKD stage G3a/A3, GFR 45-59 and albumin creatinine ratio >300 mg/g N18.31 UTI (urinary tract infection) N39.0 COPD with emphysema J43.9 Atrial fibrillation with RVR I48.91 Pulmonary hypertension I27.20 Severe tricuspid regurgitation I07.1 Vasculopathy I99.9
[2021-12-23 14:05] LABS: Appearance Urine Turbid (Clear); Bacteria Urine Automated Negative (Negative); Bilirubin Urine Negative (Negative); Blood Urine 3+ (Negative); Color Urine Orange; Epithelial Cell Urine Auto >30 /lpf (0-5); Glucose Urine UA Negative (Negative); Ketones Urine Trace (Negative); Leukocyte Esterase Urine 3+ (Negative); Nitrite Urine Negative (Negative); Protein Urine 2+ (Negative); Specific Gravity Urine 1.022 (1.000-1.030); Urobilinogen Urine Negative (Negative); WBC Urine Automated >30 /hpf (0-5)
[2021-12-23] MEDS: cefTRIAXone SODIUM 2,000 MG in DEXTROSE 5% 50 ML IV SCH (15:05)
[2021-12-23 15:11] LABS: RBC Urine Automated >30 /hpf (0-4)
--- NOTE | 2021-12-23 18:20 | Hospitalist Progress Note ---
Date of Service December 23, 2021 Assessment & Plan (1) Bacteremia: Plan: With E. coli in BCxs and Ur cx, pyelo on CT abd/pel Had recent Islas in place during previous hospitalization 12/11-12/13 for CHF with septic shock/septicemia requiring vasopressors and ICU stay. Now weaned off vasopressors and BPs acceptable With shock liver and now FABIENNE, low urine output now improving Initially on Cefepime and then narrowed to ceftriaxone 2000mg IV once daily-will need 10-14 days of treatment but can eventually switch to po abx Defervescing, no further fevers -repeat BCxs 12/22-NGTD-->will follow (2) Acute kidney injury: Plan: worsening since 12/22, suspect ATN from septic shock Did receive contrast dye during cardiac cath and IV loop diuretics during ICU stay continuity reader peaked up to 2.4 and with low urine output on 12/22 was given 1000mL of Normosol gently on 12/22 and UOP did crab picker ECHO with biventricular heart failure. Does have peripheral edema but suspect intravascularly volume depleted With hypoalbuminemia, proteinuria, hematuria UA with granular casts now c/w ATN BUN and continuity reader still elevated today at 57 and 2.39 -give another 500mL Normosol today -repeat BMP in AM -Islas in place with blood but is not clogged on flush by RN-monitor I/O -Renal US 12/22 no obstruction -consult Nephrology-appreciate recommendations -avoid nephrotoxic agents -renally dose meds (3) Shock: Plan: Initially was cardiogenic in origin at time of ER presentation in the setting of rapid a.fib. then with septic shock. as above, resolved (4) UTI (urinary tract infection): Plan: as above has a h/o bladder cancer, follows with Urology recent cystoscopy 10/2021 without tumor (5) Fever: Plan: 2nd to bacteremia/UTI. COVID/Flu/RSV PCR negative. resolved (6) Atrial fibrillation with RVR: Plan: Presented with afib RVR HR 120s, hypoxic, severely hypotensive SBP 50s. Etomidate given prior to shock w/ further worsening of BP and hypoxia, patient subsequently intubated. Converted to NSR. Remains in NSR Appreciate cardiology assistance. They advise PO + IV amiodarone. Now on po amiodarone alone and plan to decrease to 200mg po bid on 12/26 x 1 month as per Cardiology Eliquis started but now on hold for hematuria monitor on tele (7) STEMI (ST elevation myocardial infarction): Plan: Initially thought to have inferior STEMI. Trop HS up to Following intubation and cardioversion in the ER she was taken to the director of cardiac cath lab by Dr Granados. 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 Thus, not a true STEMI. Likely that she suffered a type 2 LA due to severe hypotension/hypoperfusion. Cont statin. Cont asa. Ultimately will resume BB down the line once shock is resolved. (8) Acute and chronic respiratory failure: Plan: acute component 2nd to acute pulmonary edema can't fully rule out pneumonia but unlikely s/p intubation in the ER in the setting of septicemia and shock extubated to BIPAP, then oxymask, then NC O2 sat goal 90-92% she is on 3 L NC O2 at rest at home, 4 L with activity -is now on her baseline O2 (9) Shock liver: Plan: Abnormal LFTs highly suggestive of shock liver. LFTs continue to improve, INR had improved Cont to trend LFTs (10) Graves disease: Plan: TSH 4.4 on admission and then was repeated and mildly elevated at 6 but normal FT4 Cont PTU 100 mg BID and follow as outpt when not acutely ill (11) Carotid artery disease: Plan: s/p L carotid endarterectomy in 2016 70% restenosis continue ASA, statin (12) Chronic anemia: Plan: H/H stable at 9.7, normocytic check iron studies, B12, folate in AM CBC in am (13) HTN (hypertension): Plan: holding BP meds (14) Acute systolic CHF (congestive heart failure): Plan: EF 45-50% with moderate RV systolic dysfunction as well. was diuresed in ICU with a few doses of loop diuretic now with FABIENNE gentle hydration as above holding beta valentin -add HILDA hose for peripheral edema (15) Nausea: Plan: patient with nausea throughout the day and GI intolerance. now with multiple BMs and no further nausea ronan po Plan Dispo-continued stay on PCU Discussed care with daughter 12/22 Admission and Anticipated Discharge Date Admission Date: December 19, 2021 Subjective Feeling a little better today. Notes her legs are swollen. Has some clots in urine still but making more urine than yesterday. Denies SOB, no further nausea, is eating. Moved her bowels twice today. Tele with NSR, rates 70s I discussed her care with Nephrology. Review of Systems Review of Systems: All systems reviewed & are unremarkable except as noted in HPI & below Physical Exam Physical Exam: gen - AAOx3, NAD heart - RRR, s1 s2, 2/6 systolic murmur present lungs - decreased BS bases, no rales or wheezes, no increased work of breathing abd - +BS soft NT ND ext - 1+ pitting edema L>R LE to knees Skin-no rashes Results & Data Results & Data ([facility]) Vital Signs (Past 12 Hours) Vital Signs Temp Pulse Pulse Resp BP Pulse Ox O2 Del Method 12/23/21 15:58 36.5 C 68 19 108/53 L 95 Nasal Cannula 12/23/21 15:16 68 12/23/21 11:39 36.9 C 66 18 99/59 L 91 Nasal Cannula 12/23/21 08:00 66 12/23/21 07:41 36.6 C 67 18 121/67 91 Nasal Cannula O2 Flow Rate 12/23/21 15:58 2 12/23/21 15:16 12/23/21 11:39 3 12/23/21 08:00 12/23/21 07:41 3 Laboratory Results 12/23/21 12/23/21 12/23/21 Range/Units 13:35 06:09 06:09 WBC 5.14 (4.8-10.8) K/ul RBC 3.57 L (3.93-5.22) M/uL Hgb 9.9 L (12.0-16.0) g/dl Hct 30.5 L (34.1-44.9) % MCV 85.4 (80.0-100.0) fL MCH 27.7 (25.0-34.0) pg MCHC 32.5 (32.0-36.0) g/dL RDW Std Deviation 58.1 H (36.4-46.3) fL RDW Coeff of Armani 18.5 H (11.5-14.5) % Plt Count 84 L (130-400) K/uL MPV 11.5 (9.4-12.3) fL Immature Gran % (Auto) 0.8 % Neut % (Auto) 77.0 % Lymph % (Auto) 11.7 % [place] % (Auto) 9.3 % Eos % (Auto) 1.0 % Baso % (Auto) 0.2 % Neut # (Auto) 3.96 (1.4-6.5) K/uL Lymph # (Auto) 0.60 L (1.2-3.4) K/uL [place] # (Auto) 0.48 (0.24-0.82) K/uL Eos # (Auto) 0.05 (0-0.50) K/uL Baso # (Auto) 0.01 (0-0.2) K/uL Immature Gran # (Auto) 0.04 H (0.00-0.02) K/uL Polychromasia 1+ Echinocytes 2+ Sodium 134 L (136-145) mmol/L Potassium 4.0 (3.5-5.1) mmol/L Chloride 101 (98-107) mmol/L Carbon Dioxide 23 (21-32) mmol/L Anion Gap 10 (3-11) BUN 57 H (6-23) mg/dl Creatinine 2.39 H (0.6-1.2) mg/dl Est Cr Clr Drug Dosing 16.5 ml/min Est GFR ( Amer) 21.2 ml/min Est GFR (Non-Af Amer) 18.3 ml/min BUN/Creatinine Ratio 23.8 H (10-20) Glucose 85 (70-99(Fasting)) mg/dl Calcium 7.8 L (8.5-10.1) mg/dl Magnesium 2.9 H (1.7-2.4) mg/dl Total Bilirubin 0.5 (0.2-1.0) mg/dl Direct Bilirubin 0.1 (0-0.2) mg/dl AST 116 H (13-39) U/L ALT 222 H (7-52) U/L Alkaline Phosphatase 83 (34-104) U/L Total Protein 6.0 (6.0-8.3) gm/dl Albumin 2.8 L (3.4-5.0) gm/dl TSH (0.300-4.500) uIu/ml Free T4 (0.61-1.60) ng/dl Urine Color [place] Urine Appearance Turbid A (Clear) Urine pH 5.0 (4.5-7.5) Ur Specific [place] 1.022 (1.000-1.030) Urine Protein 2+ H (Negative) Urine Glucose (UA) Negative (Negative) Urine Ketones Trace H (Negative) Urine Blood 3+ H (Negative) Urine Nitrite Negative (Negative) Urine Bilirubin Negative (Negative) Urine Urobilinogen Negative (Negative) Ur Leukocyte Esterase 3+ H (Negative) Urine WBC (Auto) >30 H (0-5) /hpf Urine RBC (Auto) >30 H (0-4) /hpf U Hyaline Cast (Auto) Not Reportable U Epithel Cells (Auto) >30 H (0-5) /lpf Urine Bacteria (Auto) Negative (Negative) Granular Casts 1-5 H (0) /lpf Urine Yeast Budding A (None Prsent) 12/23/21 Range/Units 06:09 WBC (4.8-10.8) K/ul RBC (3.93-5.22) M/uL Hgb (12.0-16.0) g/dl Hct (34.1-44.9) % MCV (80.0-100.0) fL MCH (25.0-34.0) pg MCHC (32.0-36.0) g/dL RDW Std Deviation (36.4-46.3) fL RDW Coeff of Armani (11.5-14.5) % Plt Count (130-400) K/uL MPV (9.4-12.3) fL Immature Gran % (Auto) % Neut % (Auto) % Lymph % (Auto) % [place] % (Auto) % Eos % (Auto) % Baso % (Auto) % Neut # (Auto) (1.4-6.5) K/uL Lymph # (Auto) (1.2-3.4) K/uL [place] # (Auto) (0.24-0.82) K/uL Eos # (Auto) (0-0.50) K/uL Baso # (Auto) (0-0.2) K/uL Immature Gran # (Auto) (0.00-0.02) K/uL Polychromasia Echinocytes Sodium (136-145) mmol/L Potassium (3.5-5.1) mmol/L Chloride (98-107) mmol/L Carbon Dioxide (21-32) mmol/L Anion Gap (3-11) BUN (6-23) mg/dl Creatinine (0.6-1.2) mg/dl Est Cr Clr Drug Dosing ml/min Est GFR ( Amer) ml/min Est GFR (Non-Af Amer) ml/min BUN/Creatinine Ratio (10-20) Glucose (70-99(Fasting)) mg/dl Calcium (8.5-10.1) mg/dl Magnesium (1.7-2.4) mg/dl Total Bilirubin (0.2-1.0) mg/dl Direct Bilirubin (0-0.2) mg/dl AST (13-39) U/L ALT (7-52) U/L Alkaline Phosphatase (34-104) U/L Total Protein (6.0-8.3) gm/dl Albumin (3.4-5.0) gm/dl TSH 6.090 H (0.300-4.500) uIu/ml Free T4 0.70 (0.61-1.60) ng/dl Urine Color Urine Appearance (Clear) Urine pH (4.5-7.5) Ur Specific [place] (1.000-1.030) Urine Protein (Negative) Urine Glucose (UA) (Negative) Urine Ketones (Negative) Urine Blood (Negative) Urine Nitrite (Negative) Urine Bilirubin (Negative) Urine Urobilinogen (Negative) Ur Leukocyte Esterase (Negative) Urine WBC (Auto) (0-5) /hpf Urine RBC (Auto) (0-4) /hpf U Hyaline Cast (Auto) U Epithel Cells (Auto) (0-5) /lpf Urine Bacteria (Auto) (Negative) Granular Casts (0) /lpf Urine Yeast (None Prsent) PG Care Time/CCT Total # of Minutes Spent Total Time Spent with Patient: Total time spent is greater than 50% in coordination of care (as documented) at patient's floor/unit and/or counseling patient: Coding Level of Care Code 07233 Subseq Hosp Care Lvl 3 Diagnoses Bacteremia R78.81 Acute kidney injury N17.9 Shock R57.9 UTI (urinary tract infection) N39.0 Fever R50.9 Atrial fibrillation with RVR I48.91 STEMI (ST elevation myocardial infarction) I21.3 Acute and chronic respiratory failure J96.20 Shock liver K72.00 Graves disease E05.00 Carotid artery disease I77.9 Chronic anemia D64.9 HTN (hypertension) I10 Acute systolic CHF (congestive heart failure) I50.21 Nausea R11.0
[2021-12-23] MEDS: LIDOCAINE 5% 1 PATCH TD SCH (20:17)
[2021-12-23] MEDS: FAMOTIDINE 20 MG TAB PO SCH (20:17)
[2021-12-24 07:24] LABS: Hematocrit (blood only) 30.1 % (34.1-44.9); Hemoglobin 9.9 g/dl (12.0-16.0); White Blood Count 4.46 K/ul (4.8-10.8)
[2021-12-24 07:51] LABS: Albumin Level 2.7 gm/dl (3.4-5.0); BUN Creatinine Ratio 26.2 (10-20); Basophils # (auto) 0.02 K/uL (0-0.2); Basophils % (auto) 0.4 %; Bilirubin Direct 0.2 mg/dl (0-0.2); Bilirubin,Total 0.5 mg/dl (0.2-1.0); Calcium 7.7 mg/dl (8.5-10.1); Creatinine Clr Calc Pharmacy 17.9 ml/min; Echinocytes 1+; Eosinophils # (auto) 0.06 K/uL (0-0.50); Eosinophils % (auto) 1.3 %; Est GFR (African American) 23.3 ml/min; Est GFR (Non-African American) 20.1 ml/min; Immature Granulocytes # (auto) 0.04 K/uL (0.00-0.02); Immature Granulocytes % (auto) 0.9 %; Lymphocytes # (auto) 0.75 K/uL (1.2-3.4); Lymphocytes % (auto) 16.8 %; Magnesium 2.9 mg/dl (1.7-2.4); Mean Corpuscular Hemoglobin 28.3 pg (25.0-34.0); Mean Corpuscular Hgb Conc 32.9 g/dL (32.0-36.0); Mean Platelet Volume 11.6 fL (9.4-12.3); Monocytes # (auto) 0.56 K/uL (0.24-0.82); Monocytes % (auto) 12.6 %; Neutrophils # (auto) 3.03 K/uL (1.4-6.5); Ovalocytes 1+; Platelet Count 82 K/uL (130-400); Polychromasia 1+; Potassium 3.7 mmol/L (3.5-5.1); RDW Coefficient of Variation 18.9 % (11.5-14.5); RDW Standard Deviation 59.3 fL (36.4-46.3); Total Protein 5.8 gm/dl (6.0-8.3)
[2021-12-24 08:01] LABS: Ferritin 92.8 ng/ml (8-388)
[2021-12-24] MEDS: AMIODARONE 200 MG TAB PO SCH ×2 (08:32→17:40)
[2021-12-24] MEDS: ASPIRIN 81 MG ECTAB PO SCH (08:32)
[2021-12-24] MEDS: ATORVASTATIN 40 MG TAB PO SCH (08:32)
[2021-12-24] MEDS: propylthiouraciL 50 MG TAB PO SCH ×2 (08:32→20:07)
--- NOTE | 2021-12-24 08:53 | Nephrology Progress Note ---
Date of Service December 24, 2021 Assessment & Plan (1) Acute kidney injury: Plan: * FABIENNE due to cystitis w/ severe sepsis and IV contrast administration. Clinically suspect ATN * Electrolyte balance is acceptable. UO has improved. Cr is now trending down. No acute indication for HD at this time * Volume status is challenging. Patient appears clinically dehydrated, however there is a h/o valvular heart disease, pulmonary HTN and R heart failure. CXR shows mild vascular congestion and small pleural effusions. BP is difficult to interpret due to severe PVD. Recommend hold further IVF, encourage oral hydration * Monitor PRP, UO, volume status closely (2) CKD stage G3a/A3, GFR 45-59 and albumin creatinine ratio >300 mg/g: Plan: * Stage 3 CKD w/ baseline Cr 1.0 and EGFR 49 cc/min. 12/22/21 renal US revealed R kidney 10.4 cm, L kidney 8.7 cm w/ cortical thinning. Bilateral renal cysts measuring up to 3.1 cm. No mass or hydronephrosis. CKD is on the basis of vascular disease. (3) UTI (urinary tract infection): Plan: * 12/20/21 urine cx + E. Coli * Agree w/ IV Rocephin therapy (4) COPD with emphysema: Plan: * On O2 at 3 L/min ATC chronically (5) Atrial fibrillation with RVR: (6) Pulmonary hypertension: (7) Severe tricuspid regurgitation: (8) Vasculopathy: Admission and Anticipated Discharge Date Admission Date: December 19, 2021 Subjective Mrs. Mcmahon was evaluated in her hospital room this morning. She tolerated IV hydration without dyspnea. She is breathing comfortably on O2 at 3 L/min NC. Mrs. Mcmahon reports LE swelling and is now wearing compression stockings Review of Systems Constitutional: no fever Eyes: no problem reported Ear, Nose, Mouth, Throat: no problem reported Respiratory: no cough and no dyspnea Cardiovascular: no chest pain Gastrointestinal: no abdominal pain, no vomiting and no diarrhea/loose stools Physical Exam Constitutional: + frail appearing; not in distress Eyes: PERRL, conjunctivae normal, anicteric sclerae ENMT: Mouth: + dry oral mucous membranes Respiratory: normal respiratory effort, lungs clear to auscultation Cardiovascular: Rate/Rhythm: + irregularly irregular Extremities: + edema (1+ pretibial edema (wearing compression stockings)) Gastrointestinal (Abdomen): normal bowel sounds, soft, nontender, no hepatosplenomegaly Neurologic: awake; not confused Speech / Cognition: normal cognition Results & Data ([facility]) Vital Signs (Past 12 Hours) Vital Signs Temp Pulse Pulse Resp BP Pulse Ox O2 Del Method 12/24/21 07:41 Nasal Cannula 12/24/21 07:24 36.3 C L 65 19 126/63 92 Nasal Cannula 12/24/21 07:11 62 12/24/21 03:30 36.5 C 72 18 92/52 L 92 Room Air 12/24/21 00:00 60 12/23/21 22:55 36.4 C L 67 20 88/56 L 94 Nasal Cannula 12/23/21 21:41 Nasal Cannula O2 Flow Rate 12/24/21 07:41 3 12/24/21 07:24 2 12/24/21 07:11 12/24/21 03:30 12/24/21 00:00 12/23/21 22:55 2 12/23/21 21:41 3 Laboratory Results Laboratory Tests 12/24/21 12/24/21 06:58 06:58 WBC 4.46 L Hgb 9.9 L Hct 30.1 L Plt Count 82 L Sodium 137 Potassium 3.7 Chloride 105 Carbon Dioxide 24 BUN 58 H Creatinine 2.21 H Glucose 87 Calcium 7.7 L Magnesium 2.9 H Transferrin % Sat 16 Ferritin 92.8 Albumin 2.7 L PG Care Time/CCT Total # of Minutes Spent Total Time Spent with Patient: Total time spent is greater than 50% in coordination of care (as documented) at patient's floor/unit and/or counseling patient: Coding Level of Care Code 31062 Subseq Hosp Care Lvl 3 Diagnoses Acute kidney injury N17.9 CKD stage G3a/A3, GFR 45-59 and albumin creatinine ratio >300 mg/g N18.31 UTI (urinary tract infection) N39.0 COPD with emphysema J43.9 Atrial fibrillation with RVR I48.91 Pulmonary hypertension I27.20 Severe tricuspid regurgitation I07.1 Vasculopathy I99.9
[2021-12-24] MEDS: IRON SUCROSE 200 MG in 0.9 % SODIUM CHLORIDE 100 ML IV SCH (11:05)
--- NOTE | 2021-12-24 11:25 | Cardiology Progress Note ---
Date of Service December 24, 2021 Assessment & Plan (1) ST elevation NM (STEMI): Plan (1) STEMI (ST elevation myocardial infarction) secondary to septic shock [place] [address] 1B. 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 Mild left ventricular dysfunction with an RCA wall motion abnormality (4) Paroxysmal atrial fibrillation: now in SR (5) Severe tricuspid regurgitation: (6) Right ventricular dilation: (7) Acute on chronic respiratory failure Ms. Mcmahon is maintaining a SR on telemetry with amiodarone. On Tuesday her dose of amiodarone can be reduced to 200 mg twice daily for the next month.Her anticoagulation has been held for now due to hematuria. She is not sure that she was able to feel being in afib but also notes that she was so ill at the time she may have just not noticed. Her blood pressures are stable, however, given her vasculopathy, her bps are not likely to be accurate. Her kidney function showed slight improvement today. The injury is likely a combination of dehydration and ATN. Her edema is much reduced from when I saw her in the office on 12/13. She does not appear to be fluid overloaded. Her urine output is improving. She is not having any concerning anginal pain today. Her supplemental O2 requirements are back to her baseline of 3L continuous. Admission and Anticipated Discharge Date Admission Date: December 19, 2021 Subjective Ms. Mcmahon was preparing to start PT this morning when I saw her. She continues to maintain a SR on the monitor. No chest pain or sob, though she had not yet been out of bed much. No palpitations. Her UO is improving. Review of Systems Review of Systems: All systems reviewed & are unremarkable except as noted in HPI & below Physical Exam Constitutional: WD/WN, vitals as above Respiratory: normal respiratory effort, lungs clear to auscultation Cardiovascular: Rate/Rhythm: regular rate and regular rhythm Heart Sounds: normal S1 and normal S2 Extremities: + edema (trace LE right > left ) Skin: no rashes, warm and dry Neurologic: moves all extremities and awake Psychiatric: A+Ox3, euthymic affect Results & Data ([facility]) Vital Signs (Past 12 Hours) Vital Signs Temp Pulse Pulse Resp BP Pulse Ox O2 Del Method 12/24/21 11:06 36.5 C 71 19 124/61 93 Nasal Cannula 12/24/21 07:41 Nasal Cannula 12/24/21 07:24 36.3 C L 65 19 126/63 92 Nasal Cannula 12/24/21 07:11 62 12/24/21 03:30 36.5 C 72 18 92/52 L 92 Room Air 12/24/21 00:00 60 O2 Flow Rate 12/24/21 11:06 3 12/24/21 07:41 3 12/24/21 07:24 2 12/24/21 07:11 12/24/21 03:30 12/24/21 00:00
[2021-12-24] MEDS: cefTRIAXone SODIUM 2,000 MG in DEXTROSE 5% 50 ML IV SCH (14:40)
[2021-12-24 16:02] LABS: Uric Acid, Random Urine 7 mg/dL
--- NOTE | 2021-12-24 17:53 | Hospitalist Progress Note ---
Date of Service December 24, 2021 Assessment & Plan (1) Bacteremia: Plan: With E. coli in BCxs and Ur cx, pyelo on CT abd/pel Had recent Islas in place during previous hospitalization 12/11-12/13 for CHF with septic shock/septicemia requiring vasopressors and ICU stay. 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 Does have peripheral edema but suspect intravascularly volume depleted- peripheral edema improved with HILDA hose With hypoalbuminemia, proteinuria, hematuria UA with granular casts now c/w ATN BUN and agronomy professor now improved slightly to 58/2.21 -no further IVF to be given, encourage po intake -repeat BMP in AM -Islas in place with some blood -monitor urine output -Renal US 12/22 no obstruction -consult Nephrology-appreciate recommendations -avoid nephrotoxic agents -renally dose meds (3) Shock: Plan: Initially was cardiogenic in origin at time of ER presentation in the setting of rapid a.fib. then with septic shock. as above, resolved (4) UTI (urinary tract infection): Plan: as above has a h/o bladder cancer, follows with Urology recent cystoscopy 10/2021 without tumor With gross hematuria now likely from Islas trauma. No concern for recurrent tumor due to recent cystoscopy If hematuria worsens, consider consult to Urology (5) Atrial fibrillation with RVR: Plan: Presented with afib RVR HR 120s, hypoxic, severely hypotensive SBP 50s. Etomidate given prior to shock w/ further worsening of BP and hypoxia, patient subsequently intubated. Converted to NSR. Remains in NSR Appreciate cardiology assistance. They advised IV amiodarone. Now on po amiodarone alone and plan to decrease to 200mg po bid on 12/26 x 1 month as per Cardiology Rosario started but now on hold for hematuria monitor on tele (6) STEMI (ST elevation myocardial infarction): Plan: Initially thought [place] [id number] Following intubation and cardioversion in the ER she was taken to the dental laboratory technician apprentice by Dr Granados. 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 Thus, not a true STEMI. Likely that she suffered a type 2 VT due to severe hypotension/hypoperfusion. Cont statin. Cont asa. Ultimately will resume BB down the line once shock is resolved. (7) Acute systolic CHF (congestive heart failure): Plan: EF 45-50% with moderate RV systolic dysfunction as well. was diuresed in ICU with a few doses of loop diuretic now with FABIENNE gentle hydration as above was then given holding beta valentin -added HILDA hose for peripheral edema (8) Acute and chronic respiratory failure: Plan: acute component 2nd to acute pulmonary edema can't fully rule out pneumonia but unlikely s/p intubation in the ER in the setting of septicemia and shock extubated to BIPAP, then oxymask, then NC O2 sat goal 90-92% she is on 3 L NC O2 at rest at home, 4 L with activity -is now on her baseline O2 (9) Shock liver: Plan: Abnormal LFTs highly suggestive of shock liver. LFTs continue to improve, INR had improved Cont to trend LFTs (10) Graves disease: Plan: TSH 4.4 on admission and then was repeated and mildly elevated at 6 but normal FT4 Cont PTU 100 mg BID and follow as outpt when not acutely ill (11) Carotid artery disease: Plan: s/p L carotid endarterectomy in 2016 70% restenosis continue ASA, statin (12) Chronic anemia: Plan: H/H stable at 9.7, normocytic checked iron studies and transferrin sat mildly low at 16%--> Nephrology gave IV Venofer B12, folate normal Follow CBC again given ongoing hematuria (13) HTN (hypertension): Plan: holding BP meds (14) Fever: Plan: 2nd to bacteremia/UTI. COVID/Flu/RSV PCR negative. resolved (15) Nausea: Plan: now resolved Plan Dispo-continued stay on PCU Discussed care with daughter at bedside Admission and Anticipated Discharge Date Admission Date: December 19, 2021 Subjective Pt feeling ok today, eating well. Has some blood in her urine but occurred after getting up with PT today with Islas in place. Denies CP, SOB, abd pain. Tele with NSR normal rates Review of Systems Review of Systems: All systems reviewed & are unremarkable except as noted in HPI & below Physical Exam Physical Exam: gen - AAOx3, NAD heart - RRR, s1 s2, 2/6 systolic murmur present lungs - decreased BS bases, no rales or wheezes, no increased work of breathing abd - +BS soft NT ND ext - trace edema legs to prox legs bilat, improved, with HILDA hose in place Skin-no rashes : Islas in place with samuel red urine and a clot in tubing Results & Data Results & Data ([facility]) Vital Signs (Past 12 Hours) Vital Signs Temp Pulse Pulse Resp BP Pulse Ox O2 Del Method 12/24/21 16:04 36.5 C 62 18 131/70 94 Nasal Cannula 12/24/21 15:00 65 12/24/21 14:07 93 12/24/21 11:06 36.5 C 71 19 124/61 93 Nasal Cannula 12/24/21 07:41 Nasal Cannula 12/24/21 07:24 36.3 C L 65 19 126/63 92 Nasal Cannula 12/24/21 07:11 62 O2 Flow Rate 12/24/21 16:04 2 12/24/21 15:00 12/24/21 14:07 12/24/21 11:06 3 12/24/21 07:41 3 12/24/21 07:24 2 12/24/21 07:11 Laboratory Results 12/24/21 12/24/21 12/24/21 Range/Units 06:58 06:58 06:58 WBC 4.46 L (4.8-10.8) K/ul RBC 3.50 L (3.93-5.22) M/uL Hgb 9.9 L (12.0-16.0) g/dl Hct 30.1 L (34.1-44.9) % MCV 86.0 (80.0-100.0) fL MCH 28.3 (25.0-34.0) pg MCHC 32.9 (32.0-36.0) g/dL RDW Std Deviation 59.3 H (36.4-46.3) fL RDW Coeff of Armani 18.9 H (11.5-14.5) % Plt Count 82 L (130-400) K/uL MPV 11.6 (9.4-12.3) fL Immature Gran % (Auto) 0.9 % Neut % (Auto) 68.0 % Lymph % (Auto) 16.8 % Cole % (Auto) 12.6 % Eos % (Auto) 1.3 % Baso % (Auto) 0.4 % Neut # (Auto) 3.03 (1.4-6.5) K/uL Lymph # (Auto) 0.75 L (1.2-3.4) K/uL Cole # (Auto) 0.56 (0.24-0.82) K/uL Eos # (Auto) 0.06 (0-0.50) K/uL Baso # (Auto) 0.02 (0-0.2) K/uL Immature Gran # (Auto) 0.04 H (0.00-0.02) K/uL Polychromasia 1+ Ovalocytes 1+ Echinocytes 1+ Sodium 137 (136-145) mmol/L Potassium 3.7 (3.5-5.1) mmol/L Chloride 105 (98-107) mmol/L Carbon Dioxide 24 (21-32) mmol/L Anion Gap 8 (3-11) BUN 58 H (6-23) mg/dl Creatinine 2.21 H (0.6-1.2) mg/dl Est Cr Clr Drug Dosing 17.9 ml/min Est GFR ( Amer) 23.3 ml/min Est GFR (Non-Af Amer) 20.1 ml/min BUN/Creatinine Ratio 26.2 H (10-20) Glucose 87 (70-99(Fasting)) mg/dl Calcium 7.7 L (8.5-10.1) mg/dl Magnesium 2.9 H (1.7-2.4) mg/dl Iron 38 (35-150) mcg/dl TIBC 231 L (250-450) mcg/dl Unsaturated IBC 193 (155-355) mcg/dl Transferrin % Sat 16 (15-50) % Ferritin 92.8 (8-388) ng/ml Total Bilirubin 0.5 (0.2-1.0) mg/dl Direct Bilirubin 0.2 (0-0.2) mg/dl AST 59 H (13-39) U/L ALT 151 H (7-52) U/L Alkaline Phosphatase 77 (34-104) U/L Total Protein 5.8 L (6.0-8.3) gm/dl Albumin 2.7 L (3.4-5.0) gm/dl Vitamin B12 836 (180-914) pg/ml Folate 10.38 (>5.38) ng/ml Ur Random Uric Acid mg/dL 12/22/21 Range/Units 09:30 WBC (4.8-10.8) K/ul RBC (3.93-5.22) M/uL Hgb (12.0-16.0) g/dl Hct (34.1-44.9) % MCV (80.0-100.0) fL MCH (25.0-34.0) pg MCHC (32.0-36.0) g/dL RDW Std Deviation (36.4-46.3) fL RDW Coeff of Armani (11.5-14.5) % Plt Count (130-400) K/uL MPV (9.4-12.3) fL Immature Gran % (Auto) % Neut % (Auto) % Lymph % (Auto) % Cole % (Auto) % Eos % (Auto) % Baso % (Auto) % Neut # (Auto) (1.4-6.5) K/uL Lymph # (Auto) (1.2-3.4) K/uL Cole # (Auto) (0.24-0.82) K/uL Eos # (Auto) (0-0.50) K/uL Baso # (Auto) (0-0.2) K/uL Immature Gran # (Auto) (0.00-0.02) K/uL Polychromasia Ovalocytes Echinocytes Sodium (136-145) mmol/L Potassium (3.5-5.1) mmol/L Chloride (98-107) mmol/L Carbon Dioxide (21-32) mmol/L Anion Gap (3-11) BUN (6-23) mg/dl Creatinine (0.6-1.2) mg/dl Est Cr Clr Drug Dosing ml/min Est GFR ( Amer) ml/min Est GFR (Non-Af Amer) ml/min BUN/Creatinine Ratio (10-20) Glucose (70-99(Fasting)) mg/dl Calcium (8.5-10.1) mg/dl Magnesium (1.7-2.4) mg/dl Iron (35-150) mcg/dl TIBC (250-450) mcg/dl Unsaturated IBC (155-355) mcg/dl Transferrin % Sat (15-50) % Ferritin (8-388) ng/ml Total Bilirubin (0.2-1.0) mg/dl Direct Bilirubin (0-0.2) mg/dl AST (13-39) U/L ALT (7-52) U/L Alkaline Phosphatase (34-104) U/L Total Protein (6.0-8.3) gm/dl Albumin (3.4-5.0) gm/dl Vitamin B12 (180-914) pg/ml Folate (>5.38) ng/ml Ur Random Uric Acid 7 mg/dL PG Care Time/CCT Total # of Minutes Spent Total Time Spent with Patient: Total time spent is greater than 50% in coordination of care (as documented) at patient's floor/unit and/or counseling patient: Coding Level of Care Code 43975 Subseq Hosp Care Lvl 3 Diagnoses Bacteremia R78.81 Acute kidney injury N17.9 Shock R57.9 UTI (urinary tract infection) N39.0 Atrial fibrillation with RVR I48.91 STEMI (ST elevation myocardial infarction) I21.3 Acute systolic CHF (congestive heart failure) I50.21 Acute and chronic respiratory failure J96.20 Shock liver K72.00 Graves disease E05.00 Carotid artery disease I77.9 Chronic anemia D64.9 HTN (hypertension) I10 Fever R50.9 Nausea R11.0
[2021-12-24] MEDS: FAMOTIDINE 20 MG TAB PO SCH (20:06)
[2021-12-24] MEDS: LIDOCAINE 5% 1 PATCH TD SCH (20:06)
[2021-12-24] MEDS: ACETAMINOPHEN 325 MG TAB PO PRN (20:13)
[2021-12-25 06:26] LABS: Hematocrit (blood only) 31.2 % (34.1-44.9); Hemoglobin 10.1 g/dl (12.0-16.0); Mean Platelet Volume 11.9 fL (9.4-12.3); Platelet Count 110 K/uL (130-400); White Blood Count 4.58 K/ul (4.8-10.8)
[2021-12-25 06:56] LABS: Albumin Level 2.9 gm/dl (3.4-5.0); BUN Creatinine Ratio 25.3 (10-20); Bilirubin Direct 0.1 mg/dl (0-0.2); Bilirubin,Total 0.6 mg/dl (0.2-1.0); Calcium 7.9 mg/dl (8.5-10.1); Creatinine Clr Calc Pharmacy 21.2 ml/min; Est GFR (African American) 28.7 ml/min; Est GFR (Non-African American) 24.8 ml/min; Magnesium 2.7 mg/dl (1.7-2.4); Potassium 3.7 mmol/L (3.5-5.1); Total Protein 6.1 gm/dl (6.0-8.3)
[2021-12-25 07:17] LABS: Acanthocytes 1+; Basophils # (auto) 0.02 K/uL (0-0.2); Basophils % (auto) 0.4 %; Eosinophils # (auto) 0.08 K/uL (0-0.50); Eosinophils % (auto) 1.7 %; Immature Granulocytes # (auto) 0.12 K/uL (0.00-0.02); Immature Granulocytes % (auto) 2.6 %; Lymphocytes # (auto) 0.83 K/uL (1.2-3.4); Lymphocytes % (auto) 18.1 %; Mean Corpuscular Hemoglobin 27.7 pg (25.0-34.0); Mean Corpuscular Hgb Conc 32.4 g/dL (32.0-36.0); Mean Corpuscular Volume 85.5 fL (80.0-100.0); Monocytes % (auto) 13.1 %; Neutrophils # (auto) 2.93 K/uL (1.4-6.5); Neutrophils % (auto) 64.1 %; Ovalocytes 1+; Polychromasia 1+; RDW Coefficient of Variation 18.6 % (11.5-14.5); RDW Standard Deviation 58.2 fL (36.4-46.3); Red Blood Count 3.65 M/uL (3.93-5.22)
[2021-12-25] MEDS: AMIODARONE 200 MG TAB PO SCH ×2 (07:54→17:17)
[2021-12-25] MEDS: ASPIRIN 81 MG ECTAB PO SCH (07:54)
[2021-12-25] MEDS: propylthiouraciL 50 MG TAB PO SCH ×2 (07:54→19:41)
[2021-12-25] MEDS: ATORVASTATIN 40 MG TAB PO SCH (07:55)
[2021-12-25] MEDS: IRON SUCROSE 200 MG in 0.9 % SODIUM CHLORIDE 100 ML IV SCH (07:57)
--- NOTE | 2021-12-25 08:45 | Nephrology Progress Note ---
Date of Service December 25, 2021 Assessment & Plan (1) Acute kidney injury: Plan: * FABIENNE due to cystitis w/ severe sepsis and IV contrast administration. Clinically suspect ATN * Electrolyte balance is acceptable. UO has improved. Cr is now trending down * Volume status is challenging. Patient appears clinically dehydrated, however there is a h/o valvular heart disease, pulmonary HTN and R heart failure. CXR shows mild vascular congestion and small pleural effusions. BP is difficult to interpret due to severe PVD. Recommend hold further IVF, encourage oral hydration * Monitor PRP, UO, volume status closely * OK to remove Islas catheter if patient is able to collect urine for daily measurement * No further Nephrology evaluation indicated. Will sign off. Please call if further assistance is needed (2) CKD stage G3a/A3, GFR 45-59 and albumin creatinine ratio >300 mg/g: Plan: * Stage 3 CKD w/ baseline Cr 1.0 and EGFR 49 cc/min. 12/22/21 renal US revealed R kidney 10.4 cm, L kidney 8.7 cm w/ cortical thinning. Bilateral renal cysts measuring up to 3.1 cm. No mass or hydronephrosis. CKD is on the basis of vascular disease. (3) UTI (urinary tract infection): Plan: * 12/20/21 urine cx + E. Coli * Agree w/ IV Rocephin therapy (4) COPD with emphysema: Plan: * On O2 at 3 L/min ATC chronically (5) Atrial fibrillation with RVR: (6) Pulmonary hypertension: (7) Severe tricuspid regurgitation: (8) Vasculopathy: Admission and Anticipated Discharge Date Admission Date: December 19, 2021 Subjective Mrs. Mcmahon was evaluated in her hospital room this morning. She is breathing comfortably on O2 at 3 L/min NC. Mrs. Mcmahon reports LE swelling and is now wearing compression stockings Review of Systems Constitutional: no fever Eyes: no problem reported Ear, Nose, Mouth, Throat: no problem reported Respiratory: no cough and no dyspnea Cardiovascular: no chest pain Gastrointestinal: no abdominal pain, no vomiting and no diarrhea/loose stools Physical Exam Constitutional: + frail appearing; not in distress Eyes: PERRL, conjunctivae normal, anicteric sclerae ENMT: Mouth: + dry oral mucous membranes Respiratory: normal respiratory effort, lungs clear to auscultation Cardiovascular: Rate/Rhythm: + irregularly irregular Extremities: + edema (1+ pretibial edema (wearing compression stockings)) Gastrointestinal (Abdomen): normal bowel sounds, soft, nontender, no hepatospl enomegaly Neurologic: awake; not confused Speech / Cognition: normal cognition Results & Data ([facility]) Vital Signs (Past 12 Hours) Vital Signs Temp Pulse Pulse Resp BP Pulse Ox O2 Del Method 12/25/21 07:13 Nasal Cannula 12/25/21 07:13 62 12/25/21 07:03 36.5 C 69 18 123/69 92 Nasal Cannula 12/25/21 02:51 36.4 C L 65 20 108/57 L 93 Nasal Cannula 12/24/21 23:07 36.4 C L 69 20 95/49 L 92 Nasal Cannula 12/24/21 20:57 Nasal Cannula O2 Flow Rate 12/25/21 07:13 3 12/25/21 07:13 12/25/21 07:03 3 12/25/21 02:51 3 12/24/21 23:07 3 12/24/21 20:57 3 Laboratory Results Laboratory Tests 12/25/21 12/25/21 05:32 05:32 WBC 4.58 L Hgb 10.1 L Hct 31.2 L Plt Count 110 L Sodium 139 Potassium 3.7 Chloride 107 Carbon Dioxide 25 BUN 47 H Creatinine 1.86 H D Glucose 83 Calcium 7.9 L Magnesium 2.7 H AST 40 H ALT 118 H Albumin 2.9 L PG Care Time/CCT Total # of Minutes Spent Total Time Spent with Patient: Total time spent is greater than 50% in coordination of care (as documented) at patient's floor/unit and/or counseling patient: Coding Level of Care Code 63810 Subseq Hosp Care Lvl 3 Diagnoses Acute kidney injury N17.9 CKD stage G3a/A3, GFR 45-59 and albumin creatinine ratio >300 mg/g N18.31 UTI (urinary tract infection) N39.0 COPD with emphysema J43.9 Atrial fibrillation with RVR I48.91 Pulmonary hypertension I27.20 Severe tricuspid regurgitation I07.1 Vasculopathy I99.9
--- NOTE | 2021-12-25 09:16 | Cardiology Progress Note ---
Date of Service December 25, 2021 Assessment & Plan Admission and Anticipated Discharge Date Admission Date: December 19, 2021 Subjective She feels better this morning. She denies any shortness of breath. She has any palpitations or lightheadedness or dizziness. She did feel weak yesterday when she was standing on her feet. She notes her legs just felt like wet noodles. She has any fevers or chills. She is concerned about her hematuria. Her urine output appears to be improving. she is awake alert and oriented x3; he looks much better H EENT she has very loud bilateral carotid bruits louder on the left compared to the right Lungs decreased breath sounds in the bases no rhonchi or wheezing Heart: Regular rate and rhythm with occasional ectopy she has a 2 out of 6 crescendo murmur which is early to mid peaking Extremities: No clubbing cyanosis or edema Psychiatric affect appeared appropriate (1) STEMI (ST elevation myocardial infarction) secondary to septic shock [place] [address] 1B. 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 Mild left ventricular dysfunction with an RCA wall motion abnormality (4) Paroxysmal atrial fibrillation: (5) Severe tricuspid regurgitation: (6) Right ventricular dilation: 7. Acute kidney injury secondary to hypotension and IV contrast As I discussed with nursing her blood pressures in her arms are going to be an accurate given the severity of her peripheral arterial disease. I would add about 50 mmHg to her arm pressures. As long as she is mentating and her urine output remained stable I would not be overly concerned about her blood pressure. Her urine output is improving. Her renal function is improving as well. I would encourage oral intake of fluids and allow her to equilibrate on her own. I will reduce her amiodarone to 200 mg twice daily for the next month and 200 mg thereafter. She is off anticoagulation at this point due to her hematuria. I would watch her blood pressures. I would hold off on giving her antihypertensive therapy at this point trying to increase her perfusion pressure to her kidneys. But in all likelihood her blood pressure is at least 40 mmHg higher than what were getting by arm cuff. If her renal function continues to improve over the weekend and her blood pressures are similar to this I would's initiate some of her outpatient medical regiment including her beta-blockers. Results & Data ([facility]) Vital Signs (Past 12 Hours) Vital Signs Temp Pulse Pulse Resp BP Pulse Ox O2 Del Method 12/25/21 07:13 Nasal Cannula 12/25/21 07:13 62 12/25/21 07:03 36.5 C 69 18 123/69 92 Nasal Cannula 12/25/21 02:51 36.4 C L 65 20 108/57 L 93 Nasal Cannula 12/24/21 23:07 36.4 C L 69 20 95/49 L 92 Nasal Cannula O2 Flow Rate 12/25/21 07:13 3 12/25/21 07:13 12/25/21 07:03 3 12/25/21 02:51 3 12/24/21 23:07 3
--- NOTE | 2021-12-25 12:10 | Hospitalist Progress Note ---
Date of Service December 25, 2021 Assessment & Plan (1) Bacteremia: Plan: With E. coli in BCxs and Ur cx, pyelo on CT abd/pel Had recent Islas in place during previous hospitalization 12/11-12/13 for CHF with septic shock/septicemia requiring vasopressors and ICU stay. Now weaned off vasopressors and BPs acceptable With shock liver and now FABIENNE, low urine output now improved Initially on Cefepime and then narrowed to ceftriaxone 2000mg IV once daily ( Day 3 today)-will need 10-14 days of treatment but can eventually switch to po abx Defervescing, no further fevers -repeat BCxs 12/22-NGTD- -repeat Ur cx with Yeast, not Joelle but not necessary to treat (2) Acute kidney injury: Plan: worsened since 12/22, suspect ATN from septic shock Did receive contrast dye during cardiac cath and IV loop diuretics during ICU stay Appreciate nephrology [id number]'s note indicate no need for dialysis storage garage manager peaked up to 2.4 and with low urine output on 12/22 was given 1000mL of Normosol gently on 12/22 and UOP did pick pack worker was given another 500mL Normosol on 12/23 ECHO with biventricular heart failure. Does have peripheral edema but suspect intravascularly volume depleted- peripheral edema improved with HILDA hose With hypoalbuminemia, proteinuria, hematuria UA with granular casts now c/w ATN BUN and storage garage manager now improved slightly to 58/2.21>>> 47/1.86 today. -no further IVF to be given, encourage po intake -repeat BMP in AM -Islas in place with some blood -monitor urine output -Renal US 12/22 no obstruction -avoid nephrotoxic agents -renally dose meds (3) Shock: Plan: Resolved. PT ongoing. Initially was cardiogenic in origin at time of ER presentation in the setting of rapid a.fib. then with septic shock. as above, resolved (4) UTI (urinary tract infection): Plan: as above has a h/o bladder cancer, follows with Urology recent cystoscopy 10/2021 without tumor With gross hematuria now likely from Islas trauma. No concern for recurrent tumor due to recent cystoscopy If hematuria worsens, consider consult to Urology (5) Atrial fibrillation with RVR: Plan: Presented with afib RVR HR 120s, hypoxic, severely hypotensive SBP 50s. Etomidate given prior to shock w/ further worsening of BP and hypoxia, patient subsequently intubated. Converted to NSR. Remains in NSR Appreciate cardiology assistance. They advised IV amiodarone. Now on po amiodarone alone and plan to decrease to 200mg po bid on 12/26 x 1 month as per Cardiology Rosario has been on hold for hematuria- will restart today - RN reports urine less bloody this am. monitor on tele (6) STEMI (ST elevation myocardial infarction): Plan: [place] [id number] Following intubation and cardioversion in the ER she was taken to the concrete laborer by Dr Granados. 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 Thus, not a true STEMI. Likely that she suffered a type 2 DC due to severe hypotension/hypoperfusion. Cont statin. Cont asa. Ultimately will resume BB down the line once shock is resolved. (7) Acute systolic CHF (congestive heart failure): Plan: EF 45-50% with moderate RV systolic dysfunction as well. was diuresed in ICU with a few doses of loop diuretic now with FABIENNE gentle hydration as above was then given holding beta valentin -added HILDA hose for peripheral edema (8) Acute and chronic respiratory failure: Plan: acute component 2nd to acute pulmonary edema can't fully rule out pneumonia but unlikely s/p intubation in the ER in the setting of septicemia and shock extubated to BIPAP, then oxymask, then NC O2 sat goal 90-92% she is on 3 L NC O2 at rest at home, 4 L with activity -is now on her baseline O2 (9) Shock liver: Plan: Abnormal LFTs highly suggestive of shock liver. LFTs continue to improve, 40/118 from 59/151 yesterday INR had improved 12/22 to 1.2 (10) Graves disease: Plan: TSH 4.4 on admission and then was repeated and mildly elevated at 6 but normal FT4 Cont PTU 100 mg BID and follow as outpt when not acutely ill (11) Carotid artery disease: Plan: s/p L carotid endarterectomy in 2016 70% restenosis continue ASA, statin (12) Chronic anemia: Plan: H/H stable at 9.7, normocytic checked iron studies and transferrin sat mildly low at 16%--> Nephrology gave IV Venofer B12, folate normal Follow CBC again given ongoing hematuria (13) HTN (hypertension): Plan: holding BP meds (14) Fever: Plan: 2nd to bacteremia/UTI. COVID/Flu/RSV PCR negative. resolved (15) Nausea: Plan: now resolved Plan Dispo-continued stay on PCU Discussed care with daughter at bedside Admission and Anticipated Discharge Date Admission Date: December 19, 2021 Subjective seen at 1020 h. No complaints. Denied CP/n/v/dyspnea/ abd pain. Says PT worked w her yesterday- feels weak when stands. Cheerful, playing a game on her iPad. Physical Exam Physical Exam: cheerful, playing Candy crush on her iPad, oriented to place and person, good insight, cheerful, slightly hard of hearing Head and neck moist tongue, anicteric sclerae, normal extract movements Chest clear to station CVs S1-S2. 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 bilaterally Results & Data Results & Data ([facility]) Vital Signs (Past 12 Hours) Vital Signs Temp Pulse Pulse Resp BP Pulse Ox O2 Del Method 12/25/21 07:13 Nasal Cannula 12/25/21 07:13 62 12/25/21 07:03 36.5 C 69 18 123/69 92 Nasal Cannula 12/25/21 02:51 36.4 C L 65 20 108/57 L 93 Nasal Cannula O2 Flow Rate 12/25/21 07:13 3 12/25/21 07:13 12/25/21 07:03 3 12/25/21 02:51 3 Laboratory Results Abnormal lab results 12/25/21 12/25/21 Range/Units 05:32 05:32 WBC 4.58 L (4.8-10.8) K/ul RBC 3.65 L (3.93-5.22) M/uL Hgb 10.1 L (12.0-16.0) g/dl Hct 31.2 L (34.1-44.9) % RDW Std Deviation 58.2 H (36.4-46.3) fL RDW Coeff of Armani 18.6 H (11.5-14.5) % Plt Count 110 L (130-400) K/uL Lymph # (Auto) 0.83 L (1.2-3.4) K/uL Immature Gran # (Auto) 0.12 H (0.00-0.02) K/uL BUN 47 H (6-23) mg/dl Creatinine 1.86 H D (0.6-1.2) mg/dl BUN/Creatinine Ratio 25.3 H (10-20) Calcium 7.9 L (8.5-10.1) mg/dl Magnesium 2.7 H (1.7-2.4) mg/dl AST 40 H (13-39) U/L ALT 118 H (7-52) U/L Albumin 2.9 L (3.4-5.0) gm/dl PG Care Time/CCT Total # of Minutes Spent Total Time Spent with Patient: Total time spent is greater than 50% in coordination of care (as documented) at patient's floor/unit and/or counseling patient: Coding Level of Care Code 40220 Subseq Hosp Care Lvl 3 Diagnoses Bacteremia R78.81 Acute kidney injury N17.9 Shock R57.9 UTI (urinary tract infection) N39.0 Atrial fibrillation with RVR I48.91 STEMI (ST elevation myocardial infarction) I21.3 Acute systolic CHF (congestive heart failure) I50.21 Acute and chronic respiratory failure J96.20 Shock liver K72.00 Graves disease E05.00 Carotid artery disease I77.9 Chronic anemia D64.9 HTN (hypertension) I10 Fever R50.9 Nausea R11.0
[2021-12-25] MEDS: cefTRIAXone SODIUM 2,000 MG in DEXTROSE 5% 50 ML IV SCH (14:59)
[2021-12-25] MEDS: LIDOCAINE 5% 1 PATCH TD SCH (19:41)
[2021-12-25] MEDS: FAMOTIDINE 20 MG TAB PO SCH (19:41)
[2021-12-25 20:42] LABS: Hematocrit (blood only) 32.8 % (34.1-44.9); Hemoglobin 10.3 g/dl (12.0-16.0)
[2021-12-25] MEDS: APIXABAN 2.5 MG TAB PO SCH (21:32)
[2021-12-25] MEDS: ACETAMINOPHEN 325 MG TAB PO PRN (21:35)
[2021-12-26] MEDS: IRON SUCROSE 200 MG in 0.9 % SODIUM CHLORIDE 100 ML IV SCH (09:14)
[2021-12-26] MEDS: ATORVASTATIN 40 MG TAB PO SCH (09:15)
[2021-12-26] MEDS: AMIODARONE 200 MG TAB PO SCH ×2 (09:15→16:35)
[2021-12-26] MEDS: APIXABAN 2.5 MG TAB PO SCH ×2 (09:15→20:49)
[2021-12-26] MEDS: ASPIRIN 81 MG ECTAB PO SCH (09:15)
[2021-12-26] MEDS: propylthiouraciL 50 MG TAB PO SCH ×2 (10:02→20:49)
[2021-12-26] MEDS: cefTRIAXone SODIUM 2,000 MG in DEXTROSE 5% 50 ML IV SCH (13:52)
[2021-12-26] MEDS: LIDOCAINE 5% 1 PATCH TD SCH (20:49)
[2021-12-26] MEDS: FAMOTIDINE 20 MG TAB PO SCH (20:49)
--- NOTE | 2021-12-26 22:11 | Hospitalist Progress Note ---
Date of Service December 26, 2021 Assessment & Plan (1) Bacteremia: Plan: With E. coli in BCxs and Ur cx, pyelo on CT abd/pel Had recent Islas in place during previous hospitalization 12/11-12/13 for CHF with septic shock/septicemia requiring vasopressors and ICU stay. Now weaned off vasopressors and BPs acceptable With shock liver and now FABIENNE, low urine output now improved Initially on Cefepime and then narrowed to ceftriaxone 2000mg IV once daily (abx started on 12/20)-will need 10-14 days of treatment but can eventually switch to po abx Defervescing, no further fevers -repeat BCxs 12/22-NGTD- -repeat Ur cx with Yeast, not Joelle but not necessary to treat (2) Acute kidney injury: Plan: worsened since 12/22, suspect ATN from septic shock Did receive contrast dye during cardiac cath and IV loop diuretics during ICU stay Appreciate nephrology [id number]'s note indicate no need for dialysis food safety field specialist peaked up to 2.4 and with low urine output on 12/22 was given 1000mL of Normosol gently on 12/22 and UOP did product picker was given another 500mL Normosol on 12/23 ECHO with biventricular heart failure. Does have peripheral edema but suspect intravascularly volume depleted- peripheral edema improved with HILDA hose With hypoalbuminemia, proteinuria, hematuria UA with granular casts now c/w ATN BUN and food safety field specialist now improved slightly to 58/2.21>>> 47/1.86 today. -no further IVF to be given, encourage po intake -repeat BMP in AM -Islas in place with some blood -monitor urine output -Renal US 12/22 no obstruction -avoid nephrotoxic agents -renally dose meds (3) Shock: Plan: Resolved. PT ongoing. Initially was cardiogenic in origin at time of ER presentation in the setting of rapid a.fib. then with septic shock. as above, resolved (4) UTI (urinary tract infection): Plan: as above has a h/o bladder cancer, follows with Urology recent cystoscopy 10/2021 without tumor . No concern for recurrent tumor due to recent cystoscopy If hematuria worsens, consider consult to Urology (5) Atrial fibrillation with RVR: Plan: Presented with afib RVR HR 120s, hypoxic, severely hypotensive SBP 50s. Etomidate given prior to shock w/ further worsening of BP and hypoxia, patient subsequently intubated. Converted to NSR. Remains in NSR Appreciate cardiology assistance. They advised IV amiodarone. Now on po amiodarone alone and plan to decrease to 200mg po bid on 12/26 x 1 month as per Cardiology Rosario has been on hold for hematuria- will restart today - RN reports urine less bloody this am. monitor on tele (6) STEMI (ST elevation myocardial infarction): Plan: Initially thought to [place] [id number] Following intubation and cardioversion in the ER she was taken to the microbiology lab assistant by Dr Granados. 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 Thus, not a true STEMI. Likely that she suffered a type 2 TX due to severe hypotension/hypoperfusion. Cont statin. Cont asa. Ultimately will resume BB down the line once shock is resolved. (7) Acute systolic CHF (congestive heart failure): Plan: EF 45-50% with moderate RV systolic dysfunction as well. was diuresed in ICU with a few doses of loop diuretic now with FABIENNE gentle hydration as above was then given holding beta valentin -added HILDA hose for peripheral edema (8) Acute and chronic respiratory failure: Plan: acute component 2nd to acute pulmonary edema can't fully rule out pneumonia but unlikely s/p intubation in the ER in the setting of septicemia and shock extubated to BIPAP, then oxymask, then NC O2 sat goal 90-92% she is on 3 L NC O2 at rest at home, 4 L with activity -is now on her baseline O2 (9) Shock liver: Plan: Abnormal LFTs highly suggestive of shock liver. LFTs continue to improve, 40/118 from 59/151 yesterday INR had improved 12/22 to 1.2 (10) Graves disease: Plan: TSH 4.4 on admission and then was repeated and mildly elevated at 6 but normal FT4 Cont PTU 100 mg BID and follow as outpt when not acutely ill (11) Carotid artery disease: Plan: s/p L carotid endarterectomy in 2016 70% restenosis continue ASA, statin (12) Chronic anemia: Plan: H/H stable at 9.7, normocytic checked iron studies and transferrin sat mildly low at 16%--> Nephrology gave IV Venofer B12, folate normal Follow CBC again given ongoing hematuria (13) HTN (hypertension): Plan: holding BP meds (14) Fever: Plan: 2nd to bacteremia/UTI. COVID/Flu/RSV PCR negative. resolved (15) Nausea: Plan: now resolved Plan Dispo-continued stay on PCU Admission and Anticipated Discharge Date Admission Date: December 19, 2021 Subjective Patient reports no new symptoms. Review of Systems Review of Systems: All systems reviewed & are unremarkable except as noted in HPI & below Physical Exam Physical Exam: oriented to place and person, good insight, cheerful, slightly hard of hearing Head and neck moist tongue, anicteric sclerae, normal extract movements Chest clear to station CVs S1-S2. 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 and plantar flexors and elbow flexors bilaterally Results & Data Results & Data ([facility]) Vital Signs (Past 12 Hours) Vital Signs Temp Pulse Resp BP BP Pulse Ox O2 Del Method 12/26/21 20:00 Nasal Cannula 12/26/21 19:35 36.4 C L 75 18 143/69 H 94 Nasal Cannula 12/26/21 15:32 36.6 C 71 19 125/62 95 Nasal Cannula 12/26/21 10:48 36.5 C 86 19 113/62 97 Nasal Cannula O2 Flow Rate 12/26/21 20:00 3 12/26/21 19:35 3 12/26/21 15:32 2 12/26/21 10:48 2 PG Care Time/CCT Total # of Minutes Spent Total Time Spent with Patient: Total time spent is greater than 50% in coordination of care (as documented) at patient's floor/unit and/or counseling patient: Coding Level of Care Code 78916 Subseq Hosp Care Lvl 3 Diagnoses Bacteremia R78.81 Acute kidney injury N17.9 Shock R57.9 UTI (urinary tract infection) N39.0 Atrial fibrillation with RVR I48.91 STEMI (ST elevation myocardial infarction) I21.3 Acute systolic CHF (congestive heart failure) I50.21 Acute and chronic respiratory failure J96.20 Shock liver K72.00 Graves disease E05.00 Carotid artery disease I77.9 Chronic anemia D64.9 HTN (hypertension) I10 Fever R50.9 Nausea R11.0 Time Spent (min) 35
[2021-12-27] MEDS: APIXABAN 2.5 MG TAB PO SCH (08:29)
[2021-12-27] MEDS: ATORVASTATIN 40 MG TAB PO SCH (08:29)
[2021-12-27] MEDS: ASPIRIN 81 MG ECTAB PO SCH (08:29)
[2021-12-27] MEDS: AMIODARONE 200 MG TAB PO SCH ×2 (08:29→17:21)
[2021-12-27] MEDS: propylthiouraciL 50 MG TAB PO SCH ×2 (08:30→20:36)
[2021-12-27] MEDS: IRON SUCROSE 200 MG in 0.9 % SODIUM CHLORIDE 100 ML IV SCH (08:50)
[2021-12-27 10:05] LABS: Basophils # (auto) 0.04 K/uL (0-0.2); Basophils % (auto) 0.6 %; Eosinophils # (auto) 0.14 K/uL (0-0.50); Eosinophils % (auto) 2.1 %; Hematocrit (blood only) 33.8 % (34.1-44.9); Hemoglobin 10.4 g/dl (12.0-16.0); Immature Granulocytes # (auto) 0.25 K/uL (0.00-0.02); Immature Granulocytes % (auto) 3.7 %; Lymphocytes # (auto) 1.06 K/uL (1.2-3.4); Lymphocytes % (auto) 15.7 %; Mean Corpuscular Hemoglobin 27.8 pg (25.0-34.0); Mean Corpuscular Hgb Conc 30.8 g/dL (32.0-36.0); Mean Corpuscular Volume 90.4 fL (80.0-100.0); Mean Platelet Volume 10.5 fL (9.4-12.3); Monocytes # (auto) 0.72 K/uL (0.24-0.82); Monocytes % (auto) 10.7 %; Neutrophils # (auto) 4.54 K/uL (1.4-6.5); Neutrophils % (auto) 67.2 %; Platelet Count 157 K/uL (130-400); RDW Coefficient of Variation 19.5 % (11.5-14.5); RDW Standard Deviation 63.7 fL (36.4-46.3); Red Blood Count 3.74 M/uL (3.93-5.22); White Blood Count 6.75 K/ul (4.8-10.8)
[2021-12-27 10:34] LABS: Albumin Globulin Ratio 0.9 (0.9-2); Albumin Level 3.3 gm/dl (3.4-5.0); BUN Creatinine Ratio 21.4 (10-20); Bilirubin,Total 0.7 mg/dl (0.2-1.0); Calcium 8.5 mg/dl (8.5-10.1); Creatinine Clr Calc Pharmacy 35.3 ml/min; Est GFR (Non-African American) 45.7 ml/min; Globulin 3.5 gm/dl (2.5-4.0); Potassium 3.8 mmol/L (3.5-5.1); Total Protein 6.8 gm/dl (6.0-8.3)
[2021-12-27] MEDS: cefTRIAXone SODIUM 2,000 MG in DEXTROSE 5% 50 ML IV SCH (14:34)
--- NOTE | 2021-12-27 17:17 | Hospitalist Progress Note ---
Date of Service December 27, 2021 Assessment & Plan (1) Bacteremia: Plan: With E. coli in BCxs and Ur cx, pyelo on CT abd/pel Had recent Monroy in place during previous hospitalization 12/11-12/13 for CHF with septic shock/septicemia requiring vasopressors and ICU stay. Now weaned off vasopressors and BPs acceptable With shock liver and now FABIENNE, low urine output now improved Initially on Cefepime and then narrowed to ceftriaxone 2000mg IV once daily (abx started on 12/20)-will need 14 days of treatment but can eventually switch to po abx (prolonged due to lack of source control with monroy catheter still in place. Defervescing, no further fevers -repeat BCxs 12/22-NGTD -repeat Ur cx with Yeast, not Joelle but not necessary to treat (2) UTI (urinary tract infection): Plan: As above (3) Hematuria: Plan: Navjot hematuria present in setting of Eliquis and aspirin use with recent UTI and TURBT. Hold Eliquis Consult urology regarding timing of trial without catheter (4) Acute kidney injury: Plan: worsened since 12/22, suspect ATN from septic shock Appreciate nephrology zuohma-em-fvtol's note indicate no need for dialysis land acquisition analyst peaked up to 2.4 and with low urine output on 12/22 was given 1000mL of Normosol gently on 12/22 and UOP did fruit picker was given another 500mL Normosol on 12/23 UA with granular casts c/w ATN Now resolved. Cr 1.12 close to baseline. Will likely need to start diuretics given recent admission for CHF but no current indication for this. (5) Shock: Plan: Resolved. Septic +/- cardiogenic shock (6) Atrial fibrillation with RVR: Plan: Presented with afib RVR HR 120s, hypoxic, severely hypotensive SBP 50s. Etomidate given prior to shock w/ further worsening of BP and hypoxia, patient subsequently intubated. Converted to NSR. Remains in NSR Appreciate cardiology assistance. They advised IV amiodarone. 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 was diuresed in ICU with a few doses of loop diuretic now with FABIENNE gentle hydration as above was then given restart metoprolol tartrate @ 25mg PO BID (9) Acute and chronic respiratory failure: Plan: acute component 2nd to acute pulmonary edema can't fully rule out pneumonia but unlikely s/p intubation in the ER in the setting of septicemia and shock extubated to BIPAP, then oxymask, then NC O2 sat goal 94% - due to recent demand-STEMI she is on 3 L NC O2 at rest at home, 4 L with activity - now on her baseline O2 (10) Shock liver: Plan: Resolving (11) Graves disease: Plan: TSH 4.4 on admission and then was repeated and mildly elevated at 6 but normal FT4 Cont PTU 100 mg BID and follow as outpt when not acutely ill (12) Carotid artery disease: Plan: s/p L carotid endarterectomy in 2016 70% restenosis continue ASA, statin (13) Chronic anemia: Plan: H/H stable at 10.4, normocytic checked iron studies and transferrin sat mildly low at 16%--> Nephrology gave IV Venofer 200mg for 4 days. B12, folate normal (14) HTN (hypertension): Plan: Restart metoprolol as above Plan VTE Prophylaxis - holding anticoagulation due to navjot hematuria as above Diet - heart healthy Disposition - continue on PCU Admission and Anticipated Discharge Date Admission Date: December 19, 2021 Subjective Reports feeling much improved. Still has monroy catheter in place with navjot blood. She reports someone told her this was going to be removed but never did. Otherwise feels mostly at her baseline Review of Systems Review of Systems: All systems reviewed & are unremarkable except as noted in Subjective Physical Exam Constitutional: WD/WN, vitals as above Respiratory: normal respiratory effort, lungs clear to auscultation Cardiovascular: Rate/Rhythm: regular rate and regular rhythm Heart Sounds: no murmur Extremities: + pedal edema (1+) Gastrointestinal (Abdomen): normal bowel sounds, soft, nontender, no hepatosplenomegaly Skin: no rashes, warm and dry Neurologic: moves all extremities and awake; not confused Psychiatric: A+Ox3, euthymic affect Genitourinary: no CVA tenderness Gross hematuria in monroy catheter Results & Data Results & Data ([facility]) Vital Signs (Past 12 Hours) Vital Signs Temp Pulse Resp BP Pulse Ox O2 Del Method O2 Flow Rate 12/27/21 15:22 36.5 C 75 19 135/69 95 Nasal Cannula 3 12/27/21 11:50 36.7 C 73 18 124/63 99 Nasal Cannula 3 12/27/21 08:00 Nasal Cannula 3 12/27/21 08:00 36.6 C 77 19 126/60 93 Nasal Cannula 3 PG Care Time/CCT Total # of Minutes Spent Total Time Spent with Patient: Total time spent is greater than 50% in coordination of care (as documented) at patient's floor/unit and/or counseling patient: Coding Level of Care Code 39476 Subseq Hosp Care Lvl 2 Diagnoses Bacteremia R78.81 UTI (urinary tract infection) N39.0 Hematuria R31.9 Acute kidney injury N17.9 Shock R57.9 Atrial fibrillation with RVR I48.91 STEMI (ST elevation myocardial infarction) I21.3 Acute systolic CHF (congestive heart failure) I50.21 Acute and chronic respiratory failure J96.20 Shock liver K72.00 Graves disease E05.00 Carotid artery disease I77.9 Chronic anemia D64.9 HTN (hypertension) I10
--- NOTE | 2021-12-27 19:21 | Urology Consultation ---
Date of Consultation December 27, 2021 Assessment & Plan (1) Hematuria: I suspect the patient's hematuria is likely combination of an underlying urinary tract infection in the setting of receiving anticoagulation. Noteworthy to mention the patient is also had a transurethral resection of bladder tumor undergone and she did experience hematuria following this procedure. It is possible the patient may have some bladder irritation and with her anticoagulation developed hematuria. The patient does have an E. coli urinary tract infection from urine culture on 12/20/2021. This organism is pansensitive. We therefore recommend proceeding as follows: Continue to treat the urinary tract infection with Rocephin Maintain Islas catheter for bladder drainage in the setting of hematuria Once patient's hematuria clears consideration can be given to reinstituting patient's anticoagulation and monitoring her urine output to ensure hematuria does not ensue If patient's hematuria does not recur following resumption of her anticoagulation consideration can be given to performing a voiding trial History of Present Illness Reason for Consultation: Hematuria Attending Physician: Shalom Samayoa MD History of Present Illness This is an 81-year-old female who was admitted to [facility] on 12/19/2021. Patient was admitted secondary to atrial fibrillation with rapid ventricular sponsor along with an ST segment elevation myocardial infarction. The patient required cardiac catheterization the patient did not require any stent placement during this procedure. Since being in the hospital the patient was noted to have gross hematuria develop. Is for this reason urology was consulted. It is nowhere the mention that the patient was taking Eliquis. I visited with the patient at the bedside and she does note that she has had a history of bladder cancer for which she underwent a transurethral resection of a bladder tumor in [place] [address] Chisholm. The patient did note that she did have some bleeding following this procedure. She notes in the recent several weeks she has not had any issues with hematuria and this started during this hospital admission. At the present time she denies any suprapubic discomfort, nausea or vomiting, fevers, shakes, or chills, or back or flank pain. Since admission to the hospital the patient has had labs and imaging which I independently reviewed. CT scan of the abdomen and pelvis yesterday showed the patient had moderate to severe bilateral hydroureteronephrosis. Since admission to the hospital patient has had labs and imaging which I independent reviewed. Patient did undergo a CT scan of the abdomen and pelvis. This study showed the patient was noted to have some hypoperfusion of the left mid kidney. There is no evidence of retroperitoneal hemorrhage or other acute intra-abdominal abnormalities. There was wall thickening of the bladder that was felt to represent cystitis. A renal ultrasound did show atrophic kidneys. There is no evidence of hydronephrosis. Her bladder was decompressed with a Islas catheter. Patient did have serial chest x-rays performed and on 12/19/2021 the patient was noted to have mild pulmonary edema which is subsequently cleared somewhat on subsequent chest x-ray on 12/20/2021. Most recent labs were from today and include include a CBC in which her white blood cell count was 6.7. Hemoglobin hematocrit were 10.4 and 33.8. When compared to previous values this hospitalization a significant drop was not noted. Platelet count was within normal range. Chemistry profile showed sodium and potassium were normal. Her BUN was elevated at 24 but her creatinine was normal. Previously during this ad mission the patient's creatinine was elevated with a peak level noted to be 2.39. A urinalysis was performed on 12/23/2021 that showed turbid urine with 3+ leukocyte Estrace. The specimen was negative for nitrites but did show greater than 30 white blood cells per high-power field. There is some budding yeast noted. The specimen was negative for bacteria. During this admission the patient was tested for COVID which was noted to be negative. I did discuss with the nurse at bedside and she notes that the patient's hematuria was noted in her Islas catheter at and her Islas catheter was succ essfully hand irrigated with removal of several small blood clots. Since that intervention the patient's Islas catheter has been draining. The patient denies any suprapubic discomfort at this time. At the time of my interview she was resting comfortably in bed in no distress. Allergies Allergy/AdvReac Type Severity Reaction Status Date / Time No Known Allergies Allergy Verified 10/15/21 13:44 Home Medications Medication Instructions Recorded Confirmed Type aspirin 81 mg tablet,delayed 81 mg PO QAM 02/17/18 12/19/21 History release (Hermilo Low Dose Aspirin) atorvastatin 40 mg tablet 40 mg PO PM 02/17/18 12/19/21 History metoprolol tartrate 50 mg tablet 50 mg PO BID 02/17/18 12/19/21 History propylthiouracil 50 mg tablet 100 mg PO BID 02/17/18 12/19/21 History cilostazol 50 mg tablet 50 mg PO BID 08/29/20 12/19/21 History albuterol sulfate 90 mcg/actuation 2 puff inhalation Q6H PRN 06/05/21 12/19/21 Rx aerosol inhaler Shortness Of Breath Or Wheezing #18 grams bumetanide 1 mg tablet 1 mg PO DAILY 12/11/21 12/19/21 History spironolactone 25 mg tablet 12.5 mg PO DAILY 12/11/21 12/19/21 History (Aldactone) Patient History Medical History Acute kidney injury Anxiety Bladder cancer Breast cancer Dx 7 years ago s/p right lumpectomy- RUE lumpectomy Cardiac murmur 2018 ECHO showed AV sclerosis (no ), mild to moderate mitral annular calcification and mild MS Carotid artery disease s/p left carotid endarterectomy (3 years ago/[facility]), follows with Dr. Islas CHF (congestive heart failure) 2018 Chronic anemia baseline hgb 11's per chart review Graves disease Hyperlipidemia Hypertension Lower back pain Osteoarthritis Paroxysmal atrial fibrillation Single remote episode (suspected r/t nitro patch), no known recurrences, Follows with Dr. Mcdonald Peripheral artery disease Sepsis Uterine cancer 1995 hysterectomy/radiation Surgical History History of breast biopsy Right History of cataract surgery Right History of cholecystectomy History of flexible sigmoidoscopy History of left-sided carotid endarterectomy History of total hysterectomy with bilateral salpingo-oophorectomy (BSO) Hx of lumpectomy 7 years ago Family History Other No pertinent family history Social History Smoking Status: Former smoker Tobacco Type: Cigarettes Second Hand Exposure: No; Hx Alcohol Use: Yes Alcohol type: wine Hx Substance Use: No Preferred Language: Burkinan Communication Ability: Effective 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 Required: No Beliefs That Will Affect Care: None marital status: Unknown Current Living Situation: Alone Current Living Situation Comment: WITH ( HAS ALZHEIMERS) How many Children do You have: 2 Feels Safe at Home: Yes Assistive Devices: Oxygen - Continuous Review of Systems Constitutional: no fever and no chills Eyes: + corrective lenses Ear, Nose, Mouth, Throat: no ear pain Respiratory: no cough and no dyspnea Cardiovascular: no chest pain Gastrointestinal: no abdominal pain, no nausea and no vomiting Genitourinary: as per Subjective / HPI Musculoskeletal: no back pain Integumentary: no rash Neurologic: no localized weakness Physical Exam Constitutional: WD/WN, vitals as above Eyes: no conjunctival abnormality ENMT: Ears: no hearing impairment and no external ear abnormality Neck: trachea midline Respiratory: normal respiratory effort; no respiratory distress and no labored breathing Cardiovascular: Rate/Rhythm: regular rate and regular rhythm Gastrointestinal (Abdomen): Abdomen is soft, nondistended, nonrigid, no pain with palpation Musculoskeletal: No calf tender Skin: no rashes Neurologic: moves all extremities Psychiatric: A+Ox3, euthymic affect Genitourinary: no CVA tenderness Islas catheter is in place draining bloody urine. There are small amount of blood clots in the tubing which easily drained. The Islas catheter did appear patent and draining appropriately. Results & Data ([facility]) Vital Signs (Past 12 Hours) Vital Signs Temp Pulse Resp BP BP Pulse Ox O2 Del Method 12/27/21 19:17 36.5 C 75 18 151/65 H 95 Nasal Cannula 12/27/21 15:22 36.5 C 75 19 135/69 95 Nasal Cannula 12/27/21 11:50 36.7 C 73 18 124/63 99 Nasal Cannula 12/27/21 08:00 Nasal Cannula 12/27/21 08:00 36.6 C 77 19 126/60 93 Nasal Cannula O2 Flow Rate 12/27/21 19:17 2 12/27/21 15:22 3 12/27/21 11:50 3 12/27/21 08:00 3 12/27/21 08:00 3 PG Care Time/CCT Total # of Minutes Spent Total Time Spent with Patient: Total time spent is greater than 50% in coordination of care (as documented) at patient's floor/unit and/or counseling patient: Coding Level of Care Code 51260 Inpt Consult Level 5 Diagnoses Hematuria R31.9
[2021-12-27] MEDS: FAMOTIDINE 20 MG TAB PO SCH (20:36)
[2021-12-27] MEDS: LIDOCAINE 5% 1 PATCH TD SCH (20:36)
[2021-12-28] MEDS: METOPROLOL TARTRATE 25 MG TAB PO SCH ×3 (00:37→20:20)
[2021-12-28] MEDS: ATORVASTATIN 40 MG TAB PO SCH (08:11)
[2021-12-28] MEDS: propylthiouraciL 50 MG TAB PO SCH ×2 (08:11→21:04)
[2021-12-28] MEDS: ASPIRIN 81 MG ECTAB PO SCH (08:11)
[2021-12-28] MEDS: AMIODARONE 200 MG TAB PO SCH ×2 (08:12→17:34)
[2021-12-28] MEDS ORDERED: SODIUM CHLORIDE 0.65% NA SOLN 45 ML (OCEAN) ONE (08:15)
--- NOTE | 2021-12-28 08:35 | Cardiology Progress Note ---
Date of Service December 28, 2021 Assessment & Plan (1) ST elevation IL (STEMI): Plan (1) STEMI (ST elevation myocardial infarction) secondary to septic shock [place] [address] 1B. 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 Mild left ventricular dysfunction with an RCA wall motion abnormality (4) Paroxysmal atrial fibrillation: (5) Severe tricuspid regurgitation: (6) Right ventricular dilation: 7. Acute kidney injury secondary to hypotension and IV contrast Ms. Mcmahon is maintaining a SR with 200 mg of amiodarone bid. Her a nticoagulation has been held again due to hematuria. This can be resumed when ok with urology who is on board. Given her vasculopathy, her blood pressure is likely significantly higher and her blood pressures are inaccurate. She is up 6 kg from admission. Her creatinine is back to normal. I will resume her bumetanide at half the dose 0.5 mg. Her metoprolol has been resumed. She is not having any concerning anginal symptoms. She continues with aspirin and atorvastatin. Admission and Anticipated Discharge Date Admission Date: December 19, 2021 Subjective Ms. Mcmahon appears comfortable this morning. She denies sob, chest pain or palpitations. She is maintaining a SR on the monitor with PACs. Review of Systems Review of Systems: All systems reviewed & are unremarkable except as noted in HPI & below Physical Exam Constitutional: WD/WN, vitals as above Respiratory: normal respiratory effort, lungs clear to auscultation Cardiovascular: Rate/Rhythm: regular rate and regular rhythm Heart Sounds: normal S1 and normal S2 Extremities: + edema (trace LE right > left ) Skin: no rashes, warm and dry Neurologic: moves all extremities and awake Psychiatric: A+Ox3, euthymic affect Results & Data ([place]) Vital Signs (Past 12 Hours) Vital Signs Temp Pulse Resp BP Pulse Ox O2 Del Method O2 Flow Rate 12/28/21 07:51 36.6 C 71 19 141/59 H 94 Nasal Cannula 2 12/28/21 03:28 36.4 C L 59 L 18 111/48 L 95 Nasal Cannula 2 12/27/21 23:13 36.6 C 73 18 128/64 97 Nasal Cannula 2
--- NOTE | 2021-12-28 09:22 | Urology Progress Note ---
Date of Service December 28, 2021 Assessment & Plan (1) Hematuria: Plan: Hematuria appears to be clearing She is afebrile and hemodynamically stable Maintain Islas catheter at this time and continue to monitor If urine remains clear throughout the day, then it is reasonable to resume anticoagulation and monitor response Can consider voiding trial if urine continues to remain clear after resuming anticoagulation Continue supportive care, antibiotics and management per primary team will continue to follow Admission and Anticipated Discharge Date Admission Date: December 19, 2021 Supervising Physician Co-Signing Physician Notes I have discussed Ms. Mcmahon's case with TRINO Riley and agree with the above documentation. Hematuria is clearing. If urine remains clear, should be appropriate to restart anticoagulation. With her history of TURBT, she will likely require repeat cystoscopy for further evaluation of the bladder, however this can be done as an outpatient. Subjective Patient seen and examined at bedside. She is awake and resting in bed. No acute issues overnight. Islas catheter patent and draining clear yellow urine with maroon sediment and a few tiny clots easily passing through tubing. No abdominal or flank pain. No nausea or vomiting. No fever or chills. Review of Systems Constitutional: as per Subjective / HPI Gastrointestinal: as per Subjective / HPI Genitourinary: as per Subjective / HPI Physical Exam Constitutional: well developed and well nourished; no acute distress and not ill appearing Respiratory: normal respiratory effort and able to speak in complete se ntences; no respiratory distress and no labored breathing Cardiovascular: Extremities: + edema (trace bilateral lower extremities) Gastrointestinal (Abdomen): Inspection/Auscultation: abdomen normal to inspection; abdomen not distended Musculoskeletal: Head/Neck/Chest: normocephalic and head atraumatic Neurologic: moves all extremities and awake Psychiatric: Orientation: alert and oriented x 3 Genitourinary: Islas catheter patent and draining clear yellow urine with maroon sediment and a few tiny clots easily passing through tubing. Results & Data ([facility]) Vital Signs (Past 12 Hours) Vital Signs Temp Pulse Resp BP Pulse Ox O2 Del Method O2 Flow Rate 12/28/21 07:51 36.6 C 71 19 141/59 H 94 Nasal Cannula 2 12/28/21 03:28 36.4 C L 59 L 18 111/48 L 95 Nasal Cannula 2 12/27/21 23:13 36.6 C 73 18 128/64 97 Nasal Cannula 2 PG Care Time/CCT Total # of Minutes Spent Total Time Spent with Patient: Total time spent is greater than 50% in coordination of care (as documented) at patient's floor/unit and/or counseling patient: Coding Level of Care Code 20115 Subseq Hosp Care Lvl 2 Diagnoses Hematuria R31.9
[2021-12-28] MEDS: BUMETANIDE 1 MG TAB PO SCH (10:42)
[2021-12-28] MEDS: cefTRIAXone SODIUM 2,000 MG in DEXTROSE 5% 50 ML IV SCH (13:32)
--- NOTE | 2021-12-28 15:42 | Hospitalist Progress Note ---
Date of Service December 28, 2021 Assessment & Plan (1) Bacteremia: Plan: With E. coli in BCxs and Ur cx, pyelo on CT abd/pel Had recent Monroy in place during previous hospitalization 12/11-12/13 for CHF with septic shock/septicemia requiring vasopressors and ICU stay. Now weaned off vasopressors and BPs acceptable With shock liver and now FABIENNE, low urine output now improved Initially on Cefepime and then narrowed to ceftriaxone 2000mg IV once daily (abx started on 12/20)- will need 14 days of treatment but can eventually switch to po abx (prolonged due to lack of source control with monroy catheter still in place). Defervescing, no further fevers -repeat BCxs 12/22-NGTD -repeat Ur cx with Yeast, not Joelle but not necessary to treat (2) UTI (urinary tract infection): Plan: As above (3) Hematuria: Plan: Eldon hematuria present in setting of Eliquis and aspirin use with recent UTI and TURBT. Hold Eliquis. Aspirin switched to q48h. Appreciate urology consult. Hematuria recurred after patient had physical therapy. Also having to flush catheter still therefore not ready to be removed today. (4) Acute kidney injury: Plan: Now resolved. 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 Cr 1.12 close to baseline. Will likely need to start diuretics given recent admission for CHF but no current indication for this. (5) Shock: Plan: Resolved. Septic +/- cardiogenic shock (6) Atrial fibrillation with RVR: Plan: Presented with afib RVR HR 120s, hypoxic, severely hypotensive SBP 50s. Etomidate given prior to shock w/ further worsening of BP and hypoxia, patient subsequently intubated. Converted to NSR. Remains in NSR Appreciate cardiology assistance. They advised IV amiodarone. Now on po amiodarone alone and plan to decrease to 200mg po bid on 12/26 x 1 month as per Cardiology Eliquis back on hold due to eldon hematuria monitor on tele (7) STEMI (ST elevation myocardial infarction): Plan: Secondary to septic shock [place] [address] in setting of chronic total occlusion of the proximal right coronary artery without significant CAD involving the left circulation (8) Acute systolic CHF (congestive heart failure): Plan: EF 45-50% with moderate RV systolic dysfunction as well. was diuresed in ICU with a few doses of loop diuretic now with FABIENNE gentle hydration as above was then given restarted metoprolol tartrate @ 25mg PO BID Bumex added by cardiology today at half her usual dose (9) Acute and chronic respiratory failure: Plan: Now resolved acute component 2nd to acute pulmonary edema s/p intubation in the ER in the setting of septicemia and shock extubated to BIPAP, then oxymask, then NC O2 sat goal 94% - due to recent demand-STEMI she is on 3 L NC O2 at rest at home, 4 L with activity - now on her baseline O2 (10) Shock liver: Plan: Resolving (11) Graves disease: Plan: TSH 4.4 on admission and then was repeated and mildly elevated at 6 but normal FT4 Cont PTU 100 mg BID and follow as outpt when not acutely ill (12) Carotid artery disease: Plan: s/p L carotid endarterectomy in 2016 70% restenosis continue ASA, statin (13) Chronic anemia: Plan: H/H stable at 10.4, normocytic checked iron studies and transferrin sat mildly low at 16%--> Nephrology gave IV Venofer 200mg for 4 days. B12, folate normal (14) HTN (hypertension): Plan: Restarted metoprolol as above Cardiology added Bumex - will monitor renal function on this Plan VTE Prophylaxis - holding anticoagulation due to eldon hematuria as above Diet - heart healthy Disposition -stable for transfer to [facility] telemetry Admission and Anticipated Discharge Date Admission Date: December 19, 2021 Subjective Still having to flush the Monroy catheter to stop it blocking. Apparently urine was clearing up this morning however grossly bloody after physical therapy. Eliquis held since December 27. Discussed care with Leann Espinosa from cardiology - to consider also holding aspirin. Suggested aspirin every other day. Bumex added by cardiology today. Review of Systems Review of Systems: All systems reviewed & are unremarkable except as noted in Subjective Physical Exam Constitutional: WD/WN, vitals as above Respiratory: normal respiratory effort, lungs clear to auscultation Cardiovascular: Rate/Rhythm: regular rate and regular rhythm Heart Sounds: no murmur Extremities: + pedal edema (1+) Gastrointestinal (Abdomen): normal bowel sounds, soft, nontender, no hepatosplenomegaly Skin: no rashes, warm and dry Neurologic: moves all extremities and awake; not confused Psychiatric: A+Ox3, euthymic affect Genitourinary: no CVA tenderness Eldon blood in Monroy catheter Results & Data Results & Data ([facility]) Vital Signs (Past 12 Hours) Vital Signs Temp Pulse Pulse Resp BP Pulse Ox O2 Del Method 12/28/21 15:18 36.9 C 67 18 123/66 94 Nasal Cannula 12/28/21 08:00 63 12/28/21 11:00 36.9 C 60 17 101/52 L 96 Room Air 12/28/21 07:34 Nasal Cannula 12/28/21 07:51 36.6 C 71 19 141/59 H 94 Nasal Cannula O2 Flow Rate 12/28/21 15:18 2 12/28/21 08:00 12/28/21 11:00 12/28/21 07:34 2 12/28/21 07:51 2 PG Care Time/CCT Total # of Minutes Spent Total Time Spent with Patient: Total time spent is greater than 50% in coordination of care (as documented) at patient's floor/unit and/or counseling patient: Coding Level of Care Code 92355 Subseq Hosp Care Lvl 2 Diagnoses Bacteremia R78.81 UTI (urinary tract infection) N39.0 Hematuria R31.9 Acute kidney injury N17.9 Shock R57.9 Atrial fibrillation with RVR I48.91 STEMI (ST elevation myocardial infarction) I21.3 Acute systolic CHF (congestive heart failure) I50.21 Acute and chronic respiratory failure J96.20 Shock liver K72.00 Graves disease E05.00 Carotid artery disease I77.9 Chronic anemia D64.9 HTN (hypertension) I10
[2021-12-28] MEDS: LIDOCAINE 5% 1 PATCH TD SCH (20:20)
[2021-12-28] MEDS: FAMOTIDINE 20 MG TAB PO SCH (20:20)
[2021-12-28] MEDS: MELATONIN 3 MG TAB PO PRN (21:05)
[2021-12-29 07:09] LABS: Basophils # (auto) 0.03 K/uL (0-0.2); Basophils % (auto) 0.5 %; Eosinophils # (auto) 0.16 K/uL (0-0.50); Eosinophils % (auto) 2.6 %; Hematocrit (blood only) 29.6 % (34.1-44.9); Immature Granulocytes # (auto) 0.12 K/uL (0.00-0.02); Immature Granulocytes % (auto) 1.9 %; Lymphocytes # (auto) 1.04 K/uL (1.2-3.4); Lymphocytes % (auto) 16.7 %; Mean Corpuscular Hemoglobin 27.8 pg (25.0-34.0); Mean Corpuscular Hgb Conc 30.4 g/dL (32.0-36.0); Mean Corpuscular Volume 91.4 fL (80.0-100.0); Mean Platelet Volume 10.7 fL (9.4-12.3); Monocytes # (auto) 0.69 K/uL (0.24-0.82); Monocytes % (auto) 11.1 %; Neutrophils # (auto) 4.19 K/uL (1.4-6.5); Neutrophils % (auto) 67.2 %; Platelet Count 163 K/uL (130-400); RDW Coefficient of Variation 19.9 % (11.5-14.5); RDW Standard Deviation 65.9 fL (36.4-46.3); Red Blood Count 3.24 M/uL (3.93-5.22); White Blood Count 6.23 K/ul (4.8-10.8)
[2021-12-29 07:34] LABS: Albumin Globulin Ratio 0.9 (0.9-2); Albumin Level 2.8 gm/dl (3.4-5.0); BUN Creatinine Ratio 16.4 (10-20); Bilirubin,Total 0.6 mg/dl (0.2-1.0); Creatinine Clr Calc Pharmacy 34.3 ml/min; Est GFR (African American) 50.8 ml/min; Est GFR (Non-African American) 43.8 ml/min; Globulin 3.1 gm/dl (2.5-4.0); Potassium 3.9 mmol/L (3.5-5.1); Total Protein 5.9 gm/dl (6.0-8.3)
--- NOTE | 2021-12-29 08:09 | Urology Progress Note ---
Date of Service December 29, 2021 Assessment & Plan (1) Hematuria: Plan: Pt is afebrile and hemodynamically stable Hgb 9.0 today - continue to trend Islas patent and draining clear light red/maroon urine this AM Per patient, urine turned darker after my visit yesterday and is now starting to improve again Islas required manual irrigation x 2 yesterday Maintain Islas catheter at this time and continue to monitor It is reasonable to restart anticoagulation and monitor response Islas may be causing irritation and bleeding Can plan for voiding trial prior to discharge Continue supportive care, antibiotics and management per primary team With her history of TURBT, she will likely require repeat cystoscopy outpatient for further evaluation of the bladder will continue to follow Admission and Anticipated Discharge Date Admission Date: December 19, 2021 Subjective Patient seen and examined at bedside this AM. She is awake and resting in bed. No acute issues overnight. Islas catheter patent and draining clear light red/maroon urine with a few tiny clots easily passing through tubing. She reports her urine changed back to red yesterday after I saw her. Islas needed irrigation x 2 yesterday. No abdominal or flank pain. No nausea or vomiting. No fever or chills. Review of Systems Constitutional: as per Subjective / HPI Gastrointestinal: as per Subjective / HPI Genitourinary: as per Subjective / HPI Physical Exam Constitutional: well developed and well nourished; no acute distress and not ill appearing Respiratory: normal respiratory effort and able to speak in complete sentences; no respiratory distress and no labored breathing Cardiovascular: Extremities: + edema (trace bilateral lower extremities) Gastrointestinal (Abdomen): Inspection/Auscultation: abdomen normal to inspection; abdomen not distended Musculoskeletal: Head/Neck/Chest: normocephalic and head atraumatic Neurologic: moves all extremities and awake Psychiatric: Orientation: alert and oriented x 3 Genitourinary: Islas catheter patent and draining clear light red/maroon urine with a few tiny clots easily passing through tubing. Results & Data ([facility]) Vital Signs (Past 12 Hours) Vital Signs Temp Pulse Pulse Pulse Resp BP Pulse Ox 12/29/21 07:33 36.3 C L 67 16 113/59 L 94 12/29/21 02:33 36.4 C L 62 18 102/46 L 95 12/28/21 22:19 56 L 12/28/21 23:00 36.5 C 59 L 18 96/59 L 92 12/28/21 20:15 12/28/21 20:01 36.7 C 69 18 118/65 95 O2 Del Method O2 Flow Rate 12/29/21 07:33 Nasal Cannula 2 12/29/21 02:33 Nasal Cannula 2 12/28/21 22:19 12/28/21 23:00 Nasal Cannula 12/28/21 20:15 Nasal Cannula 2 12/28/21 20:01 Nasal Cannula 2 PG Care Time/CCT Total # of Minutes Spent Total Time Spent with Patient: Total time spent is greater than 50% in coordination of care (as documented) at patient's floor/unit and/or counseling patient: Coding Level of Care Code 62722 Subseq Hosp Care Lvl 2 Diagnoses Hematuria R31.9
[2021-12-29] MEDS: AMIODARONE 200 MG TAB PO SCH ×2 (08:43→16:41)
[2021-12-29] MEDS: METOPROLOL TARTRATE 25 MG TAB PO SCH ×2 (08:43→20:31)
[2021-12-29] MEDS: propylthiouraciL 50 MG TAB PO SCH ×2 (08:43→20:31)
[2021-12-29] MEDS: ATORVASTATIN 40 MG TAB PO SCH (08:43)
[2021-12-29] MEDS: BUMETANIDE 1 MG TAB PO SCH (08:44)
--- NOTE | 2021-12-29 09:44 | Cardiology Progress Note ---
Date of Service December 29, 2021 Assessment & Plan (1) ST elevation [place] (STEMI): Plan (1) STEMI (ST elevation myocardial infarction) secondary to septic shock [place] [address] 1B. 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 Mild left ventricular dysfunction with an RCA wall motion abnormality (4) Paroxysmal atrial fibrillation: (5) Severe tricuspid regurgitation: (6) Right ventricular dilation: 7. Acute kidney injury secondary to hypotension and IV contrast Ms. Mcmahon is maintaining a SR with 200 mg of amiodarone bid, however she did have a few episodes of Afib over the weekend. Her anticoagulation has been held due to hematuria. Per urology note today, Ms. Mcmahon can be restarted on Eliquis at this point. Given her vasculopathy, her blood pressure is likely significantly higher and her blood pressures are inaccurate. Her bumetanide was resumed at half the dose yesterday and she is tolerating well. Her spironolactone can be restarted. Her creatinine is back to normal. She is not having any concerning anginal symptoms. She continues with aspirin and atorvastatin. Admission and Anticipated Discharge Date Admission Date: December 19, 2021 Subjective Ms. Mcmahon is comfortable. She denies and chest pain or sob. No palpitations or lightheadedness. Review of Systems Review of Systems: All systems reviewed & are unremarkable except as noted in HPI & below Physical Exam Constitutional: WD/WN, vitals as above Respiratory: normal respiratory effort, lungs clear to auscultation Cardiovascular: Rate/Rhythm: regular rate and regular rhythm Heart Sounds: normal S1 and normal S2 Extremities: + edema (trace LE right > left ) Skin: no rashes, warm and dry Neurologic: moves all extremities and awake Psychiatric: A+Ox3, euthymic affect Results & Data ([facility]) Vital Signs (Past 12 Hours) Vital Signs Temp Pulse Pulse Resp BP Pulse Ox O2 Del Method 12/29/21 09:14 61 12/29/21 07:33 36.3 C L 67 16 113/59 L 94 Nasal Cannula 12/29/21 02:33 36.4 C L 62 18 102/46 L 95 Nasal Cannula 12/28/21 22:19 56 L 12/28/21 23:00 36.5 C 59 L 18 96/59 L 92 Nasal Cannula O2 Flow Rate 12/29/21 09:14 12/29/21 07:33 2 12/29/21 02:33 2 12/28/21 22:19 12/28/21 23:00
[2021-12-29] MEDS: ASPIRIN 81 MG ECTAB PO SCH (12:31)
[2021-12-29] MEDS: cefTRIAXone SODIUM 2,000 MG in DEXTROSE 5% 50 ML IV SCH (13:46)
--- NOTE | 2021-12-29 14:38 | Hospitalist Progress Note ---
Date of Service December 29, 2021 Assessment & Plan (1) Bacteremia: Plan: With E. coli in BCxs and Ur cx, pyelo on CT abd/pel Had recent Monroy in place during previous hospitalization 12/11-12/13 for CHF with septic shock/septicemia requiring vasopressors and ICU stay. Now weaned off vasopressors and BPs acceptable With shock liver and now FABIENNE, low urine output now improved Initially on Cefepime and then narrowed to ceftriaxone 2000mg IV once daily (abx started on 12/20)- will need 14 days of treatment but can eventually switch to po abx (prolonged due to lack of source control with monroy catheter still in place). Defervescing, no further fevers -repeat BCxs 12/22-NGTD -repeat Ur cx with Yeast, not Joelle but not necessary to treat (2) UTI (urinary tract infection): Plan: As above (3) Hematuria: Plan: Navjot hematuria present in setting of Eliquis and aspirin use with recent UTI and TURBT. Hold Eliquis Hematuria recurs after physical therapy suggesting a trauma element therefore will remove monroy catheter now while urine is clear as likely making hematuria worse. Will restart aspirin at 81 mg PO daily as hematuria appears trauma related. (4) Acute kidney injury: Plan: Now resolved. 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 Cr 1.12 close to baseline. Restarted on bumex and spironolactone per cardiology. (5) Shock: Plan: Resolved. Septic +/- cardiogenic shock (6) Atrial fibrillation with RVR: Plan: Presented with afib RVR HR 120s, hypoxic, severely hypotensive SBP 50s. Etomidate given prior to shock w/ further worsening of BP and hypoxia, patient subsequently intubated. Converted to NSR. Remains in NSR Appreciate cardiology assistance. Now on po amiodarone alone and plan to decrease to 200mg po bid on 12/26 x 1 month as per Cardiology Eliquis back on hold due to navjot hematuria monitor on tele (7) STEMI (ST elevation myocardial infarction): Plan: Secondary to septic [place] [address] in setting of chronic total occlusion of the proximal right coronary artery without significant CAD involving the left circulation (8) Acute systolic CHF (congestive heart failure): Plan: EF 45-50% with moderate RV systolic dysfunction as well. was diuresed in ICU with a few doses of loop diuretic now with FABIENNE gentle hydration as above was then given restarted metoprolol tartrate @ 25mg PO BID Bumex added by cardiology today at half her usual dose, spironolactone use (9) Acute and chronic respiratory failure: Plan: Now resolved acute component 2nd to acute pulmonary edema s/p intubation in the ER in the setting of septicemia and shock extubated to BIPAP, then oxymask, then NC O2 sat goal 94% - due to recent demand-STEMI she is on 3 L NC O2 at rest at home, 4 L with activity - now on her baseline O2 (10) Shock liver: Plan: Resolving (11) Graves disease: Plan: TSH 4.4 on admission and then was repeated and mildly elevated at 6 but normal FT4 Cont PTU 100 mg BID and follow as outpt when not acutely ill (12) Carotid artery disease: Plan: s/p L carotid endarterectomy in 2016 70% restenosis continue ASA, statin (13) Chronic anemia: Plan: H/H stable at 10.4, normocytic checked iron studies and transferrin sat mildly low at 16%--> Nephrology gave IV Venofer 200mg for 4 days. B12, folate normal (14) HTN (hypertension): Plan: Restarted metoprolol as above Cardiology added Bumex - will monitor renal function on this Plan VTE Prophylaxis - holding anticoagulation due to navjot hematuria as above Diet - heart healthy Disposition - stable for transfer to [facility] telemetry Admission and Anticipated Discharge Date Admission Date: December 19, 2021 Subjective Hematuria resolved this morning. She refused physical therapy as she is concerned every time she does this today hematuria returns which appears to be consistent. No fever, chills, shortness of breath, chest pain. Review of Systems Review of Systems: All systems reviewed & are unremarkable except as noted in Subjective Physical Exam Constitutional: WD/WN, vitals as above Respiratory: normal respiratory effort, lungs clear to auscultation Cardiovascular: Rate/Rhythm: regular rate and regular rhythm Heart Sounds: no murmur Extremities: + pedal edema (1+) Gastrointestinal (Abdomen): normal bowel sounds, soft, nontender, no hepatosplenomegaly Skin: no rashes, warm and dry Neurologic: moves all extremities and awake; not confused Psychiatric: A+Ox3, euthymic affect Genitourinary: no CVA tenderness Results & Data Results & Data ([facility]) Vital Signs (Past 12 Hours) Vital Signs Temp Pulse Pulse Resp BP Pulse Ox O2 Del Method 12/29/21 12:19 36.4 C L 65 16 135/67 92 Nasal Cannula 12/29/21 08:45 Nasal Cannula 12/29/21 09:14 61 12/29/21 07:33 36.3 C L 67 16 113/59 L 94 Nasal Cannula O2 Flow Rate 12/29/21 12:19 2 12/29/21 08:45 2 12/29/21 09:14 12/29/21 07:33 2 PG Care Time/CCT Total # of Minutes Spent Total Time Spent with Patient: Total time spent is greater than 50% in coordination of care (as documented) at patient's floor/unit and/or counseling patient: Coding Level of Care Code 50164 Subseq Hosp Care Lvl 2 Diagnoses Bacteremia R78.81 UTI (urinary tract infection) N39.0 Hematuria R31.9 Acute kidney injury N17.9 Shock R57.9 Atrial fibrillation with RVR I48.91 STEMI (ST elevation myocardial infarction) I21.3 Acute systolic CHF (congestive heart failure) I50.21 Acute and chronic respiratory failure J96.20 Shock liver K72.00 Graves disease E05.00 Carotid artery disease I77.9 Chronic anemia D64.9 HTN (hypertension) I10
[2021-12-29] MEDS: LIDOCAINE 5% 1 PATCH TD SCH (20:31)
[2021-12-29] MEDS: MELATONIN 3 MG TAB PO PRN (20:31)
[2021-12-29] MEDS: FAMOTIDINE 20 MG TAB PO SCH (20:31)
--- NOTE | 2021-12-30 08:28 | Cardiology Progress Note ---
Date of Service December 30, 2021 Assessment & Plan Admission and Anticipated Discharge Date Admission Date: December 19, 2021 Subjective She feels better this morning. Her Islas catheter has been removed. She is had no further hematuria. She denies any shortness of breath. She denies any palpitations lightheadedness or dizziness. She does want to go home. She has any chest pain or chest pressure. Results & Data ([facility]) Vital Signs (Past 12 Hours) Vital Signs Temp Pulse Pulse Resp BP BP Pulse Ox 12/30/21 08:02 36.7 C 62 17 135/67 94 12/30/21 07:29 12/30/21 07:00 63 12/30/21 04:33 36.7 C 58 L 16 124/66 98 12/29/21 22:34 36.8 C 58 L 16 103/54 L 93 12/29/21 23:12 60 12/29/21 21:47 O2 Del Method O2 Flow Rate 12/30/21 08:02 Nasal Cannula 2 12/30/21 07:29 Nasal Cannula 2 12/30/21 07:00 12/30/21 04:33 Nasal Cannula 2 12/29/21 22:34 Nasal Cannula 2 12/29/21 23:12 12/29/21 21:47 Nasal Cannula 2 she is awake alert and oriented x3; he looks much better H EENT she has very loud bilateral carotid bruits louder on the left compared to the right Lungs decreased breath sounds in the bases no rhonchi or wheezing Heart: Regular rate and rhythm with occasional ectopy she has a 2 out of 6 crescendo murmur which is early to mid peaking Extremities: No clubbing cyanosis or edema Psychiatric affect appeared appropriate (1) STEMI (ST elevation myocardial infarction) secondary to septic shock [place] [address] 1B. 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 Mild left ventricular dysfunction with an RCA wall motion abnormality (4) Paroxysmal atrial fibrillation: (5) Severe tricuspid regurgitation: (6) Right ventricular dilation: 7. Acute kidney injury secondary to hypotension and IV contrast Her renal function has normalized. Her hematuria is now resolved. She did have some brief episodes of A. fib over the weekend that were asymptomatic. For now I would discharged her on amiodarone 200 mg twice daily but I would not consider anticoagulation at this point. As an outpatient we can reassess initiation of anticoagulation. In the past she also had bleeding while on anticoagulation when her bladder cancer was first diagnosed. At this point her blood pressures are relatively well controlled. She is back on her normal dose of spironolactone. I am okay with increasing her Bumex back to 4 mg daily in order to avoid heart failure symptoms which she has had in the past. She can be discharged on the lower dose of metoprolol we can adjust this as an outpatient. We will arrange for follow-up in the office in 10 days or so. If she is able to ambulate in the hallway and is safe to be discharged there is no reason from my standpoint that she cannot be.
[2021-12-30] MEDS: propylthiouraciL 50 MG TAB PO SCH (08:39)
[2021-12-30] MEDS: AMIODARONE 200 MG TAB PO SCH (08:39)
[2021-12-30] MEDS: METOPROLOL TARTRATE 25 MG TAB PO SCH (08:39)
[2021-12-30] MEDS: BUMETANIDE 1 MG TAB PO SCH (08:39)
[2021-12-30] MEDS: ASPIRIN 81 MG ECTAB PO SCH (08:39)
[2021-12-30] MEDS: ATORVASTATIN 40 MG TAB PO SCH (08:40)
[2021-12-30] MEDS ORDERED: SPIRONOLACTONE 12.5 MG TAB PO SCH (09:00)
[2021-12-30] MEDS ORDERED: ASPIRIN 81 MG ECTAB PO SCH (09:00)
--- NOTE | 2021-12-30 10:40 | Urology Progress Note ---
Date of Service December 30, 2021 Assessment & Plan (1) Hematuria: Plan: Follow-up of hematuria Pt is afebrile and hemodynamically stable Islas catheter was removed yesterday She is voiding spontaneously without difficulty Hematuria has resolved Continue supportive care, antibiotics and management per primary team Ok to restart anticoagulation from perspective, but will defer anticoagulation to primary team/cardiology With her history of TURBT, she will likely require repeat cystoscopy outpatient for further evaluation of the bladder will sign off Admission and Anticipated Discharge Date Admission Date: December 19, 2021 Subjective Patient awake and sitting up in bed. No acute issues overnight. Subjectively doing well. No abdominal or suprapubic pain. Islas catheter removed yesterday. Patient is voiding spontaneously without difficulty. No dysuria or hematuria. No nausea or vomiting. Review of Systems Constitutional: as per Subjective / HPI Gastrointestinal: as per Subjective / HPI Genitourinary: as per Subjective / HPI Physical Exam Constitutional: well developed and well nourished; no acute distress and not ill appearing Respiratory: normal respiratory effort and able to speak in complete sentences; no respiratory distress and no labored breathing Gastrointestinal (Abdomen): Inspection/Auscultation: abdomen normal to inspection; abdomen not distended Musculoskeletal: Head/Neck/Chest: normocephalic and head atraumatic Neurologic: moves all extremities and awake Psychiatric: Orientation: alert and oriented x 3 Results & Data ([facility]) Vital Signs (Past 12 Hours) Vital Signs Temp Pulse Pulse Resp BP Pulse Ox O2 Del Method 12/30/21 08:02 36.7 C 62 17 135/67 94 Nasal Cannula 12/30/21 07:29 Nasal Cannula 12/30/21 07:00 63 12/30/21 04:33 36.7 C 58 L 16 124/66 98 Nasal Cannula 12/29/21 23:12 60 O2 Flow Rate 12/30/21 08:02 2 12/30/21 07:29 2 12/30/21 07:00 12/30/21 04:33 2 12/29/21 23:12 PG Care Time/CCT Total # of Minutes Spent Total Time Spent with Patient: Total time spent is greater than 50% in coordination of care (as documented) at patient's floor/unit and/or counseling patient: Coding Level of Care Code 35028 Subseq Hosp Care Lvl 2 Diagnoses Hematuria R31.9
[2021-12-30 11:16] LABS: Hematocrit (blood only) 30.2 % (34.1-44.9); Mean Corpuscular Hemoglobin 27.8 pg (25.0-34.0); Mean Corpuscular Hgb Conc 29.8 g/dL (32.0-36.0); Mean Corpuscular Volume 93.2 fL (80.0-100.0); Platelet Count 159 K/uL (130-400); RDW Coefficient of Variation 20.1 % (11.5-14.5); RDW Standard Deviation 67.7 fL (36.4-46.3); Red Blood Count 3.24 M/uL (3.93-5.22); White Blood Count 6.49 K/ul (4.8-10.8)
[2021-12-30 11:40] LABS: BUN Creatinine Ratio 16.5 (10-20); Calcium 8.3 mg/dl (8.5-10.1); Creatinine Clr Calc Pharmacy 34.4 ml/min; Est GFR (African American) 51.3 ml/min; Est GFR (Non-African American) 44.3 ml/min; Potassium 4.2 mmol/L (3.5-5.1)
[2021-12-30] MEDS: cefTRIAXone SODIUM 2,000 MG in DEXTROSE 5% 50 ML IV SCH (13:01)
--- NOTE | 2021-12-30 14:29 | Discharge Summary ---
Date of Service December 30, 2021 Admission HPI Per Admitting Provider Karina Mcmahon is an 81-year-old female with past medical history significant for CAD, PAD, HFpEF, paroxysmal A. fib, COPD on 3 L NC at all times, Graves' disease, breast cancer s/p lumpectomy on tamoxifen, uterine cancer s/o radition therapy, and chronic anemia who presents today in the ED as a heart alert. Patient woke up this morning feeling short of breath, weak, with chest pain radiating into her left arm. Apparently the chest pain has been going on for several days. She presented to the ED where she was found to be profoundly hypoxic, SBP in the 50s, A. fib RVR with rates in the 120s. Given etomidate and shocked x1 given her instability, with worsening hypoxia and failure to convert, therefore she was intubated emergently. VS on presentation: BP 50/34, HR 130, RR 28, SPO2 83% on 6 L NC EKG with ST elevations in leads III, aVF with reciprocal ST depressions in 1 and aVL. Heart alert called, patient emergently brought to the [facility] with Dr. Granados. Initial troponin 1,143. T bili, AST, ALT all acutely elevated 1.7/41/90 respectively. Creatinine 1.42, GFR 34. CXR with evidence of pulmonary edema. Discharge Data Allergies Allergy/AdvReac Type Severity Reaction Status Date / Time No Known Allergies Allergy Verified 10/15/21 13:44 Consultations 12/19/21 11:40 ED Decision to Admit Stat 12/19/21 12:58 Consult Teaching Manager Routine 12/23/21 09:24 Consult Nephrology Routine 12/27/21 14:48 Consult Urology Routine Procedures Performed Operation Date: 12/19/21 11:30 Actual Procedures p Cineradiography w/Routine Exam - Rogers Granados MD, PhD p Cath, Coronaries ONLY (no LV) - Rogers Granados MD, PhD s Central Line Insertion - Rogers Granados MD, PhD s Ultrasound Vascular Access - Rogers Granados MD, PhD s Angiogram Abdomen Aorta - Rogers Granados MD, PhD s Intro of Catheter, Aorta - Rogers Granados MD, PhD Ordered Studies 12/19/21 11:25 CL Cath Imgs for PACS use only Stat 12/20/21 08:55 CT abd pelvis wo con Stat 12/22/21 06:07 US renal/blad retro comp Routine Hospital Course (1) Bacteremia: With E. coli in BCxs and Ur cx, pyelo on CT abd/pel Had recent Monroy in place during previous hospitalization 12/11-12/13 for CHF with septic shock/septicemia requiring vasopressors and ICU stay. Now weaned off vasopressors and BPs acceptable With shock liver and now FABIENNE, low urine output now improved Initially on Cefepime and then narrowed to ceftriaxone 2000mg IV once daily (abx started on 12/20)- will need 14 days of treatment but can eventually switch to po abx (prolonged due to lack of source control with monroy catheter still in place). Defervescing, no further fevers -repeat BCxs 12/22-NGTD -repeat Ur cx with Yeast, not Joelle but not necessary to treat (2) UTI (urinary tract infection): As above (3) Hematuria: Eldon hematuria present in setting of Eliquis and aspirin use with recent UTI and TURBT. Hold Eliquis Hematuria recurs after physical therapy suggesting a trauma element therefore will remove monroy catheter now while urine is clear as likely making hematuria worse. Will restart aspirin at 81 mg PO daily as hematuria appears trauma related. (4) Acute kidney injury: Now resolved. 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 Cr 1.12 close to baseline. Restarted on bumex and spironolactone per cardiology. (5) Shock: Resolved. Septic +/- cardiogenic shock (6) Atrial fibrillation with RVR: Presented with afib RVR HR 120s, hypoxic, severely hypotensive SBP 50s. Etomidate given prior to shock w/ further worsening of BP and hypoxia, patient subsequently intubated. Converted to NSR. Remains in NSR Appreciate cardiology assistance. Now on po amiodarone alone and plan to decrease to 200mg po bid on 12/26 x 1 month as per Cardiology Eliquis back on hold due to eldon hematuria monitor on tele (7) STEMI (ST elevation myocardial infarction): Secondary to septic shock [place] [address] in setting of chronic total occlusion of the proximal right coronary artery without significant CAD involving the left circulation (8) Acute systolic CHF (congestive heart failure): EF 45-50% with moderate RV systolic dysfunction as well. was diuresed in ICU with a few doses of loop diuretic now with FABIENNE gentle hydration as above was then given restarted metoprolol tartrate @ 25mg PO BID Bumex added by cardiology today at half her usual dose, spironolactone use (9) Acute and chronic respiratory failure: Now resolved acute component 2nd to acute pulmonary edema s/p intubation in the ER in the setting of septicemia and shock extubated to BIPAP, then oxymask, then NC O2 sat goal 94% - due to recent demand-STEMI she is on 3 L NC O2 at rest at home, 4 L with activity - now on her baseline O2 (10) Shock liver: Resolving (11) Graves disease: TSH 4.4 on admission and then was repeated and mildly elevated at 6 but normal FT4 Cont PTU 100 mg BID and follow as outpt when not acutely ill (12) Carotid artery disease: s/p L carotid endarterectomy in 2016 70% restenosis continue ASA, statin (13) Chronic anemia: H/H stable at 10.4, normocytic checked iron studies and transferrin sat mildly low at 16%--> Nephrology gave IV Venofer 200mg for 4 days. B12, folate normal (14) HTN (hypertension): Restarted metoprolol as above Cardiology added Bumex - will monitor renal function on this Plan VTE Prophylaxis - holding anticoagulation due to eldon hematuria as above Diet - heart healthy Disposition - stable for transfer to [facility] telemetry Discharge Plan Discharge Items Patient Disposition: Home - Self-Care Reason For Visit: HYPOXIA, EKG CHANGES Discharge Diagnosis: E. coli bacteremia Urine tract infection Hematuria Acute kidney injury Septic and cardiogenic shock causing ST elevation myocardial infarction Atrial fibrillation with rapid ventricular rate Activity: Resume your previous activity Non-emergency contact: Primary Care Provider Call non-emergency contact if: you have any medication questions and your symptoms worsen Follow-up/Referrals: Carlos Arias MD [Primary Care Provider] - Diet: Heart Healthy Addtl Attending Provider Instructions: You were admitted to [facility] from December 19 to 2021 due to difficulty breathing, weakness and chest pain. You were diagnosed with atrial fibrillation with rapid ventricular rate causing septic and cardiogenic shock leading to an ST elevation myocardial infarction (heart damage but not a true heart attack). You were taken emergently to the [facility] where an acute thrombotic heart attack was ruled out. You do have a chronically occluded right coronary artery but there was no acute disease on cardiac catheterization therefore no intervention was performed. You were intubated due to low oxygen levels and transferred to the intensive care unit. You required vasopressor medication to increase your blood pressure. You initially treated with empiric antibiotics with cefepime and metronidazole. Blood and urine cultures subsequently grew E. coli and you were treated with intravenous ceftriaxone during your inpatient stay. You were therefore diagnosed with an E. coli urine tract infection which spread to your blood (bacteremia). E. coli bacteremia - please continue on antibiotics as prescribed. Atrial fibrillation - this converted to a normal sinus rhythm with intravenous and now oral amiodarone. Please continue on this as prescribed and follow-up with your kaiwhakahaere to be arranged by their office. Eliquis has been held due to hematuria - please follow-up with your kaiwhakahaere to see if this needs to be restarted. Congestive heart failure - Bumex, spironolactone have been reintroduced after your acute kidney injury. Per cardiology recommendations please continue on your usual doses as listed below. Please reduce your metoprolol tartrate to 25 mg twice daily given your current blood pressure and heart rate (suspect you cannot currently tolerate the higher dose due to the introduction of amiodarone). Hematuria (blood in urine) - Eliquis is being held. Cilostazol has been held. Please follow-up with your kaiwhakahaere regarding reintroducing these. Pending Studies at Discharge: No Stand-Alone Forms: My [facility], Smoking Cessation Medications and DC Order Prescriptions: New cefpodoxime 200 mg tablet 400 mg PO BID 4 Days Qty: 16 0RF Rx Instructions: must administer with a meal/food amiodarone 200 mg tablet 200 mg PO BID Qty: 60 0RF Continued albuterol sulfate 90 mcg/actuation HFA aerosol inhaler 2 puff inhalation Q6H PRN (Reason: Shortness Of Breath Or Wheezing) Qty: 18 3RF atorvastatin 40 mg Tablet 40 mg PO PM propylthiouracil 50 mg Tablet 100 mg PO BID aspirin [Hermilo Low Dose Aspirin] 81 mg Tablet,Delayed Release (Dr/Ec) 81 mg PO QAM spironolactone [Aldactone] 25 mg Tablet 12.5 mg PO DAILY bumetanide 1 mg Tablet 1 mg PO DAILY Changed metoprolol tartrate 50 mg Tablet 25 mg PO BID Qty: 14 0RF Discontinued cilostazol 50 mg Tablet 50 mg PO BID Discharge Orders: Discharge Order (Routine); Ordered 12/30/21 Ordered By: Shalom Soriano/Other Patient Handouts: A1C, AFib Dc Admission Data Admit Date/Time: 12/19/21 12:58 Attending Provider: Shalom Samayoa Admit Provider: Rogers Granados Primary Care Provider: Carlos Arias Other Providers: [employer] ; Germain Torres ; Leonel Fox ; Luc Mukherjee Coding Diagnoses Bacteremia R78.81 UTI (urinary tract infection) N39.0 Hematuria R31.9 Acute kidney injury N17.9 Shock R57.9 Atrial fibrillation with RVR I48.91 STEMI (ST elevation myocardial infarction) I21.3 Acute systolic CHF (congestive heart failure) I50.21 Acute and chronic respiratory failure J96.20 Shock liver K72.00 Graves disease E05.00 Carotid artery disease I77.9 Chronic anemia D64.9 HTN (hypertension) I10
== END 2021-12-30 16:00 | disposition home health service (06) | DRG 871 ==
LOC: ED 10:39 → CC 11:30 → 1E 11:45 → SUATTDRO 12:58 → 2S 12-22 12:55 → 2N 12-28 17:44
PROC: CLB.CCO (2021-12-19 11:30)

== ENCOUNTER 2022-12-23 07:15 | Inpatient (IN) ==
--- NOTE | 2022-12-23 07:47 | Emergency Department Note ---
Impression & Plan CHF (congestive heart failure), Hypoxia ED Provider Note Diagnosis: CHF exacerbation, hypoxia, elevated troponin Disposition: Admission CHIEF COMPLAINT: Short of breath, hypoxia HPI: Patient is an 82-year-old female presenting with history of CHF and COPD who uses 3 L nasal cannula oxygen support at baseline presenting with shortness of breath. Patient states when she wakes up each morning she checks her pulse ox and this morning and said 79%. Patient states over the past 1 to 2 weeks time she has noticed more dyspnea on exertion. Patient states that her mailbox is approximately 20 feet from the house and she has to rest and sit down and becomes winded trying to get the mail which would not have happened to her a month ago. Patient denies fevers or chills. Patient denies any active chest pain. Patient has noticed some slight increase in swelling in her lower extremities. Patient states that her plan for diuretics to spironolactone daily and Bumex as needed if she gains more than 2 pounds. Patient states she has not gained any weight that she has noticed so she has not used the Bumex. PAST MEDICAL HISTORY: See Below PAST SURGICAL HISTORY: See Below SOCIAL HISTORY: See Below HOME MEDICATIONS: See Below ALLERGIES: See Below VITALS: See Below PHYSICAL EXAMINATION: GENERAL: Well appearing, well nourished, NAD, non-toxic. EYE EXAM: Normal conjunctiva. OROPHARYNX: Moist mucus membranes. Grossly normal dentition. NECK: Supple, LUNGS: Clear to auscultation. Normal chest wall mechanics. HEART: NSR ABDOMEN: Abdomen soft, non-tender, normo-active bowel sounds, no masses, no rebound or guarding BACK: No CVA TTP. SKIN: No rashes and no bruising. UPPER EXTREMITIES: Upper extremities are grossly normal LOWER EXTREMITIES: Grossly normal, no edema. NEURO EXAM: A&O x3,, normal speech, moves all 4 extremities PSYCH: Cooperative MEDICAL DECISION MAKING: Reviewed external documents: December 2021 H&P for congestive heart failure History obtained from: Patient ER Course: Patient is a 82-year-old female who wears 3 L oxygen support at baseline presenting with shortness of breath. Patient states she has been becoming more winded with walking small distances. Patient has not noticed any significant increase in lower extremity edema. Patient denies any fevers cough or runny nose. Patient checked her oxygen saturation this morning and it was 79% on 3 L. Patient requiring 6 L nasal cannula upon emergency room presentation. Patient's chest x-ray shows bilateral pleural effusions pulmonary edema and patient had an elevated BNP. Patient uses Bumex as needed and was given a dose of it IV today. Patient does not have any active chest pain EKG without any signs of ischemia. Patient's case benitez with hospitalist service who accepts the patient for further treatment and evaluation Labs (independently interpreted) are significant for: BNP elevated, troponin slightly elevated, Imaging results (independently interpreted): Chest x-ray bilateral pleural effusions and pulmonary edema EKG interpretation (independently interpreted): Normal sinus rhythm no ST segment elevation or depression Medications given: Bumex Consultants: Hospitalist, discussed patient's presentation they accept the patient for further treatment evaluation. Chronic conditions affecting care: COPD, CHF Triage Nursing notes reviewed and agree them. Vital Signs: reviewed and remarkable for: Hypoxia Past Med/Surg History Medical History (Updated 12/23/22 @ 13:51 by Melvin Esposito DO) Bladder cancer Sepsis Acute kidney injury Lower back pain Bladder cancer Chronic anemia baseline hgb 11's per chart review Carotid artery disease s/p left carotid endarterectomy (3 years ago/[facility]), follows with Dr. Islas Osteoarthritis Graves disease Uterine cancer 1995 hysterectomy/radiation Anxiety Paroxysmal atrial fibrillation Single remote episode (suspected r/t nitro patch), no known recurrences, Follows with Dr. Mcdonald Cardiac murmur 2018 ECHO showed AV sclerosis (no ), mild to moderate mitral annular calcification and mild MS CHF (congestive heart failure) 2019 Hyperlipidemia Peripheral artery disease Hypertension Breast cancer Dx 7 years ago s/p right lumpectomy- RUE lumpectomy Surgical History History of cataract surgery Right History of total hysterectomy with bilateral salpingo-oophorectomy (BSO) History of flexible sigmoidoscopy History of breast biopsy Right History of cholecystectomy Hx of lumpectomy 7 years ago History of left-sided carotid endarterectomy Family History Other No pertinent family history Social History Smoking Status: Former smoker Tobacco Type: Cigarettes Second Hand Exposure: No; Do You Dip or Chew Tobacco: No; Hx Alcohol Use: Yes Alcohol type: wine Hx Substance Use: No Preferred Language: Frisian Communication Ability: Effective Patient Access Representative Required: No Beliefs That Will Affect Care: None marital status: Unknown Current Living Situation: Alone Current Living Situation Comment: WITH ( HAS ALZHEIMERS) How many Children do You have: 2 Feels Safe at Home: Yes Assistive Devices: Oxygen - Continuous Allergies Allergies Allergy/AdvReac Type Severity Reaction Status Date / Time No Known Allergies Allergy Verified 10/15/21 13:44 Home Meds Home Medications Medication Instructions Recorded Confirmed aspirin 81 mg tablet,delayed 81 mg PO QAM 02/17/18 12/19/21 release (Hermilo Low Dose Aspirin) atorvastatin 40 mg tablet 40 mg PO PM 02/17/18 12/23/22 propylthiouracil 50 mg tablet 100 mg PO BID 02/17/18 12/23/22 bumetanide 1 mg tablet 0.5 mg PO DAILY 12/11/21 12/23/22 spironolactone 25 mg tablet 12.5 mg PO DAILY 12/11/21 12/23/22 (Aldactone) sacubitril 24 mg-valsartan 26 mg 1 tab PO BID 12/23/22 12/23/22 tablet (Entresto) Previous Rx's Medication Instructions Recorded albuterol sulfate 90 mcg/actuation 2 puff inhalation Q6H PRN 06/05/21 aerosol inhaler Shortness Of Breath Or Wheezing #18 grams amiodarone 200 mg tablet 200 mg PO BID #60 tabs 12/30/21 metoprolol tartrate 50 mg tablet 25 mg (1/2 x 50 mg) PO BID #14 tabs 12/30/21 Results & Data (ED) Vital Signs Vital Signs - 24 hr 12/23/22 07:26 12/23/22 07:32 12/23/22 07:32 Temperature 36.8 C Temperature Source Oral Pulse Rate 54 L Pulse Rate [Apical] Respiratory Rate 22 Respiratory Effort / Characteristics Spontaneous Respiratory Depth Normal Normal Respiratory Pattern Regular Blood Pressure 150/64 H Blood Pressure [Left Arm] Blood Pressure Mean 92 Blood Pressure Mean [Left Arm] Blood Pressure Position Lying Blood Pressure Position [Left Arm] Pulse Oximetry 94 96 Oxygen Delivery Method Nasal Cannula Nasal Cannula Nasal Cannula Oxygen Flow Rate 6 6 6 Sepsis Recent Fever Within 48 Hours No Sepsis New/Unexplained Change in Mental Status No Sepsis Action Taken by Nursing No Action Required 12/23/22 08:02 12/23/22 08:25 12/23/22 08:52 Temperature Temperature Source Pulse Rate 57 L Pulse Rate [Apical] 54 L Respiratory Rate 20 Respiratory Effort / Characteristics Respiratory Depth Normal Respiratory Pattern Blood Pressure Blood Pressure [Left Arm] 175/82 H Blood Pressure Mean Blood Pressure Mean [Left Arm] 113 Blood Pressure Position Blood Pressure Position [Left Arm] Lying Pulse Oximetry 95 98 Oxygen Delivery Method Nasal Cannula Nasal Cannula Oxygen Flow Rate 6 6 Sepsis Recent Fever Within 48 Hours Sepsis New/Unexplained Change in Mental Status Sepsis Action Taken by Nursing 12/23/22 09:21 12/23/22 10:36 Temperature Temperature Source Pulse Rate 54 L Pulse Rate [Apical] 52 L Respiratory Rate 22 18 Respiratory Effort / Characteristics Respiratory Depth Normal Respiratory Pattern Blood Pressure 187/74 H Blood Pressure [Left Arm] 186/68 H Blood Pressure Mean Blood Pressure Mean [Left Arm] 107 Blood Pressure Position Blood Pressure Position [Left Arm] Lying Pulse Oximetry 98 98 Oxygen Delivery Method Nasal Cannula Nasal Cannula Oxygen Flow Rate 6 Sepsis Recent Fever Within 48 Hours Sepsis New/Unexplained Change in Mental Status Sepsis Action Taken by Nursing Laboratory Data 12/23/22 07:27 12/23/22 07:27 Lab Results 12/23/22 12/23/22 Range/Units 07:27 07:57 WBC 5.04 (4.8-10.8) K/ul RBC 2.93 L (4.20-5.40) M/uL Hgb 8.9 L (12.0-16.0) g/dl Hct 29.7 L (37.0-47.0) % MCV 101.4 H (80.0-100.0) fL MCH 30.4 (25.0-34.0) pg MCHC 30.0 L (32.0-36.0) g/dL RDW Std Deviation 53.4 H (36.4-46.3) fL RDW Coeff of Armani 14.4 (11.5-14.5) % Plt Count 146 (130-400) K/uL MPV 10.5 (9.4-12.4) fL Immature Gran % (Auto) 0.6 % Neut % (Auto) 84.6 % Lymph % (Auto) 7.9 % Sabine % (Auto) 6.3 % Eos % (Auto) 0.2 % Baso % (Auto) 0.4 % Neut # (Auto) 4.26 (1.40-6.50) K/uL Lymph # (Auto) 0.40 L (1.20-3.40) K/uL Sabine # (Auto) 0.32 (0.11-0.59) K/uL Eos # (Auto) 0.01 (0.00-0.50) K/uL Baso # (Auto) 0.02 (0.00-0.20) K/uL Immature Gran # (Auto) 0.03 (0.01-0.20) K/uL Sodium 144 (136-145) mmol/L Potassium 4.1 (3.5-5.1) mmol/L Chloride 118 H (98-107) mmol/L Carbon Dioxide 20 L (21-32) mmol/L Anion Gap 6 (3-11) BUN 28 H (6-23) mg/dl Creatinine 1.38 H (0.6-1.2) mg/dl Est Cr Clr Drug Dosing 27.8 ml/min Est GFR ( Amer) 40.9 ml/min Est GFR (Non-Af Amer) 35.3 ml/min BUN/Creatinine Ratio 20.3 H (10-20) Glucose 85 (70-99(Fasting)) mg/dl Calcium 7.2 L (8.6-10.3) mg/dl Total Bilirubin 0.8 (0.2-1.0) mg/dl AST 12 L (13-39) U/L ALT 9 (7-52) U/L Alkaline Phosphatase 31 L (34-104) U/L Troponin I High Sens 19.9 H (0-14) pg/ml B-Natriuretic Peptide > 4700 H (0-100) pg/ml Total Protein 5.6 L (6.0-8.3) gm/dl Albumin 3.1 L (3.4-5.0) gm/dl Globulin 2.5 (2.5-4.0) gm/dl Albumin/Globulin Ratio 1.2 (0.9-2) SARS-CoV-2, RNA, NAAT NEGATIVE (NEGATIVE) Administered Medications Aspirin (Aspirin 81 Mg Ectab) [facility] [place] 01/22/23 12:48 Last Admin: 12/23/22 13:21 Dose: 81 mg Documented By: BS Metoprolol Tartrate (Metoprolol Tartrate 25 Mg Tab) 25 mg PO BID LEVI Stop: 01/22/23 12:59 Last Admin: 12/23/22 13:21 Dose: 25 mg Documented By: BS Propylthiouracil (Propylthiouracil 50 Mg Tab) 100 mg PO BID LEVI Stop: 01/22/23 12:59 Last Admin: 12/23/22 13:19 Dose: 100 mg Documented By: BS Spironolactone (Spironolactone 12.5 Mg Tab) 12.5 mg PO DAILY LEVI Stop: 01/22/23 12:59 Last Admin: 12/23/22 13:22 Dose: 12.5 mg Documented By: BS Discontinued Medications Bumetanide 1 mg/ Syringe 4 mls @ 4 mls/min IV ONE ONE Stop: 12/23/22 08:48 Last Admin: 12/23/22 09:23 Dose: 4 mls/min Documented By: PATRICK Ondansetron HCl (Ondansetron Inj 2 Mg/Ml 2 Ml Vial) 4 mg IV NOW STA Stop: 12/23/22 08:35 Last Admin: 12/23/22 08:49 Dose: 4 mg Documented By: PATRICK Imaging Data Radiologist's Impression: Chest X-Ray 12/23/22 07:43 XR chest 1V portable CLINICAL HISTORY: Dyspnea. COMPARISON STUDY: Chest CT May 08, 2021. Chest radiograph December 20, 2021. FINDINGS: There is no pneumothorax. There are small bilateral pleural effusions. Cardiomegaly is unchanged. Mild interstitial thickening is present. Bibasilar opacities are noted. The suspicious right upper lobe nodule on chest CT of May 08, 2021 is not well-visualized by radiography. IMPRESSION: 1. Cardiomegaly with mild interstitial pulmonary edema and small bilateral pleural effusions. 2. Bibasilar opacities which could reflect atelectasis or an infectious process. 3. Suspicious right upper lobe nodule on chest CT of May 08, 2021 not well- visualized by radiography. ACT 112: Negative or not required by law. Electronically signed by: Jaiden Ruiz M.D. 12/23/2022 8:28 AM Discharge Plan Visit Data Chief Complaint: Shortness of Breath/Dyspnea Stated Complaint: WEAK, HYPOXIA ED Provider: Melvin Esposito Discharge Problem: CHF (congestive heart failure), Hypoxia Discharge Instructions Interventions: ED Discharge Assessment Last Done: 12/23/22 10:36 Discharge Problem: CHF (congestive heart failure) Qualifiers: Heart failure chronicity: acute on chronic
[2022-12-23 08:05] LABS: Basophils # (auto) 0.02 K/uL (0.00-0.20); Basophils % (auto) 0.4 %; Eosinophils # (auto) 0.01 K/uL (0.00-0.50); Eosinophils % (auto) 0.2 %; Hematocrit (blood only) 29.7 % (37.0-47.0); Hemoglobin 8.9 g/dl (12.0-16.0); Immature Granulocytes # (auto) 0.03 K/uL (0.01-0.20); Immature Granulocytes % (auto) 0.6 %; Lymphocytes % (auto) 7.9 %; Mean Corpuscular Hemoglobin 30.4 pg (25.0-34.0); Mean Corpuscular Volume 101.4 fL (80.0-100.0); Mean Platelet Volume 10.5 fL (9.4-12.4); Monocytes # (auto) 0.32 K/uL (0.11-0.59); Monocytes % (auto) 6.3 %; Neutrophils # (auto) 4.26 K/uL (1.40-6.50); Neutrophils % (auto) 84.6 %; Platelet Count 146 K/uL (130-400); RDW Coefficient of Variation 14.4 % (11.5-14.5); RDW Standard Deviation 53.4 fL (36.4-46.3); Red Blood Count 2.93 M/uL (4.20-5.40); White Blood Count 5.04 K/ul (4.8-10.8)
[2022-12-23 08:24] LABS: Albumin Globulin Ratio 1.2 (0.9-2); Albumin Level 3.1 gm/dl (3.4-5.0); BUN Creatinine Ratio 20.3 (10-20); Bilirubin,Total 0.8 mg/dl (0.2-1.0); Calcium 7.2 mg/dl (8.6-10.3); Creatinine Clr Calc Pharmacy 27.8 ml/min; Est GFR (African American) 40.9 ml/min; Est GFR (Non-African American) 35.3 ml/min; Globulin 2.5 gm/dl (2.5-4.0); Potassium 4.1 mmol/L (3.5-5.1); Total Protein 5.6 gm/dl (6.0-8.3)
--- NOTE | 2022-12-23 08:29 | XRay Report ---
XR chest 1V portable CLINICAL HISTORY: Dyspnea. COMPARISON STUDY: Chest CT May 08, 2021. Chest radiograph December 20, 2021. FINDINGS: There is no pneumothorax. There are small bilateral pleural effusions. Cardiomegaly is unch anged. Mild interstitial thickening is present. Bibasilar opacities are noted. The suspicious right u pper lobe nodule on chest CT of May 08, 2021 is not well-visualized by radiography. IMPRESSION: 1. Cardiomegaly with mild interstitial pulmonary edema and small bilateral pleural effusions. 2. Bibasilar opacities which could reflect atelectasis or an infectious process. 3. Suspicious right upper lobe nodule on chest CT of May 08, 2021 not well-visualized by radiography . ACT 112: Negative or not required by law. Electronically signed by: Jaiden Ruiz M.D. 12/23/2022 8:28 AM
[2022-12-23 08:30] LABS: Troponin I High Sensitivity 19.9 pg/ml (0-14)
[2022-12-23] MEDS ORDERED: ONDANSETRON INJ 2 MG/ML 2 ML VIAL IV STA (08:34)
[2022-12-23] MEDS ORDERED: BUMETANIDE 1 MG in SYRINGE 0 ML IV ONE (08:47)
[2022-12-23] MEDS ORDERED: ONDANSETRON INJ 2 MG/ML 2 ML VIAL IV PRN (09:46)
--- NOTE | 2022-12-23 09:52 | History & Physical Report ---
Date of Service December 23, 2022 Assessment & Plan (1) Acute on chronic systolic CHF (congestive heart failure): Plan: Ejection fraction 45% on most recent cardiac echo done December 2021. She has evidence of pulmonary hypertension and right ventricular enlargement. Cardiac echo will be repeated. Intravenous Bumex. Monitor intake and output. Serial chest x-ray (2) Acute on chronic respiratory failure with hypoxia: Plan: Supplemental oxygen to maintain saturation greater than 90%. Wean oxygen back to baseline 3 L/min as tolerated (3) CKD stage G3a/A3, GFR 45-59 and albumin creatinine ratio >300 mg/g: Plan: Monitor intake and output. Serial labs (4) COPD with emphysema: Plan: Currently stable. Continue as needed inhaler (5) Graves disease: Plan: Stable. Continue propylthiouracil (6) HTN (hypertension): Plan: Stable. Continue current medical management Plan OT and PT assessments will be obtained when appropriate. Hopefully she can go home within the next several days. History of Present Illness Chief Complaint: Shortness of breath Primary Care Provider: Yao Saab MD 82-year-old female with worsening shortness of breath over several days. She denies chest pain cough or wheezing. No hemoptysis. She came to the ED for evaluation. She is requiring more than her baseline oxygen and chest x-ray is consistent with congestive heart failure. She refuses Islas catheter placement due to previous issues with her bladder. She did receive IV Bumex in the ED. She is alert and oriented in no acute distress. Cardiac echo was done December 29 and will be repeated. She sees Dr. Mcdonald periodically but there is no acute reason for cardiology consultation at this time. Hopefully she can go home in a few days. OT and PT assessments will be ordered when appropriate. Allergies Allergy/AdvReac Type Severity Reaction Status Date / Time No Known Allergies Allergy Verified 10/15/21 13:44 Home Medications Medication Instructions Recorded Confirmed Type aspirin 81 mg tablet,delayed 81 mg PO QAM 02/17/18 12/19/21 History release (Hermilo Low Dose Aspirin) atorvastatin 40 mg tablet 40 mg PO PM 02/17/18 12/19/21 History propylthiouracil 50 mg tablet 100 mg PO BID 02/17/18 12/19/21 History albuterol sulfate 90 mcg/actuation 2 puff inhalation Q6H PRN 06/05/21 12/19/21 Rx aerosol inhaler Shortness Of Breath Or Wheezing #18 grams bumetanide 1 mg tablet 1 mg PO DAILY 12/11/21 12/19/21 History spironolactone 25 mg tablet 12.5 mg PO DAILY 12/11/21 12/19/21 History (Aldactone) amiodarone 200 mg tablet 200 mg PO BID #60 tabs 12/30/21 Rx metoprolol tartrate 50 mg tablet 25 mg (1/2 x 50 mg) PO BID #14 tabs 12/30/21 12/19/21 Rx Past Med/Surg History Medical History (Updated 12/23/22 @ 09:51 by Parth Mcneill MD) Bladder cancer Sepsis Acute kidney injury Lower back pain Bladder cancer Chronic anemia baseline hgb 11's per chart review Carotid artery disease s/p left carotid endarterectomy (3 years ago/[facility]), follows with Dr. Islas Osteoarthritis Graves disease Uterine cancer 1995 hysterectomy/radiation Anxiety Paroxysmal atrial fibrillation Single remote episode (suspected r/t nitro patch), no known recurrences, Follows with Dr. Mcdonald Cardiac murmur 2018 ECHO showed AV sclerosis (no ), mild to moderate mitral annular calcification and mild MS CHF (congestive heart failure) 2019 Hyperlipidemia Peripheral artery disease Hypertension Breast cancer Dx 7 years ago s/p right lumpectomy- RUE lumpectomy Surgical History History of cataract surgery Right History of total hysterectomy with bilateral salpingo-oophorectomy (BSO) History of flexible sigmoidoscopy History of breast biopsy Right History of cholecystectomy Hx of lumpectomy 7 years ago History of left-sided carotid endarterectomy Family History Other No pertinent family history Social History Smoking Status: Former smoker Tobacco Type: Cigarettes Second Hand Exposure: No; Do You Dip or Chew Tobacco: No; Hx Alcohol Use: Yes Alcohol type: wine Hx Substance Use: No Preferred Language: French Communication Ability: Effective Status Controller Required: No Beliefs That Will Affect Care: None marital status: Unknown Current Living Situation: Alone Current Living Situation Comment: WITH ( HAS ALZHEIMERS) How many Children do You have: 2 Feels Safe at Home: Yes Assistive Devices: Oxygen - Continuous Review of Systems 2 Review of Systems: Constitutional-no fever or chills ENT-no blurred vision, no double vision, no epistaxis, no sore throat Respiratory-no cough, no wheezing. Dyspnea and orthopnea Cardiac-no palpitations, no chest pain, no syncope GI-no nausea, vomiting, diarrhea, melena, hematochezia -no urinary retention, no urinary incontinence, no dysuria, no hematuria Musculoskeletal-no joint pain, no muscle tenderness. Worsening peripheral edema Skin-no bruising, no rashes, no pruritus Neuro-no isolated weakness, no paresthesia Psych-no depression, no anxiety Physical Exam 2 Physical Exam: General-alert and oriented x3, no fevers, no chills HEENT-head atraumatic and normocephalic, pupils equal and reactive to light, extraocular muscles intact Neck-no lymphadenopathy or thyromegaly, trachea midline Chest-diminished breath sounds bilaterally. Bibasilar inspiratory rales. No wheezing Cardiac-regular rate and rhythm, normal S1 and S2 Abdomen-normal bowel sounds, nontender, no hepatosplenomegaly Extremities-no cyanosis. 1+ pitting edema bilateral lower extremities below the knees Neuro-cranial nerves II through XII intact, motor and sensory function within normal limits, strength symmetrical, no focal deficits Psych-normal affect, normal mood Results & Data Results & Data Vital Signs (Past 12 Hours) Vital Signs Temp Pulse Pulse Resp BP BP Pulse Ox 12/23/22 09:21 52 L 22 186/68 H 98 12/23/22 08:52 54 L 20 175/82 H 98 12/23/22 08:25 57 L 12/23/22 08:02 95 12/23/22 07:32 96 12/23/22 07:32 12/23/22 07:26 36.8 C 54 L 22 150/64 H 94 O2 Del Method O2 Flow Rate 12/23/22 09:21 Nasal Cannula 12/23/22 08:52 Nasal Cannula 6 12/23/22 08:25 12/23/22 08:02 Nasal Cannula 6 12/23/22 07:32 Nasal Cannula 6 12/23/22 07:32 Nasal Cannula 6 12/23/22 07:26 Nasal Cannula 6 Laboratory Results 12/23/22 07:27 12/23/22 07:27 PG Care Time/CCT Total # of Minutes Spent Total Time Spent with Patient: Total time spent is greater than 50% in coordination of care (as documented) at patient's floor/unit and/or counseling patient: Coding Level of Care Code 58311 INT INP/OBS CARE 3/75MIN Diagnoses Acute on chronic systolic CHF (congestive heart failure) I50.23 Acute on chronic respiratory failure with hypoxia J96.21 CKD stage G3a/A3, GFR 45-59 and albumin creatinine ratio >300 mg/g N18.31 COPD with emphysema J43.9 Graves disease E05.00 HTN (hypertension) I10
[2022-12-23] MEDS ORDERED: ALBUTEROL HFA 8 GM INHALER INH PRN (12:49)
[2022-12-23] MEDS: propylthiouraciL 50 MG TAB PO SCH ×2 (13:19→22:25)
[2022-12-23] MEDS: ASPIRIN 81 MG ECTAB PO SCH (13:21)
[2022-12-23] MEDS: METOPROLOL TARTRATE 25 MG TAB PO SCH ×2 (13:21→22:26)
[2022-12-23] MEDS: SPIRONOLACTONE 12.5 MG TAB PO SCH (13:22)
--- NOTE | 2022-12-23 16:18 | XCELERA ---
[id number]
[2022-12-23] MEDS ORDERED: hydrALAZINE HCL 20 MG/ML VIAL IV PRN (17:04)
[2022-12-23] MEDS: BUMETANIDE 1 MG in SYRINGE 0 ML IV SCH (17:45)
[2022-12-23] MEDS: AMIODARONE 200 MG TAB PO SCH (20:01)
[2022-12-23] MEDS: ATORVASTATIN 40 MG TAB PO SCH (20:01)
[2022-12-23] MEDS: HEPARIN SOD 5,000 UNIT/0.5 ML VIAL SQ SCH (20:01)
[2022-12-23] MEDS: hydrALAZINE HCL 25 MG TAB PO SCH (20:04)
[2022-12-24 04:18] LABS: Est GFR (African American) 26.3 ml/min; Potassium 4.9 mmol/L (3.5-5.1)
[2022-12-24 04:19] LABS: BUN Creatinine Ratio 18.1 (10-20); Calcium 8.9 mg/dl (8.6-10.3); Creatinine Clr Calc Pharmacy 19.3 ml/min; Est GFR (Non-African American) 22.7 ml/min
[2022-12-24] MEDS: HEPARIN SOD 5,000 UNIT/0.5 ML VIAL SQ SCH ×2 (08:08→20:02)
[2022-12-24] MEDS: BUMETANIDE 1 MG in SYRINGE 0 ML IV SCH ×2 (08:08→17:28)
[2022-12-24] MEDS: METOPROLOL TARTRATE 25 MG TAB PO SCH (08:09)
[2022-12-24] MEDS: propylthiouraciL 50 MG TAB PO SCH ×2 (08:09→20:02)
[2022-12-24] MEDS: ASPIRIN 81 MG ECTAB PO SCH (08:10)
[2022-12-24] MEDS: hydrALAZINE HCL 25 MG TAB PO SCH (08:10)
[2022-12-24] MEDS: SPIRONOLACTONE 12.5 MG TAB PO SCH (08:10)
[2022-12-24] MEDS: PANTOprazole 40 MG TAB PO SCH ×2 (08:10→08:21)
[2022-12-24] MEDS: AMIODARONE 200 MG TAB PO SCH ×2 (08:15→20:02)
[2022-12-24] MEDS ORDERED: METOPROLOL TARTRATE 25 MG TAB PO SCH (09:00)
--- NOTE | 2022-12-24 09:08 | Electrocardiogram Report ---
Test Reason : Blood Pressure : / mmHG Vent. Rate : 054 BPM Atrial Rate : 000 BPM P-R Int : 000 ms QRS Dur : 104 ms QT Int : 512 ms P-R-T Axes : 000 100 -20 degrees QTc Int : 485 ms Sinus rhythm Rightward axis Old Anterior infarct (cited on or before 20-DEC-2021) Abnormal ECG When compared with ECG of 15-JUL-2022 17:22, No significant change Confirmed by Jefe Ruiz ([id number]) on 12/24/2022 9:08:19 AM Referred By: REFERRED SELF Confirmed By:Jefe Ruiz
[2022-12-24] MEDS: VALSARTAN/SACUBITRIL 26/24MG TAB PO SCH ×2 (13:28→20:02)
[2022-12-24] MEDS: hydrALAZINE 10 MG TAB PO SCH ×2 (13:39→20:02)
--- NOTE | 2022-12-24 13:41 | Hospitalist Progress Note ---
Date of Service December 24, 2022 Assessment & Plan (1) Acute on chronic systolic CHF (congestive heart failure): Plan: Ejection fraction 45% on most recent cardiac echo done December 2021. She has evidence of pulmonary hypertension and right ventricular enlargement. Adequate diuresis with intravenous Bumex. She normally takes Entresto and hydralazine at home. These have been restarted. Metoprolol has been discontinued due to persistent sinus bradycardia. Monitor intake and output. Serial chest x-ray (2) Acute on chronic respiratory failure with hypoxia: Plan: Supplemental oxygen to maintain saturation greater than 90%. Wean oxygen back to baseline 3 L/min as tolerated (3) CKD stage G3a/A3, GFR 45-59 and albumin creatinine ratio >300 mg/g: Plan: Monitor intake and output. Serial labs (4) COPD with emphysema: Plan: Currently stable. Continue as needed inhaler (5) Graves disease: Plan: Stable. Continue propylthiouracil (6) HTN (hypertension): Plan: Stable. Continue current medical management Plan OT and PT assessments requested. Hopefully she can go home within the next several days. Admission and Anticipated Discharge Date Admission Date: December 23, 2022 Subjective Alert and oriented. No acute distress. Sinus bradycardia noted. Metoprolol has been discontinued. She states she takes Entresto at home and this has been restarted. She also states she takes hydralazine at a 10 mg dose and this has been adjusted. The admission medicine reconciliation was obviously inaccurate. Satisfactory urine output so far with intravenous Bumex. We will repeat portable chest x-ray again tomorrow, December 25. She usually only requires 3 L of oxygen at home. She is currently requiring 5 L. Review of Systems 2 Review of Systems: Constitutional-no fever or chills ENT-no blurred vision, no double vision, no epistaxis, no sore throat Respiratory-no cough, no wheezing. Dyspnea and orthopnea Cardiac-no palpitations, no chest pain, no syncope GI-no nausea, vomiting, diarrhea, melena, hematochezia -no urinary retention, no urinary incontinence, no dysuria, no hematuria Musculoskeletal-no joint pain, no muscle tenderness. Worsening peripheral edema Skin-no bruising, no rashes, no pruritus Neuro-no isolated weakness, no paresthesia Psych-no depression, no anxiety Physical Exam 2 Physical Exam: General-alert and oriented x3, no fevers, no chills HEENT-head atraumatic and normocephalic, pupils equal and reactive to light, extraocular muscles intact Neck-no lymphadenopathy or thyromegaly, trachea midline Chest-diminished breath sounds bilaterally. Bibasilar inspiratory rales. No wheezing Cardiac-regular rate and rhythm, normal S1 and S2 Abdomen-normal bowel sounds, nontender, no hepatosplenomegaly Extremities-no cyanosis. 1+ pitting edema bilateral lower extremities below the knees Neuro-cranial nerves II through XII intact, motor and sensory function within normal limits, strength symmetrical, no focal deficits Psych-normal affect, normal mood Results & Data Results & Data Vital Signs (Past 12 Hours) Vital Signs Temp Pulse Pulse Resp BP Pulse Ox O2 Del Method 12/24/22 13:34 45 L 18 129/51 L 96 Nasal Cannula 12/24/22 11:58 93 Nasal Cannula 12/24/22 11:56 36.9 C 45 L 20 114/50 L 89 L Nasal Cannula 12/24/22 08:05 36.5 C 46 L 20 141/55 H 91 Nasal Cannula 12/24/22 08:00 Nasal Cannula 12/24/22 07:24 46 L 12/24/22 05:15 36.5 C 46 L 18 135/49 L 91 Nasal Cannula 12/24/22 02:00 50 L O2 Flow Rate 12/24/22 13:34 5 12/24/22 11:58 6 12/24/22 11:56 5 12/24/22 08:05 5 12/24/22 08:00 5 12/24/22 07:24 12/24/22 05:15 5 12/24/22 02:00 Laboratory Results 12/23/22 07:27 12/24/22 03:22 PG Care Time/CCT Total # of Minutes Spent Total Time Spent with Patient: Total time spent is greater than 50% in coordination of care (as documented) at patient's floor/unit and/or counseling patient: Coding Level of Care Code 25248 SUB INP/OBS CARE 3/50MIN Diagnoses Acute on chronic systolic CHF (congestive heart failure) I50.23 Acute on chronic respiratory failure with hypoxia J96.21 CKD stage G3a/A3, GFR 45-59 and albumin creatinine ratio >300 mg/g N18.31 COPD with emphysema J43.9 Graves disease E05.00 HTN (hypertension) I10
[2022-12-24] MEDS: ATORVASTATIN 40 MG TAB PO SCH (20:03)
--- OUTSIDE RECORDS SUMMARY | 2022-12-25 01:42 | External Medical Summary | Continuity of Care Document ---
Author Name Unknown Organization [facility] [address] [facility] Address [address] [place], [place] [id number] Care Team Providers Care Jewelry Estimator Name Role Phone Katiana Yao Heather Primary Care Physician [phone] Encounter [facility] [id number] Date(s): 10/14/22 - 10/14/22 [facility] [address], [address] [place] [address] [phone] Encounter Diagnosis Hypertensive disorder(Discharge Diagnosis) - 10/14/22 PAF (paroxysmal atrial fibrillation)(Discharge Diagnosis) - 10/14/22 CAD in campo artery(Discharge Diagnosis) - 10/14/22 Diastolic CHF(Discharge Diagnosis) - 10/14/22 Atherosclerotic heart disease of campo coronary artery without angina pectoris (Final) - Unspecified diastolic (congestive) heart failure(Final) - Essential (primary) hypertension(Final) - Paroxysmal atrial fibrillation(Final) - Discharge Disposition: Home or Self Care Attending Physician: DO Mcdonald Jason D Referring Physician: DO Mcdonald Jason D Allergies, Adverse Reactions, Alerts No Known Allergies Assessment and Plan Extracted from: Title:Cardiology Office Visit Note Author:DO Mcdonald Jason D Date:10/14/22 1.CAD in campo artery 2.Diastolic CHF 3.Hypertensive disorder 4.PAF (paroxysmal atrial fibrillation) From my standpoint she is done better than expected. She is not having worsening heart failure symptoms. Has not needed any additional doses of Bumex. She does need a CMP and a TSH and a free T4 on amiodarone. She is maintaining sinus rhythm on amiodarone without any recurrent atrial arrhythmias. She is not on anticoagulation due to her frequent and severe bladder bleeding. She has also significant bruising on her forearms just related to aspirin. She notes she is often missing the middle dose of hydralazine but her blood pressures overall look good and I discussed with her not to get upset if she misses the middle dose. We discussed the importance of taking care of herself and given the fact that her has COVID's and is in the hospital that I would avoid seeing him. If she were to get COVID with her underlying cardiac and pulmonary issues it could potentially be lethal. Given the fact that he does not even know if she is at this point he is not can know whether she is there or not. Otherwise she is relatively stable. We will follow-up via phone in regards to her labs. She will see Leann, our nurse practitioner, in 4 months. I will see her in 8 months. Immunizations Given and Recorded Vaccine Date Status Refusal Reason influenza virus vaccine, inactivated 11/26/21 Give n influenza virus vaccine, inactivated 11/10/20 Give n influenza virus vaccine, inactivated 12/08/18 Give n influenza virus vaccine, inactivated 11/16/17 Give n influenza virus vaccine, inactivated 11/21/15 Give n influenza virus vaccine, inactivated 11/20/14 Give n influenza virus vaccine, inactivated 10/31/13 Give n pneumococcal 13-valent vaccine 11/20/14 Given Medications amiodarone 200 mg oral tablet Start: 03/02/22 16:47:00 EST, 1 tab, PO, Daily, Disp# 90 tab, Refills: 3, Pharmacy: [facility] Start Date: 03/02/22 Status: Ordered aspirin 81 mg oral tablet Start: 06/11/13 10:27:00, 1 tab, PO, Daily Start Date: 06/11/13 Status: Ordered bumetanide 1 mg oral tablet Start: 08/17/22 9:50:00 EDT, See Instructions, Disp# 90 tab, Refills: 3, 0.5 tab PO Daily for weight gain 2lbs in 24 hours or 5 lbs in a week, Pharmacy: [facility] Start Date: 08/17/22 Status: Ordered Entresto 24 mg-26 mg oral tablet Start: 03/01/22 16:00:00 EST, 1 tab, PO, bid, Disp# 60 tab, Refills: 11, Pharmacy: [facility] Start Date: 03/01/22 Status: Ordered hydrALAZINE 10 mg oral tablet Start: 08/03/22 17:26:00 EDT, 1 tab, PO, tid, Disp# 90 tab, Refills: 3, Pharmacy: [id number] Start Date: 08/03/22 Status: Ordered Lipitor 40 mg oral tablet Start: 08/17/22 9:50:00 EDT, 1 tab, PO, qhs, Disp# 90 tab, Refills: 3, Pharmacy: [facility] Start Date: 08/17/22 Status: Ordered Metoprolol Tartrate 50 mg oral tablet Start: 10/15/22 9:35:00 EDT, 0.5 tab, PO, bid, Disp# 90 tab, Refills: 3, Pharmacy: [facility] Start Date: 10/15/22 Status: Ordered propylthiouracil 50 mg oral tablet Start: 08/26/22 14:05:00 EDT, 2 tab, PO, bid, Disp# 360 tab, Refills: 1, Pharmacy: [facility] Start Date: 08/26/22 Stop Date: 02/22/23 Status: Ordered spironolactone 25 mg oral tablet Start: 03/01/22 16:01:00 EST, 0.5 tab, PO, Daily, Disp# 45 tab, Refills: 3, Pharmacy: [facility] Start Date: 03/01/22 Status: Ordered Problem List Condition Confirmation Course Effective Dates Status H ealt Status Informant Aortoiliac stenosis Confirmed Active CAD in campo artery Confirmed Active Carotid stenosis Confirmed Active Carotid stenosis Confirmed Active Chronic kidney disease, stage 3b 1 Confirmed Active Chronic obstructive pulmonary disease Confirmed Active Mild claudication Confirmed Active Diastolic CHF Confirmed Active Lipid disorder Confirmed Active Abnormal dobutamine stress echo Confirmed Active S/p carotid endarterectomy Confirmed Active Hyperdynamic circulation Confirmed Active Hypertensive disorder Confirmed Active Hyperthyroidism Confirmed Active Uterine cancer Confirmed Active Malignant tumor of breast Confirmed Active PAF (paroxysmal atrial fibrillation) Confirmed Active Innominate artery stenosis Confirmed Active 1See outside note 01/15/22 12/23/21 [facility] Diagnosis Diagnosis Type Effective Dates Health Status Clinical Service Informant CAD in campo artery Discharge Diagnosis 10/14/22 PAF (paroxysmal atrial fibrillation) Discharge Diagnosis 10/14/22 Diastolic CHF Discharge Diagnosis 10/14/22 Hypertensive disorder Discharge Diagnosis 10/14/22 Procedures Procedure Date Related Diagnosis Body Site Status Chest x-ray 1 12/11/21 Completed Diagnostic mammogram 2 06/23/21 Co mpleted Cystoscopy and transurethral biopsy of prostate 3 09/16/20 Completed Cataract 4 07/24/19 Completed Mammogram 5 06/19/19 Completed Mammogram 6 06/06/17 Completed Carotid endarterectomy 7 01/07/16 Completed CXR - Chest X-ray 8 12/22/15 Compl eted Imaging,chest 12/22/15 Completed Computed tomography (CT) of neck with contrast 9 10/01/[address] brain w/o contrast 10 10/01/15 Completed Mammogram 11 05/29/14 Completed Breast lumpectomy 2012 Comp leted Hysterectomy 13, 14 1995 Compl eted Cholecystectomy Completed Flexible sigmoidoscopy Co mpleted Surgery 15 Completed 1Impression: Interstitial pulmonary edema with moderate right and small left pleural effusions. 2bilat digital diagnostic mammogram impression There is no mammographic evidence of malignancy in the breasts. recommend annual bilat mammography in one year . 3bladder tumor 4Cataract Surgery 5IMPRESSION: ACR BI-RADS CATEGORY 2: BENIGN Stable bilateral mammograms, including postsurgical/posttreatment changes in the right breast, without mammographic evidence of malignancy. Recommend annual bilateral mammography in 1 year. 6BIRADS: 3: PROBABLY BENIGN. There is mo definite mammographic evidence of malignancy bilaterally. Calcifications pamela rthe surgical site in the right upper outer quadrant most likely represents benign dystrophic calcification. However, give tat they are evolving comparing to prior mammograms, another 12 month follow-up diagnostic evaluation including spot magnification views is recommended to ensure stability and or coarsening. Annual left mammography will also be due at that time. 7Left 8No acute cardiopulmonary findings 9Overall simular findings compaired to the 2014 neck CTA There is again noted high-grade stenosis at the left carotid bifurcation with approximately 80% stenosis at the origin of the left internal carotid artery. High-grade/critical stenosis wiyhin the origin of the brachiocephalic artery of greater than 95%. No significant stenosis seen within the right internal carotid artery. Emphysema and stable 3.5 mm right upper lobe pulmonary pulmonary nodule 10Age related changes, no hemorrhage, mass effect or evidence of acute territorial ischema by CT criteria. 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 No high-grade stenosis or focal vessel cut off is identified 11Bilateral diagnostic mammogram with targeted left breast ultrasound. 12Stage 1 breast cancer right 13with radiation therapy 14Uterine cancer 15gallbladder,hysterectomy, breast cancer surgery Results Laboratory List Name Date Comprehensive Metabolic Panel (COMP META B PANEL) 10/14/22 T4, Free (T4, FREE) 10/14/22 Thyroid Stimulating Hormone (TSH) 10/14/22 Most recent to oldest [Reference Range]: 1 eGFR CKD-EPI [>60 mL/min/1.73 m2] 32 mL/ min/1.73 m2 1 *LOW* (10/14/22 2:34 PM) Estimated CrCl 23.34 mL/min (10/14/22 3:05 PM) Anion Gap [5-14 mmol/L] 7 mmol/L (10/14/22 2:34 PM) Alb [3.5-5.0 g/dL] 4.3 g/dL (10/14/22 2:34 PM) Alk Phos [38-126 unit/L] 52 unit/L (10/14/22 2:34 PM) ALT [<35 unit/L] 22 unit/L (10/14/22 2:34 PM) AST [15-46 unit/L] 28 unit/L (10/14/22 2:34 PM) BUN [7-20 mg/dL] 32 mg/dL *HI* (10/14/22 2:34 PM) Ca [8.4-10.2 mg/dL] 8.8 mg/dL (10/14/22 2:34 PM) Cl- [96-107 mmol/L] 109 mmol/L *HI* (10/14/22 2:34 PM) HCO3 [22-30 mmol/L] 24 mmol/L (10/14/22 2:34 PM) Cret [0.60-1.00 mg/dL] 1.60 mg/dL *HI* (10/14/22 2:34 PM) Glu [74-106 mg/dL] 96 mg/dL (10/14/22 2:34 PM) K [3.5-5.1 mmol/L] 5.7 mmol/L *HI* (10/14/22 2:34 PM) Na [137-145 mmol/L] 140 mmol/L (10/14/22 2:34 PM) Free T4 [0.70-1.48 ng/dL] 1.06 ng/dL 2 (10/14/22 2:34 PM) T Bili [0.2-1.3 mg/dL] 0.9 mg/dL (10/14/22 2:34 PM) Prot [6.3-8.2 g/dL] 8.1 g/dL (10/14/22 2:34 PM) TSH [0.47-4.68 uIU/mL] 2.01 uIU/mL 3 (10/14/22 2:34 PM) 1Result Comment: Testing Performed By: [facility], [address] [place] [address] 2Result Comment: Testing Performed By: Dept of Pathology [facility], [address] [facility], [place] [address] 3Result Comment: Testing Performed By: Dept of Pathology [facility], [address] [place] [address], [place] [address] Vital Signs Most recent to oldest [Reference Range]: 1 Patient Weight 55.5 kg (10/14/22 1:58 PM) Heart Rate 57 bpm (10/14/22 1:58 PM) Blood Pressure 166/62mmHg (10/14/22 1:58 PM) BP Location # 1 Right Arm (10/14/22 1:58 PM) Social History Social History Type Response Tobacco Former smoker, Cigar ettes 1 Smoking Status Never smoked cigaret jad Sex Female 1Quit smoking in 1995 Cardiology Outpatient Note * DO Mcdonald Jason D: PERFORM Event Display: Cardiology Outpt Note Authored Date: [id number] Primary Care Provider MD Katiana, Yao Romero Referring Provider DO Mcdonald Jason D Chief Complaint 6 mon f/u htn paf copd History of Present Illness She is stable. Her level of function has remained stable. She has not needed any doses of Bumex. She denies any abdominal distention or lower extremity edema. She has had no palpitations or fluttering and appears to be maintaining sinus rhythm on amiodarone. She denies any falls or syncopal episodes. She is using oxygen cgbjgk-brn-peoer and this has been stable without any adjustments. She denies any orthopnea. She has had no chest pain or chest pressure. Unfortunately her has been in a memory unit for 2 years got COVID and is now in the hospital with severe dehydration. As expected this is causing her much consternation. Overall she seems relatively stable and is done much better than any of us would have anticipated since her hospitalization. Review of Systems PAST MEDICAL HISTORY: 1. Severe stenosis of the right innominate with a systolic blood pressure gradient of 50 mmHg andwithout significant right carotid disease. 2. 90 to 95% narrowing of the left internal carotid artery status post carotid endarterectomy 12/2015 (restenosis of her left internal carotid artery of approximately 70%). 3. Abnormal dobutamine stress echo with mild apical ischemia 10/2015. 4. Hypertension for 20+ years. 5. Breast cancer diagnosed spring 2012 status post lumpectomy and radiation on the right side nowon tamoxifen. 6. Hyperthyroidism well over 30 years on PTU. 7. History of uterine cancer status post radiation therapy. 8. COPD. 9. Claudication secondary to peripheral arterial disease. 10. Acute diastolic heart failure with preserved left ventricular systolic function 02/2018. 11. Status post left thoracentesis of approximately 650 mL February 2018. 12. Episodes of atrial fibrillation during her hospitalization February 2018 and Fall 2021 13. Echocardiogram 09/2021 with normal biventricular size and function, EF in the range of 73%, moderate RV dilation with mild RB dysfunction; mild aortic stenosis, gbcs-jz-qrpgncee mitral stenosis,severe tricuspid regurgitation with rpun-nv-wedtzkcw pulmonary hypertension. 14. Hematuria leading to a diagnosis of bladder cancer, Spring 2020 and Fall 2021. 15. NSTEMI with a peak troponin of 21 in the face of sepsis with occlusion and without evidence of left coronary occlusive disease supplying pocm-lx-wunjd collaterals to a chronically occluded RCA. 16. Paroxysmal atrial fibrillation at the time of her sepsis, currently maintaining sinus rhythm on amiodarone. Physical Exam Vitals & Measurements HR:57(Monitored) BP:166/62 SpO2:94% WT:55.500kg(Dosing) WT:55.5kg PHYSICAL EXAMINATION: She is awake, alert, oriented x3. She is in no acute distress. She has very loud carotid bruits on the left compared to the right. Her jugular venous pressuredid not appear significantly elevated. Her sclerae was anicteric.. I did not palpate either carotid. Her hearing is normal. Lungs: Clear to auscultation bilaterally, no rales, rhonchi or wheezing. Cardiac: Regular rate and rhythm without any ectopy. There was a 2/6 crescendo-decrescendo murmur which is early to mid-peaking at the right sternal border. extremities: No clubbing,cyanosis or edema. Psychiatric: Her affect appeared appropriate. Assessment/Plan 1.CAD in campo artery 2.Diastolic CHF 3.Hypertensive disorder 4.PAF (paroxysmal atrial fibrillation) From my standpoint she is done better than expected. She is not having worsening heart failure symptoms. Has not needed any additional doses of Bumex. She does need a CMP and a TSH and a free T4 on amiodarone. She is maintaining sinus rhythm on amiodarone without any recurrent atrial arrhythmias. She is not on anticoagulation due to her frequent and severe bladder bleeding. She has also significant bruising on her forearms just related to aspirin. She notes she is often missing the middle dose of hydralazine but her blood pressures overall look good and I discussed with her not to get upset if she misses the middle dose. We discussed the importance of taking care of herself and given the fact that her has COVID's and is in the hospital that I would avoid seeing him. If she were to get COVID with her underlying cardiac and pulmonary issues it could potentially be lethal. Given the fact that he does not even know if she is at this point he is not can know whether she is there or not. Otherwise she is relatively stable. We will follow-up via phone in regards to her labs. She will see Leann, our nurse practitioner, in 4 months. I will see her in 8 months. Problem List/Past Medical History Ongoing Abnormal dobutamine stress echo Aortoiliac stenosis CAD in campo artery Carotid stenosis Carotid stenosis Chronic kidney disease, stage 3b Chronic obstructive pulmonary disease Diastolic CHF Hyperdynamic circulation Hypertensive disorder Hyperthyroidism Innominate artery stenosis Lipid disorder Malignant tumor of breast Mild claudication PAF (paroxysmal atrial fibrillation) S/p carotid endarterectomy Uterine cancer Procedure/Surgical History Chest x-ray (12/11/2021)Diagnostic mammogram (06/23/2021)Cystoscopy and transurethral biopsy of prostate (09/16/2020)Cataract (07/24/2019)Mammogram (06/19/2019)Mammogram (06/06/2017)Carotid endarterectomy (01/07/2016)CXR - Chest X-ray (12/22/2015)Imaging,chest (12/22/2015)CT brain w/o contrast (10/01/2015)Computed tomography (CT) of neck with contrast (10/01/2015)Mammogram (05/29/2014)Breast lumpectomy (2012)Hysterectomy (1995)CholecystectomySurgeryFlexible sigmoidoscopy Medications amiodarone(amiodarone 200 mg oral tablet), 200 mg= 1 tab, PO, Daily, 3 refills aspirin(aspirin 81 mg oral tablet), 81 mg= 1 tab, PO, Daily atorvastatin(Lipitor 40 mg oral tablet), 40 mg= 1 tab, PO, qhs, 3 refills bumetanide(bumetanide 1 mg oral tablet), See Instructions, 3 refills hydrALAZINE(hydrALAZINE 10 mg oral tablet), 10 mg= 1 tab, PO, tid, 3 refills metoprolol(Metoprolol Tartrate 50 mg oral tablet), 25 mg= 0.5 tab, PO, bid, 3 refills propylthiouracil(propylthiouracil 50 mg oral tablet), 100 mg= 2 tab, PO, bid, 1 refills sacubitril-valsartan(Entresto 24 mg-26 mg oral tablet), 1 tab, PO, bid, 11 refills spironolactone(spironolactone 25 mg oral tablet), 12.5 mg= 0.5 tab, PO, Daily, 3 refills Allergies NKA Social History Smoking Status Never smoked cigarettes Alcohol Frequency:1-2 times per month Exercise - Occasional exercise Tobacco - Denies Tobacco Use Use:Former smoker Type:Cigarettes - Comments: Quit smoking in 1995 Family History Alcohol abuse: Father. Celiac disease..: Sister. Emphysema of lung: Father. Jaylin's disease: Sister. Heart failure: Mother. Pulmonary embolism: Sister. Tobacco abuse: Father. 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 [facility] [place] [place] [address] JDF Patient Care team information Care Team Personnel Name: MD Katiana, Yao Romero Position: Physician - Internal Med Member Role: Primary Care Provider Address: Address: [address] [place] [address] [place] Name: BOLIVAR Jean Lynn Position: Physician Circulating Process Inspector Exempt - Vasc Surg Member Role: Lifetime Relationship Address: Address: [address] [place] [id number] [place] Name: MD Roshan, Juwan Interiano Position: Physician - Vascular Surg Member Role: Lifetime Relationship Address: Address: [address] [place] [address] [place] Care Team Related Persons Name: OTILIA RODRIGUEZ Address: home No Address Provided Name: ONDINA ROPER Address: home No Address Provided Name: ONDINA ROPER
[2022-12-25 05:36] LABS: Calcium 8.9 mg/dl (8.6-10.3); Potassium 4.4 mmol/L (3.5-5.1)
[2022-12-25 05:42] LABS: BUN Creatinine Ratio 18.6 (10-20); Creatinine Clr Calc Pharmacy 17.8 ml/min; Est GFR (African American) 23.9 ml/min; Est GFR (Non-African American) 20.6 ml/min
--- NOTE | 2022-12-25 07:27 | XRay Report ---
SINGLE VIEW CHEST CLINICAL HISTORY: Congestive heart failure. FINDINGS: An AP, portable, upright chest radiograph is compared to study dated 12/23/2022 and correla tyesha with chest CT dated 05/08/2021. The heart is enlarged noting atherosclerotic calcification of the t horacic aorta. There is pulmonary vascular congestion. Emphysema and chronic interstitial thickening is similar to previous. There are small pleural effusions with dependent consolidation. No pneumothor ax is seen. The skeletal structures are osteopenic. The bony thorax is grossly intact. IMPRESSION: 1. Cardiomegaly and emphysema with evidence of congestive failure. 2. Small pleural effusions with dependent consolidation. 3. The spiculated right upper lobe pulmonary lesion seen on prior chest CTs is not well visualized by x-ray. This remains highly suspicious for pulmonary neoplasm. ACT 112: Negative or not required by law. Electronically signed by: Donnie Redding M.D. 12/25/2022 7:25 AM
[2022-12-25] MEDS: hydrALAZINE 10 MG TAB PO SCH ×3 (09:10→21:38)
[2022-12-25] MEDS: HEPARIN SOD 5,000 UNIT/0.5 ML VIAL SQ SCH ×2 (09:10→21:38)
[2022-12-25] MEDS: VALSARTAN/SACUBITRIL 26/24MG TAB PO SCH (09:10)
[2022-12-25] MEDS: PANTOprazole 40 MG TAB PO SCH ×2 (09:11→09:16)
[2022-12-25] MEDS: ASPIRIN 81 MG ECTAB PO SCH (09:11)
[2022-12-25] MEDS: SPIRONOLACTONE 12.5 MG TAB PO SCH (09:11)
[2022-12-25] MEDS: propylthiouraciL 50 MG TAB PO SCH ×2 (09:12→21:38)
[2022-12-25] MEDS: AMIODARONE 200 MG TAB PO SCH ×2 (09:13→21:37)
[2022-12-25] MEDS: BUMETANIDE 1 MG in SYRINGE 0 ML IV SCH (09:26)
--- NOTE | 2022-12-25 12:03 | Hospitalist Progress Note ---
Date of Service December 25, 2022 Assessment & Plan (1) Acute on chronic systolic CHF (congestive heart failure): Plan: Ejection fraction 45% on most recent cardiac echo done December 2021. She has evidence of pulmonary hypertension and right ventricular enlargement. Diuresis should be enhanced with higher doses of intravenous Bumex. She normally takes Entresto and hydralazine at home. Entresto discontinued today, December 25, due to elevated creatinine levels. Her ejection fraction is 45%. Metoprolol has been discontinued due to persistent sinus bradycardia. Heart rate remains low. Monitor intake and output. Serial chest x-ray (2) Acute on chronic respiratory failure with hypoxia: Plan: Supplemental oxygen to maintain saturation greater than 90%. Wean oxygen back to baseline 3 L/min as tolerated (3) CKD stage G3a/A3, GFR 45-59 and albumin creatinine ratio >300 mg/g: Plan: Monitor intake and output. Serial labs. Creatinine has climbed to 2.1. Entresto has been discontinued today, December 25. (4) COPD with emphysema: Plan: Currently stable. Continue as needed inhaler (5) Graves disease: Plan: Stable. Continue propylthiouracil. Free T3 level is slightly low and free T4 level is normal. No adjustments at this time (6) HTN (hypertension): Plan: Stable. Continue current medical management Plan Hopeful discharge to home within the next 24 to 48 hours Admission and Anticipated Discharge Date Admission Date: December 23, 2022 Subjective Alert and oriented. No acute problems. Creatinine has bumped to 2.1 with diuresis. Entresto has been discontinued. Free T3 level is low with normal free T4 level. Will not adjust PTU therapy at this time however. Chest x-ray done today, December 25, looks slightly better. She states she is aware of the right upper lobe spiculated nodule and this is being followed up as an outpatient. Heart rate remains somewhat low. Metoprolol was discontinued yesterday. Intake and output is negative but she probably would benefit from higher doses of intravenous Bumex which has been adjusted. She remains on 5 L oxygen per nasal cannula. She usually uses 3 L/min Review of Systems 2 Review of Systems: Constitutional-no fever or chills ENT-no blurred vision, no double vision, no epistaxis, no sore throat Respiratory-no cough, no wheezing. Dyspnea and orthopnea Cardiac-no palpitations, no chest pain, no syncope GI-no nausea, vomiting, diarrhea, melena, hematochezia -no urinary retention, no urinary incontinence, no dysuria, no hematuria Musculoskeletal-no joint pain, no muscle tenderness. Worsening peripheral edema Skin-no bruising, no rashes, no pruritus Neuro-no isolated weakness, no paresthesia Psych-no depression, no anxiety Physical Exam 2 Physical Exam: General-alert and oriented x3, no fevers, no chills HEENT-head atraumatic and normocephalic, pupils equal and reactive to light, extraocular muscles intact Neck-no lymphadenopathy or thyromegaly, trachea midline Chest-diminished breath sounds bilaterally. Bibasilar inspiratory rales. No wheezing Cardiac-regular rate and rhythm, normal S1 and S2 Abdomen-normal bowel sounds, nontender, no hepatosplenomegaly Extremities-no cyanosis. 1+ pitting edema bilateral lower extremities below the knees Neuro-cranial nerves II through XII intact, motor and sensory function within normal limits, strength symmetrical, no focal deficits Psych-normal affect, normal mood Results & Data Results & Data Vital Signs (Past 12 Hours) Vital Signs Temp Pulse Pulse Resp BP Pulse Ox O2 Del Method 12/25/22 11:35 36.5 C 53 L 18 154/58 H 98 Nasal Cannula 12/25/22 08:15 Nasal Cannula 12/25/22 07:54 46 L 12/25/22 07:16 36.8 C 53 L 18 147/57 H 91 Nasal Cannula 12/25/22 02:53 36.8 C 53 L 18 111/46 L 92 Nasal Cannula 12/25/22 00:19 Nasal Cannula 12/25/22 00:18 53 L O2 Flow Rate 12/25/22 11:35 4 12/25/22 08:15 5 12/25/22 07:54 12/25/22 07:16 5 12/25/22 02:53 5 12/25/22 00:19 5 12/25/22 00:18 Laboratory Results 12/23/22 07:27 12/25/22 04:06 PG Care Time/CCT Total # of Minutes Spent Total Time Spent with Patient: Total time spent is greater than 50% in coordination of care (as documented) at patient's floor/unit and/or counseling patient: Coding Level of Care Code 85644 SUB INP/OBS CARE 3/50MIN Diagnoses Acute on chronic systolic CHF (congestive heart failure) I50.23 Acute on chronic respiratory failure with hypoxia J96.21 CKD stage G3a/A3, GFR 45-59 and albumin creatinine ratio >300 mg/g N18.31 COPD with emphysema J43.9 Graves disease E05.00 HTN (hypertension) I10
[2022-12-25] MEDS: BUMETANIDE 2 MG in SYRINGE 0 ML IV SCH (16:59)
[2022-12-25] MEDS: ATORVASTATIN 40 MG TAB PO SCH (21:37)
[2022-12-26 05:43] LABS: BUN Creatinine Ratio 20.9 (10-20); Calcium 8.9 mg/dl (8.6-10.3); Creatinine Clr Calc Pharmacy 19.3 ml/min; Est GFR (African American) 27.6 ml/min; Est GFR (Non-African American) 23.8 ml/min; Potassium 3.9 mmol/L (3.5-5.1)
[2022-12-26] MEDS: BUMETANIDE 2 MG in SYRINGE 0 ML IV SCH ×2 (08:11→16:14)
[2022-12-26] MEDS: ASPIRIN 81 MG ECTAB PO SCH (08:11)
[2022-12-26] MEDS: AMIODARONE 200 MG TAB PO SCH (08:11)
[2022-12-26] MEDS: HEPARIN SOD 5,000 UNIT/0.5 ML VIAL SQ SCH ×2 (08:16→21:22)
[2022-12-26] MEDS: hydrALAZINE 10 MG TAB PO SCH (08:17)
[2022-12-26] MEDS: PANTOprazole 40 MG TAB PO SCH (08:17)
[2022-12-26] MEDS: propylthiouraciL 50 MG TAB PO SCH ×2 (08:18→21:22)
[2022-12-26] MEDS: SPIRONOLACTONE 12.5 MG TAB PO SCH (08:19)
--- NOTE | 2022-12-26 14:13 | Hospitalist Progress Note ---
Date of Service December 26, 2022 Assessment & Plan (1) Acute on chronic systolic CHF (congestive heart failure): Plan: Ejection fraction 45% on most recent cardiac echo done December 2021. She has evidence of pulmonary hypertension and right ventricular enlargement. Diuresis has been enhanced with higher doses of intravenous Bumex. She normally takes Entresto and hydralazine at home. Entresto discontinued on December 25, due to elevated creatinine levels. Hydralazine discontinued today, December 26 due to borderline low blood pressure. Her ejection fraction is 45%. Metoprolol has been discontinued due to persistent sinus bradycardia. Heart rate remains mildly bradycardic but is improving. Monitor intake and output. We will repeat chest x-ray again tomorrow, December 27 (2) Acute on chronic respiratory failure with hypoxia: Plan: Supplemental oxygen to maintain saturation greater than 90%. Oxygen has been weaned back to baseline 3 L/min (3) CKD stage G3a/A3, GFR 45-59 and albumin creatinine ratio >300 mg/g: Plan: Improving since ARB has been discontinued. Creatinine 1.9 today, December 26. We will follow . Serial labs. (4) COPD with emphysema: Plan: Currently stable. Continue as needed inhaler (5) Graves disease: Plan: Stable. Continue propylthiouracil. Free T3 level is slightly low and free T4 level is normal. No adjustments at this time (6) HTN (hypertension): Plan: Blood pressure is running on the low side. Entresto has been discontinued. Hydralazine has also been discontinued. Plan Hopeful discharge to home tomorrow, December 27 Admission and Anticipated Discharge Date Admission Date: December 23, 2022 Subjective Alert and oriented. Blood pressure is on the low side but she is asymptomatic. Hydralazine has been discontinued. She states she only takes amiodarone once daily at home and this has been adjusted. We will repeat chest x-ray tomorrow. Entresto and metoprolol have been discontinued. Heart rate is now in the mid to high 50s. Creatinine down to 1.9. Hopefully she can go home tomorrow, December 27 Review of Systems 2 Review of Systems: Constitutional-no fever or chills ENT-no blurred vision, no double vision, no epistaxis, no sore throat Respiratory-no cough, no wheezing. Dyspnea and orthopnea Cardiac-no palpitations, no chest pain, no syncope GI-no nausea, vomiting, diarrhea, melena, hematochezia -no urinary retention, no urinary incontinence, no dysuria, no hematuria Musculoskeletal-no joint pain, no muscle tenderness. Worsening peripheral edema Skin-no bruising, no rashes, no pruritus Neuro-no isolated weakness, no paresthesia Psych-no depression, no anxiety Physical Exam 2 Physical Exam: General-alert and oriented x3, no fevers, no chills HEENT-head atraumatic and normocephalic, pupils equal and reactive to light, extraocular muscles intact Neck-no lymphadenopathy or thyromegaly, trachea midline Chest-diminished breath sounds bilaterally. Bibasilar inspiratory rales. No wheezing Cardiac-regular rate and rhythm, normal S1 and S2 Abdomen-normal bowel sounds, nontender, no hepatosplenomegaly Extremities-no cyanosis. 1+ pitting edema bilateral lower extremities below the knees Neuro-cranial nerves II through XII intact, motor and sensory function within normal limits, strength symmetrical, no focal deficits Psych-normal affect, normal mood Results & Data Results & Data Vital Signs (Past 12 Hours) Vital Signs Temp Pulse Pulse Resp BP Pulse Ox O2 Del Method 12/26/22 11:37 84/41 L 12/26/22 11:36 36.6 C 65 18 80/44 L 94 Nasal Cannula 12/26/22 08:00 Nasal Cannula 12/26/22 07:59 36.9 C 56 L 18 148/55 H 92 Nasal Cannula 12/26/22 07:38 53 L 12/26/22 03:48 36.6 C 55 L 16 142/50 H 95 Nasal Cannula O2 Flow Rate 12/26/22 11:37 12/26/22 11:36 3 12/26/22 08:00 3 12/26/22 07:59 3 12/26/22 07:38 12/26/22 03:48 3 Laboratory Results 12/23/22 07:27 12/26/22 04:16 PG Care Time/CCT Total # of Minutes Spent Total Time Spent with Patient: Total time spent is greater than 50% in coordination of care (as documented) at patient's floor/unit and/or counseling patient: Coding Level of Care Code 42746 SUB INP/OBS CARE 3/50MIN Diagnoses Acute on chronic systolic CHF (congestive heart failure) I50.23 Acute on chronic respiratory failure with hypoxia J96.21 CKD stage G3a/A3, GFR 45-59 and albumin creatinine ratio >300 mg/g N18.31 COPD with emphysema J43.9 Graves disease E05.00 HTN (hypertension) I10
[2022-12-26] MEDS: ATORVASTATIN 40 MG TAB PO SCH (22:07)
[2022-12-27] MEDS: propylthiouraciL 50 MG TAB PO SCH (08:22)
[2022-12-27] MEDS: HEPARIN SOD 5,000 UNIT/0.5 ML VIAL SQ SCH (08:22)
[2022-12-27] MEDS: ASPIRIN 81 MG ECTAB PO SCH (08:23)
[2022-12-27] MEDS: SPIRONOLACTONE 12.5 MG TAB PO SCH (08:23)
[2022-12-27] MEDS: PANTOprazole 40 MG TAB PO SCH (08:24)
--- NOTE | 2022-12-27 08:49 | XRay Report ---
SINGLE VIEW CHEST CLINICAL HISTORY: Congestive heart failure. FINDINGS: An AP, portable, upright chest radiograph is compared to study dated 12/25/2022 and correla tyesha with chest CT dated 05/08/2021. The heart is enlarged noting atherosclerotic calcification of the t horacic aorta. There is mild pulmonary vascular congestion. Emphysema and chronic interstitial thicke mackenzie is similar to previous. There are small pleural effusions, left larger than right with dependent consolidation. No pneumothorax is seen. The skeletal structures are osteopenic. The bony thorax is g rossly intact. IMPRESSION: 1. Cardiomegaly and emphysema with evidence of congestive failure. This is modestly improved from pre vious. 2. Small pleural effusions with dependent consolidation. 3. The spiculated right upper lobe pulmonary lesion seen on prior chest CTs is not well visualized by x-ray. This remains highly suspicious for pulmonary neoplasm. ACT 112: Negative or not required by law. Electronically signed by: Donnie eRdding M.D. 12/27/2022 8:47 AM
[2022-12-27] MEDS ORDERED: AMIODARONE 200 MG TAB PO SCH (09:00)
[2022-12-27] MEDS ORDERED: BUMETANIDE 1 MG TAB PO SCH (09:00)
--- NOTE | 2022-12-27 11:30 | Discharge Summary ---
Date of Service December 27, 2022 Admission HPI Per Admitting Provider 82-year-old female with worsening shortness of breath over several days. She denies chest pain cough or wheezing. No hemoptysis. She came to the ED for evaluation. She is requiring more than her baseline oxygen and chest x-ray is consistent with congestive heart failure. She refuses Islas catheter placement due to previous issues with her bladder. She did receive IV Bumex in the ED. She is alert and oriented in no acute distress. Cardiac echo was done December 29 and will be repeated. She sees Dr. Mcdonald periodically but there is no acute reason for cardiology consultation at this time. Hopefully she can go home in a few days. OT and PT assessments will be ordered when appropriate. Principal Diagnosis Acute on chronic systolic congestive heart failure, sinus bradycardia Discharge Exam General-alert and oriented x3, no fevers, no chills HEENT-head atraumatic and normocephalic, pupils equal and reactive to light, extraocular muscles intact Neck-no lymphadenopathy or thyromegaly, trachea midline Chest-diminished breath sounds bilaterally. Bibasilar inspiratory rales. No wheezing Cardiac-regular rate and rhythm, normal S1 and S2 Abdomen-normal bowel sounds, nontender, no hepatosplenomegaly Extremities-no cyanosis. 1+ pitting edema bilateral lower extremities below the knees has nearly resolved Neuro-cranial nerves II through XII intact, motor and sensory function within normal limits, strength symmetrical, no focal deficits Psych-normal affect, normal mood Discharge Data Allergies Allergy/AdvReac Type Severity Reaction Status Date / Time No Known Allergies Allergy Verified 10/15/21 13:44 Consultations 12/23/22 09:05 ED Decision to Admit Stat Hospital Course (1) Acute on chronic systolic CHF (congestive heart failure): Ejection fraction 45% on most recent cardiac echo done December 2021. She has evidence of pulmonary hypertension and right ventricular enlargement. Diuresis has been enhanced with higher doses of intravenous Bumex. She normally takes Entresto and hydralazine at home. Entresto discontinued on December 25, due to elevated creatinine levels. Hydralazine discontinued on December 26 due to borderline low blood pressure. Her ejection fraction is 45%. Metoprolol has been discontinued due to persistent sinus bradycardia. Heart rate remains m ildly bradycardic but is improving. Monitor intake and output. Chest x-ray done today, November 20, looks better. She has been instructed to restart the hydralazine if her systolic blood pressure goes over 150. She is able to check her blood pressure at home (2) Acute on chronic respiratory failure with hypoxia: Supplemental oxygen to maintain saturation greater than 90%. Oxygen has been weaned down to her baseline 3 L/min (3) CKD stage G3a/A3, GFR 45-59 and albumin creatinine ratio >300 mg/g: Improving since ARB has been discontinued. Monitor intake and output. Serial labs. (4) COPD with emphysema: Currently stable. Continue as needed inhaler (5) Graves disease: Stable. Continue propylthiouracil. Free T3 level is slightly low and free T4 level is normal. No adjustments at this time (6) HTN (hypertension): Blood pressure was running on the low side but has improved and is stable since Entresto and hydralazine discontinued. Metoprolol has also been discontinued. She will check her blood pressure at home and restart the hydralazine if the systolic blood pressure exceeds 150. Plan Home today, December 27. Follow-up with her [employer] as soon as possible Total Time Total Time Spent Total Time Spent (In Minutes): 45 minutes Discharge Plan Discharge Items Patient Disposition: Home - Self-Care Reason For Visit: CHF Discharge Diagnosis: Acute on chronic systolic congestive heart failure, sinus bradycardia Activity: Resume your previous activity Non-emergency contact: Primary Care Provider and Slasher Tender Call non-emergency contact if: you have any medication questions and your symptoms worsen Follow-up/Referrals: Yao Saab MD [Primary Care Provider] - Diet: Regular and Heart Healthy Addtl Attending Provider Instructions: Entresto and metoprolol has been stopped. Hydralazine has also been stopped. Check blood pressure daily and restart hydralazine if systolic blood pressure (top number) exceeds 150. Bumex (water pill) dosage has been increased Pending Studies at Discharge: No Stand-Alone Forms: My [facility], Smoking Cessation Medications and DC Order Prescriptions: New bumetanide 1 mg Tablet 1 mg PO QAM Qty: 30 0RF Continued albuterol sulfate 90 mcg/actuation HFA aerosol inhaler 2 puff inhalation Q6H PRN (Reason: Shortness Of Breath Or Wheezing) Qty: 18 3RF atorvastatin 40 mg Tablet 40 mg PO PM propylthiouracil 50 mg Tablet 100 mg PO BID aspirin [Hermilo Low Dose Aspirin] 81 mg Tablet,Delayed Release (Dr/Ec) 81 mg PO QAM spironolactone [Aldactone] 25 mg Tablet 12.5 mg PO DAILY amiodarone 200 mg tablet 200 mg PO BID Qty: 60 0RF Discontinued bumetanide 1 mg Tablet 0.5 mg PO DAILY Rx Instructions: For weight gain of 2lb in 24 hours OR 5lbs in 7 days metoprolol tartrate 50 mg Tablet 25 mg PO BID Qty: 14 0RF Entresto 24-26 mg tablet 1 tab PO BID Discharge Orders: Discharge Order- CHF (Routine); Ordered 12/27/22 Ordered By: Parth Soriano/Other Patient Handouts: Heart Failure Admission Data Admit Date/Time: 12/23/22 10:44 Attending Provider: Parth Mcneill Admit Provider: Parth Mcneill Primary Care Provider: Yao Saab Other Providers: Parth Mcneill Coding Level of Care Code 91236 INP/OBS DISCH >30 MIN Diagnoses Acute on chronic systolic CHF (congestive heart failure) I50.23 Acute on chronic respiratory failure with hypoxia J96.21 CKD stage G3a/A3, GFR 45-59 and albumin creatinine ratio >300 mg/g N18.31 COPD with emphysema J43.9 Graves disease E05.00 HTN (hypertension) I10
== END 2022-12-27 14:04 | disposition home health service (06) | DRG 291 ==
LOC: ED 07:15 → 2W 10:36 → EDINP 10:44 → 2W 15:51

== ENCOUNTER 2024-04-16 12:22 | Inpatient (IN) ==
--- NOTE | 2024-04-16 12:48 | Emergency Department Note ---
Impression & Plan Symptomatic anemia, Hematuria ED Provider Note NAME: ABDIAS RODRIGUEZ AGE: 83 SEX: F : 1940 ARRIVES VIA: Walk-In INFORMANT: Patient, daughter ED PROVIDER(S): Greg Zuluaga MD CHIEF COMPLAINT: Fatigue, hematuria MEDICAL DECISION MAKING: Patient presents with the above. IV was established and blood work was obtained. Patient denies any concern for tick bites. Patient with a white count of 8 hemoglobin of 5.3. This is a sizable drop from her most recent hemoglobin from April 03 when it was 9. Likely cause of the patient's symptoms given her hematuria. The patient had been as prior if she had any concerns for vaginal bleeding or rectal bleeding but denies this. Patient reports prior history of hysterectomy. Patient's kidney function with a creat of 2.17. Not too far off from the patient's baseline of maybe 1.6 but likely dry. The patient did receive a liter of IV fluids prior to be considered for 2 units PRBCs. Hypokalemia noted at 5.3. BSG 105. Type and screen and transfusion orders ordered. I did speak the on-call urology service Dr. Flood who recommend CT abdomen pelvis and would evaluate the patient at bedside. I did speak the on-call hospitalist service Dr. Jose and the patient was admitted to medicine service. Critical Care: I have personally spent 41 minutes of critical care time in direct management of this patient. This includes bedside care, interpretation of diagnostic studies, and testing, discussion with consultants, patient, and family members, and other require inpatient management activities. This 41 minutes is in excess of all separately billable procedures. Discussion w/ other healthcare providers: Dr. Flood urology Dr. Jose patient medicine service Prior /Outside records reviewed: I reviewed part of a urology visit from April 06. Patient with prior history of bladder cancer hematuria and possible UTI. Patient did have a cystoscopy completed at that time. Review of the notes says bladder was poorly visualized to hematuria. No obvious tumors noted. Ureters appear to be normal. 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 Possibly exacerbated by infection. Urine culture was to be sent and to be treated if indicated. I reviewed her most recent urine culture from April 06 which showed no growth. Differential diagnosis: Infection, dehydration, metabolic abnormality, hypo/hyperglycemia, electrolyte imbalance, anemia, UTI, pneumonia, thyroid dysfunction among others were considered. Diagnostics, as interpreted by me: ECG: Normal sinus rhythm, rate of 62, normal intervals, normal axis no obvious STEMI. Slight ST depressions inferiorly and laterally. Cardiac monitoring: An order was placed for continuous cardiac monitoring. The monitor shows a rate of 65 with sinus rhythm. Patient was placed on pulse oximetry Medical decision rules: None Imaging studies: I informally interpreted the patient's CT abdomen pelvis shows bladder distention with formal report to follow. HPI: Patient presents due to concern for worsening weakness and fatigability with chronic hematuria. The patient has had hematuria since April 03. Reportedly did have a cystoscopy performed by Dr. Tse on the . Was told that it was difficult to ascertain exact site or cause of bleeding but did not notice any obvious cancer per patient patient's daughter at bedside. She was described as having a cystitis that was likely secondary to her radiation as the patient did have a prior history of uterine cancer. Patient reports that she has had a prior hysterectomy. She denies any vaginal bleeding or rectal bleeding. Patient does take a baby aspirin but no other blood thinners or antiplatelets. The patient has had increasingly worsening fatigue over these last 2 weeks. Patient denies any chest pains or shortness of breath. No falls or trauma. Patient describes the hematuria as "samuel Jaya-Aid." Patient does have prior history of Graves' and does take propylthiouracil. Patient and daughter deny any concerns for tick bites or Lyme's. PAST MEDICAL HISTORY: See Below PAST SURGICAL HISTORY: See Below SOCIAL HISTORY: See Below HOME MEDICATIONS: See Below ALLERGIES: See Below VITALS: See Below PHYSICAL EXAMINATION: GENERAL: NAD, non-toxic. Wearing glasses. EYE EXAM: Normal conjunctiva. PERRL, no anisocoria and EOM's grossly intact w/o pain. OROPHARYNX: Moist mucus membranes, grossly normal dentition. NECK: Trachea midline, no stridor. LUNGS: Clear to auscultation. Normal chest wall mechanics. HEART: NSR, no MRG. ABDOMEN: Abdomen soft, non-tender, no masses, no rebound or guarding. BACK: No CVA TTP. SKIN: No rashes and no bruising. UPPER EXTREMITIES: Upper extremities are grossly normal. LOWER EXTREMITIES: Grossly normal, no edema. NEURO EXAM: A&O x3, cranial nerves II-XII grossly intact, normal speech, moves all 4 extremities. Past Med/Surg History Problem List (HFpEF) heart failure with preserved ejection fraction Hematuria (Acute) Symptomatic anemia (Acute) Anemia (Acute) Acute on chronic respiratory failure with hypoxia Acute on chronic systolic CHF (congestive heart failure) Bladder cancer Hematuria Thrombocytopenia Transaminitis Nausea Bacteremia Pulmonary hypertension Acute kidney injury DVT prophylaxis Acute systolic CHF (congestive heart failure) Severe sepsis NSTEMI (non-ST elevated myocardial infarction) Fever UTI (urinary tract infection) Shock liver Shock Right ventricular dilation Severe tricuspid regurgitation Vasculopathy Hypotension Sepsis Acute kidney injury Lower back pain ST elevation PA (STEMI) (Acute) Hypoxia (Acute) Carotid artery disease s/p left carotid endarterectomy (3 years ago/[facility]), follows with Dr. Islas Atrial fibrillation with RVR Acute on chronic heart failure with preserved ejection fraction STEMI (ST elevation myocardial infarction) Acute and chronic respiratory failure PAD (peripheral artery disease) HLD (hyperlipidemia) Graves disease Acute exacerbation of CHF (congestive heart failure) Sepsis (Acute) Anemia (Acute) Fever (Acute) Dysuria (Acute) Hematuria (Acute) Acute blood loss anemia Anemia Chronic anemia baseline hgb 11's per chart review Proctocolitis Sepsis Bladder cancer Ex-smoker Pulmonary nodule Multiple pulmonary nodules Stenosis of left internal carotid artery Hypoxia (Acute) Pedal edema (Acute) Acute heart failure Acute respiratory failure with hypoxia (Acute) Hypothyroidism DVT prophylaxis Elevated bilirubin Paroxysmal atrial fibrillation Encounter for pre-operative examination Gross hematuria (Acute) Breast cancer Dx 7 years ago s/p right lumpectomy- RUE lumpectomy Peripheral artery disease Medical History CKD stage G3a/A3, GFR 45-59 and albumin creatinine ratio >300 mg/g HTN (hypertension) COPD with emphysema Osteoarthritis Graves disease Uterine cancer 1995 hysterectomy/radiation Anxiety Paroxysmal atrial fibrillation Single remote episode (suspected r/t nitro patch), no known recurrences, Follows with Dr. Mcdonald Cardiac murmur 2019 ECHO showed AV sclerosis (no ), mild to moderate mitral annular calcification and mild MS CHF (congestive heart failure) 2019 Hyperlipidemia Hypertension Surgical History History of cataract surgery Right History of total hysterectomy with bilateral salpingo-oophorectomy (BSO) History of flexible sigmoidoscopy History of breast biopsy Right History of cholecystectomy Hx of lumpectomy 7 years ago History of left-sided carotid endarterectomy Family History Other No pertinent family history Social History Smoking Status: Former smoker Tobacco Type: Cigarettes Second Hand Exposure: No; Do You Dip or Chew Tobacco: No; Hx Alcohol Use: No Hx Substance Use: No Preferred Language: Arabic Communication Ability: Effective Room Service Bellhop Required: No Beliefs That Will Affect Care: None marital status: Unknown Current Living Situation: Alone Current Living Situation Comment: with alzheimers/ How many Children do You have: 2 Feels Safe at Home: Yes Assistive Devices: Denture - Upper, Glasses, Oxygen - Continuous and Walker Allergies Allergies Allergy/AdvReac Type Severity Reaction Status Date / Time No Known Allergies Allergy Verified 10/15/21 13:44 Home Meds Home Medications Medication Instructions Recorded Confirmed aspirin 81 mg tablet,delayed 81 mg PO QAM 02/17/18 04/16/24 release (Hermilo Low Dose Aspirin) atorvastatin 40 mg tablet 40 mg PO PM 02/17/18 04/16/24 propylthiouracil 50 mg tablet 100 mg PO BID 02/17/18 04/16/24 spironolactone 25 mg tablet 12.5 mg PO DAILY 12/11/21 04/16/24 (Aldactone) amiodarone 200 mg tablet 200 mg PO DAILY 08/01/23 04/16/24 hydralazine 10 mg tablet 10 mg PO UD PRN Blood Pressure 08/01/23 04/16/24 bumetanide 1 mg tablet 1 mg PO Q OTHER DAY 04/16/24 04/16/24 Results & Data (ED) Vital Signs Vital Signs - 24 hr 04/16/24 12:23 04/16/24 13:47 04/16/24 14:22 Temperature 36.6 C Temperature Source Temporal Artery Scan Pulse Rate 65 63 Pulse Rate [Apical] 58 L Pulse Rhythm Pulse Strength Respiratory Rate 18 17 Respiratory Effort / Characteristics Non-Labored Spontaneous Non-Labored Spontaneous Respiratory Depth Normal Normal Respiratory Pattern Regular Blood Pressure 132/45 L Blood Pressure [Left Arm] 154/55 H Blood Pressure Mean 74 Blood Pressure Mean [Left Arm] 88 Blood Pressure Position Blood Pressure Position [Left Arm] Semi-fowlers Pulse Oximetry 94 99 Oxygen Delivery Method Nasal Cannula Room Air Oxygen Flow Rate 3 Sepsis Recent Fever Within 48 Hours No Sepsis New/Unexplained Change in Mental Status N/A Sepsis Action Taken by Nursing No Action Required 04/16/24 15:15 04/16/24 15:30 04/16/24 15:45 Temperature 36.7 C 36.8 C 36.8 C Temperature Source Oral Oral Oral Pulse Rate 61 65 61 Pulse Rate [Apical] Pulse Rhythm Regular Regular Regular Pulse Strength Normal Normal Normal Respiratory Rate 20 18 18 Respiratory Effort / Characteristics Respiratory Depth Respiratory Pattern Blood Pressure 147/50 H 115/42 L 140/52 L Blood Pressure [Left Arm] Blood Pressure Mean 82 66 81 Blood Pressure Mean [Left Arm] Blood Pressure Position Lying Lying Blood Pressure Position [Left Arm] Pulse Oximetry 97 96 99 Oxygen Delivery Method Oxygen Flow Rate Sepsis Recent Fever Within 48 Hours Sepsis New/Unexplained Change in Mental Status Sepsis Action Taken by Nursing 04/16/24 16:15 04/16/24 17:15 04/16/24 17:29 Temperature 36.9 C 36.5 C 36.5 C Temperature Source Oral Oral Oral Pulse Rate 60 70 52 L Pulse Rate [Apical] Pulse Rhythm Regular Pulse Strength Normal Respiratory Rate 20 21 17 Respiratory Effort / Characteristics Respiratory Depth Respiratory Pattern Blood Pressure 150/58 H 133/57 L 166/67 H Blood Pressure [Left Arm] Blood Pressure Mean 88 82 100 Blood Pressure Mean [Left Arm] Blood Pressure Position Semi-fowlers Blood Pressure Position [Left Arm] Pulse Oximetry 100 92 99 Oxygen Delivery Method Oxygen Flow Rate 3 3 Sepsis Recent Fever Within 48 Hours Sepsis New/Unexplained Change in Mental Status Sepsis Action Taken by Nursing 04/16/24 17:50 Temperature 36.5 C Temperature Source Oral Pulse Rate 53 L Pulse Rate [Apical] Pulse Rhythm Pulse Strength Respiratory Rate 22 Respiratory Effort / Characteristics Respiratory Depth Respiratory Pattern Blood Pressure 162/62 H Blood Pressure [Left Arm] Blood Pressure Mean 95 Blood Pressure Mean [Left Arm] Blood Pressure Position Blood Pressure Position [Left Arm] Pulse Oximetry 99 Oxygen Delivery Method Oxygen Flow Rate 3 Sepsis Recent Fever Within 48 Hours Sepsis New/Unexplained Change in Mental Status Sepsis Action Taken by Alf Medications Current Medication List: was personally reviewed by me Laboratory Data Attestation: I reviewed the patient's lab results. 04/17/24 05:49 04/17/24 05:49 Lab Results 04/16/24 Range/Units 13:02 WBC 8.34 (4.8-10.8) K/ul RBC 1.80 L (4.20-5.40) M/uL Hgb 5.3 L* (12.0-16.0) g/dl Hct 17.5 L* (37.0-47.0) % MCV 97.2 (80.0-100.0) fL MCH 29.4 (25.0-34.0) pg MCHC 30.3 L (32.0-36.0) g/dL RDW Std Deviation 52.2 H (36.4-46.3) fL RDW Coeff of Armani 14.8 H (11.5-14.5) % Plt Count 283 (130-400) K/uL MPV 10.0 (9.4-12.4) fL Immature Gran % (Auto) 0.5 % Neut % (Auto) 83.5 % Lymph % (Auto) 8.3 % Swift % (Auto) 7.0 % Eos % (Auto) 0.2 % Baso % (Auto) 0.5 % Neut # (Auto) 6.97 H (1.40-6.50) K/uL Lymph # (Auto) 0.69 L (1.20-3.40) K/uL Swift # (Auto) 0.58 (0.11-0.59) K/uL Eos # (Auto) 0.02 (0.00-0.50) K/uL Baso # (Auto) 0.04 (0.00-0.20) K/uL Immature Gran # (Auto) 0.04 (0.01-0.20) K/uL Polychromasia 1+ Anisocytosis Present Stomatocytes 1+ PT 10.9 (9.0-12.0) Seconds INR 1.0 (0.9-1.1) APTT 25 (21-31) Seconds PTT Ratio 0.9 Sodium 138 (136-145) mmol/L Potassium 5.3 H (3.5-5.1) mmol/L Chloride 109 H (98-107) mmol/L Carbon Dioxide 22 (21-32) mmol/L Anion Gap 7 (3-11) BUN 37 H (6-23) mg/dl Creatinine 2.17 H (0.6-1.2) mg/dl Est Cr Clr Drug Dosing Not Reportable eGFR 21.93 BUN/Creatinine Ratio 17.1 (10-20) Glucose 105 H (70-99(Fasting)) mg/dl Calcium 8.8 (8.6-10.3) mg/dl Total Bilirubin 0.6 (0.2-1.0) mg/dl AST 17 (13-39) U/L ALT 11 (7-52) U/L Alkaline Phosphatase 61 (34-104) U/L Total Protein 7.3 (6.0-8.3) gm/dl Albumin 3.6 (3.4-5.0) gm/dl Globulin 3.7 (2.5-4.0) gm/dl Albumin/Globulin Ratio 1.0 (0.9-2) Blood Type A Negative Antibody Screen NEGATIVE Crossmatch See Detail Administered Medications Acetaminophen (Acetaminophen 500 Mg Tab) 1,000 mg PO Q8H PRN PRN Reason: Fever or Pain Stop: 05/16/24 23:02 Last Admin: 04/17/24 00:01 Dose: 1,000 mg Documented By: TYRELL Amiodarone HCl (Amiodarone 200 Mg Tab) 200 mg PO DAILY LEVI Stop: 05/17/24 08:59 Last Admin: 04/17/24 07:56 Dose: 200 mg Documented By: TONE Atorvastatin Calcium (Atorvastatin 40 Mg Tab) 40 mg PO PM LEVI Stop: 05/16/24 20:59 Last Admin: 04/16/24 22:37 Dose: 40 mg Documented By: CEF Propylthiouracil (Propylthiouracil 50 Mg Tab) 100 mg PO BID LEVI Stop: 05/16/24 20:59 Last Admin: 04/17/24 07:56 Dose: 100 mg Documented By: Admin: 04/16/24 23:11 Dose: 100 mg Documented By: CEF Discontinued Medications Sodium Chloride (Nss) 1,000 mls @ 999 mls/hr IV .Q1H1M ONE Stop: 04/16/24 14:34 Last Infusion: 04/16/24 15:38 Dose: Infused Documented By: Admin: 04/16/24 13:41 Dose: 999 mls/hr Documented By: GIANNA Discharge Plan Visit Data Chief Complaint: Hematuria Stated Complaint: BLOOD IN URINE ED Provider: Greg Zuluaga Discharge Problem: Symptomatic anemia, Hematuria Patient Disposition: Admitted As Inpatient Discharge Instructions Interventions: ED Discharge Assessment Last Done: 04/16/24 20:52 Discharge Problem: Hematuria Qualifiers: Hematuria type: gross Qualified Code(s): R31.0 - Gross hematuria
[2024-04-16] MEDS: SODIUM CHLORIDE 0.9% 1,000 ML IV ONE (13:41)
[2024-04-16 13:42] LABS: Hematocrit (blood only) 17.5 % (37.0-47.0); Hemoglobin 5.3 g/dl (12.0-16.0); Mean Corpuscular Hemoglobin 29.4 pg (25.0-34.0); Mean Corpuscular Hgb Conc 30.3 g/dL (32.0-36.0); Mean Corpuscular Volume 97.2 fL (80.0-100.0); Platelet Count 283 K/uL (130-400); RDW Coefficient of Variation 14.8 % (11.5-14.5); RDW Standard Deviation 52.2 fL (36.4-46.3); White Blood Count 8.34 K/ul (4.8-10.8)
[2024-04-16 13:45] LABS: Alanine Aminotransferase 11 U/L (7-52); Albumin Level 3.6 gm/dl (3.4-5.0); Alkaline Phosphatase 61 U/L (34-104); Anion Gap 7 (3-11); Aspartate Aminotransferase 17 U/L (13-39); BUN Creatinine Ratio 17.1 (10-20); Bilirubin,Total 0.6 mg/dl (0.2-1.0); Blood Urea Nitrogen 37 mg/dl (6-23); Calcium 8.8 mg/dl (8.6-10.3); Carbon Dioxide 22 mmol/L (21-32); Chloride 109 mmol/L (98-107); Globulin 3.7 gm/dl (2.5-4.0); Glucose 105 mg/dl (70-99(Fasting)); Potassium 5.3 mmol/L (3.5-5.1); Sodium 138 mmol/L (136-145); Total Protein 7.3 gm/dl (6.0-8.3)
[2024-04-16 13:46] LABS: Partial Thromboplastin Ratio 0.9; Partial Thromboplastin Time 25 Seconds (21-31); Prothrombin Time 10.9 Seconds (9.0-12.0)
[2024-04-16 14:06] LABS: Anisocytosis Present; Basophils # (auto) 0.04 K/uL (0.00-0.20); Basophils % (auto) 0.5 %; Eosinophils # (auto) 0.02 K/uL (0.00-0.50); Eosinophils % (auto) 0.2 %; Immature Granulocytes # (auto) 0.04 K/uL (0.01-0.20); Immature Granulocytes % (auto) 0.5 %; Lymphocytes # (auto) 0.69 K/uL (1.20-3.40); Lymphocytes % (auto) 8.3 %; Monocytes # (auto) 0.58 K/uL (0.11-0.59); Neutrophils # (auto) 6.97 K/uL (1.40-6.50); Neutrophils % (auto) 83.5 %; Polychromasia 1+; Stomatocytes 1+
[2024-04-16] MEDS ORDERED: SODIUM CHLORIDE 0.9% 50 ML IV PRN (14:21)
[2024-04-16] MEDS ORDERED: SODIUM CHLORIDE 0.9% 100 ML IV PRN (14:21)
--- NOTE | 2024-04-16 15:14 | Urology Consultation ---
Date of Consultation April 16, 2024 Assessment & Plan (1) Anemia: (2) Bladder cancer: (3) Hematuria: Plan 83-year-old female with a history of bladder cancer who presents with hematuria and acute anemia. She likely has a component of radiation cystitis as well. Recent cystoscopy did not show any obvious recurrence but was limited due to hematuria Agree with admission for anemia and transfusion of red blood cells No acute urologic intervention necessary. Recommend CT scan of the abdomen pelvis without contrast to rule out any obvious source of bleeding Patient does not require Islas catheter placement at this time Recommend holding aspirin Recommend n.p.o. until CT scan is completed and read History of Present Illness History of Present Illness 83-year-old female who presented with hematuria. She is afebrile with stable vitals. Was found to be significantly anemic with a hemoglobin of 5.3. Last lab was on 04/03/2024 and hemoglobin was 9. Creatinine was 2.17 today, which appears to be roughly her baseline. She reports stable hematuria with clot passage. She does follow with Dr. Tse for history of bladder cancer. She had a cystoscopy on 04/06/2024 which did not show any obvious recurrence however was limited due to hematuria. Dr. Tse felt it was likely related to radiation cystitis. He had recommended a repeat cystoscopy in roughly 1 month Allergies Allergy/AdvReac Type Severity Reaction Status Date / Time No Known Allergies Allergy Verified 10/15/21 13:44 Home Medications Medication Instructions Recorded Confirmed Type aspirin 81 mg tablet,delayed 81 mg PO QAM 02/17/18 08/01/23 History release (Hermilo Low Dose Aspirin) atorvastatin 40 mg tablet 40 mg PO PM 02/17/18 08/01/23 History propylthiouracil 50 mg tablet 100 mg PO BID 02/17/18 08/01/23 History spironolactone 25 mg tablet 12.5 mg PO DAILY 12/11/21 08/01/23 History (Aldactone) bumetanide 1 mg tablet 1 mg PO QAM #30 tabs 12/27/22 08/01/23 Rx amiodarone 200 mg tablet 200 mg PO DAILY 08/01/23 08/01/23 History hydralazine 10 mg tablet 10 mg PO UD PRN Blood Pressure 08/01/23 08/01/23 History Patient History Medical History CKD stage G3a/A3, GFR 45-59 and albumin creatinine ratio >300 mg/g HTN (hypertension) COPD with emphysema Osteoarthritis Graves disease Uterine cancer 1995 hysterectomy/radiation Anxiety Paroxysmal atrial fibrillation Single remote episode (suspected r/t nitro patch), no known recurrences, Follows with Dr. Mcdonald Cardiac murmur 2018 ECHO showed AV sclerosis (no ), mild to moderate mitral annular calcification and mild MS CHF (congestive heart failure) 2018 Hyperlipidemia Hypertension Surgical History History of cataract surgery Right History of total hysterectomy with bilateral salpingo-oophorectomy (BSO) History of flexible sigmoidoscopy History of breast biopsy Right History of cholecystectomy Hx of lumpectomy 7 years ago History of left-sided carotid endarterectomy Family History Other No pertinent family history Social History Smoking Status: Former smoker Tobacco Type: Cigarettes Second Hand Exposure: No; Do You Dip or Chew Tobacco: No; Hx Alcohol Use: Yes Alcohol type: wine Hx Substance Use: No Preferred Language: Togolese Communication Ability: Effective Hoop Rolls Operator Required: No Beliefs That Will Affect Care: None marital status: Unknown Current Living Situation: Alone Current Living Situation Comment: with alzheimers/ How many Children do You have: 2 Feels Safe at Home: Yes Assistive Devices: Oxygen - Continuous Physical Exam Physical Exam: General: Alert and oriented, no acute distress HEENT: Normocephalic, mucous membranes moist Pulmonary: Nonlabored respirations Abdomen: Nondistended Extremities: Moves all 4 spontaneously Neuro: No gross deficits Skin: Warm, dry, no rashes noted Results & Data Vital Signs (Past 12 Hours) Vital Signs Temp Pulse Pulse Resp BP BP Pulse Ox 04/16/24 14:22 58 L 17 154/55 H 99 04/16/24 13:47 63 04/16/24 12:23 36.6 C 65 18 132/45 L 94 O2 Del Method O2 Flow Rate 04/16/24 14:22 Room Air 04/16/24 13:47 04/16/24 12:23 Nasal Cannula 3 PG Care Time/CCT Total # of Minutes Spent Total Time Spent with Patient: Total time spent is greater than 50% in coordination of care (as documented) at patient's floor/unit and/or counseling patient: Coding Level of Care Code 37394 INT INP/OBS CARE MIN Diagnoses Anemia D64.9 Bladder cancer C67.9 Hematuria R31.9
--- NOTE | 2024-04-16 16:09 | CT Scan Report ---
CT OF THE ABDOMEN AND PELVIS WITHOUT CONTRAST CLINICAL HISTORY: Hematuria. COMPARISON STUDY: CT of the abdomen and pelvis December 20, 2021. Renal ultrasound December 22, 2021 . TECHNIQUE: Axial images of the abdomen and pelvis were obtained without IV contrast. Images were revi ewed in the axial, sagittal, and coronal planes. Automated exposure control was utilized for the emily dy. A dose lowering technique was utilized adhering to the principles of ALARA. FINDINGS: Cardiomegaly is noted with decreased attenuation of the cardiac blood pool. Small right and trace left pleural effusions are present. There is interlobular septal thickening and subpleural opa cities within the lower lungs. No pneumatosis, free air or portal venous gas is present. The attenuat ion of the liver appears mildly increased. There is no biliary ductal dilatation status post cholecys tectomy. A peripherally calcified splenic lesion is unchanged. This is benign. Adrenal glands and foster creas are unremarkable. There is no evidence for a bowel obstruction. Mild body wall edema. There is minimal presacral edema. Severe osteoarthritis of both hips is incidentally noted. A 2.7 cm right low er pole renal lesion measures above water attenuation. This is shown to represent a cyst on prior yoshi al ultrasound. There is a 7 mm right lower pole renal calculus. A 7 mm left renal calcification could represent a cortical calcification or nonobstructing calculus. There is moderate left and mild right renal atrophy. There is no hydronephrosis. No ureteral calculi are present. The bladder is mildly di stended. A 4.8 x 2.3 cm hyperdense focus within the dependent aspect the bladder is present. There is trace fluid within the pelvis. There is no lymphadenopathy. IMPRESSION: 1. Mildly distended bladder. 4.8 x 2.3 cm hyperdense focus within the dependent aspect of the bladder . This could represent blood clot or a bladder tumor. Findings could be correlated with cystoscopy. 2. 7 mm right renal calculus. 7 mm calculus versus cortical calcification within the left kidney. No ureteral calculi. No hydronephrosis. 3. Cardiomegaly. Decreased attenuation of the cardiac blood pool suggestive of anemia. 4. Small right and trace left pleural effusions. Evidence for pulmonary edema. Subpleural opacities w ithin the lower lungs could represent atelectasis or an infectious process. 5. No bowel obstruction. ACT 112: Negative or not required by law. Electronically signed by: Jaiden Ruiz M.D. 04/16/2024 4:07 PM
--- NOTE | 2024-04-16 16:11 | History & Physical Report ---
Date of Service April 16, 2024 Assessment & Plan (1) Hematuria: (2) Symptomatic anemia: (3) Bladder cancer: (4) CKD stage G3a/A3, GFR 45-59 and albumin creatinine ratio >300 mg/g: (5) (HFpEF) heart failure with preserved ejection fraction: Plan 83 year female with a past medical history of bladder cancer, radiation for uterine cancer presenting with hematuria and symptomatic anemia. #Symptomatic Anemia secondary to hematuria - Hgb= 5.3 (baseline 9) - Etiology -> ?post radiation - hemodynamically stable at present with HRs 60s, BPs 150s/60s - CT A&P with some blood clot - urology consulted-> no plan for acute invention at present - Currently ordered 2 units pRBC -> repeat H/H 1 hour post 2nd transfusion; transfusion if less than 7 - Urine cx pending - hold aspirin #HFpEF - last TTE from 12/2022 with EF= 60-65%, severe mitral stenosis - appears hypovolemic on exam and with FABIENNE as per below - s/p 1L IVF in ED and to get 2 units pRBC - will continue to monitor, but at present tolerating transfusion well, so no Lasix at present - hold home Bumex and reevaluate fluid status #Hyperkalemia - K= 5.3, no EKG changes - hold spironolactone, repeat BMP qAM #FABIENNE - fluids/blood as per above - creatinine= 2.17 (baseline= 1.7) - repeat BMP qAM Chronic and Stable: HLD: continue statin Grave's Disease: Continue propylthiouracil Afib: continue amiodarone, not on anticoagulation due to hematuria Diet: Regular Code: Full VTE Prophylaxis: Hold chemically given acute blood loss anemia History of Present Illness Primary Care Provider: Yao Saab MD 83 year old female with past medical history of HFpEF, bladder cancer, pulmonary HTN, serve mitral stenosis, graves disease, afib with RVR presenting with hematuria. Started on 04/03 and occurs every time that she voids. Some clots. History of bladder cancer. 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 Hematuria has continued with some dyspnea, which prompted her to come in today. Denies fever/chills, pelvic pain, dysuria. Note history of radiation for uterine cancer over 20 years ago. ED Course Significant for: Hg 5.3, K= 5.3, creatinine= 2.17 (baseline 1.7), EKG with nonspecific ST changes. CT A&P with Mildly distended bladder. 4.8 x 2.3 cm hyperdense focus within the dependent aspect of the bladder. S/p 1L NSS Order 2 units pRBC-> transfusing first unit at present Allergies Allergy/AdvReac Type Severity Reaction Status Date / Time No Known Allergies Allergy Verified 10/15/21 13:44 Home Medications Medication Instructions Recorded Confirmed Type aspirin 81 mg tablet,delayed 81 mg PO QAM 02/17/18 04/16/24 History release (Hermilo Low Dose Aspirin) atorvastatin 40 mg tablet 40 mg PO PM 02/17/18 04/16/24 History propylthiouracil 50 mg tablet 100 mg PO BID 02/17/18 04/16/24 History spironolactone 25 mg tablet 12.5 mg PO DAILY 12/11/21 04/16/24 History (Aldactone) amiodarone 200 mg tablet 200 mg PO DAILY 08/01/23 04/16/24 History hydralazine 10 mg tablet 10 mg PO UD PRN Blood Pressure 08/01/23 04/16/24 History bumetanide 1 mg tablet 1 mg PO Q OTHER DAY 04/16/24 04/16/24 History Past Med/Surg History Problem List (Updated 04/16/24 @ 16:34 by Michelle Brown DO) (HFpEF) heart failure with preserved ejection fraction Hematuria (Acute) Symptomatic anemia (Acute) Anemia (Acute) Acute on chronic respiratory failure with hypoxia Acute on chronic systolic CHF (congestive heart failure) Bladder cancer Hematuria Thrombocytopenia Transaminitis Nausea Bacteremia Pulmonary hypertension Acute kidney injury DVT prophylaxis Acute systolic CHF (congestive heart failure) Severe sepsis NSTEMI (non-ST elevated myocardial infarction) Fever UTI (urinary tract infection) Shock liver Shock Right ventricular dilation Severe tricuspid regurgitation Vasculopathy Hypotension Sepsis Acute kidney injury Lower back pain ST elevation PR (STEMI) (Acute) Hypoxia (Acute) Carotid artery disease s/p left carotid endarterectomy (3 years ago/[facility]), follows with Dr. Islas Atrial fibrillation with RVR Acute on chronic heart failure with preserved ejection fraction STEMI (ST elevation myocardial infarction) Acute and chronic respiratory failure PAD (peripheral artery disease) HLD (hyperlipidemia) Graves disease Acute exacerbation of CHF (congestive heart failure) Sepsis (Acute) Anemia (Acute) Fever (Acute) Dysuria (Acute) Hematuria (Acute) Acute blood loss anemia Anemia Chronic anemia baseline hgb 11's per chart review Proctocolitis Sepsis Bladder cancer Ex-smoker Pulmonary nodule Multiple pulmonary nodules Stenosis of left internal carotid artery Hypoxia (Acute) Pedal edema (Acute) Acute heart failure Acute respiratory failure with hypoxia (Acute) Hypothyroidism DVT prophylaxis Elevated bilirubin Paroxysmal atrial fibrillation Encounter for pre-operative examination Gross hematuria (Acute) Breast cancer Dx 7 years ago s/p right lumpectomy- RUE lumpectomy Peripheral artery disease Medical History CKD stage G3a/A3, GFR 45-59 and albumin creatinine ratio >300 mg/g HTN (hypertension) COPD with emphysema Osteoarthritis Graves disease Uterine cancer 1996 hysterectomy/radiation Anxiety Paroxysmal atrial fibrillation Single remote episode (suspected r/t nitro patch), no known recurrences, Follows with Dr. Mcdonald Cardiac murmur 2018 ECHO showed AV sclerosis (no ), mild to moderate mitral annular calcification and mild MS CHF (congestive heart failure) 2019 Hyperlipidemia Hypertension Surgical History History of cataract surgery Right History of total hysterectomy with bilateral salpingo-oophorectomy (BSO) History of flexible sigmoidoscopy History of breast biopsy Right History of cholecystectomy Hx of lumpectomy 7 years ago History of left-sided carotid endarterectomy Family History Other No pertinent family history Social History Smoking Status: Former smoker Tobacco Type: Cigarettes Second Hand Exposure: No; Do You Dip or Chew Tobacco: No; Hx Alcohol Use: Yes Alcohol type: wine Hx Substance Use: No Preferred Language: [place] Communication Ability: Effective Electric Powerline Examiner Required: No Beliefs That Will Affect Care: None marital status: Unknown Current Living Situation: Alone Current Living Situation Comment: with alzheimers/ How many Children do You have: 2 Feels Safe at Home: Yes Assistive Devices: Oxygen - Continuous Review of Systems Review of Systems: As per above Physical Exam Physical Exam: Constitutional: well-appearing, no acute distress HEENT: NCAT, no conjunctival injection CV: regular rhythm, no murmur appreciated, extremities well-perfused, no LE edema Resp: CTABL, no wheezes/rales/rhonchi appreciated, no increased work of breathing GI: soft, nondistended, nontender MSK: no gross deformities appreciated Skin: warm, dry, no rash appreciated Neuro: alert, oriented, no focal neurologic deficit appreciated Results & Data Results & Data Vital Signs (Past 12 Hours) Vital Signs Temp Pulse Pulse Resp BP BP Pulse Ox 04/16/24 15:45 36.8 C 61 18 140/52 L 99 04/16/24 15:30 36.8 C 65 18 115/42 L 96 04/16/24 15:15 36.7 C 61 20 147/50 H 97 04/16/24 14:22 58 L 17 154/55 H 99 04/16/24 13:47 63 04/16/24 12:23 36.6 C 65 18 132/45 L 94 O2 Del Method O2 Flow Rate 04/16/24 15:45 04/16/24 15:30 04/16/24 15:15 04/16/24 14:22 Room Air 04/16/24 13:47 04/16/24 12:23 Nasal Cannula 3 Supervising Physician Co-Signing Physician Notes I personally examined the patient and verified all mcduffie points of history and exam, discussed case, and agree with decision making with Dr Brown Feeling okay. Getting second unit of blood whenever I see her. Still having gross hematuria. Daughter arrives as we are discussing the situationanswered questions the best my ability. Vitals noted, in general she is awake and alert pleasant no distress. HEENT normocephalic atraumatic mucous membranes moist. Breathing unlabored no accessory muscle use good effort. Skin without rashes pallor or icterus. Neuro without focal deficits. Hemoglobin noted. Neurology input appreciated. Hematuria/significant anemiarequiring transfusion. 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 Appreciate urology assistance. Otherwise as above. Resident Activity Tracking Resident Involvement: Resident Care Provided Care Provided: Adult Hospital Medicine (1) Hematuria Hematuria type: gross Qualified Code(s): R31.0 - Gross hematuria
--- NOTE | 2024-04-16 20:33 | Billing Data ---
Date of Service April 16, 2024 Coding Level of Care Code 03193 INT INP/OBS CARE
[2024-04-16 21:11] LABS: Hematocrit (blood only) 25.5 % (37.0-47.0); Hemoglobin 8.1 g/dl (12.0-16.0)
[2024-04-16] MEDS: ATORVASTATIN 40 MG TAB PO SCH (22:37)
[2024-04-16 22:42] LABS: Appearance Urine Turbid (Clear); Bilirubin Urine Negative (Negative); Blood Urine 3+ (Negative); Color Urine Red; Glucose Urine UA Trace (Negative); Ketones Urine Negative (Negative); Leukocyte Esterase Urine Negative (Negative); Nitrite Urine Negative (Negative); Protein Urine 3+ (Negative); Specific Gravity Urine 1.025 (1.000-1.030); Urobilinogen Urine Negative (Negative)
[2024-04-16 22:45] LABS: Bacteria Urine None Seen (None Seen); Epithelial Cell Urine 0-2 /hpf (0-2); RBC Urine >20 /hpf (0-2); WBC Urine 0-5 /hpf (0-5)
[2024-04-16] MEDS: propylthiouraciL 50 MG TAB PO SCH (23:11)
[2024-04-17] MEDS: ACETAMINOPHEN 500 MG TAB PO PRN (00:01)
--- NOTE | 2024-04-17 05:36 | Electrocardiogram Report ---
Test Reason : Blood Pressure : */* mmHG Vent. Rate : 62 BPM Atrial Rate : 62 BPM P-R Int : 140 ms QRS Dur : 110 ms QT Int : 466 ms P-R-T Axes : 27 83 -6 degrees QTcB Int : 472 ms Normal sinus rhythm Possible Anterior infarct , age undetermined Nonspecific ST abnormality Non-specific intra-ventricular conduction delay Abnormal ECG When compared with ECG of 03-Apr-2024 13:58, No significant change Confirmed by Joseph Zhu ([id number]) on 04/17/2024 5:35:53 AM Referred By: Confirmed By: Joseph Zhu
[2024-04-17 06:31] LABS: Basophils # (auto) 0.05 K/uL (0.00-0.20); Basophils % (auto) 0.6 %; Eosinophils # (auto) 0.17 K/uL (0.00-0.50); Eosinophils % (auto) 2.1 %; Hematocrit (blood only) 23.8 % (37.0-47.0); Hemoglobin 7.7 g/dl (12.0-16.0); Immature Granulocytes # (auto) 0.06 K/uL (0.01-0.20); Immature Granulocytes % (auto) 0.8 %; Lymphocytes # (auto) 0.85 K/uL (1.20-3.40); Lymphocytes % (auto) 10.7 %; Mean Corpuscular Hgb Conc 32.4 g/dL (32.0-36.0); Mean Corpuscular Volume 92.6 fL (80.0-100.0); Mean Platelet Volume 9.9 fL (9.4-12.4); Monocytes # (auto) 0.57 K/uL (0.11-0.59); Monocytes % (auto) 7.2 %; Neutrophils # (auto) 6.27 K/uL (1.40-6.50); Neutrophils % (auto) 78.6 %; Platelet Count 222 K/uL (130-400); RDW Coefficient of Variation 15.9 % (11.5-14.5); RDW Standard Deviation 53.4 fL (36.4-46.3); Red Blood Count 2.57 M/uL (4.20-5.40); White Blood Count 7.97 K/ul (4.8-10.8)
[2024-04-17 06:50] LABS: BUN Creatinine Ratio 17.1 (10-20); Calcium 8.2 mg/dl (8.6-10.3); Creatinine Clr Calc Pharmacy 17.3 ml/min; Potassium 5.2 mmol/L (3.5-5.1)
[2024-04-17 07:20] LABS: Macrocytosis Present; Polychromasia 1+
[2024-04-17] MEDS: AMIODARONE 200 MG TAB PO SCH (07:56)
--- NOTE | 2024-04-17 08:34 | Urology Progress Note ---
Date of Service April 17, 2024 Assessment & Plan (1) Hematuria: (2) Symptomatic anemia: Plan: 83 yo/F with history of bladder cancer admitted for gross hematuria and acute anemia. Patient afebrile, stable vitals Labs reviewedcreatinine 2.11, WBC 7.97, hemoglobin 7.7 (received 2 units of PRBCs) CT imaging showed small amount of clot but burden not large enough to warrant intervention at this time She is voiding spontaneously Continue to monitor voiding and bladder scan as needed If she is unable to void or elevated PVRs, then Islas catheter can be placed and manual irrigation performed if needed Continue to trend labs and transfuse as needed Patient is scheduled for repeat cystoscopy as outpatient in a few weeks Can consider cystoscopy, possible clot evacuation and fulguration as inpatient later this week pending clinical course Continue supportive care and medical management per hospital medicine service will follow Admission and Anticipated Discharge Date Admission Date: April 16, 2024 Subjective Patient seen and examined at bedside this morning. He is awake and sitting up in bed eating breakfast. She has been voiding spontaneously, though notes she has not voided yet this morning. No fevers or chills. She received 2 units of PRBCs, hemoglobin today 7.7. Review of Systems Constitutional: as per Subjective / HPI Genitourinary: as per Subjective / HPI Physical Exam Constitutional: no acute distress Respiratory: normal respiratory effort; no respiratory distress and no labored breathing Gastrointestinal (Abdomen): Inspection/Auscultation: abdomen normal to inspection Musculoskeletal: Head/Neck/Chest: normocephalic Skin: + pallor Neurologic: moves all extremities and awake Psychiatric: Orientation: alert and oriented x 3 Results & Data Vital Signs (Past 12 Hours) Vital Signs Temp Pulse Pulse Pulse Resp BP Pulse Ox 04/17/24 07:28 36.6 C 56 L 20 153/52 H 93 04/17/24 03:18 36.3 C L 52 L 18 155/52 H 98 04/17/24 01:28 53 L 04/17/24 00:56 04/16/24 23:46 36.6 C 69 18 162/61 H 94 04/16/24 21:59 04/16/24 21:34 04/16/24 21:20 36.8 C 55 L 21 158/71 H 95 Pulse Ox O2 Del Method O2 Del Method O2 Flow Rate O2 Flow Rate 04/17/24 07:28 Nasal Cannula 4 04/17/24 03:18 Nasal Cannula 4 04/17/24 01:28 04/17/24 00:56 Nasal Cannula 4 04/16/24 23:46 Nasal Cannula 3 04/16/24 21:59 Nasal Cannula 3 04/16/24 21:34 93 Nasal Cannula 3 04/16/24 21:20 Nasal Cannula 3 PG Care Time/CCT Total # of Minutes Spent Total Time Spent with Patient: Total time spent is greater than 50% in coordination of care (as documented) at patient's floor/unit and/or counseling patient: Coding Level of Care Code 59156 SUB INP/OBS CARE 03/03MIN Diagnoses Hematuria R31.0 Hematuria type: gross Symptomatic anemia D64.9 (1) Hematuria Hematuria type: gross Qualified Code(s): R31.0 - Gross hematuria
--- NOTE | 2024-04-17 10:53 | Hospitalist Progress Note ---
Date of Service April 17, 2024 Assessment & Plan (1) Hematuria: Plan: Patient with history of bladder cancer. Bleeding started 04/03/2024. Patient received cystoscopy on 04/06/2024 which was not suggestive of recurrent carcinoma, but visualization was obscured due to significant blood. Urine negative for WBC, bacteria, ketones so infection unlikely. 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 Scheduled for routine cystoscopy outpatient in next few weeks. Urology will consider repeating in hospital cystoscopy with possible clot evacuation and fulguration later this week pending clinical course. - Hold home aspirin dose - Continue to monitor hematuria - Urology following - Consider repeat inpatient cystoscopy (2) Anemia: Plan: Patient s/p 2 units PRBC with improvement of Hgb from 5.6 to 7.7. Most likely anemia due to blood loss given significant and persistent hematuria with large clots. Source of bleeding is not currently being treated so important to monitor closely while patient is in hospital given continued blood loss. SOB has improved post transfusion. Assess for additional transfusion requirement if Hgb continues to downtrend. - Repeat H&H tomorrow morning - If Hgb drops below 7 or patient becomes symptomatic, consider additional units PRBC (3) Acute on chronic respiratory failure with hypoxia: Plan: Patient with baseline oxygen requirement of 3L now requiring 4L supplemental O2. Small bilateral pleural effusions noted on CT could be contributing to symptoms. No SOB, dyspnea endorsed at rest. Patient O2 sat 98%. Titrate to 3L as tolerated. - Titrate supplemental O2 to baseline 3L as tolerated by patient - Monitor for worsening respiratory symptoms and consider repeat imaging to evaluate pleural effusion progression. (4) (HFpEF) heart failure with preserved ejection fraction: Plan: Given current hyperkalemia at 5.2, hold spironolactone. Continue to monitor BMP daily, treat with insulin, glucose if K continues to uptrend. - Hold bumex, spironolactone - Continue amiodarone 200 mg - Repeat BMP in AM (5) Back spasm: Plan: Patient endorsing new onset L paraspinal "squeezing" sensation. Applied ice to the area which provided some relief. - Initiate cyclobenzaprine 5mg QAM PRN - Apply ice, heat prn as tolerated - Tylenol prn for pain (6) Graves disease: Plan: Asymptomatic. Continue home therapies (100 mg propylthiouracil BID) Admission and Anticipated Discharge Date Admission Date: April 16, 2024 Supervising Physician Co-Signing Physician Notes I personally examined the patient and verified all mcduffie points of history and exam, discussed case, and agree with decision making with Dr Victoria and Moses Hernandez MS2 feels OK doesn't really think hematuria has changed other than maybe slightly easier to void this afternoon - but just as red. asks about ongoing planning - notes undesrtandable concern about being at [facility] with ongoinghematuria if nothing else has changed. Vitals noted, in general she is awake and alert pleasant no distress. HEENT normocephalic atraumatic mucous membranes moist. Breathing unlabored no accessory muscle use good effort. Skin without rashes pallor or icterus. Neuro without focal deficits. Hemoglobin noted. Neurology input appreciated. Hematuria/significant anemiarequiring transfusion. Hgb now more stable. 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 Appreciate urology assistance. continue to follow closely/continue supportive care. Otherwise as above. Subjective Karina is an 83F with a history of bladder and uterine cancer, CHF, Afib, Graves disease presenting with hematuria with large clots since 04/03/24. Karina reports gross blood in urine was her presenting symptom when she was diagnosed with bladder cancer about 3 years ago. She reports her urine output and blood content are unchanged from yesterday. Karina states her SOB has resolved. She reports baseline oxygen requirement of 3L NC at home due to CHF. Denies history of COPD, lung disorders. Denies history of nephrologic concerns. She denies fever, chills, headache, dizziness, CP, SOB, cough, abd pain, n/v/d. Endorses new feeling of "back spasm" paraspinally on left side. Describes this as a squeezing pain which does not radiate and does not have a sharp, stabbing quality. Review of Systems Constitutional: as per Subjective / HPI Physical Exam Constitutional: WD/WN, vitals as above Eyes: PERRL, conjunctivae normal, anicteric sclerae ENMT: external ear and nose normal, oropharynx normal Neck: No thyromegaly or lymphadenopathy. Trachea is midline. Respiratory: LLL crackles. R lung clear. No wheezing, conversational dyspnea. Patient with additional oxygen requirement at 4L. Cardiovascular: Heart with RRR. Normal S1, S2 with additional S3 auscultated. Systolic murmur p resent. Peripheral pulses +2 in upper and lower extremities. No lower extremity edema. Gastrointestinal (Abdomen): Normal bowel sounds. No abdominal tenderness to palpation. No guarding. No masses. No hepatosplenomegaly. Neurologic: A&O x4. No focal neurological deficits. Cognition, coordination intact. Psychiatric: Appropriate mood and affect Results & Data Results & Data Vital Signs (Past 12 Hours) Vital Signs Temp Pulse Pulse Pulse Resp BP Pulse Ox 04/17/24 07:28 36.6 C 56 L 20 153/52 H 93 04/17/24 03:18 36.3 C L 52 L 18 155/52 H 98 04/17/24 01:28 53 L 04/17/24 00:56 04/16/24 23:46 36.6 C 69 18 162/61 H 94 04/16/24 21:59 04/16/24 21:34 04/16/24 21:20 36.8 C 55 L 21 158/71 H 95 Pulse Ox O2 Del Method O2 Del Method O2 Flow Rate O2 Flow Rate 04/17/24 07:28 Nasal Cannula 4 04/17/24 03:18 Nasal Cannula 4 04/17/24 01:28 04/17/24 00:56 Nasal Cannula 4 04/16/24 23:46 Nasal Cannula 3 04/16/24 21:59 Nasal Cannula 3 04/16/24 21:34 93 Nasal Cannula 3 04/16/24 21:20 Nasal Cannula 3 Laboratory Results 04/17/24 04/16/24 04/16/24 Range/Units 05:49 21:58 20:42 WBC 7.97 (4.8-10.8) K/ul RBC 2.57 L (4.20-5.40) M/uL Hgb 7.7 L 8.1 L (12.0-16.0) g/dl Hct 23.8 L 25.5 L (37.0-47.0) % MCV 92.6 (80.0-100.0) fL MCH 30.0 (25.0-34.0) pg MCHC 32.4 (32.0-36.0) g/dL RDW Std Deviation 53.4 H (36.4-46.3) fL RDW Coeff of Armani 15.9 H (11.5-14.5) % Plt Count 222 (130-400) K/uL MPV 9.9 (9.4-12.4) fL Immature Gran % (Auto) 0.8 % Neut % (Auto) 78.6 % Lymph % (Auto) 10.7 % Amador % (Auto) 7.2 % Eos % (Auto) 2.1 % Baso % (Auto) 0.6 % Neut # (Auto) 6.27 (1.40-6.50) K/uL Lymph # (Auto) 0.85 L (1.20-3.40) K/uL Am[place] # (Auto) 0.57 (0.11-0.59) K/uL Eos # (Auto) 0.17 (0.00-0.50) K/uL Baso # (Auto) 0.05 (0.00-0.20) K/uL Immature Gran # (Auto) 0.06 (0.01-0.20) K/uL Polychromasia 1+ Anisocytosis Macrocytosis Present Stomatocytes PT (9.0-12.0) Seconds INR (0.9-1.1) APTT (21-31) Seconds PTT Ratio Sodium 140 (136-145) mmol/L Potassium 5.2 H (3.5-5.1) mmol/L Chloride 112 H (98-107) mmol/L Carbon Dioxide 23 (21-32) mmol/L Anion Gap 5 (3-11) BUN 36 H (6-23) mg/dl Creatinine 2.11 H (0.6-1.2) mg/dl Est Cr Clr Drug Dosing 17.3 eGFR 22.68 BUN/Creatinine Ratio 17.1 (10-20) Glucose 78 (70-99(Fasting)) mg/dl Calcium 8.2 L (8.6-10.3) mg/dl Total Bilirubin (0.2-1.0) mg/dl AST (13-39) U/L ALT (7-52) U/L Alkaline Phosphatase (34-104) U/L Total Protein (6.0-8.3) gm/dl Albumin (3.4-5.0) gm/dl Globulin (2.5-4.0) gm/dl Albumin/Globulin Ratio (0.9-2) Urine Color Red Urine Appearance Turbid A (Clear) Urine pH 7.0 (4.5-7.5) Ur Specific [place] 1.025 (1.000-1.030) Urine Protein 3+ H (Negative) Urine Glucose (UA) Trace H (Negative) Urine Ketones Negative (Negative) Urine Blood 3+ H (Negative) Urine Nitrite Negative (Negative) Urine Bilirubin Negative (Negative) Urine Urobilinogen Negative (Negative) Ur Leukocyte Esterase Negative (Negative) Urine RBC >20 H (0-2) /hpf Urine WBC 0-5 (0-5) /hpf Ur Epithelial Cells 0-2 (0-2) /hpf Urine Bacteria None Seen (None Seen) Blood Type Antibody Screen Crossmatch 04/16/24 Range/Units 13:02 WBC 8.34 (4.8-10.8) K/ul RBC 1.80 L (4.20-5.40) M/uL Hgb 5.3 L* (12.0-16.0) g/dl Hct 17.5 L* (37.0-47.0) % MCV 97.2 (80.0-100.0) fL MCH 29.4 (25.0-34.0) pg MCHC 30.3 L (32.0-36.0) g/dL RDW Std Deviation 52.2 H (36.4-46.3) fL RDW Coeff of Armani 14.8 H (11.5-14.5) % Plt Count 283 (130-400) K/uL MPV 10.0 (9.4-12.4) fL Immature Gran % (Auto) 0.5 % Neut % (Auto) 83.5 % Lymph % (Auto) 8.3 % Amador % (Auto) 7.0 % Eos % (Auto) 0.2 % Baso % (Auto) 0.5 % Neut # (Auto) 6.97 H (1.40-6.50) K/uL Lymph # (Auto) 0.69 L (1.20-3.40) K/uL [place] # (Auto) 0.58 (0.11-0.59) K/uL Eos # (Auto) 0.02 (0.00-0.50) K/uL Baso # (Auto) 0.04 (0.00-0.20) K/uL Immature Gran # (Auto) 0.04 (0.01-0.20) K/uL Polychromasia 1+ Anisocytosis Present Macrocytosis Stomatocytes 1+ PT 10.9 (9.0-12.0) Seconds INR 1.0 (0.9-1.1) APTT 25 (21-31) Seconds PTT Ratio 0.9 Sodium 138 (136-145) mmol/L Potassium 5.3 H (3.5-5.1) mmol/L Chloride 109 H (98-107) mmol/L Carbon Dioxide 22 (21-32) mmol/L Anion Gap 7 (3-11) BUN 37 H (6-23) mg/dl Creatinine 2.17 H (0.6-1.2) mg/dl Est Cr Clr Drug Dosing Not Reportable eGFR 21.93 BUN/Creatinine Ratio 17.1 (10-20) Glucose 105 H (70-99(Fasting)) mg/dl Calcium 8.8 (8.6-10.3) mg/dl Total Bilirubin 0.6 (0.2-1.0) mg/dl AST 17 (13-39) U/L ALT 11 (7-52) U/L Alkaline Phosphatase 61 (34-104) U/L Total Protein 7.3 (6.0-8.3) gm/dl Albumin 3.6 (3.4-5.0) gm/dl Globulin 3.7 (2.5-4.0) gm/dl Albumin/Globulin Ratio 1.0 (0.9-2) Urine Color Urine Appearance (Clear) Urine pH (4.5-7.5) Ur Specific [place] (1.000-1.030) Urine Protein (Negative) Urine Glucose (UA) (Negative) Urine Ketones (Negative) Urine Blood (Negative) Urine Nitrite (Negative) Urine Bilirubin (Negative) Urine Urobilinogen (Negative) Ur Leukocyte Esterase (Negative) Urine RBC (0-2) /hpf Urine WBC (0-5) /hpf Ur Epithelial Cells (0-2) /hpf Urine Bacteria (None Seen) Blood Type A Negative Antibody Screen NEGATIVE Crossmatch See Detail Diagnostic Findings Abdomen/Pelvis CT 04/16/24 14:35 CT OF THE ABDOMEN AND PELVIS WITHOUT CONTRAST CLINICAL HISTORY: Hematuria. COMPARISON STUDY: CT of the abdomen and pelvis December 20, 2021. Renal ultrasound December 22, 2021. TECHNIQUE: Axial images of the abdomen and pelvis were obtained without IV contrast. Images were reviewed in the axial, sagittal, and coronal planes. Automated exposure control was utilized for the study. A dose lowering technique was utilized adhering to the principles of ALARA. FINDINGS: Cardiomegaly is noted with decreased attenuation of the cardiac blood pool. Small right and trace left pleural effusions are present. There is interlobular septal thickening and subpleural opacities within the lower lungs. No pneumatosis, free air or portal venous gas is present. The attenuation of the liver appears mildly increased. There is no biliary ductal dilatation status post cholecystectomy. A peripherally calcified splenic lesion is unchanged. This is benign. Adrenal glands and pancreas are unremarkable. There is no evidence for a bowel obstruction. Mild body wall edema. There is minimal presacral edema. Severe osteoarthritis of both hips is incidentally noted. A 2.7 cm right lower pole renal lesion measures above water attenuation. This is shown to represent a cyst on prior renal ultrasound. There is a 7 mm right lower pole renal calculus. A 7 mm left renal calcification could represent a cortical calcification or nonobstructing calculus. There is moderate left and mild right renal atrophy. There is no hydronephrosis. No ureteral calculi are present. The bladder is mildly distended. A 4.8 x 2.3 cm hyperdense focus within the dependent aspect the bladder is present. There is trace fluid within the pelvis. There is no lymphadenopathy. IMPRESSION: 1. Mildly distended bladder. 4.8 x 2.3 cm hyperdense focus within the dependent aspect of the bladder. This could represent blood clot or a bladder tumor. Findings could be correlated with cystoscopy. 2. 7 mm right renal calculus. 7 mm calculus versus cortical calcification within the left kidney. No ureteral calculi. No hydronephrosis. 3. Cardiomegaly. Decreased attenuation of the cardiac blood pool suggestive of anemia. 4. Small right and trace left pleural effusions. Evidence for pulmonary edema. Subpleural opacities within the lower lungs could represent atelectasis or an infectious process. 5. No bowel obstruction. ACT 112: Negative or not required by law. Electronically signed by: Jaiden Ruiz M.D. 04/16/2024 4:07 PM (1) Hematuria Hematuria type: gross Qualified Code(s): R31.0 - Gross hematuria
[2024-04-17] MEDS: CYCLOBENZAPRINE HCL 5 MG TAB PO PRN (11:44)
--- NOTE | 2024-04-17 18:52 | Billing Data ---
Date of Service April 17, 2024 Coding Level of Care Code 55469 SUB INP/OBS CARE
[2024-04-17] MEDS: CYCLOBENZAPRINE HCL 5 MG TAB PO STA (19:42)
[2024-04-18 06:50] LABS: Hematocrit (blood only) 24.6 % (37.0-47.0); Hemoglobin 7.7 g/dl (12.0-16.0); Mean Corpuscular Hemoglobin 29.7 pg (25.0-34.0); Mean Corpuscular Hgb Conc 31.3 g/dL (32.0-36.0); Mean Platelet Volume 9.8 fL (9.4-12.4); Platelet Count 210 K/uL (130-400); RDW Coefficient of Variation 15.8 % (11.5-14.5); RDW Standard Deviation 54.4 fL (36.4-46.3); Red Blood Count 2.59 M/uL (4.20-5.40); White Blood Count 7.24 K/ul (4.8-10.8)
[2024-04-18 07:41] LABS: Calcium 8.4 mg/dl (8.6-10.3)
[2024-04-18 07:47] LABS: BUN Creatinine Ratio 14.9 (10-20); Creatinine Clr Calc Pharmacy 17.3 ml/min
--- NOTE | 2024-04-18 08:32 | Hospitalist Progress Note ---
Date of Service April 18, 2024 Assessment & Plan (1) Hematuria: Plan: Patient with history of bladder cancer. Bleeding started 04/03/2024. Patient received cystoscopy on 04/06/2024 which was not suggestive of recurrent carcinoma, but visualization was obscured due to significant blood. Patient reported that she passed less clots this morning and her urine appears to be less red as of her most recent void. She is afebrile, urine negative for WBC, bacteria, ketones so infection unlikely. 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 Scheduled for routine cystoscopy outpatient in next few weeks. Dr. Tse considering cystoscopy with possible clot evacuation and fulguration in OR pending clearance from primary team and cardiology. Primary team on board for procedure. - Consult cardiology to evaluate patient eligibility for surgery - Home aspirin held since Tuesday - Continue to monitor hematuria - Urology following - consider inpatient cystoscopy (2) Anemia: Plan: Patient s/p 2 units PRBC with improvement of Hgb from 5.6 to 7.7. Stable over past 24 hours (Hgb today 7.7). Most likely anemia due to blood loss given significant and persistent hematuria with large clots. Source of bleeding is not currently being treated so important to monitor closely while patient is in hospital given continued blood loss. If patient goes for cysto, continue daily BMP, H&H. If patient does not go for cysto, hold labs tomorrow and resume H&H, BMP on Tuesday. - Consider significant blood loss in context of future procedure. Transfuse as appropriate. - Repeat H&H Tuesday morning unless patient becomes symptomatic or goes for cystoscopy - If Hgb drops below 7 or patient becomes symptomatic, consider additional units PRBC (3) Acute on chronic respiratory failure with hypoxia: Plan: Patient with baseline oxygen requirement of 3L now on 4L supplemental O2. Small bilateral pleural effusions noted on CT. No SOB, dyspnea endorsed today. Patient O2 sat 94%. Titrate to 3L as tolerated. - Titrate supplemental O2 to baseline 3L as tolerated by patient - Monitor for worsening respiratory symptoms and consider repeat imaging to estrada luate pleural effusion progression (4) (HFpEF) heart failure with preserved ejection fraction: Plan: Patient without fluid retention, significant fluid overload. Lung auscultation reveals S3 sound and systolic murmur consistent with cardiac history. Previously hyperkalemic so spironolactone was held. Current K 5.0 downtrending. Hold labs tomorrow and repeat BMP on Tuesday unless patient becomes symptomatic or goes for cystoscopy. - Hold bumex, spironolactone - Continue amiodarone 200 mg due to remote hx afib - Repeat BMP Tuesday (5) Lower back pain: Plan: Patient endorsing L paraspinal "squeezing" sensation. Applied ice to the area which provided some relief. Started flexiril yesterday which patient states has been beneficial in treating discomfort. Required additional stat dose last night at 7:05pm. Requesting AM dose. - Cyclobenzaprine 5mg QAM PRN - Apply ice, heat prn as tolerated - Tylenol prn for pain Present on Admission?: No (6) Graves disease: Plan: Asymptomatic. Continue home therapies (100 mg propylthiouracil BID) Plan Diet: Regular Code: Full VTE Prophylaxis: Hold chemically given acute blood loss anemia Dispo: Possible cysto with urology Admission and Anticipated Discharge Date Admission Date: April 16, 2024 Supervising Physician Co-Signing Physician Notes I personally examined the patient and verified all mcduffie points of history and exam, discussed case, and agree with decision making with Dr Victoria and Moses Hernandez MS2 still having hematuria but maybe clearing a little. Vitals noted, in general she is awake and alert pleasant no distress. HEENT normocephalic atraumatic mucous membranes moist. Breathing unlabored no accessory muscle use good effort. Skin without rashes pallor or icterus. Neuro without focal deficits. Hemoglobin noted. urology input appreciated. Hematuria/significant acute blood loss anemiarequired 2 units PRBC transfusion. Hgb now more stable. 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 Appreciate urology assistance. possible cysto tomorrow, continue to follow since urine clearing a little, though. continue to follow closely/continue supportive care. Otherwise as above. Tk Garcia is an 83F with a history of bladder cancer, CHF presenting with hematuria, anemia. Radha reports she is feeling well this morning. She has been pleased with the Flexeril to relieve her back pain. Most recent dose at 7:05pm last night. She slept much better last night. Reports decrease in the rate of bleeding/amount of clots in her urine following bowel movement this morning. Denies dysuria, increased urinary frequency. Review of Systems Constitutional: Denies fever, chills, night sweats. Eyes: Denies changes in vision, blurry vision. Ear, Nose, Mouth, Throat: Denies changes in hearing. Denies congestion, sore throat. Respiratory: Denies SOB, cough, dyspnea. Reports she is unsure why she is on 4L of O2 vs her home rate of 3L because she is not in respiratory distress. Cardiovascular: Additional Comments: Denies chest pain, palpitations. Gastrointestinal: Denies abdominal pain, n/v/d. Genitourinary: Endorses significant hematuria with clots-unchanged during hospital course. Denies dysuria. Musculoskeletal: Endorses L paraspinal back pain which improves with Flexeril. Endorses sore tailbone due to the mattress. Neurologic: Denies confusion, tremors, gait instability. Psychiatric: Denies changes in mood. Physical Exam 2 Constitutional: Well appearing, well nourished. In no acute distress. Eyes: EOMI. PERRLA. Sclera anicteric. ENMT: external ear and nose normal, oropharynx normal Respiratory: normal respiratory effort, lungs clear to auscultation Cardiovascular: Bradycardic. Heart rate slow but strong. S1, S2, S3 auscultated + systolic murmur. Peripheral pulses +2. No lower extremity edema. Gastrointestinal (Abdomen): normal bowel sounds, soft, nontender, no hepatosplenomegaly Neurologic: No focal neurologic deficits Psychiatric: Appropriate mood and affect. Judgement intact. Results & Data Results & Data Vital Signs (Past 12 Hours) Vital Signs Temp Pulse Pulse Pulse Resp BP Pulse Ox 04/18/24 07:41 36.6 C 92 H 18 163/53 H 92 04/18/24 07:00 51 L 04/18/24 03:43 36.7 C 49 L 18 128/58 L 97 04/17/24 23:00 51 L 04/17/24 22:48 36.5 C 55 L 125/50 L 92 04/17/24 21:00 Pulse Ox O2 Del Method O2 Del Method O2 Flow Rate O2 Flow Rate 04/18/24 07:41 Nasal Cannula 4 04/18/24 07:00 04/18/24 03:43 Nasal Cannula 4 04/17/24 23:00 04/17/24 22:48 Nasal Cannula 4 04/17/24 21:00 91 Nasal Cannula 4 Laboratory Results 04/18/24 Range/Units 06:15 WBC 7.24 (4.8-10.8) K/ul RBC 2.59 L (4.20-5.40) M/uL Hgb 7.7 L (12.0-16.0) g/dl Hct 24.6 L (37.0-47.0) % MCV 95.0 (80.0-100.0) fL MCH 29.7 (25.0-34.0) pg MCHC 31.3 L (32.0-36.0) g/dL RDW Std Deviation 54.4 H (36.4-46.3) fL RDW Coeff of Armani 15.8 H (11.5-14.5) % Plt Count 210 (130-400) K/uL MPV 9.8 (9.4-12.4) fL Sodium 140 (136-145) mmol/L Potassium 5.0 (3.5-5.1) mmol/L Chloride 112 H (98-107) mmol/L Carbon Dioxide 25 (21-32) mmol/L Anion Gap 3 (3-11) BUN 30 H (6-23) mg/dl Creatinine 2.02 H (0.6-1.2) mg/dl Est Cr Clr Drug Dosing 17.3 ml/min eGFR 23.89 BUN/Creatinine Ratio 14.9 (10-20) Glucose 86 (70-99(Fasting)) mg/dl Calcium 8.4 L (8.6-10.3) mg/dl (1) Hematuria Hematuria type: gross Qualified Code(s): R31.0 - Gross hematuria
--- NOTE | 2024-04-18 11:10 | Urology Progress Note ---
Date of Service April 18, 2024 Assessment & Plan (1) Bladder cancer: (2) Hematuria: (3) Symptomatic anemia: Plan: 83 yo/F with history of bladder cancer admitted for gross hematuria and acute anemia. Patient afebrile, stable vitals Labs reviewedcreatinine 2.02, WBC 7.24, hemoglobin 7.7 (has received 2 units of PRBCs since admission) She is voiding spontaneously Continue to monitor voiding and bladder scan as needed If she is unable to void or elevated PVRs, then Islas catheter can be placed and manual irrigation performed if needed Continue to trend labs and transfuse as needed Patient is scheduled for repeat cystoscopy as outpatient in a few weeks Discussed consideration of surgical intervention with cystoscopy, possible clot evacuation and fulguration while inpatient with Dr. Tse later this week Will discuss intervention with hospital medicine to see if appropriate risk for surgical intervention Continue supportive care and medical management per hospital medicine service will follow Admission and Anticipated Discharge Date Admission Date: April 16, 2024 Subjective Patient seen and examined at bedside this morning. She is awake and sitting up in bed. No acute issues overnight. Continues to void spontaneously with hematuria and clots. Denies pain at present. No fever or chills. Review of Systems Constitutional: as per Subjective / HPI Genitourinary: as per Subjective / HPI Physical Exam Constitutional: no acute distress Respiratory: normal respiratory effort; no respiratory distress and no labored breathing Gastrointestinal (Abdomen): Inspection/Auscultation: abdomen normal to inspection Musculoskeletal: Head/Neck/Chest: normocephalic Skin: + pallor Neurologic: moves all extremities and awake Psychiatric: Orientation: alert and oriented x 3 Results & Data Vital Signs (Past 12 Hours) Vital Signs Temp Pulse Pulse Resp BP Pulse Ox Pulse Ox 04/18/24 09:34 95 04/18/24 07:41 36.6 C 92 H 18 163/53 H 92 04/18/24 07:00 51 L 04/18/24 03:43 36.7 C 49 L 18 128/58 L 97 O2 Del Method O2 Del Method O2 Flow Rate 04/18/24 09:34 Room Air 04/18/24 07:41 Nasal Cannula 4 04/18/24 07:00 04/18/24 03:43 Nasal Cannula 4 PG Care Time/CCT Total # of Minutes Spent Total Time Spent with Patient: Total time spent is greater than 50% in coordination of care (as documented) at patient's floor/unit and/or counseling patient: Coding Level of Care Code 37544 SUB INP/OBS CARE Diagnoses Bladder cancer C67.9 Hematuria R31.0 Hematuria type: gross Symptomatic anemia D64.9 (2) Hematuria Hematuria type: gross Qualified Code(s): R31.0 - Gross hematuria
--- NOTE | 2024-04-18 13:04 | Billing Data ---
Date of Service April 18, 2024 Coding Level of Care Code 39828 SUB INP/OBS CARE
--- NOTE | 2024-04-18 15:07 | Ultrasound Report ---
RENAL ULTRASOUND HISTORY: hematuria COMPARISON: CT of the abdomen and pelvis dated 04/16/2024 FINDINGS: Right kidney: Measurement is 9 cm in long axis. No hydronephrosis. There is an 8 mm stone i n the lower pole. There is a 10 mm cyst in the upper pole. Left kidney: Measurement is 8 cm in long axis. No hydronephrosis. No focal lesion demonstrated. Bladder: There is an echogenic lesion within the bladder that appears mobile. It does not have color Doppler blood flow. This is more consistent with a blood clot than a neoplasm. Bladder wall thickness is unremarkable. Ureteral jets are not identified. IMPRESSION: Right renal nephrolithiasis and small cyst. No hydronephrosis. Echogenic bladder lesion appears more compatible with blood clot than neoplasm given its mobility and lack of color Doppler blood flow. ACT 112: Negative or not required by law. Electronically signed by: Amina Baron M.D. 04/18/2024 3:05 PM
--- NOTE | 2024-04-18 23:57 | Cardiology Consultation ---
Date of Consultation April 18, 2024 Assessment & Plan (1) Preop cardiovascular exam: (2) CAD (coronary artery disease): s/p C in 2021 with known FASHION JOURNALIST of the RCA with left to right collaterols. 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 The left common iliac has an ostial to proximal stenosis which appears to be subtotally occluded. Plan From a cardiovascular standpoint she is considered to be at significant risk for complications, however in the setting of severe bleeding this can only potentially worsen her CV status. She current is resting comfortably in bed on O2, family is at the bedside. Her ECG on admission showed NSR, ASMI age undete rmined and similar to prior. Last ECHO shows preserved LV function with diastolic dysfunction along with significant combined mitral regurgitation with mitral stenosis RV dilatation and severe pulmonary HTN PA pressures > 60mmHg. Please note that her right sided BP are probably not accurate due to innominate stenosis. Would try to keep hgb > 8 in setting of ongoing bleeding. At this time, her cardiac risk for any procedures is considered to be at least intermediate even with a lower risk procedure such as cystoscopy. She should remain on current meds including amiodarone, hydralazine if her BP allows, as well as prn bumex to maintain fluid control. Can use IV metoprolol if needed post op. HOLD aldactone. Will check ECHO in the am to reassess EF and MV pathology, but other cardiac testing is not appropriate in the this patient. She and her family understand there is cardiac risk. Post op, if she has any issues, would consider monitoring her in ICU. History of Present Illness Reason for Consultation: preop clearance Requesting Physician: urology for possible procedure Attending Physician: Peter Jose, History of Present Illness Karina is an 83 y/o vasculopath who normally follows with Dr. 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 Bleeding started 04/03/2024. Patient received cystoscopy on 04/06/2024 which was not suggestive of recurrent carcinoma, but visualization was obscured due to significant blood. She presented with a hgb of only 5.[address] Tse considering cystoscopy with possible clot evacuation and fulguration in OR. She was seen with family and appears comfortable. Denies CP or SOB in bed on O2. From a cardiovascular standpoint she is considered to be at significant risk however in the setting of severe bleeding this can only potentially worsen her CV status. She current is resting comfortably in bed on O2, family is at the bedside. Her ECG on admission showed NSR, ASMI age undetermined and similar to prior. Last ECHO shows preserved LV function with diastolic dysfunction along with significant combined mitral regurgitation with mitral stenosis RV dilatation and severe pulmonary HTN PA pressures > 60mmHg. At this time, her cardiac risk for any procedures is considered to be at least intermediate even with a lower risk proWould hold aldactone for now. cedure such as cystoscopy. She should remain on current meds including amiodarone, hydralazine if her BP allows, as well as prn bumex to maintain fluid control. Will check ECHO in the am to reassess EF and MV pathology, but other cardiac testing is not appropriate in the this patient. She and her family understand there is cardiac risk. Post op, if she has any issues, would consider monitoring her in ICU. Allergies Allergy/AdvReac Type Severity Reaction Status Date / Time No Known Allergies Allergy Verified 10/15/21 13:44 Home Medications Medication Instructions Recorded Confirmed Type aspirin 81 mg tablet,delayed 81 mg PO QAM 02/17/18 04/16/24 History release (Hermilo Low Dose Aspirin) atorvastatin 40 mg tablet 40 mg PO PM 02/17/18 04/16/24 History propylthiouracil 50 mg tablet 100 mg PO BID 02/17/18 04/16/24 History spironolactone 25 mg tablet 12.5 mg PO DAILY 12/11/21 04/16/24 History (Aldactone) amiodarone 200 mg tablet 200 mg PO DAILY 08/01/23 04/16/24 History hydralazine 10 mg tablet 10 mg PO UD PRN Blood Pressure 08/01/23 04/16/24 History bumetanide 1 mg tablet 1 mg PO Q OTHER DAY 04/16/24 04/16/24 History Patient History Medical History CKD stage G3a/A3, GFR 45-59 and albumin creatinine ratio >300 mg/g HTN (hypertension) COPD with emphysema Osteoarthritis Graves disease Uterine cancer 1995 hysterectomy/radiation Anxiety Paroxysmal atrial fibrillation Single remote episode (suspected r/t nitro patch), no known recurrences, Follows with Dr. Mcdonald Cardiac murmur 2018 ECHO showed AV sclerosis (no ), mild to moderate mitral annular calcification and mild MS CHF (congestive heart failure) 2018 Hyperlipidemia Hypertension Surgical History History of cataract surgery Right History of total hysterectomy with bilateral salpingo-oophorectomy (BSO) History of flexible sigmoidoscopy History of breast biopsy Right History of cholecystectomy Hx of lumpectomy 7 years ago History of left-sided carotid endarterectomy Family History Other No pertinent family history Social History Smoking Status: Former smoker Tobacco Type: Cigarettes Second Hand Exposure: No; Do You Dip or Chew Tobacco: No; Hx Alcohol Use: No Hx Substance Use: No Preferred Language: Czech Communication Ability: Effective Marketing Communications Associate Required: No Beliefs That Will Affect Care: None marital status: Unknown Current Living Situation: Alone Current Living Situation Comment: with alzheimers/ How many Children do You have: 2 Feels Safe at Home: Yes Assistive Devices: Cane, Glasses, Oxygen - Continuous and Walker Review of Systems Review of Systems: All systems reviewed & are unremarkable except as noted in HPI & below Physical Exam Physical Exam: elderly thin, frail in appearance Neck: mild JVD, carotid bruits noted right subclavian bruit noted Respiratory: rales at right base, clear with deep inspiration Cardiovascular: loud grade 3/6 systolic murmur at apex and left chest noted diastolic murmur may also be present Results & Data Vital Signs (Past 12 Hours) Vital Signs Temp Pulse Pulse Resp BP Pulse Ox O2 Del Method 04/18/24 22:59 36.5 C 56 L 14 123/42 L 92 Nasal Cannula 04/18/24 22:08 54 L 04/18/24 19:59 36.6 C 59 L 18 151/53 H 92 Nasal Cannula 04/18/24 19:30 Nasal Cannula 04/18/24 14:36 36.2 C L 59 L 18 123/53 L 90 Nasal Cannula 04/18/24 14:00 55 L 04/18/24 12:13 36.6 C 56 L 18 138/44 L 95 Nasal Cannula O2 Flow Rate 04/18/24 22:59 4 04/18/24 22:08 04/18/24 19:59 3 04/18/24 19:30 3 04/18/24 14:36 3 04/18/24 14:00 04/18/24 12:13 3 Laboratory Results Abnormal lab results 04/18/24 Range/Units 06:15 RBC 2.59 L (4.20-5.40) M/uL Hgb 7.7 L (12.0-16.0) g/dl Hct 24.6 L (37.0-47.0) % MCHC 31.3 L (32.0-36.0) g/dL RDW Std Deviation 54.4 H (36.4-46.3) fL RDW Coeff of Armani 15.8 H (11.5-14.5) % Chloride 112 H (98-107) mmol/L BUN 30 H (6-23) mg/dl Creatinine 2.02 H (0.6-1.2) mg/dl Calcium 8.4 L (8.6-10.3) mg/dl Medications Administered Current Inpatient Medications Acetaminophen (Acetaminophen 500 Mg Tab) 1,000 mg PO Q8H PRN PRN Reason: Fever or Pain Stop: 05/16/24 23:02 Last Admin: 04/18/24 00:13 Dose: 1,000 mg Amiodarone HCl (Amiodarone 200 Mg Tab) 200 mg PO DAILY LEVI Stop: 05/17/24 08:59 Last Admin: 04/18/24 09:28 Dose: 200 mg Atorvastatin Calcium (Atorvastatin 40 Mg Tab) 40 mg PO PM LEVI Stop: 05/16/24 20:59 Last Admin: 04/18/24 20:18 Dose: 40 mg Cyclobenzaprine HCl (Cyclobenzaprine Hcl 5 Mg Tab) 5 mg PO QAM PRN PRN Reason: Pain Stop: 05/17/24 09:44 Last Admin: 04/18/24 20:44 Dose: 5 mg Propylthiouracil (Propylthiouracil 50 Mg Tab) 100 mg PO BID LEVI Stop: 05/16/24 20:59 Last Admin: 04/18/24 20:18 Dose: 100 mg Acetaminophen (Acetaminophen 500 Mg Tab) 1,000 mg PO Q8H PRN PRN Reason: Fever or Pain Stop: 05/16/24 23:02 Last Admin: 04/18/24 00:13 Dose: 1,000 mg Documented By: Admin: 04/17/24 11:37 Dose: 1,000 mg Documented By: Admin: 04/17/24 00:01 Dose: 1,000 mg Documented By: TYRELL Amiodarone HCl (Amiodarone 200 Mg Tab) 200 mg PO DAILY LEVI Stop: 05/17/24 08:59 Last Admin: 04/18/24 09:28 Dose: 200 mg Documented By: Admin: 04/17/24 07:56 Dose: 200 mg Documented By: TONE Atorvastatin Calcium (Atorvastatin 40 Mg Tab) 40 mg PO PM LEVI Stop: 05/16/24 20:59 Last Admin: 04/18/24 20:18 Dose: 40 mg Documented By: Admin: 04/17/24 19:44 Dose: 40 mg Documented By: Admin: 04/16/24 22:37 Dose: 40 mg Documented By: CEF Cyclobenzaprine HCl (Cyclobenzaprine Hcl 5 Mg Tab) 5 mg PO QAM PRN PRN Reason: Pain Stop: 05/17/24 09:44 Last Admin: 04/18/24 20:44 Dose: 5 mg Documented By: Admin: 04/17/24 11:44 Dose: 5 mg Documented By: TONE Propylthiouracil (Propylthiouracil 50 Mg Tab) 100 mg PO BID LEVI Stop: 05/16/24 20:59 Last Admin: 04/18/24 20:18 Dose: 100 mg Documented By: Admin: 04/18/24 09:28 Dose: 100 mg Documented By: Admin: 04/17/24 19:43 Dose: 100 mg Documented By: Admin: 04/17/24 07:56 Dose: 100 mg Documented By: Admin: 04/16/24 23:11 Dose: 100 mg Documented By: CEF ECG Additional Comments: 04/16/24 NSR ASMI old NS-ST_T
--- NOTE | 2024-04-19 07:40 | Hospitalist Progress Note ---
Date of Service April 19, 2024 Assessment & Plan (1) Hematuria: Plan: Patient with history of bladder cancer. Bleeding started 04/03/2024. 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 Scheduled for routine cystoscopy outpatient in next few weeks. Urology considering cystoscopy with possible clot evacuation and fulguration in OR later today. Primary team on board for procedure. Cardiology on board pending ECHO results. - Home aspirin held since Tuesday - NPO after midnight - Continue to monitor hematuria - Cystoscopy likely 04/20 (2) Anemia: Plan: Patient s/p 2 units PRBC. Current hgb 6.8. Requires 1 unit PRBC prior to going to OR. Most likely anemia due to blood loss given significant and persistent hematuria with large clots. Cardiology recommends maintaining Hgb >8.0 considering cardiac hx. - 1 unit PRBC - Consider significant blood loss in context of future procedure. Transfuse as appropriate. - Repeat CBC tomorrow AM - If Hgb drops below 8 or patient becomes symptomatic, consider additional units PRBC (3) Acute on chronic respiratory failure with hypoxia: Plan: Patient with baseline oxygen requirement of 3L now on 4.5L supplemental O2. Small bilateral pleural effusions noted on CT. Dropped to 86% overnight so increased oxygen flow rate. No SOB, dyspnea endorsed today. Patient O2 sat 94%. Titrate to 3L as tolerated. - Titrate supplemental O2 to baseline 3L as tolerated by patient - Monitor for worsening respiratory symptoms and consider repeat imaging to evaluate pleural effusion progression (4) (HFpEF) heart failure with preserved ejection fraction: Plan: Increased oxygen requirement from baseline at 4.5L. Patient without fluid r etention, significant fluid overload. Lung auscultation reveals S3 sound and systolic murmur consistent with cardiac history. Previously hyperkalemic so spironolactone was held. Current K 5.0 downtrending. - Restart home bumex 1 mg every other day - Hold spironolactone - Continue amiodarone 200 mg due to remote hx afib - Repeat BMP (5) Lower back pain: Plan: Patient endorsing L paraspinal "squeezing" sensation. Applied ice to the area which provided some relief. Started flexiril yesterday which patient states has been beneficial in treating discomfort. - Cyclobenzaprine 5mg QAM PRN - Apply ice, heat prn as tolerated - Tylenol prn for pain (6) Graves disease: Plan: Asymptomatic. Continue home therapies (100 mg propylthiouracil BID) Plan Consult: ordered PT/OT evals for post hospital DC placement Diet: NPO after midnight Code: Full VTE Prophylaxis: Hold chemically given acute blood loss anemia Dispo: Possible cysto with urology Admission and Anticipated Discharge Date Admission Date: April 16, 2024 Supervising Physician Co-Signing Physician Notes I personally examined the patient and verified all mcduffie points of history and exam, discussed case, and agree with decision making with Dr Victoria and Moses Hernandez MS2 still having hematuria - Hgb 6.8 -> blood being transfused. no sob w transfusion Vitals noted, in general she is awake and alert pleasant no distress. HEENT normocephalic atraumatic mucous membranes moist. Breathing unlabored no accessory muscle use good effort. Skin without rashes pallor or icterus. Neuro without focal deficits. Hemoglobin noted. urology input appreciated. Hematuria/significant acute blood loss anemiarequired 2 units PRBC transfusion on admission and now an additional 1 unit. 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 Appreciate urology/cardiology assistance. for cysto tomorrow, continue to follow since urine clearing a little, though. continue to follow closely/continue supportive care. Otherwise as above. Subjective Radha is an 83F with a history of bladder cancer, CHF presenting with hematuria, anemia. Radha reports she is feeling well this morning. Reports she is now often has the urge to urinate without much urine output. Her voids have mainly been large, blood clots with minimal urine as of today. Her supplemental oxygen was increased to 5.5 L overnight due to O2 sat decrease, but patient denies shortness of breath, lightheadedness, dizziness. Review of Systems Review of Systems: Constitutional: Denies fever, chills, weight changes Eyes: Denies blurry vision, double vision, eye pain. Ear, Nose, Mouth, Throat: Denies changes in hearing. Denies congestion, rhinorrhea, sore throat. Respiratory: Denies cough, shortness of breath. Cardiovascular: Additional Comments: Denies chest pain, palpitations. Gastrointestinal: Denies abd pain, nausea, vomiting. Endorses 3 bowel movements yesterday. Genitourinary: As above in hpi Musculoskeletal: Endorses improvement of L back pain. Neurologic: Denies confusion. Endorses some gait instability when ambulating to the bathroom which is her baseline-uses assistive device walker. Physical Exam Physical Exam: elderly thin, frail in appearance Constitutional: WD/WN, vitals as above no acute distress Eyes: PERRL, conjunctivae normal, anicteric sclerae ENMT: external ear and nose normal, oropharynx normal Respiratory: normal respiratory effort, lungs clear to auscultation normal respiratory effort; no respiratory distress and no labored breathing Gastrointestinal (Abdomen): normal bowel sounds, soft, nontender, no hepatosplenomegaly Inspection/Auscultation: abdomen normal to inspection Musculoskeletal: Head/Neck/Chest: normocephalic Skin: + pallor Neurologic: moves all extremities and awake Psychiatric: Orientation: alert and oriented x 3 Results & Data Results & Data Vital Signs (Past 12 Hours) Vital Signs Temp Pulse Pulse Resp BP Pulse Ox O2 Del Method 04/19/24 07:19 67 04/19/24 03:51 36.9 C 59 L 18 111/51 L 91 Nasal Cannula 04/18/24 22:59 36.5 C 56 L 14 123/42 L 92 Nasal Cannula 04/18/24 22:08 54 L 04/18/24 19:59 36.6 C 59 L 18 151/53 H 92 Nasal Cannula O2 Flow Rate 04/19/24 07:19 04/19/24 03:51 5.5 04/18/24 22:59 4 04/18/24 22:08 04/18/24 19:59 3 Laboratory Results 04/19/24 Range/Units 11:29 WBC 7.00 (4.8-10.8) K/ul RBC 2.30 L (4.20-5.40) M/uL Hgb 6.8 L* (12.0-16.0) g/dl Hct 21.9 L (37.0-47.0) % MCV 95.2 (80.0-100.0) fL MCH 29.6 (25.0-34.0) pg MCHC 31.1 L (32.0-36.0) g/dL RDW Std Deviation 53.3 H (36.4-46.3) fL RDW Coeff of Armani 15.5 H (11.5-14.5) % Plt Count 197 (130-400) K/uL MPV 9.6 (9.4-12.4) fL Diagnostic Findings Renal Ultrasound 04/18/24 12:39 RENAL ULTRASOUND HISTORY: hematuria COMPARISON: CT of the abdomen and pelvis dated 04/16/2024 FINDINGS: Right kidney: Measurement is 9 cm in long axis. No hydronephrosis. There is an 8 mm stone in the lower pole. There is a 10 mm cyst in the upper pole. Left kidney: Measurement is 8 cm in long axis. No hydronephrosis. No focal lesion demonstrated. Bladder: There is an echogenic lesion within the bladder that appears mobile. It does not have color Doppler blood flow. This is more consistent with a blood clot than a neoplasm. Bladder wall thickness is unremarkable. Ureteral jets are not identified. IMPRESSION: Right renal nephrolithiasis and small cyst. No hydronephrosis. Echogenic bladder lesion appears more compatible with blood clot than neoplasm given its mobility and lack of color Doppler blood flow. ACT 112: Negative or not required by law. Electronically signed by: Amina Baron M.D. 04/18/2024 3:05 PM Resident Activity Tracking Resident Involvement: Resident Care Provided Care Provided: Adult Hospital Medicine (1) Hematuria Hematuria type: gross Qualified Code(s): R31.0 - Gross hematuria
--- NOTE | 2024-04-19 07:44 | Urology Progress Note ---
<Statement entered by Andrew Tse MD - 04/19/24 15:24> 83-year-old female with medical comorbidities, ongoing hematuria requiring transfusion. Since hematuria has not resolved with conservative management, and is looking more more likely like we will need to proceed to the operating room for cystoscopy, clot evacuation and fulguration of anything that is bleeding or possible resection of bladder tumor. Appreciate cardiology input and echocardiogram. Agree with transfusion. We will tentatively plan on cystoscopy and procedure on 04/20/2024. Date of Service April 19, 2024 Assessment & Plan (1) Hematuria: (2) Symptomatic anemia: (3) Bladder cancer: Plan 83 yo/F with history of bladder cancer admitted for gross hematuria and acute anemia. Patient afebrile, stable vitals She is voiding spontaneously Continue to monitor voiding and bladder scan as needed If she is unable to void or elevated PVRs, then Islas catheter can be placed and manual irrigation can be performed Continue to trend labs and transfuse as needed Patient is scheduled for repeat cystoscopy as outpatient in a few weeks We have discussed consideration of surgical intervention with cystoscopy, possible clot evacuation and fulguration while inpatient with Dr. Tse later this week Appreciate cardiology consultation for preoperative assessment Renal ultrasound showed clot within the bladder We will keep n.p.o. at present time and reevaluate for procedure later today pending echocardiogram and labs Per cardiology, echocardiogram stable since 2022 Hgb down to 6.8 today (7.7 yesterday) See attending note for further details on plan of care Admission and Anticipated Discharge Date Admission Date: April 16, 2024 Subjective Patient seen and examined at bedside. She is resting in bed, arouses easily to her name. No acute issues overnight. Continues to void spontaneously with hematuria and clots. Denies pain at present. No fever or chills. Review of Systems Constitutional: as per Subjective / HPI Genitourinary: as per Subjective / HPI Physical Exam Constitutional: no acute distress Respiratory: normal respiratory effort; no respiratory distress and no labored breathing Gastrointestinal (Abdomen): Inspection/Auscultation: abdomen normal to inspection Musculoskeletal: Head/Neck/Chest: normocephalic Skin: + pallor Neurologic: moves all extremities and awake Psychiatric: Orientation: alert and oriented x 3 Results & Data Vital Signs (Past 12 Hours) Vital Signs Temp Pulse Pulse Resp BP Pulse Ox O2 Del Method 04/19/24 07:41 36.7 C 59 L 18 125/56 L 94 Nasal Cannula 04/19/24 07:19 67 04/19/24 03:51 36.9 C 59 L 18 111/51 L 91 Nasal Cannula 04/18/24 22:59 36.5 C 56 L 14 123/42 L 92 Nasal Cannula 04/18/24 22:08 54 L 04/18/24 19:59 36.6 C 59 L 18 151/53 H 92 Nasal Cannula O2 Flow Rate 04/19/24 07:41 5.5 04/19/24 07:19 04/19/24 03:51 5.5 04/18/24 22:59 4 04/18/24 22:08 04/18/24 19:59 3 PG Care Time/CCT Total # of Minutes Spent Total Time Spent with Patient: Total time spent is greater than 50% in coordination of care (as documented) at patient's floor/unit and/or counseling patient: Coding Level of Care Code 23746 SUB INP/OBS CARE 2/35MIN Diagnoses Hematuria R31.0 Hematuria type: gross Symptomatic anemia D64.9 Bladder cancer C67.9 (1) Hematuria Hematuria type: gross Qualified Code(s): R31.0 - Gross hematuria
[2024-04-19] MEDS: BUMETANIDE 1 MG TAB PO SCH (09:44)
--- NOTE | 2024-04-19 10:03 | Electrocardiogram Report ---
Test Reason : Blood Pressure : */* mmHG Vent. Rate : 68 BPM Atrial Rate : 68 BPM P-R Int : 168 ms QRS Dur : 114 ms QT Int : 464 ms P-R-T Axes : 30 94 -38 degrees QTcB Int : 493 ms Normal sinus rhythm Rightward axis Abnormal ECG When compared with ECG of 16-Apr-2024 12:41, There is no significant change Confirmed by Kimberly Damian (Cindy) on 04/19/2024 10:03:13 AM Referred By: REFERRED SELF Confirmed By: Kimberly Damian
--- NOTE | 2024-04-19 11:33 | Cardiology Progress Note ---
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 the left coronary was free of significant disease (3) (HFpEF) heart failure with preserved ejection fraction: Plan: diastolic dysfunction (4) Symptomatic anemia: Plan: due to significant urinary bleeding-s/p transfusion 2 units PRBCs (5) Moderate mitral stenosis by prior echocardiogram: Plan: combined with moderately severe Mitral regurgitation and stenosis (6) Right ventricular dilation: (7) Moderate pulmonary hypertension: (8) Carotid artery disease: Plan: s/p CEA Left; severe right innominate stenosis with 50mmhg BP gradient; LEFT BP is probably most accurate see also the description of the severe abdominal aortic disease/stenosis described at cath in 2021 (9) Atrial fibrillation with RVR: Plan: PAROXYSMAL on amiodarone (10) PAD (peripheral artery disease): Plan: There is a heavily calcified 95% lesion at the distal abdominal aorta extending into the ostium of the right common iliac which is complex appearing. The left common iliac has an ostial to proximal stenosis which appears to be subtotally occluded. Plan As noted yesterday: From a cardiovascular standpoint she is considered to be at significant risk for complications, however in the setting of severe bleeding this can only potentially worsen her CV status. She current is resting comfortably in bed on O2, family is at the bedside. Her ECG on admission showed NSR, ASMI age undetermined and similar to prior. ECHO done this am shows preserved LV function with diastolic dysfunction along with significant combined mitral regurgitation with mitral stenosis RV dilatation and severe pulmonary HTN PA pressures > 60mmHg. Please note that her right sided BP are probably not accurate due to innominate stenosis. Would try to keep hgb > 8 in setting of ongoing bleeding. At this time, her cardiac risk for any procedures is considered to be at least intermediate even with a lower risk procedure such as cystoscopy. She should remain on current meds including amiodarone, hydralazine if her BP allows, as well as prn bumex to maintain fluid control. Can use IV metoprolol if needed post op. HOLD aldactone. Will check ECHO in the am to reassess EF and MV pathology, but other cardiac testing is not appropriate in the this patient. She and her family understand there is cardiac risk. Post op, if she has any issues, would consider monitoring her in ICU. Admission and Anticipated Discharge Date Admission Date: April 16, 2024 Tk Garcia is an 83F with a history of bladder cancer, CHF presenting with hematuria, anemia. Awaiting Urologic procedure. Radha reports she is feeling well this morning. Reports she is now often has the urge to urinate without much urine output. Her voids have mainly been large, blood clots with minimal urine as of today. Her supplemental oxygen was increased to 5.5 L overnight due to O2 sat decrease, but patient denies shortness of breath, lightheadedness, dizziness. Review of Systems Review of Systems: All systems reviewed & are unremarkable except as noted in HPI & below Physical Exam Physical Exam: unchanged Results & Data Vital Signs (Past 12 Hours) Vital Signs Temp Pulse Pulse Resp BP Pulse Ox O2 Del Method 04/19/24 10:57 36.8 C 54 L 18 123/49 L 97 Nasal Cannula 04/19/24 07:41 36.7 C 59 L 18 125/56 L 94 Nasal Cannula 04/19/24 07:19 67 04/19/24 03:51 36.9 C 59 L 18 111/51 L 91 Nasal Cannula O2 Flow Rate 04/19/24 10:57 4.5 04/19/24 07:41 5.5 04/19/24 07:19 04/19/24 03:51 5.5
[2024-04-19 11:58] LABS: Hematocrit (blood only) 21.9 % (37.0-47.0); Hemoglobin 6.8 g/dl (12.0-16.0); Mean Corpuscular Hemoglobin 29.6 pg (25.0-34.0); Mean Corpuscular Hgb Conc 31.1 g/dL (32.0-36.0); Mean Corpuscular Volume 95.2 fL (80.0-100.0); Mean Platelet Volume 9.6 fL (9.4-12.4); Platelet Count 197 K/uL (130-400); RDW Coefficient of Variation 15.5 % (11.5-14.5); RDW Standard Deviation 53.3 fL (36.4-46.3)
[2024-04-19] MEDS ORDERED: SODIUM CHLORIDE 0.9% 100 ML IV PRN ×3 (12:22→19:48)
[2024-04-19] MEDS ORDERED: SODIUM CHLORIDE 0.9% 50 ML IV PRN ×3 (12:22→19:48)
--- NOTE | 2024-04-19 17:49 | Billing Data ---
Date of Service April 19, 2024 Coding Level of Care Code 80947 SUB INP/OBS CARE MIN
[2024-04-19 21:24] LABS: Hemoglobin 8.7 g/dl (12.0-16.0)
[2024-04-20 06:49] LABS: Hematocrit (blood only) 27.8 % (37.0-47.0); Hemoglobin 8.9 g/dl (12.0-16.0); Mean Corpuscular Hemoglobin 30.3 pg (25.0-34.0); Mean Corpuscular Volume 94.6 fL (80.0-100.0); Mean Platelet Volume 9.9 fL (9.4-12.4); Platelet Count 187 K/uL (130-400); RDW Coefficient of Variation 14.6 % (11.5-14.5); RDW Standard Deviation 49.7 fL (36.4-46.3); Red Blood Count 2.94 M/uL (4.20-5.40); White Blood Count 7.27 K/ul (4.8-10.8)
--- NOTE | 2024-04-20 07:00 | Hospitalist Progress Note ---
Date of Service April 20, 2024 Assessment & Plan (1) Hematuria: Plan: Patient with history of bladder cancer. Bleeding started 04/03/2024. 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 Scheduled for routine cystoscopy outpatient in next few weeks. Urology considering cystoscopy with possible clot evacuation and fulguration in OR later today. Primary team on board for procedure. Cardiology consulted to optimization for cystoscopy procedure in OR. - Home aspirin held since Tuesday - NPO after midnight - Continue to monitor hematuria - Cystoscopy scheduled for today (2) Anemia: Plan: Patient s/p 2 units PRBC. Required 1 unit PRBC due to Hbg of 6.8 yesterday. Current HBG is 8.9. Cardiology recommends maintaining Hgb >8.0 considering cardiac hx. - s/p 1 unit PRBC on 04/19. 3 units total since admission. - Repeat CBC tomorrow AM - If Hgb drops below 8 or patient becomes symptomatic, consider additional units PRBC (3) Acute on chronic respiratory failure with hypoxia: Plan: Patient with baseline oxygen requirement of 3L now on 4L supplemental O2. Small bilateral pleural effusions noted on CT at admission. Seems to have overnight drops in O2 sat. No SOB, dyspnea endorsed today. Patient O2 sat 96%. - Titrate supplemental O2 to baseline 3L as tolerated by patient - Monitor for worsening respiratory symptoms and consider repeat imaging to evaluate pleural effusion progression (4) (HFpEF) heart failure with preserved ejection fraction: Plan: Increased oxygen requirement from baseline at 4L. Patient without fluid retention, significant fluid overload. Lung auscultation reveals S3 sound and systolic murmur consistent with cardiac history. Previously hyperkalemic so spironolactone was held. Current K 5.1 and stable - Continue home bumex 1 mg every other day - Hold spironolactone - Continue amiodarone 200 mg due to remote hx afib - AM BMP (5) Lower back pain: Plan: Patient endorsing L paraspinal "squeezing" sensation. Applied ice to the area which provided some relief. Started flexiril yesterday which patient states has been beneficial in treating discomfort. - Cyclobenzaprine 5mg QAM PRN - Apply ice, heat prn as tolerated - Tylenol prn for pain (6) Graves disease: Plan: Asymptomatic. Continue home therapies (100 mg propylthiouracil BID) Plan Consult: ordered PT/OT eval OT recommends home with home health PT eval pending Diet: NPO after midnight Code: Full VTE Prophylaxis: Hold chemically given acute blood loss anemia Dispo: Med/tele Admission and Anticipated Discharge Date Admission Date: April 16, 2024 Supervising Physician Co-Signing Physician Notes I personally examined the patient and verified all mcduffie points of history and exam, discussed case, and agree with decision making with Dr Victoria no hematuria since cysto Vitals noted, in general she is awake and alert pleasant no distress. HEENT normocephalic atraumatic mucous membranes moist. Breathing unlabored no accessory muscle use good effort. Skin without rashes pallor or icterus. Neuro without focal deficits. Hemoglobin noted. urology input appreciated. Hematuria/significant acute blood loss anemiarequired 3 units PRBC transfusion since admission. sp cysto and cautery- at least currently bleeding has stopped. continue to follow, hopefully home tomorrow! Subjective This morning reports sleeping fairly well last night, continues with some midback pain, passing blood clots in her urine. Denies dysuria, abdominal pain, SOB, chest pain, Review of Systems Review of Systems: As per above Physical Exam Physical Exam: elderly thin, frail in appearance Constitutional: WD/WN, vitals as above no acute distress Eyes: PERRL, conjunctivae normal, anicteric sclerae ENMT: external ear and nose normal, oropharynx normal Respiratory: normal respiratory effort, lungs clear to auscultation normal respiratory effort; no respiratory distress and no labored breathing Gastrointestinal (Abdomen): normal bowel sounds, soft, nontender, no hepatosplenomegaly Inspection/Auscultation: abdomen normal to inspection Musculoskeletal: Head/Neck/Chest: normocephalic Neurologic: moves all extremities and awake Psychiatric: Orientation: alert and oriented x 3 Results & Data Results & Data Vital Signs (Past 12 Hours) Vital Signs Temp Pulse Pulse Resp BP Pulse Ox O2 Del Method 04/20/24 03:55 36.7 C 50 L 16 160/54 H 98 Nasal Cannula 04/19/24 22:22 36.7 C 48 L 18 127/47 L 95 Nasal Cannula 04/19/24 21:46 52 L 04/19/24 20:55 Nasal Cannula 04/19/24 19:00 36.5 C 60 18 105/43 L 95 Room Air O2 Flow Rate 04/20/24 03:55 4 04/19/24 22:22 4 04/19/24 21:46 04/19/24 20:55 4 04/19/24 19:00 Resident Activity Tracking Resident Involvement: Resident Care Provided Care Provided: Adult Hospital Medicine (1) Hematuria Hematuria type: gross Qualified Code(s): R31.0 - Gross hematuria
[2024-04-20 07:14] LABS: BUN Creatinine Ratio 12.5 (10-20); Calcium 8.2 mg/dl (8.6-10.3); Creatinine Clr Calc Pharmacy 15.2 ml/min; Potassium 5.1 mmol/L (3.5-5.1)
--- NOTE | 2024-04-20 09:19 | Urology Progress Note ---
<Statement entered by Andrew Tse MD - 04/20/24 10:18> Reviewed the plan for cystoscopy, clot evacuation, fulguration, possible transurethral resection bladder tumor. We reviewed risks and benefits of surgery. She expressed understanding would like to proceed. Date of Service April 20, 2024 Assessment & Plan (1) Hematuria: (2) Symptomatic anemia: (3) Bladder cancer: Plan 83 yo/F with history of bladder cancer admitted for gross hematuria and acute anemia. Patient afebrile, stable vitals She is voiding spontaneously, urine remains bloody with clots Continue to monitor voiding and bladder scan as needed If she is unable to void or elevated PVRs, then Islas catheter can be placed and manual irrigation can be performed Continue to trend labs and transfuse as needed Transfused again yesterday, Hgb 8.9 today Appreciate cardiology consultation for preoperative assessment Given ongoing hematuria and anemia will proceed with cystoscopy, clot evacuation and fulguration today with Dr. Tse as previously discussed Keep NPO for procedure See attending note Admission and Anticipated Discharge Date Admission Date: April 16, 2024 Subjective Patient seen and examined at bedside this morning. No acute events overnight. Voiding spontaneously, continues to have hematuria with clots. She received transfusion yesterday. Hemoglobin 8.9 today. She is NPO. Review of Systems Constitutional: as per Subjective / HPI Genitourinary: as per Subjective / HPI Physical Exam Constitutional: no acute distress Respiratory: normal respiratory effort; no respiratory distress and no labored breathing Gastrointestinal (Abdomen): Inspection/Auscultation: abdomen normal to inspection Musculoskeletal: Head/Neck/Chest: normocephalic Skin: + pallor Neurologic: moves all extremities and awake Psychiatric: Orientation: alert and oriented x 3 Results & Data Vital Signs (Past 12 Hours) Vital Signs Temp Pulse Pulse Pulse Resp BP Pulse Ox 04/20/24 08:21 36.4 C L 52 L 16 146/60 H 96 04/20/24 07:40 04/20/24 07:00 48 L 04/20/24 03:55 36.7 C 50 L 16 160/54 H 98 04/19/24 22:22 36.7 C 48 L 18 127/47 L 95 04/19/24 21:46 52 L O2 Del Method O2 Flow Rate 04/20/24 08:21 Nasal Cannula 2 04/20/24 07:40 Nasal Cannula 4 04/20/24 07:00 04/20/24 03:55 Nasal Cannula 4 04/19/24 22:22 Nasal Cannula 4 04/19/24 21:46 PG Care Time/CCT Total # of Minutes Spent Total Time Spent with Patient: Total time spent is greater than 50% in coordination of care (as documented) at patient's floor/unit and/or counseling patient: Coding Level of Care Code 75295 SUB INP/OBS CARE 2/35MIN Diagnoses Hematuria R31.0 Hematuria type: gross Symptomatic anemia D64.9 Bladder cancer C67.9 (1) Hematuria Hematuria type: gross Qualified Code(s): R31.0 - Gross hematuria
[2024-04-20] MEDS ORDERED: LIDOCAINE 2% 2 ML VIAL/AMP(20MG/ML) INFIL ONE (09:36)
[2024-04-20] MEDS ORDERED: ONDANSETRON INJ 2 MG/ML 2 ML VIAL ONE (09:36)
[2024-04-20] MEDS ORDERED: PROPOFOL IV EMULSION 10 MG/ML 20 ML VIAL IV ONE (09:36)
[2024-04-20] MEDS ORDERED: fentaNYL citrate PF 100 MCG/2 ML VIAL ONE (09:58)
[2024-04-20] MEDS: SODIUM CHLORIDE 0.9% 1,000 ML IV SCH (10:14)
[2024-04-20] MEDS ORDERED: SODIUM CHLORIDE 0.9% 500 ML IV SCH (10:15)
--- NOTE | 2024-04-20 10:35 | Anesthesiology Consultation ---
Date of Service April 20, 2024 Assessment & Plan Chart Review Chart Review: Acceptable Risk for Surgery and Patient NOT seen in Pre Admission Testing Consults Requested none ASA ASA4 Proposed Anesthesia Anesthesia Type: General Risk / Benefits Reviewed With: PT / POA / Parent / Guardian, Accepts Plan and Informed Consent Obtained History Surgery Operation Date: 04/20/24 07:00 Proposed Procedures p Cystoscopy, Clot Evacuation, Fulguration - Andrew Tse MD Height/Weight Height: 5 ft 5 in Weight: 49.6 kg Allergies Allergy/AdvReac Type Severity Reaction Status Date / Time No Known Allergies Allergy Verified 10/15/21 13:44 Medications Home Medications Medication Instructions Recorded Confirmed Last Taken aspirin 81 mg tablet,delayed 81 mg PO QAM 02/17/18 04/16/24 04/16/24 release (Hermilo Low Dose Aspirin) atorvastatin 40 mg tablet 40 mg PO PM 02/17/18 04/16/24 04/15/24 propylthiouracil 50 mg tablet 100 mg PO BID 02/17/18 04/16/24 04/16/24 spironolactone 25 mg tablet 12.5 mg PO DAILY 12/11/21 04/16/24 04/16/24 (Aldactone) amiodarone 200 mg tablet 200 mg PO DAILY 08/01/23 04/16/24 04/16/24 hydralazine 10 mg tablet 10 mg PO UD PRN Blood Pressure 08/01/23 04/16/24 Unknown bumetanide 1 mg tablet 1 mg PO Q OTHER DAY 04/16/24 04/16/24 Unknown Active Medications Generic Name Dose Route Start Last Admin Trade Name Bobq PRN Reason Stop Dose Admin Acetaminophen 1,000 mg 04/16/24 23:03 04/18/24 00:13 Acetaminophen 500 Mg Tab PO 05/16/24 23:02 1,000 mg Q8H PRN Administration Fever or Pain Amiodarone HCl 200 mg 04/17/24 09:00 04/20/24 09:10 Amiodarone 200 Mg Tab PO 05/17/24 08:59 200 mg DAILY LEVI Administration Atorvastatin Calcium 40 mg 04/16/24 21:00 04/19/24 20:53 Atorvastatin 40 Mg Tab PO 05/16/24 20:59 40 mg PM LEVI Administration Bumetanide 1 mg 04/19/24 09:30 04/19/24 09:44 Bumetanide 1 Mg Tab PO 05/19/24 09:29 1 mg Q2D LEVI Administration Cyclobenzaprine HCl 5 mg 04/17/24 09:37 04/18/24 20:44 Cyclobenzaprine Hcl 5 Mg Tab PO 05/17/24 09:44 5 mg QAM PRN Administration Pain Sodium Chloride 1,000 mls @ 80 mls/hr 04/20/24 10:15 04/20/24 10:15 Nss IV 04/21/24 10:14 15 mls/hr .[id number] LEVI Administration Propylthiouracil 100 mg 04/16/24 21:00 04/20/24 09:10 Propylthiouracil 50 Mg Tab PO 05/16/24 20:59 100 mg BID LEVI Administration NPO Date Last Intake of Fluids: 04/19/24 Time Last Intake of Fluids: 22:30 Date Last Intake of Solids: 04/19/24 Time Last Intake of Solids: 18:00 Past Medical History Medical History CKD stage G3a/A3, GFR 45-59 and albumin creatinine ratio >300 mg/g HTN (hypertension) COPD with emphysema Osteoarthritis Graves disease Uterine cancer 1995 hysterectomy/radiation Anxiety Paroxysmal atrial fibrillation Single remote episode (suspected r/t nitro patch), no known recurrences, Follows with Dr. Mcdonald Cardiac murmur 2018 ECHO showed AV sclerosis (no ), mild to moderate mitral annular calcification and mild MS CHF (congestive heart failure) 2018 Hyperlipidemia Hypertension ASCVD Ao + Carotids severe MR/TR CAD s/p Stemi RCA anemia Exercise / Class Metabolic Activity III < 4 Walking/Shop/Light housework Past Family History Family History Other No pertinent family history Past Surgical History Surgical History History of cataract surgery Right History of total hysterectomy with bilateral salpingo-oophorectomy (BSO) History of flexible sigmoidoscopy History of breast biopsy Right History of cholecystectomy Hx of lumpectomy 7 years ago History of left-sided carotid endarterectomy Past Anesthesia History No Hx of Anesthesia Complications and No Family Hx of Anesthesia Complications History of PONV No Hx of PONV and No Hx of Motion Sickness Social History Smoking Status: Former smoker tobacco type: cigarettes Do You Dip or Chew Tobacco: No Hx Alcohol Use: No Alcohol type: wine alcohol intake frequency: holidays/special occasions only Hx Substance Use: No substance use type: does not use Physical Exam Vital Signs Last Vital Signs Temp 36.9 C 04/20/24 10:16 Pulse 61 04/20/24 10:16 Resp 20 04/20/24 10:16 BP 179/58 H 04/20/24 10:16 Pulse Ox 95 04/20/24 10:16 O2 Del Method Nasal Cannula 04/20/24 10:16 O2 Flow Rate 4 04/20/24 10:16 Constitutional + cachectic; no acute distress ENMT Mouth: + dentition abnormality, + dentures and + poor dentition Thyromental Distance: < 3.5 Finger Breadths Mallampati Class: II Neck normal visual inspection and trachea midline; neck extension not limited Respiratory normal respiratory effort Auscultation: + diminished lung sounds Cardiovascular Rate/Rhythm: regular rate and regular rhythm Heart Sounds: + murmur (@ apex) Vessels: no carotid bruit Musculoskeletal Spine: normal cervical ROM and no pain with cervical ROM Extremities: full ROM of extremities Neurologic moves all extremities Motor/Sensory: no sensory deficit Psychiatric Orientation: alert and oriented x 3 Testing Laboratory Results 04/20/24 05:44 04/20/24 05:44 PT 10.9 Seconds (9.0-12.0) 04/16/24 13:02 INR 1.0 (0.9-1.1) 04/16/24 13:02 APTT 25 Seconds (21-31) 04/16/24 13:02 Urine Color Red 04/16/24 21:58 Urine Appearance Turbid (Clear) A 04/16/24 21:58 Urine pH 7.0 (4.5-7.5) 04/16/24 21:58 Ur Specific [place] 1.025 (1.000-1.030) 04/16/24 21:58 Urine Protein 3+ (Negative) H 04/16/24 21:58 Urine Glucose (UA) Trace (Negative) H 04/16/24 21:58 Urine Ketones Negative (Negative) 04/16/24 21:58 Urine Nitrite Negative (Negative) 04/16/24 21:58 Ur Leukocyte Esterase Negative (Negative) 04/16/24 21:58 Urine RBC >20 /hpf (0-2) H 04/16/24 21:58 Urine WBC 0-5 /hpf (0-5) 04/16/24 21:58 Ur Epithelial Cells 0-2 /hpf (0-2) 04/16/24 21:58 Blood Type A Negative 04/19/24 12:49 Antibody Screen NEGATIVE 04/19/24 12:49 Electrocardiogram Date: 04/19/24 Findings: + NSR @ (@ 68;RAD;ST & T wave abnl) Echocardiogram Date: 04/19/24 EF: 50% LV Function: dysfunctional RWMA: + akinetic (inferobasilar + inferoposterior) Other Findings: + atrial enlargement (severe) and + diastolic dysfunction Valvular Disease: + MS and + MR (severe) severe TR mod pulm Htn
[2024-04-20] MEDS ORDERED: ATROPINE SULFATE 0.1 MG/ML 10ML SYR IV PRN (10:45)
[2024-04-20] MEDS ORDERED: ePHEDrine sulfate 50 MG/ML AMP IV PRN (10:45)
[2024-04-20] MEDS: ceFAZolin 2000MG 2,000 MG/15 ML SYR IV ONE (10:49)
[2024-04-20] MEDS ORDERED: ceFAZolin 330 MG/ML 1 GM VIAL ONE (10:50)
[2024-04-20] MEDS ORDERED: ePHEDrine sulfate 50 MG/5 ML SYR ONE (10:54)
--- NOTE | 2024-04-20 11:10 | Operative Report ---
PG Post Operative Report Pre & Post Diagnosis Operation Date: 04/20/24 07:00 Pre-Op Diagnosis: Hematuria Post-Op Diagnosis: Hematuria, radiation cystitis I identified the patient and participated in the time-out.: Yes Procedure Operation Date: 04/20/24 07:00 Actual Procedures p Cystoscopy, Clot Evacuation, Fulguration - Andrew Tse MD Surgeon Andrew Tse MD Religious Assistant None Estimated Blood Loss 0 Findings See Below 1/4 cup clot evacuated from the bladder No tumors in the bladder, prominent blood vessels consistent with radiation cystitis. Any bleeding areas were fulgurated.. Specimens None Drains None Anesthesia Type General Complications none Disposition Accompanied Patient To Recovery: Yes Disposition: Recovery Room Indications This is an 83-year-old female followed by urology for history of bladder cancer and recent hematuria. Cystoscopy in the office was nondiagnostic due to clot within the bladder. Plan was to continue to monitor and let the clot break up, however she presented to the emergency department with acute anemia. She is brought to the OR for cystoscopy, clot evacuation, possible fulguration. Description of Procedure The patient was identified in the holding area and informed consent was confirmed. She was taken to the operating room where anesthesia was initiated. She was placed in the dorsal lithotomy position with all pressure points appropriately padded. She was prepped and draped in the usual sterile fashion and a preoperative timeout was performed. A well-lubricated resectoscope was inserted per urethra and panendoscopy was performed. Within the lumen of the bladder there was a clot. This was evacuated using a Svetlana syringe. Approximately 1/4 cup of clot was removed. The remainder of the bladder was then surveyed. Ureteral orifices were in orthotopic position. There is evidence of prior tumor resection. No recurrent tumors were appreciated. She had some prominent blood vessels on the posterior wall and trigone consistent with radiation cystitis. Some of these vessels started bleeding with contact from the cystoscope. The bipolar button was introduced and used to cauterize/fulgurate any bleeding areas. Some of the more prominent blood vessels were cauterized as well. At the conclusion of this process, the urine was clear with no active bleeding. At this point all instrumentation was removed. The patient was then awakened from anesthesia and was brought to the PACU in stable condition. I attest to the content of the Intraoperative Record and any orders documented therein. Any exceptions are noted below.
--- NOTE | 2024-04-20 11:50 | Anesthesiology Progress Note ---
Date of Service April 20, 2024 Anesthesia Post Procedure Vital Signs Vital Signs: Temp Pulse Pulse Pulse Resp BP BP 04/20/24 11:40 56 L 17 135/52 L 04/20/24 11:30 55 L 18 151/49 H 04/20/24 11:20 56 L 17 145/59 H 04/20/24 11:14 36.6 C 58 L 19 137/48 L 04/20/24 10:16 36.9 C 61 20 179/58 H 04/20/24 09:00 04/20/24 08:21 36.4 C L 52 L 16 146/60 H 04/20/24 07:40 04/20/24 07:00 48 L 04/20/24 03:55 36.7 C 50 L 16 160/54 H 04/19/24 22:22 36.7 C 48 L 18 127/47 L 04/19/24 21:46 52 L 04/19/24 20:55 04/19/24 19:00 36.5 C 60 18 105/43 L 04/19/24 18:35 36.6 C 56 L 19 124/50 L 04/19/24 17:37 36.9 C 61 20 146/59 H 04/19/24 16:37 37.0 C 56 L 18 164/58 H 04/19/24 16:36 37.0 C 56 L 18 164/58 H 04/19/24 15:37 36.6 C 49 L 17 138/63 04/19/24 15:07 36.6 C 50 L 17 136/65 04/19/24 15:00 50 L 04/19/24 14:52 36.7 C 55 L 18 138/99 04/19/24 14:36 36.5 C 59 L 19 141/57 H Pulse Ox Pulse Ox O2 Del Method O2 Del Method O2 Flow Rate O2 Flow Rate 04/20/24 11:40 96 Nasal Cannula 4 04/20/24 11:30 95 Nasal Cannula 4 04/20/24 11:20 96 Oxymask 4 04/20/24 11:14 93 Oxymask 4 04/20/24 10:16 95 Nasal Cannula 4 04/20/24 09:00 92 Nasal Cannula 4 04/20/24 08:21 96 Nasal Cannula 2 04/20/24 07:40 Nasal Cannula 4 04/20/24 07:00 04/20/24 03:55 98 Nasal Cannula 4 04/19/24 22:22 95 Nasal Cannula 4 04/19/24 21:46 04/19/24 20:55 Nasal Cannula 4 04/19/24 19:00 95 Room Air 04/19/24 18:35 96 4 04/19/24 17:37 94 4 04/19/24 16:37 93 4 04/19/24 16:36 93 4.5 04/19/24 15:37 100 4 04/19/24 15:07 100 4 04/19/24 15:00 04/19/24 14:52 99 4 04/19/24 14:36 98 4 Pain Intensity Back: Pain Intensity: 5 Transfer of Care Handoff Completed per policy Notes Mental Status: alert / awake / arousable Patient Amnestic to Procedure: Yes Nausea / Vomiting: adequately controlled Pain: adequately controlled Airway Patency, RR, SpO2: stable & adequate BP & HR: stable & adequate Hydration State: stable & adequate Anesthetic Complications: no major complications apparent
--- NOTE | 2024-04-20 13:04 | Cardiology Progress Note ---
Date of Service April 20, 2024 Assessment & Plan (1) Preop cardiovascular exam: (2) CAD (coronary artery disease): Plan: s/p C in 2021 with known [employer] of the RCA with left to right collaterols. the left coronary was free of significant disease (3) (HFpEF) heart failure with preserved ejection fraction: Plan: diastolic dysfunction (4) Symptomatic anemia: Plan: due to significant urinary bleeding-s/p transfusion 2 units PRBCs (5) Moderate mitral stenosis by prior echocardiogram: Plan: Heavy MAC causing MS combined with moderately severe Mitral regurgitation and stenosis (6) Right ventricular dilation: (7) Moderate pulmonary hypertension: (8) Carotid artery disease: Plan: s/p CEA Left; severe right innominate stenosis with 50mmhg BP gradient; LEFT BP is probably most accurate see also the description of the severe abdominal aortic disease/stenosis described at cath in 2021 (9) Atrial fibrillation with RVR: Plan: PAROXYSMAL on amiodarone (10) PAD (peripheral artery disease): Plan: There is a heavily calcified 95% lesion at the distal abdominal aorta extending into the ostium of the right common iliac which is complex appearing. The left common iliac has an ostial to proximal stenosis which appears to be subtotally occluded. Plan had procedure late this am. Will follow for now. Ideally would like to eventually resume ASA, but that may need to be held for the interim. Would hold her aldactone given the top normal K. Consider using the hydralazine 10mg po q 6-8 hours for her BP. I don't know that she is going to tolerate Entresto given her significant increase in Cr. Her GFR is only 20-25 given how thin she is and no muscle mass. If she remains stable over night, would not be opposed to her being DC. Keep hgb above 7-8 please. Admission and Anticipated Discharge Date Admission Date: April 16, 2024 Subjective Had procedure today-large amount of clot evacuated from bladder. without new complaints. remains on O2 Review of Systems Review of Systems: All systems reviewed & are unremarkable except as noted in HPI & below Physical Exam Physical Exam: unchanged Respiratory: crackles at right base unchanged Cardiovascular: murmurs unchanged Results & Data Vital Signs (Past 12 Hours) Vital Signs Temp Pulse Pulse Pulse Resp BP Pulse Ox 04/20/24 12:40 36.4 C L 55 L 16 147/42 H 92 03/14/25 12:31 36.2 C L 53 L 16 154/56 H 98 04/20/24 11:50 36.6 C 54 L 19 142/47 H 94 04/20/24 11:40 56 L 17 135/52 L 96 04/20/24 11:30 55 L 18 151/49 H 95 04/20/24 11:20 56 L 17 145/59 H 96 04/20/24 11:14 36.6 C 58 L 19 137/48 L 93 04/20/24 10:16 36.9 C 61 20 179/58 H 95 04/20/24 09:00 04/20/24 08:21 36.4 C L 52 L 16 146/60 H 96 04/20/24 07:40 04/20/24 07:00 48 L 04/20/24 03:55 36.7 C 50 L 16 160/54 H 98 Pulse Ox O2 Del Method O2 Del Method O2 Flow Rate O2 Flow Rate 04/20/24 12:40 Nasal Cannula 2 04/20/24 12:31 Nasal Cannula 2 04/20/24 11:50 Nasal Cannula 4 04/20/24 11:40 Nasal Cannula 4 04/20/24 11:30 Nasal Cannula 4 04/20/24 11:20 Oxymask 4 04/20/24 11:14 Oxymask 4 04/20/24 10:16 Nasal Cannula 4 04/20/24 09:00 92 Nasal Cannula 4 04/20/24 08:21 Nasal Cannula 2 04/20/24 07:40 Nasal Cannula 4 04/20/24 07:00 04/20/24 03:55 Nasal Cannula 4 Laboratory Results Abnormal lab results 04/19/24 04/19/24 04/20/24 Range/Units 12:49 20:29 05:44 RBC 2.94 L (4.20-5.40) M/uL Hgb 8.7 L 8.9 L (12.0-16.0) g/dl Hct 27.0 L 27.8 L (37.0-47.0) % RDW Std Deviation 49.7 H (36.4-46.3) fL RDW Coeff of Armani 14.6 H (11.5-14.5) % Chloride 110 H (98-107) mmol/L BUN 27 H (6-23) mg/dl Creatinine 2.16 H (0.6-1.2) mg/dl Calcium 8.2 L (8.6-10.3) mg/dl Crossmatch See Detail
--- NOTE | 2024-04-20 18:30 | Billing Data ---
Date of Service April 20, 2024 Coding Level of Care Code 02355 SUB INP/OBS CARE
[2024-04-21 00:09] VITALS: O2SAT 96
[2024-04-21 06:29] LABS: Hematocrit (blood only) 28.5 % (37.0-47.0); Hemoglobin 8.9 g/dl (12.0-16.0); Mean Corpuscular Hemoglobin 29.8 pg (25.0-34.0); Mean Corpuscular Hgb Conc 31.2 g/dL (32.0-36.0); Mean Corpuscular Volume 95.3 fL (80.0-100.0); Mean Platelet Volume 9.8 fL (9.4-12.4); Platelet Count 184 K/uL (130-400); RDW Coefficient of Variation 14.7 % (11.5-14.5); RDW Standard Deviation 51.2 fL (36.4-46.3); Red Blood Count 2.99 M/uL (4.20-5.40); White Blood Count 7.19 K/ul (4.8-10.8)
[2024-04-21 06:53] LABS: BUN Creatinine Ratio 14.4 (10-20); Calcium 8.2 mg/dl (8.6-10.3); Creatinine Clr Calc Pharmacy 18.5 ml/min; Potassium 4.9 mmol/L (3.5-5.1)
--- NOTE | 2024-04-21 09:36 | Urology Progress Note ---
Date of Service April 21, 2024 Assessment & Plan (1) Hematuria: (2) Radiation cystitis: Plan We reviewed findings from surgery, specifically that there was no recurrent bladder tumor and that the bladder showed signs of radiation cystitis. Since the urine remains clear, and hemoglobin is stable, we will hold off on any additional intervention for now. She may be a candidate for hyperbaric oxygen as an outpatient. Urology will coordinate outpatient follow-up to discuss next steps. Admission and Anticipated Discharge Date Admission Date: April 16, 2024 Subjective Feeling well s/p cystoscopy and clot evacuation on 04/20/2024 Urine remains clear this morning Hemoglobin stable at 8.9. Creatinine slightly improved (1.88 down from 2.16) Having a little burning with voiding, likely from instrumentation Physical Exam Physical Exam: Well-appearing, NAD Results & Data Vital Signs (Past 12 Hours) Vital Signs Temp Pulse Pulse Pulse Resp BP Pulse Ox 04/21/24 08:12 65 04/21/24 07:35 36.4 C L 54 L 12 142/54 H 96 04/21/24 05:43 49 L 04/21/24 03:38 36.6 C 51 L 16 166/57 H 96 04/20/24 23:07 36.2 C L 51 L 16 140/50 L 96 04/20/24 21:57 51 L O2 Del Method O2 Flow Rate 04/21/24 08:12 04/21/24 07:35 Nasal Cannula 2 04/21/24 05:43 04/21/24 03:38 Nasal Cannula 2 04/20/24 23:07 Nasal Cannula 2 04/20/24 21:57 PG Care Time/CCT Total # of Minutes Spent Total Time Spent with Patient: Total time spent is greater than 50% in coordination of care (as documented) at patient's floor/unit and/or counseling patient: Coding Level of Care Code 84002 SUB INP/OBS CARE 03/03MIN Diagnoses Hematuria R31.0 Hematuria type: gross Radiation cystitis N30.40 (1) Hematuria Hematuria type: gross Qualified Code(s): R31.0 - Gross hematuria
--- NOTE | 2024-04-21 09:55 | Hospitalist Progress Note ---
Date of Service April 21, 2024 Assessment & Plan (1) Hematuria: (2) Anemia: (3) Acute on chronic respiratory failure with hypoxia: (4) (HFpEF) heart failure with preserved ejection fraction: (5) Lower back pain: (6) Graves disease: Plan Hematuria Patient with history of bladder cancer. Bleeding started 04/03/2024. 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 Scheduled for routine cystoscopy outpatient in next few weeks. Urology considering cystoscopy with possible clot evacuation and fulguration in OR later today. Primary team on board for procedure. Cardiology consulted to optimization for cystoscopy procedure in OR. - Home aspirin held since Tuesday - NPO after midnight - Continue to monitor hematuria - Cystoscopy scheduled for today Anemia Patient s/p 2 units PRBC. Required 1 unit PRBC due to Hbg of 6.8 yesterday. Current HBG is 8.9. Cardiology recommends maintaining Hgb >8.0 considering cardiac hx. - s/p 1 unit PRBC on 04/19. 3 units total since admission. - Repeat CBC tomorrow AM - If Hgb drops below 8 or patient becomes symptomatic, consider additional units PRBC Acute on Chronic Respiratory Failure with Hypoxemia Patient with baseline oxygen requirement of 3L now on 4L supplemental O2. Small bilateral pleural effusions noted on CT at admission. Seems to have overnight drops in O2 sat. No SOB, dyspnea endorsed today. Patient O2 sat 96%. - Titrate supplemental O2 to baseline 3L as tolerated by patient - Monitor for worsening respiratory symptoms and consider repeat imaging to evaluate pleural effusion progression HFpEF Increased oxygen requirement from baseline at 4L. Patient without fluid retention, significant fluid overload. Lung auscultation reveals S3 sound and systolic murmur consistent with cardiac history. Previously hyperkalemic so spironolactone was held. Current K 5.1 and stable - Continue home bumex 1 mg every other day - Hold spironolactone - Continue amiodarone 200 mg due to remote hx afib - AM BMP Lower Back Pain Patient endorsing L paraspinal "squeezing" sensation. Applied ice to the area which provided some relief. Started flexiril yesterday which patient states has been beneficial in treating discomfort. - Cyclobenzaprine 5mg QAM PRN - Apply ice, heat prn as tolerated - Tylenol prn for pain Chronic: Grave's disease: Asymptomatic; continue home PPU 100mg BID Consult: ordered PT/OT eval OT recommends home with home health PT eval pending Diet: NPO after midnight Code: Full VTE Prophylaxis: Hold chemically given acute blood loss anemia Dispo: Med/tele Admission and Anticipated Discharge Date Admission Date: April 16, 2024 Tk Mcmahon is doing well this am and reports that she is not in any acute pain or distress. Patient recently had cystoscopy with urology yesterday and large clot was evacuated and bleeding areas fulgurated. Patient reports slight irritation and burning upon urination without hematuria. Patient denies chest pain, palpitations, SOB, cough, wheeze, abdominal pain, nausea, and vomiting. Patient is afebrile and hemodynamically stable. Physical Exam Physical Exam: General: patient resting comfortably, NAD, non-toxic in appearance, answers questions appropriately. Skin: warm, dry, intact HEENT: NC/AT, anicteric sclera, conjunctiva without injection, moist mucus membranes. Heart: +S1/S2, regular, no m/r/g Lungs: equal air entry bilaterally, no rales/rhonchi/wheezes Abd: +BS, soft, NT/ND Ext: warm, no clubbing/cyanosis or edema Neuro: nonfocal, speech intact, no facial droop, moving all extremities. Results & Data Results & Data Vital Signs (Past 12 Hours) Vital Signs Temp Pulse Pulse Pulse Resp BP Pulse Ox 04/21/24 08:12 65 04/21/24 07:35 36.4 C L 54 L 12 142/54 H 96 04/21/24 05:43 49 L 04/21/24 03:38 36.6 C 51 L 16 166/57 H 96 04/20/24 23:07 36.2 C L 51 L 16 140/50 L 96 04/20/24 21:57 51 L O2 Del Method O2 Flow Rate 04/21/24 08:12 04/21/24 07:35 Nasal Cannula 2 04/21/24 05:43 04/21/24 03:38 Nasal Cannula 2 04/20/24 23:07 Nasal Cannula 2 04/20/24 21:57 Resident Activity Tracking Resident Involvement: Resident Care Provided Care Provided: Adult Hospital Medicine (1) Hematuria Hematuria type: gross Qualified Code(s): R31.0 - Gross hematuria
[2024-04-21 12:32] VITALS: BP 154/64; RESP 16; TEMP 98.1
--- NOTE | 2024-04-21 13:57 | Discharge Summary ---
Date of Service April 21, 2024 Admission HPI Per Admitting Provider 83 year old female with past medical history of HFpEF, bladder cancer, pulmonary HTN, serve mitral stenosis, graves disease, afib with RVR presenting with hematuria. Started on 04/03 and occurs every time that she voids. Some clots. History of bladder cancer. 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 Hematuria has continued with some dyspnea, which prompted her to come in today. Denies fever/chills, pelvic pain, dysuria. Note history of radiation for uterine cancer over 20 years ago. ED Course Significant for: Hg 5.3, K= 5.3, creatinine= 2.17 (baseline 1.7), EKG with nonspecific ST changes. CT A&P with Mildly distended bladder. 4.8 x 2.3 cm hyperdense focus within the dependent aspect of the bladder. S/p 1L NSS Order 2 units pRBC-> transfusing first unit at present Principal Diagnosis Hematuria in the setting of radiation cystitis Discharge Exam General: patient resting comfortably, NAD, non-toxic in appearance, answers questions appropriately. Skin: warm, dry, intact HEENT: NC/AT, anicteric sclera, conjunctiva without injection, moist mucus membranes. Heart: +S1/S2, regular, no m/r/g Lungs: equal air entry bilaterally, no rales/rhonchi/wheezes Abd: +BS, soft, NT/ND Ext: warm, no clubbing/cyanosis or edema Neuro: nonfocal, speech intact, no facial droop, moving all extremities. Discharge Data Allergies Allergy/AdvReac Type Severity Reaction Status Date / Time No Known Allergies Allergy Verified 10/15/21 13:44 Consultations 04/16/24 14:21 Consult Urology Routine 04/18/24 12:59 Consult Cardiology Routine Procedures Performed Operation Date: 04/20/24 07:00 Actual Procedures p Cystoscopy, Clot Evacuation, Fulguration - Andrew Tse MD Ordered Studies 04/16/24 14:35 CT abd pelvis wo con Stat 04/18/24 12:39 US Renal Bladder [US renal/blad retro comp] Urgent Hospital Course (1) Hematuria: (2) Anemia: (3) Acute on chronic respiratory failure with hypoxia: (4) (HFpEF) heart failure with preserved ejection fraction: (5) Lower back pain: (6) Graves disease: Total Time Total Time Spent Total Time Spent (In Minutes): See attending attestation Discharge Plan Discharge Items Patient Disposition: Home - Home Health Services Reason For Visit: HEMATURIA Discharge Diagnosis: Radiation Cystitis Activity: Per Instructions section Non-emergency contact: Primary Care Provider and Urologist Call non-emergency contact if: your symptoms worsen and your pain is not controlled Follow-up/Referrals: Yao Saab MD [Primary Care Provider] - Diet: Regular Ambulatory Orders: Complete Blood Count no Diff (Timed) Timeframe: 1 Week Location: Determined by Patient Ordered By: Gentry Cesar Attending Provider Instructions: You were admitted to [facility] due to persistent hematuria or blood in the urine in the setting of radiation cystitis. After your bladder cancer was treated with radiation, lasting effects can occur to the bladder causing it to become more friable and susceptible to injury and bleeding. While admitted, imaging showed the presence of a large clot and mild areas of bleeding in the bladder. Due to this persistent bleeding your blood counts were low and you were treated with 3 total units of packed red blood cells to help normalize the level of blood in your body. In order to treat the source of the bleeding a urological procedure called a cystoscopy was completed and this clot was evacuated and any areas of bleeding were cauterized to prevent continued bleeds. Today you were largely asymptomatic and feeling much better compared to days previous, noting only light irritation and burning upon urination, and without any bleeding. Upon discharge home health will be set up for you for home nursing and OT/PT home health through [facility]. Attached to your discharge materials is a script to get a CBC completed. Please complete this CBC to check on your blood counts, and if they continue to improve you may restart daily Aspirin with your PCP. A copy of this lab will be sent to your PCP once completed. A discharge summary will be sent to your primary care physician to ensure continuity of care. Please bring this discharge summary with you to your next office appointment so that your provider can review it at that time. Follow-up appointments: * Make a follow-up appointment with your PCP within the next week. It is very important that you follow up with them shortly after discharge from the hospital. * Expect a call from urology within the next week to set up your urology follow- up appointment, this should be set-up approximately 2-3 weeks following discharge Medications: Your medication list has been reviewed and reconciled upon discharge to ensure accuracy and continuity of care. An updated list of all your medications is included with your hospital discharge paperwork. Please review this list closely, and make note of any changes. Take your medications as instructed; do not skip a dose of your medicines. Make sure all of your doctors know every medicine you are taking (including [id number] medicines, vitamins, and supplements). Call your primary care provider before taking any new medicines (including [id number] medicines, vitamins, and supplements), because some of these may interact with your current medications, or may make your symptoms worse. Tell your primary care provider if you cannot afford your medications. CONTACT YOUR PRIMARY CARE PROVIDER if you experience any of the following: Difficulty following your treatment plan, or difficulty taking medications CALL 911 OR GO TO THE EMERGENCY DEPARTMENT if you experience any of the following: Sudden, severe abdominal pain or nausea/vomiting Severe chest pain, or chest pain that radiates (moves) to your jaw or arm Sudden, severe shortness of breath or difficulty breathing Thank you for allowing us to participate in your care. Pending Studies at Discharge: Yes Studies:: CBC to be completed 1 week from today Stand-Alone Forms: My [facility] 410 Labs, Smoking Cessation Medications and DC Order Prescriptions: Continued atorvastatin 40 mg Tablet 40 mg PO PM propylthiouracil 50 mg Tablet 100 mg PO BID spironolactone [Aldactone] 25 mg Tablet 12.5 mg PO DAILY hydralazine 10 mg tablet 10 mg PO UD PRN (Reason: Blood Pressure) Rx Instructions: per pt she takes it sort of as needed. amiodarone 200 mg tablet 200 mg PO DAILY bumetanide 1 mg tablet 1 mg PO Q OTHER DAY Rx Instructions: TAKES ONE TABLET EVERY OTHER DAY Held aspirin [Hermilo Low Dose Aspirin] 81 mg Tablet,Delayed Release (Dr/Ec) 81 mg PO QAM Hold Instructions: Resume on 04/30/24. Please hold Aspirin until CBC is completed and you have met with PCP to discuss results. Discharge Orders: Discharge Order (Routine); Ordered 04/21/24 Ordered By: Gentry Rose Admission Data Admit Date/Time: 04/16/24 17:52 Attending Provider: Peter Jose Admit Provider: Kevin,Michelle S. Primary Care Provider: Yao Saab Other Providers: Gerardo Flood; Reece Mcdonald; [facility] Supervising Physician Co-Signing Physician Notes I personally examined the patient and verified all mcduffie points of history and exam, discussed case, and agree with decision making with Dr Rose urine still not bloody. feels up to going home. urology input appreciated. Vitals noted, in general she is awake and alert pleasant no distress. HEENT normocephalic atraumatic mucous membranes moist. Breathing unlabored no accessory muscle use good effort. Skin without rashes pallor or icterus. Neuro without focal deficits. Hemoglobin noted. Hematuria/significant acute blood loss anemiarequired 3 units PRBC transfusion since admission. sp cysto and cautery- at least currently bleeding has stopped. overall stable - safe for home today. outpt PCP and urology f/u. CBC next week - probably resume asa for CAD next week as long as no recurrence of bleeding and Hgb stable. urology will f/u and coordinate next steps/hyperbaric O2 if needed, etc. Resident Activity Tracking Resident Involvement: Resident Care Provided Care Provided: Adult Hospital Medicine
--- NOTE | 2024-04-21 14:50 | Billing Data ---
Date of Service April 21, 2024 Coding Level of Care Code 75396 IN/OBS DISCH 30 MIN/LESS
[2024-04-21 15:18] VITALS: PULSE 65
== END 2024-04-21 16:43 | disposition home health service (06) | DRG 662 ==
LOC: ED 12:22 → EDINP 17:52 → 2W 20:52